=== PATIENT | female | born 1990 | race Hispanic/Latino ===

== ENCOUNTER 2023-10-04 14:32 | Emergency (ER) | payer OTHER, SELFPAY ==
[2023-10-04] VITALS (9 sets, daily range): BP systolic 123–174; BP diastolic 63–100; PULSE 96–114; RESP 13–23; TEMP 36.4; O2SAT 96–100; BMI 38.4
--- NOTE | 2023-10-04 14:47 | DI.RAD.S_ITS ---
PROCEDURE: XR CHEST 1V INDICATIONS: chest pain TECHNIQUE: One view of the chest was acquired. COMPARISON: None. FINDINGS: Surgical changes and devices: None. Lungs and pleura: An incomplete inspiratory result is noted, causing a crowded appearance to the lung markings. No focal infiltrates are seen. No pneumothorax or significant pleural effusions are seen. Mediastinum: Mediastinal contours appear normal. Heart size is normal. Bones and chest wall: No suspicious bony lesions. Overlying soft tissues appear unremarkable. IMPRESSION: Low lung volumes, without an acute abnormality seen by plain film. Dictated by: Leroy Mao M.D. on 10/04/2023 at 14:05 Approved by: Leroy Mao M.D. on 10/04/2023 at 14:06
[2023-10-04 15:14] LABS: Add Manual Diff / Slide Review NO; Basophils Absolute Auto 0 /uL (0-100); Basophils Percent Auto 0.2 % (0-2); Eosinophils Absolute Auto 100 /uL (0-450); Eosinophils Percent Auto 1.7 % (2-4); Hematocrit 32.5 % (36-46); Hemoglobin 11.6 g/dL (12.0-16.0); Lymphocytes Absolute Auto 300 /uL (1100-4500); Lymphocytes Percent Auto 11.2 % (25-40); Mean Corpuscular HGB Conc 35.7 % (30-36); Mean Corpuscular Hemoglobin 28.1 PG (26-34); Mean Corpuscular Volume 78.8 fL (80-100); Monocytes Absolute Auto 200 /uL (0-900); Monocytes Percent Auto 8.1 % (3-14); Neutrophils Absolute Auto 2400 /uL (1500-7000); Neutrophils Percent Auto 78.8 % (50-75); Platelet Count 169 X10^3/uL (150-400); Red Blood Cell Count 4.13 X10^6/uL (4.0-5.2); Red Cell Distribution Width 16.9 % (11.6-14.8); White Blood Cell Count 3.1 X10^3/uL (4.5-11.0)
--- NOTE | 2023-10-04 15:15 | ED_ITS ---
HPI - Chest Pain General Chief Complaint: Chest Pain Stated Complaint: difficulty breathing, thightness on chest Time Seen by Provider: 10/04/23 14:59 Source: patient Mode of arrival: Ambulatory Limitations: no limitations History of Present Illness HPI narrative: Patient is a 33-year-old female history of so drains, lupus Plaquenil, Raynaud's previous pericarditis with pericardial effusion presenting today with chest discomfort. She recently moved here from [place] with her who is in the [place]. She says for the last couple of days she feels like she can not take in a breath and like her chest is squeezing. It is worse when she lays flat better when she sits up. It feels similar to previous pericarditis episode. No fever or chills. Does not really hurt when she takes a deep breath but feels like can not take a deep breath She is able to pull previous records. Rheumatology note has been reviewed. She has had an elevated ESR as high as 56 in April her CRP remains at 1.0 and WBC count is around 3 which is chronic for her. She takes prednisone daily and is tapering down. Related Data Previous Rx's Medication Instructions Recorded prednisone 5 mg tablet 5 mg PO DAILY #60 tabs 10/04/23 Allergies Allergy/AdvReac Type Severity Reaction Status Date / Time No Known Drug Allergies Allergy Verified 10/04/23 14:53 Patient History Social History Smoking Status: Never smoker Smoking Status: Never smoker Substance Use Type: does not use Exam Initial Vital Signs Initial Vital Signs: Vital Signs Temperature 97.6 F 10/04/23 14:39 Pulse Rate 100 H 10/04/23 14:39 Respiratory Rate 18 10/04/23 14:39 Blood Pressure 174/100 H 10/04/23 14:39 Pulse Oximetry 100 10/04/23 14:39 Oxygen Delivery Method Room Air 10/04/23 14:39 GENERAL: Alert pleasant well-appearing 33 old female and in no acute distress. HEENT: Head atraumatic,EOMI, pupils reactive, face symmetric, moist mucous membranes CARDIOVASCULAR: Regular rate and rhythm without murmurs, rubs or gallops. RESPIRATORY: Breath sounds equal bilaterally, no wheezes rales or rhonchi. ABDOMEN: Soft, nontender. Normoactive bowel sounds all 4 quadrants. No guarding or rebound. EXTREMITIES: Normal range of motion, no clubbing or edema. Neurovascularly intact NEUROLOGICAL: Alert and oriented x4.Normal gait and speech. SKIN: Warm, dry, no laceration, no petechiae, no rashes or lesions. Scores PERC Score Age greater than or equal to 50 years: No Heart rate greater than or equal to 100 bpm: No Room Air O2 Sat less than 95%: No Unilateral leg swelling: No Recent trauma or surgery: No Hemoptysis: No Prior PE or DVT: No Hormone Use: No Total PERC Score: 0 Course Orders Ordered: ED Orders 10/04/23 14:47 XR chest 1V Stat EKG-12 Lead Stat 10/04/23 15:01 C-Reactive Protein Quant Stat Complete Blood Count AUTO DIFF Stat Comprehensive Metabolic Panel Stat ESR [Erythrocyte Sedimentation Rate] Stat Lipase Stat Magnesium Stat PTT Partial Thromboplastin Jason Stat Prothrombin Time INR Stat Troponin & CK Cardiac Panel Stat 10/04/23 15:45 Covid-19 + FLU A/B + RSV - PCR Stat Discontinued Medications Albuterol (Albuterol 2.5 Mg/3 Ml Neb (Adult)) 2.5 mg INH NOW ONE Stop: 10/04/23 15:42 Last Admin: 10/04/23 15:54 Dose: 2.5 mg Documented By: MARYANN Aspirin (Aspirin 81 Mg Chew Tab) 324 mg PO NOW ONE Stop: 10/04/23 14:48 Last Admin: 10/04/23 15:36 Dose: Not Given Documented By: RAFAT Ketorolac Tromethamine (Ketorolac 30 Mg/Ml Vial) 15 mg IV NOW ONE Stop: 10/04/23 15:42 Last Admin: 10/04/23 15:53 Dose: 15 mg Documented By: RAFAT Methylprednisolone (Methylprednisolone 125 Mg/2 Ml Vial) 125 mg IV NOW ONE Stop: 10/04/23 17:22 Last Admin: 10/04/23 17:27 Dose: 125 mg Documented By: RAFAT Vital Signs Vital signs: Vital Signs - 8 hr 10/04/23 14:39 10/04/23 15:00 10/04/23 15:04 Temperature 97.6 F Pulse Rate 100 H 100 H 98 H Respiratory Rate 18 23 Blood Pressure 174/100 H Pulse Oximetry 100 99 100 Oxygen Delivery Method Room Air Oxygen Flow Rate Fraction of Inspired Oxygen 10/04/23 15:04 10/04/23 15:30 10/04/23 15:30 Temperature Pulse Rate 99 H Respiratory Rate 16 Blood Pressure 133/76 150/68 H Pulse Oximetry 99 Oxygen Delivery Method Oxygen Flow Rate Fraction of Inspired Oxygen 10/04/23 15:54 10/04/23 16:00 10/04/23 16:00 Temperature Pulse Rate 96 H Respiratory Rate 18 13 Blood Pressure 123/63 Pulse Oximetry 99 100 Oxygen Delivery Method Room Air Oxygen Flow Rate 0 Fraction of Inspired Oxygen 21 10/04/23 16:30 10/04/23 16:30 10/04/23 17:00 Temperature Pulse Rate 110 H Respiratory Rate 16 Blood Pressure 127/75 134/79 Pulse Oximetry 96 Oxygen Delivery Method Oxygen Flow Rate Fraction of Inspired Oxygen 10/04/23 17:00 10/04/23 17:30 Temperature Pulse Rate 114 H 110 H Respiratory Rate 18 22 Blood Pressure Pulse Oximetry 97 98 Oxygen Delivery Method Oxygen Flow Rate Fraction of Inspired Oxygen MDM - Chest Pain Lab Data 10/04/23 15:01 10/04/23 15:01 Labs: Lab Results 10/04/23 10/04/23 Range/Units 15:01 15:45 WBC 3.1 L (4.5-11.0) X10^3/uL RBC 4.13 (4.0-5.2) X10^6/uL Hgb 11.6 L (12.0-16.0) g/dL Hct 32.5 L (36-46) % MCV 78.8 L (80-100) fL MCH 28.1 (26-34) PG MCHC 35.7 (30-36) % RDW 16.9 H (11.6-14.8) % Plt Count 169 (150-400) X10^3/uL Neut % (Auto) 78.8 H (50-75) % Lymph % (Auto) 11.2 L (25-40) % Ponce % (Auto) 8.1 (3-14) % Eos % (Auto) 1.7 L (2-4) % Baso % (Auto) 0.2 (0-2) % Neut # (Auto) 2400 (3893-4470) /uL Lymph # (Auto) 300 L (4793-4262) /uL Ponce # (Auto) 200 (0-900) /uL Eos # (Auto) 100 (0-450) /uL Baso # (Auto) 0 (0-100) /uL ESR 59 H (0-20) MM/HR PT 10.1 (9.4-12.5) SECONDS INR 0.9 (0.9-1.3) APTT 30 (25.1-36.5) SECONDS Sodium 138 (137-145) mmol/L Potassium 3.7 (3.4-5.1) mmol/L Chloride 107 (98-107) mmol/L Carbon Dioxide 30 (22-32) mmol/L BUN 15 (7-17) mg/dL Creatinine 0.63 (0.52-1.04) mg/dL Estimated GFR > 60 (>60) mL/min BUN/Creatinine Ratio 23.8 H (6-22) Glucose 82 (70-100) mg/dL Calcium 7.9 L (8.4-10.2) mg/dL Magnesium 1.6 (1.6-2.3) mg/dL Total Bilirubin 0.4 (0.2-1.3) mg/dL AST 32 (14-36) IU/L ALT 29 (<35) IU/L Alkaline Phosphatase 74 (38-126) U/L Total Creatine Kinase 20 L (30-135) U/L Troponin I < 0.012 (0.01-0.034) ng/mL C-Reactive Protein 1.0 (<1.0) mg/dL Total Protein 5.4 L (6.3-8.2) g/dL Albumin 2.3 L (3.5-5.0) g/dL Globulin 3.1 (1.7-4.1) g/dL Albumin/Globulin Ratio 0.7 L (1.0-2.8) Lipase 68 (23-300) U/L SARS-CoV-2 (PCR) Negative (Negative) Influenza A (RT-PCR) Flu a negative (NEGATIVE) Influenza B (RT-PCR) Flu b negative (NEGATIVE) RSV (PCR) Negative (Negative) Imaging Data Chest x-ray: Radiologist's Impression: PROCEDURE: XR CHEST 1V INDICATIONS: chest pain TECHNIQUE: One view of the chest was acquired. COMPARISON: None. FINDINGS: Surgical changes and devices: None. Lungs and pleura: An incomplete inspiratory result is noted, causing a crowded appearance to the lung markings. No focal infiltrates are seen. No pneumothorax or significant pleural effusions are seen. Mediastinum: Mediastinal contours appear normal. Heart size is normal. Bones and chest wall: No suspicious bony lesions. Overlying soft tissues appear unremarkable. IMPRESSION: Low lung volumes, without an acute abnormality seen by plain film. Dictated by: Leroy Mao M.D. on 10/04/2023 at 14:05 Approved by: Leroy Mao M.D. on 10/04/2023 at 14:06 ECG Data Interpretation: Normal sinus rhythm rate 97 AK interval 162 QRS [address] changes no AK depression no T-wave inversions no priors to compare MDM Narrative Medical decision making narrative: Patient is 73-year-old female presenting today with chest discomfort. She is significant medical history of lupus pericarditis with pericardial effusion. No fever or chills. She is not hypoxic vitals are stable. X-ray reviewed does show pneumonia Blood work reviewed: WBC count is stable at 3.1 compared to records on her phone, ESR is also stable at 59, CRP stable at 1.0, electrolytes without any abnormality creatinine function stable Patient is given Toradol and albuterol here in the ED. She actually started feeling a little bit better. Not convinced the albuterol helped her. Heart rate did increase after albuterol. Bedside ultrasound done by myself does not show any obvious pericardial effusion. I suspect that she has some sort of inflammatory process. Will increase her prednisone to see if it helps her and then to taper her back down. She does not yet primary care provider to follow-up. Pulmonary embolism considered but unlikely, low heart score Discharge Plan Departure Patient Disposition: Home Clinical Impression: Atypical chest pain Instructions: DI for Atypical Chest Pain Activity Restrictions/Additional Instructions: *You have been diagnosed with atypical *What to do: At this time I have some sort of inflammatory process happening. I do not believe it to be pericarditis. Might have some inflammation. Let us try increasing prednisone *Continue to take medications as directed Prednisone 20 mg once a day for 5 days, 15 mg a day for 5 days 10 mg once a day for 5 days and then 7 mg *Follow up with your primary care provider in 2-3 days or call [phone] *Return to ER if you should have increasing chest pain shortness of breath dizziness lightheadedness fever or any new, worsening or concerning symptoms Prescriptions: New prednisone 5 mg tablet 5 mg PO DAILY Qty: 60 0RF Rx Instructions: 20 mg once a day for 5 days, 15 mg once a day for 5 days, 10 mg once a day for 5 days Stand Alone Forms: Patient Portal/API
[2023-10-04 15:18] LABS: INR 0.9 (0.9-1.3); Prothrombin Time 10.1 SECONDS (9.4-12.5)
[2023-10-04 15:21] LABS: PTT Partial Thromboplastin Tim 30 SECONDS (25.1-36.5)
[2023-10-04 15:25] LABS: Alanine Aminotransferase 29 IU/L (<35); Albumin 2.3 g/dL (3.5-5.0); Albumin Globulin Ratio 0.7 (1.0-2.8); Alkaline Phosphatase 74 U/L (38-126); Aspartate Aminotransferase 32 IU/L (14-36); BUN Creatinine Ratio 23.8 (6-22); Bilirubin Total 0.4 mg/dL (0.2-1.3); Blood Urea Nitrogen 15 mg/dL (7-17); Calcium 7.9 mg/dL (8.4-10.2); Carbon Dioxide 30 mmol/L (22-32); Chloride 107 mmol/L (98-107); Creatine Kinase 20 U/L (30-135); Estimated Glomerular Filt Rate > 60 mL/min (>60); Globulin 3.1 g/dL (1.7-4.1); Glucose 82 mg/dL (70-100); HEMOLYSIS 16 (0-50); Lipase 68 U/L (23-300); Magnesium 1.6 mg/dL (1.6-2.3); Potassium 3.7 mmol/L (3.4-5.1); Sodium 138 mmol/L (137-145); Total Protein 5.4 g/dL (6.3-8.2)
[2023-10-04 15:32] LABS: Erythrocyte Sedimentation Rate 59 MM/HR (0-20)
[2023-10-04 15:37] LABS: Troponin I < 0.012 ng/mL (0.01-0.034)
[2023-10-04] MEDS: KETOROLAC 30 MG/ML VIAL 15 MG IV (15:53)
[2023-10-04] MEDS: ALBUTEROL 2.5 MG/3 ML NEB (ADULT) INH (15:54)
[2023-10-04 16:29] LABS: Influenza A - CEPHEID Flu A NEGATIVE (NEGATIVE); Influenza B - CEPHEID Flu B NEGATIVE (NEGATIVE); Respiratory Syncytial Virus Negative (Negative)
[2023-10-04 16:31] LABS: COVID-19 CEPHEID 4-PLEX PCR Negative (Negative)
[2023-10-04] MEDS: methylPREDNISolone 125 MG/2 ML VIAL IV (17:27)
== END 2023-10-04 17:53 | disposition home or self-care (01) ==
PROVIDERS: Emergency Provider Emergency Medicine
DX: R07.89 Other chest pain (principal); Z20.822 Contact with and (suspected) exposure to COVID-19
CPT/HCPCS: 0241U; 36415; 71045; 80053; 82550; 83690; 83735; 84484; 85025; 85610; 85651; 85730; 86140; 93005; 93010; 94640; 96374; 96375; 99284; J1885; J2930; J7613

== ENCOUNTER 2023-10-31 19:52 | Emergency (ER) | payer OTHER, SELFPAY ==
[2023-10-31] VITALS (17 sets, daily range): BP systolic 113–137; BP diastolic 54–70; PULSE 98–140; RESP 21–35; TEMP 37.6–39; O2SAT 94–98; BMI 40.6
--- NOTE | 2023-10-31 20:13 | DI.RAD.S_ITS ---
PROCEDURE: XR CHEST 1V INDICATIONS: suspected sepsis TECHNIQUE: One view of the chest was acquired. COMPARISON: [facility], CR, XR CHEST 1V, 10/04/2023, 14:51. FINDINGS: Surgical changes and devices: None. Lungs and pleura: Lungs are difficult to accurately assess due to reduced inspiratory volume that produces at least mild lung base atelectasis. Mild or early pneumonia at the lateral left lower lobe cannot be entirely excluded.. No pleural effusions or pneumothorax. Mediastinum: Mediastinal contours appear normal. Heart size is normal. Bones and chest wall: No suspicious bony lesions. Overlying soft tissues appear unremarkable. IMPRESSION: A definite consolidative pneumonia is not seen but there is prominent reduced inspiratory volume and at least mild left lower lobe atelectasis if not early inflammation in that area. Dictated by: Albaro Aguilar M.D. on 10/31/2023 at 21:35 Approved by: Albaro Aguilar M.D. on 10/31/2023 at 21:36
[2023-10-31] MEDS: IBUPROFEN 400 MG TABLET 800 MG PO (20:21)
[2023-10-31] MEDS: ACETAMINOPHEN 325 MG TABLET 975 MG PO (20:22)
[2023-10-31] MEDS: SODIUM CHLORIDE 0.9% 1,000 ML 1000 ML IV ×3 (20:40→22:26)
[2023-10-31] MEDS: ONDANSETRON 4 MG/2 ML INJ IV (20:40)
[2023-10-31 20:46] LABS: Add Manual Diff / Slide Review NO; Basophils Absolute Auto 0 /uL (0-100); Basophils Percent Auto 0.2 % (0-2); Eosinophils Absolute Auto 0 /uL (0-450); Hematocrit 33.8 % (36-46); Hemoglobin 11.5 g/dL (12.0-16.0); Lymphocytes Absolute Auto 400 /uL (1100-4500); Lymphocytes Percent Auto 5.6 % (25-40); Mean Corpuscular HGB Conc 34.1 % (30-36); Mean Corpuscular Hemoglobin 27.3 PG (26-34); Mean Corpuscular Volume 79.9 fL (80-100); Monocytes Absolute Auto 400 /uL (0-900); Monocytes Percent Auto 6.4 % (3-14); Neutrophils Absolute Auto 5600 /uL (1500-7000); Neutrophils Percent Auto 87.8 % (50-75); Platelet Count 190 X10^3/uL (150-400); Red Blood Cell Count 4.23 X10^6/uL (4.0-5.2); Red Cell Distribution Width 16.1 % (11.6-14.8); White Blood Cell Count 6.3 X10^3/uL (4.5-11.0)
--- NOTE | 2023-10-31 20:47 | PC.NURSE ---
Pt reports hx of pericardial effusion in 2021. Pt reporting pain to left upper abdomen/left chest that has been present for about one month.
--- NOTE | 2023-10-31 20:50 | PC.NURSE ---
Pt reports starting her menstrual cycle today.
[2023-10-31 20:59] LABS: Prothrombin Time 11.8 SECONDS (9.4-12.5)
[2023-10-31 21:02] LABS: PTT Partial Thromboplastin Tim 31 SECONDS (25.1-36.5)
[2023-10-31 21:03] LABS: Lactate (Lactic Acid) 0.8 mmol/L (0.7-2.1)
[2023-10-31 21:05] LABS: Alanine Aminotransferase 14 IU/L (<35); Albumin 2.4 g/dL (3.5-5.0); Albumin Globulin Ratio 0.8 (1.0-2.8); Alkaline Phosphatase 72 U/L (38-126); Aspartate Aminotransferase 25 IU/L (14-36); Bilirubin Total 0.5 mg/dL (0.2-1.3); Blood Urea Nitrogen 19 mg/dL (7-17); Calcium 7.5 mg/dL (8.4-10.2); Carbon Dioxide 23 mmol/L (22-32); Chloride 103 mmol/L (98-107); Estimated Glomerular Filt Rate > 60 mL/min (>60); Globulin 3.2 g/dL (1.7-4.1); Glucose 82 mg/dL (70-100); HEMOLYSIS 16 (0-50); Lipase 28 U/L (23-300); Potassium 4.3 mmol/L (3.4-5.1); Sodium 130 mmol/L (137-145); Total Protein 5.6 g/dL (6.3-8.2)
[2023-10-31 21:18] LABS: Influenza A - CEPHEID Flu A NEGATIVE (NEGATIVE); Influenza B - CEPHEID Flu B NEGATIVE (NEGATIVE); Respiratory Syncytial Virus Negative (Negative)
[2023-10-31 21:21] LABS: Procalcitonin 0.12 ng/mL (<0.5)
[2023-10-31 21:31] LABS: COVID-19 CEPHEID 4-PLEX PCR Negative (Negative)
--- NOTE | 2023-10-31 22:10 | ED_ITS ---
HPI - Chest Pain General Chief Complaint: Fever Stated Complaint: bloating, body aches, chest pressure Time Seen by Provider: 10/31/23 20:24 Source: patient Mode of arrival: Ambulatory Limitations: no limitations History of Present Illness HPI narrative: Patient 33-year-old female history of Sjogren's, lupus, Raynaud's with remote history of pericardial effusion presenting today with fever left upper quadrant pain and chest pain. She reports that she did not quite feel well yesterday not sure that she had a fever. However today she presents with a fever 102.2 and a heart rate of 140. She is normotensive. She has had some nausea vomiting and diarrhea. With some left upper quadrant pain. She is able to lay flat but is slightly uncomfortable it is better when she sits up. No significant cough. No painful frequent urination. No back pain. She was seen and evaluated by myself last month and diagnosed with pneumonia. She has not yet established care recently moved here from [place] has been in . Related Data Previous Rx's Medication Instructions Recorded prednisone 5 mg tablet 5 mg PO DAILY #60 tabs 10/04/23 prednisone 5 mg tablet 5 mg PO DAILY #100 tabs 11/01/23 Allergies Allergy/AdvReac Type Severity Reaction Status Date / Time No Known Drug Allergies Allergy Verified 10/31/23 20:11 Patient History Social History Smoking Status: Never smoker Smoking Status: Never smoker Substance Use Type: does not use Exam Initial Vital Signs Initial Vital Signs: Vital Signs Temperature 102.2 F H 10/31/23 19:54 Pulse Rate 140 H 10/31/23 19:54 Respiratory Rate 22 10/31/23 19:54 Blood Pressure 137/60 10/31/23 19:54 Pulse Oximetry 98 10/31/23 19:54 Oxygen Delivery Method Room Air 10/31/23 19:54 GENERAL: Alert 33-year-old female appears to not feel well HEENT: Head atraumatic,EOMI, pupils reactive, face symmetric, moist mucous membranes CARDIOVASCULAR: Tachycardic regular no murmurs RESPIRATORY: Breath sounds equal bilaterally, no wheezes rales or rhonchi. ABDOMEN: Soft, mild left upper quadrant pain no guarding no rebound EXTREMITIES: Normal range of motion, no clubbing or edema. Neurovascularly intact NEUROLOGICAL: Alert and oriented x4.Normal gait and speech. SKIN: Warm, dry, no laceration, no petechiae, no rashes or lesions. Course Orders Ordered: ED Orders 10/31/23 20:13 XR chest 1V Stat EKG-12 Lead Stat RT Consult Eval and Treat NOW 10/31/23 20:27 Covid-19 + FLU A/B + RSV - PCR Stat 10/31/23 20:34 Blood Culture Stat 10/31/23 20:36 CRP [C-Reactive Protein Quant] Stat Complete Blood Count AUTO DIFF Stat Comprehensive Metabolic Panel Stat D Dimer Stat ESR [Erythrocyte Sedimentation Rate] Stat Lactate (Lactic Acid) Stat Lipase Stat PTT Partial Thromboplastin Jason Stat Procalcitonin Stat Prothrombin Time INR Stat 10/31/23 21:17 Urine Culture Stat Urine Microscopic Stat 10/31/23 23:05 CT angio chest PE protocol Stat Discontinued Medications Acetaminophen (Acetaminophen 325 Mg Tablet) 975 mg PO NOW ONE Stop: 10/31/23 20:15 Last Admin: 10/31/23 20:22 Dose: 975 mg Documented By: SB Sodium Chloride (Normal Saline 0.9%) 1,000 mls @ 1,000 mls/hr IV BOLUS ONE Stop: 10/31/23 21:12 Last Infusion: 10/31/23 21:48 Dose: Infused Documented By: SB(2) Admin: 10/31/23 20:40 Dose: 1,000 mls/hr Documented By: SB Sodium Chloride (Normal Saline 0.9%) 1,000 mls @ 1,000 mls/hr IV BOLUS ONE Stop: 10/31/23 22:11 Last Infusion: 10/31/23 22:20 Dose: Infused Documented By: SB(2) Admin: 10/31/23 21:19 Dose: 1,000 mls/hr Documented By: SB(2) Sodium Chloride (Normal Saline 0.9%) 1,000 mls @ 1,000 mls/hr IV BOLUS ONE Stop: 10/31/23 23:17 Last Infusion: 10/31/23 23:49 Dose: Infused Documented By: Admin: 10/31/23 22:26 Dose: 1,000 mls/hr Documented By: SB(2) Ibuprofen (Ibuprofen 400 Mg Tablet) 800 mg PO NOW ONE Stop: 10/31/23 20:15 Last Admin: 10/31/23 20:21 Dose: 800 mg Documented By: MAHAD Ketorolac Tromethamine (Ketorolac 30 Mg/Ml Vial) 15 mg IV NOW ONE Stop: 10/31/23 22:19 Last Admin: 10/31/23 22:25 Dose: Not Given Documented By: MAHAD(2) Methylprednisolone (Methylprednisolone 125 Mg/2 Ml Vial) 125 mg IV NOW ONE Stop: 11/01/23 00:42 Last Admin: 11/01/23 00:48 Dose: 125 mg Ondansetron HCl (Ondansetron 4 Mg/2 Ml Inj) 4 mg IV NOW PRN PRN Reason: Nausea And Vomiting Last Admin: 10/31/23 20:40 Dose: 4 mg Documented By: MAHAD Ondansetron HCl (Ondansetron 4 Mg Odt) 4 mg SL NOW PRN PRN Reason: Nausea And Vomiting Vital Signs Vital signs: Vital Signs - 8 hr 10/31/23 20:35 10/31/23 21:00 10/31/23 21:00 Temperature Pulse Rate 133 H 122 H Respiratory Rate 28 H 28 H Blood Pressure 131/59 L Pulse Oximetry 95 Oxygen Delivery Method Room Air 10/31/23 21:14 10/31/23 21:14 10/31/23 21:15 Temperature Pulse Rate 123 H Respiratory Rate Blood Pressure 113/56 L 114/54 L Pulse Oximetry 97 Oxygen Delivery Method 10/31/23 21:15 10/31/23 21:20 10/31/23 21:20 Temperature 99.6 F 99.6 F Pulse Rate 123 H Respiratory Rate Blood Pressure Pulse Oximetry 97 Oxygen Delivery Method 10/31/23 21:30 10/31/23 21:30 10/31/23 21:45 Temperature Pulse Rate 110 H Respiratory Rate Blood Pressure 122/57 L 128/64 Pulse Oximetry 94 Oxygen Delivery Method 10/31/23 21:45 10/31/23 22:00 10/31/23 22:00 Temperature Pulse Rate 109 H 109 H Respiratory Rate Blood Pressure 128/60 Pulse Oximetry 95 96 Oxygen Delivery Method Room Air 10/31/23 22:15 10/31/23 22:15 10/31/23 22:30 Temperature Pulse Rate 116 H Respiratory Rate Blood Pressure 125/55 L 126/66 Pulse Oximetry 97 Oxygen Delivery Method 10/31/23 22:30 10/31/23 22:45 10/31/23 22:45 Temperature Pulse Rate 106 H Respiratory Rate Blood Pressure 129/63 129/63 Pulse Oximetry 94 Oxygen Delivery Method 10/31/23 22:45 10/31/23 23:00 10/31/23 23:00 Temperature Pulse Rate 100 H 99 H Respiratory Rate 26 H 25 H Blood Pressure 122/60 Pulse Oximetry 95 95 Oxygen Delivery Method Room Air Room Air 10/31/23 23:15 10/31/23 23:15 10/31/23 23:32 Temperature Pulse Rate 98 H 105 H Respiratory Rate 21 Blood Pressure 120/57 L Pulse Oximetry 95 Oxygen Delivery Method Room Air 10/31/23 23:33 10/31/23 23:33 10/31/23 23:45 Temperature Pulse Rate 104 H 100 H Respiratory Rate 30 H 35 H Blood Pressure 114/70 Pulse Oximetry 97 Oxygen Delivery Method Room Air 10/31/23 23:45 11/01/23 00:00 11/01/23 00:00 Temperature Pulse Rate 101 H Respiratory Rate 36 H Blood Pressure 127/70 126/77 Pulse Oximetry 97 Oxygen Delivery Method 11/01/23 00:16 11/01/23 00:16 11/01/23 00:30 Temperature Pulse Rate 94 H Respiratory Rate 25 H Blood Pressure 130/77 121/66 Pulse Oximetry 97 Oxygen Delivery Method Room Air 11/01/23 00:30 11/01/23 00:45 11/01/23 00:45 Temperature Pulse Rate 96 H 90 Respiratory Rate 22 22 Blood Pressure 112/55 L Pulse Oximetry 89 L 94 Oxygen Delivery Method Room Air 11/01/23 00:51 11/01/23 00:51 Temperature 98.0 F Pulse Rate 91 H Respiratory Rate 24 Blood Pressure 123/76 Pulse Oximetry 96 Oxygen Delivery Method MDM - Chest Pain Lab Data 10/31/23 20:36 10/31/23 20:36 Labs: Lab Results 10/31/23 10/31/23 10/31/23 Range/Units 20:27 20:36 21:17 WBC 6.3 (4.5-11.0) X10^3/uL RBC 4.23 (4.0-5.2) X10^6/uL Hgb 11.5 L (12.0-16.0) g/dL Hct 33.8 L (36-46) % MCV 79.9 L (80-100) fL MCH 27.3 (26-34) PG MCHC 34.1 (30-36) % RDW 16.1 H (11.6-14.8) % Plt Count 190 (150-400) X10^3/uL Neut % (Auto) 87.8 H (50-75) % Lymph % (Auto) 5.6 L (25-40) % Bell % (Auto) 6.4 (3-14) % Eos % (Auto) 0.0 L (2-4) % Baso % (Auto) 0.2 (0-2) % Neut # (Auto) 5600 (7790-3619) /uL Lymph # (Auto) 400 L (9233-1037) /uL Bell # (Auto) 400 (0-900) /uL Eos # (Auto) 0 (0-450) /uL Baso # (Auto) 0 (0-100) /uL ESR 84 H (0-20) MM/HR PT 11.8 (9.4-12.5) SECONDS INR 1.0 (0.9-1.3) APTT 31 (25.1-36.5) SECONDS D-Dimer 3505 H (<500) ng/ml Sodium 130 L (137-145) mmol/L Potassium 4.3 (3.4-5.1) mmol/L Chloride 103 (98-107) mmol/L Carbon Dioxide 23 (22-32) mmol/L BUN 19 H (7-17) mg/dL Creatinine 0.95 (0.52-1.04) mg/dL Estimated GFR > 60 (>60) mL/min BUN/Creatinine Ratio 20.0 (6-22) Glucose 82 (70-100) mg/dL Lactate 0.8 (0.7-2.1) mmol/L Calcium 7.5 L (8.4-10.2) mg/dL Total Bilirubin 0.5 (0.2-1.3) mg/dL AST 25 (14-36) IU/L ALT 14 (<35) IU/L Alkaline Phosphatase 72 (38-126) U/L C-Reactive Protein 3.3 H (<1.0) mg/dL Total Protein 5.6 L (6.3-8.2) g/dL Albumin 2.4 L (3.5-5.0) g/dL Globulin 3.2 (1.7-4.1) g/dL Albumin/Globulin Ratio 0.8 L (1.0-2.8) Lipase 28 (23-300) U/L Procalcitonin 0.12 (<0.5) ng/mL Urine RBC 5-10/hpf H (0-5/HPF) Urine WBC 5-10/hpf H (0-5/HPF) Ur Squamous Epith Cells 1-5 /hpf (0-5/HPF) Urine Bacteria Moderate (10-30) H (None) Ur Culture Indicated? Specimen cultured SARS-CoV-2 (PCR) Negative (Negative) Influenza A (RT-PCR) Flu a negative (NEGATIVE) Influenza B (RT-PCR) Flu b negative (NEGATIVE) RSV (PCR) Negative (Negative) Point of Care Testing Test Results Negative Urine Dip Bedside Urine Glucose Negative Bedside Urine Bilirubin - Negative Bedside Urine Ketone - Negative Urine Specific [place] 1.020 Bedside Urine Occult Blood +++ Bedside Urine pH 6.0 Bedside Urine Protein +++ 300 Bedside Urine Urobilinogen - Negative Bedside Urine Nitrite - Negative Bedside Urine Leukocytes +/- 15 Esterase Imaging Data Chest x-ray: Radiologist's Impression: PROCEDURE: XR CHEST 1V INDICATIONS: suspected sepsis TECHNIQUE: One view of the chest was acquired. COMPARISON: [facility], , XR CHEST 1V, 10/04/2023, 14:51. FINDINGS: Surgical changes and devices: None. Lungs and pleura: Lungs are difficult to accurately assess due to reduced inspiratory volume that produces at least mild lung base atelectasis. Mild or early pneumonia at the lateral left lower lobe cannot be entirely excluded.. No pleural effusions or pneumothorax. Mediastinum: Mediastinal contours appear normal. Heart size is normal. Bones and chest wall: No suspicious bony lesions. Overlying soft tissues appear unremarkable. IMPRESSION: A definite consolidative pneumonia is not seen but there is prominent reduced inspiratory volume and at least mild left lower lobe atelectasis if not early inflammation in that area. Dictated by: Albaro Aguilar M.D. on 10/31/2023 at 21:35 Approved by: Albaro Aguilar M.D. on 10/31/2023 at 21:36 CT scan - chest: Radiologist's Impression: PROCEDURE: CT ANGIO CHEST PE PROTOCOL INDICATIONS: very high dimer hypoxia and lupus, Left sided pain TECHNIQUE: After the administration of intravenous contrast, 2 mm thick sections acquired from the pulmonary apices to the posterior costophrenic angles. 3-dimensional maximum intensity projection (MIP) coronal and sagittal reformats were then acquired through the thorax. For radiation dose reduction, the following was used: automated exposure control, adjustment of mA and/or kV according to patient size. COMPARISON: None. FINDINGS: Image quality: Diagnostic. Pulmonary arteries: Pulmonary arteries are normal in size, and demonstrate no intraluminal filling defects to suggest central pulmonary embolism. Lower Neck: No enlarged lymph nodes. Thyroid: No thyroid nodules which require sonographic follow up, per consensus guidelines. Axillae: No enlarged lymph nodes. Chest Wall: Unremarkable. Bones: Unremarkable. Lungs and Pleura: No pneumothorax or pleural effusions. No consolidation or suspicious nodules. There does appear to be bilateral mild atelectasis. Heart: Heart size is normal. Definite small to moderate pericardial effusion measuring up to 1.8 cm in maximal transverse dimension. Thoracic Vessels: No aortic aneurysm. Mediastinum and Nereida: No enlarged lymph nodes. Esophagus: No wall thickening. No hiatal hernia. Upper Abdomen: Visualized upper abdomen solid organs and bowel loops appear normal. IMPRESSION: No pulmonary embolus. Small to moderate pericardial effusion measuring up to 1.8 cm in maximal thickness. Mild bilateral atelectasis posteriorly. Dictated by: Albaro Aguilar M.D. on 10/31/2023 at 23:48 ECG Data Interpretation: Sinus tachycardia rate 130 WI interval 134 QRS 60 QTC [address] changes no electrical trans MDM Narrative Medical decision making narrative: Patient 33-year-old female history of lupus Sjogren's and Raynaud's with pericardial effusion presents today with sepsis. She is tachycardic heart rate 140 temperature 102?. She is having some left-sided chest pain and abdominal pain. Blood work has been reviewed no leukocytosis or anemia, electrolytes stable, lactate 0.8, procalcitonin to CRP is elevated today 3 point previously 1.0, ESR elevated today 84, previously 59, D-dimer elevated 3505 Imaging reviewed chest x-ray is negative, CT does show small to moderate pericardial effusion maximal thickness 1.8 cm Patient presents today sepsis tachycardic elevated temperature 102?. Vitals improved with Tylenol Motrin and fluids. She received 3 L of fluid overall doing much better. I suspect that ESR CRP are elevated secondary to inflammatory response. She has a negative troponin no concern for myocarditis. Dimer elevated CT does show small to moderate pericardial effusion without septal deviation or electric all trans on EKG. Difficult to tell if this new vs old pericardial effusion. She is having some left-sided pain I think it is new reaccumulation but a small amount. I think it is likely reactive rather than infectious. At this time I do not see need for antibiotics. 12:30 Dr. Johnson on-call cardiology updated on patient's symptoms history and test results. Does not think it is unreasonable to keep her for an echo although she was going to be supportive care. 12:35 Dr. Monroy on-call hospitalist updated patient's symptoms cardiology recommendations, states that is unlikely the fluid needs to be drained supportive care only likely viral does not need to be admitted. Recommends increasing prednisone Long discussion with family patient and . They report that he is supposed to travel to [place] tomorrow has been is to be deployed for a month. All of her providers are in [place]. She is overall feeling better vitals have improved. They are given copies of lab reports and imaging. She is feeling better. Seems reasonable to increase prednisone and discharged. qSOFA (Quick SOFA) Score for Sepsis from [email or web address] on 11/01/2023 All calculations should be rechecked by clinician prior to use RESULT SUMMARY: 1 points qSOFA Score Not high risk If sepsis is still suspected, continue to monitor, evaluate, and initiate treatment as appropriate, including serial qSOFA assessments. INPUTS: Altered mental status ?> 0 = No Respiratory rate >=2 ?> 1 = Yes Systolic BP <=00 ?> 0 = No Discharge Plan Departure Patient Disposition: Home Clinical Impression: Viral illness, Pericardial effusion without cardiac tamponade Instructions: Cardiac Tamponade, DI for Viral Syndrome Activity Restrictions/Additional Instructions: *You have been diagnosed with viral illness pericardial effusion *What to do: At this time you are negative for influenza COVID and RSV however you likely have another viral illness. CT today does show small to moderate pericardial effusion. At this time you do need an echocardiogram need to be monitored. Please call your providers in [place] while you are there for close follow-up *Continue to take medications as directed Prednisone 40 mg once a day for 3 days, 30 mg once a day for 3 days, 20 mg once a day for 3 days and 10 mg once a day for 3 days then resume your regular does *Follow up with your primary care provider in 2-3 days or call [phone] *Return to ER if you should have increasing chest pain shortness of breath dizziness lightheadedness [or] any new, worsening or concerning symptoms Prescriptions: New prednisone 5 mg tablet 5 mg PO DAILY Qty: 100 0RF Rx Instructions: 40 mg once a day for 3 days, 30 mg once a day for 3 days, 20 mg once a day for 3 days, 10 mg once a day for 3 days, 5 mg once a day No Action prednisone 5 mg tablet 5 mg PO DAILY Qty: 60 0RF Rx Instructions: 20 mg once a day for 5 days, 15 mg once a day for 5 days, 10 mg once a day for 5 days Referrals: Miscellaneous,Doctor, MD [Primary Care Provider] - Stand Alone Forms: Patient Portal/API
[2023-10-31 22:28] LABS: Bacteria Urine Moderate (10-30); Culture Indicated Urine Specimen Cultured; RBC Urine 5-10/HPF (0-5/HPF); Squamous Epithelial Cell Urine 1-5 /HPF (0-5/HPF); WBC Urine 5-10/HPF (0-5/HPF)
[2023-10-31 22:33] LABS: C-Reactive Protein Quant 3.3 mg/dL (<1.0)
[2023-10-31 22:35] LABS: D Dimer 3505 ng/ml (<500)
[2023-10-31 22:42] LABS: Erythrocyte Sedimentation Rate 84 MM/HR (0-20)
--- NOTE | 2023-10-31 23:05 | DI.CT.S_ITS ---
PROCEDURE: CT ANGIO CHEST PE PROTOCOL INDICATIONS: very high dimer hypoxia and lupus, Left sided pain TECHNIQUE: After the administration of intravenous contrast, 2 mm thick sections acquired from the pulmonary apices to the posterior costophrenic angles. 3-dimensional maximum intensity projection (MIP) coronal and sagittal reformats were then acquired through the thorax. For radiation dose reduction, the following was used: automated exposure control, adjustment of mA and/or kV according to patient size. COMPARISON: None. FINDINGS: Image quality: Diagnostic. Pulmonary arteries: Pulmonary arteries are normal in size, and demonstrate no intraluminal filling defects to suggest central pulmonary embolism. Lower Neck: No enlarged lymph nodes. Thyroid: No thyroid nodules which require sonographic follow up, per consensus guidelines. Axillae: No enlarged lymph nodes. Chest Wall: Unremarkable. Bones: Unremarkable. Lungs and Pleura: No pneumothorax or pleural effusions. No consolidation or suspicious nodules. There does appear to be bilateral mild atelectasis. Heart: Heart size is normal. Definite small to moderate pericardial effusion measuring up to 1.8 cm in maximal transverse dimension. Thoracic Vessels: No aortic aneurysm. Mediastinum and Nereida: No enlarged lymph nodes. Esophagus: No wall thickening. No hiatal hernia. Upper Abdomen: Visualized upper abdomen solid organs and bowel loops appear normal. IMPRESSION: No pulmonary embolus. Small to moderate pericardial effusion measuring up to 1.8 cm in maximal thickness. Mild bilateral atelectasis posteriorly. Dictated by: Albaro Aguilar M.D. on 10/31/2023 at 23:48 Approved by: Albaro Aguilar M.D. on 10/31/2023 at 23:51
[2023-11-01] VITALS: BP 126/77; PULSE 101; RESP 36; O2SAT 97
[2023-11-01 00:16] VITALS: BP 130/77; PULSE 94; RESP 25; O2SAT 97
[2023-11-01 00:30] VITALS: BP 121/66; PULSE 96; RESP 22; O2SAT 89
[2023-11-01 00:45] VITALS: BP 112/55; PULSE 90; RESP 22; O2SAT 94
[2023-11-01] MEDS: methylPREDNISolone 125 MG/2 ML VIAL IV (00:48)
[2023-11-01 00:51] VITALS: BP 123/76; PULSE 91; RESP 24; TEMP 36.7; O2SAT 96
== END 2023-11-01 01:07 | disposition home or self-care (01) ==
PROVIDERS: Emergency Provider Emergency Medicine
DX: I31.39 Other pericardial effusion (noninflammatory) (principal); B34.9 Viral infection, unspecified; R10.12 Left upper quadrant pain; R50.9 Fever, unspecified; Z20.822 Contact with and (suspected) exposure to COVID-19
CPT/HCPCS: 0241U; 36415; 71045; 71275; 80053; 81003; 81015; 81025; 83605; 83690; 84145; 85025; 85379; 85610; 85651; 85730; 86140; 87040; 87086; 93005; 93010; 96361; 96374; 96375; 99284; J2405; J2930; Q9967

== ENCOUNTER 2024-10-29 16:31 | Emergency (ER) | payer BC, OTHER, SELFPAY ==
[2024-10-29 16:59] VITALS: BP 168/93; PULSE 114; RESP 16; TEMP 37.6; O2SAT 99; BMI 40.8
[2024-10-29 18:35] LABS: RBC Urine 5-10/HPF (0-5/HPF); Urine Volume 10mL (spun); WBC Urine None Seen (0-5/HPF)
[2024-10-29 18:36] LABS: Amorphous Sediment Urine 1+; Bacteria Urine Few (2-10); Culture Indicated Urine Cult Not Indicated; Squamous Epithelial Cell Urine 0-1 /HPF (0-5/HPF)
--- NOTE | 2024-10-29 19:34 | ED.GENADULT ---
HPI - General Adult General Chief complaint: Abdominal Pain Stated complaint: abd and back px, vomiting Time Seen by Provider: 10/29/24 18:11 Source: patient Mode of arrival: Family Vehicle History of Present Illness HPI narrative: 34-year-old female. History of rheumatoid arthritis. Is on medications for this. Is here for evaluation of was initially describes as right-sided abdominal pain but she states is more generalized abdominal pain/upper abdominal pain and back pain. She has had symptoms like this in the past. They have been intermittent. Her current symptoms has been present for over 24 hours. No vomiting. No change in bowel habits. No urinary symptoms. No prior abdominal surgeries. She states she has been evaluated for this in the past. She was not remember she was ever had a CT scan in the past. Related Data Previous Rx's Medication Instructions Recorded prednisone 5 mg tablet 5 mg PO DAILY #60 tabs 10/04/23 prednisone 5 mg tablet 5 mg PO DAILY #100 tabs 11/01/23 Allergies Allergy/AdvReac Type Severity Reaction Status Date / Time No Known Drug Allergies Allergy Verified 10/31/23 20:11 Review of Systems Review of Systems ROS Unobtainable: All systems reviewed & are unremarkable except as noted in HPI and below Patient History Social History Smoking Status: Never smoker Smoking Status: Never smoker Exam Initial Vital Signs Initial Vital Signs: Vital Signs Temperature 99.7 F H 10/29/24 16:59 Pulse Rate 114 H 10/29/24 16:59 Respiratory Rate 16 10/29/24 16:59 Blood Pressure 168/93 H 10/29/24 16:59 Pulse Oximetry 99 10/29/24 16:59 Oxygen Delivery Method Room Air 10/29/24 16:59 Const General: cooperative, comfortable and No ill appearing HENMT Head: normal to inspection and normocephalic Resp Effort & Inspection: normal respiratory effort Auscultation: clear to auscultation bilaterally Cardio Rate: tachycardic Rhythm: regular rhythm GI Inspection: non-distended Palpation: soft, No firm, No guarding, No rigid and tender Skin General: no rashes or lesions noted Neuro General: patient alert, patient awake and moves all extremities Extrem General: capillary refill normal Course Orders Ordered: ED Orders 10/29/24 17:22 Urine Culture Stat Urine Microscopic Stat 10/29/24 19:35 CT abdomen pelvis w con Stat 10/29/24 19:47 Complete Blood Count AUTO DIFF Stat Comprehensive Metabolic Panel Stat Lipase Stat Discontinued Medications Ketorolac Tromethamine (Ketorolac 30 Mg/Ml Vial) 15 mg IV NOW ONE Stop: 10/29/24 21:38 Last Admin: 10/29/24 21:44 Dose: 15 mg Documented By: GITA Ondansetron HCl (Ondansetron 4 Mg/2 Ml Inj) 4 mg IV NOW PRN PRN Reason: Nausea And Vomiting Ondansetron HCl (Ondansetron 4 Mg Odt) 4 mg PO NOW PRN PRN Reason: Nausea And Vomiting Ondansetron HCl (Ondansetron 4 Mg Odt Prepack) 1 bottle MISC DIRECTED ONE Stop: 10/29/24 21:38 Last Admin: 10/29/24 21:44 Dose: 1 bottle Documented By: GITA Vital Signs Vital signs: Vital Signs - 8 hr 10/29/24 16:59 10/29/24 22:04 Temperature 99.7 F H 99.8 F H Pulse Rate 114 H 118 H Respiratory Rate 16 18 Blood Pressure 168/93 H 171/91 H Pulse Oximetry 99 100 Oxygen Delivery Method Room Air Room Air Medical Decision Making Lab Data Lab results reviewed: Yes I reviewed the patient's lab results. 10/29/24 19:47 10/29/24 19:47 Labs: Lab Results 10/29/24 10/29/24 Range/Units 17:22 19:47 WBC 6.6 (4.5-11.0) X10^3/uL RBC 4.44 (4.0-5.2) X10^6/uL Hgb 12.0 (12.0-16.0) g/dL Hct 35.1 L (36-46) % MCV 79.2 L (80-100) fL MCH 27.1 (26-34) PG MCHC 34.3 (30-36) % RDW 14.7 (11.6-14.8) % Plt Count 227 (150-400) X10^3/uL Neut % (Auto) 86.1 H (50-75) % Lymph % (Auto) 5.4 L (25-40) % [place] % (Auto) 7.8 (3-14) % Eos % (Auto) 0.3 L (2-4) % Baso % (Auto) 0.4 (0-2) % Neut # (Auto) 5700 (6451-8045) /uL Lymph # (Auto) 400 L (3554-8631) /uL [place] # (Auto) 500 (0-900) /uL Eos # (Auto) 0 (0-450) /uL Baso # (Auto) 0 (0-100) /uL Sodium 136 L (137-145) mmol/L Potassium 4.3 (3.4-5.1) mmol/L Chloride 108 H (98-107) mmol/L Carbon Dioxide 24 (22-32) mmol/L BUN 18 H (7-17) mg/dL Creatinine 1.30 H (0.52-1.04) mg/dL Estimated GFR 55 L (>60) mL/min BUN/Creatinine Ratio 13.8 (6-22) Glucose 97 (70-100) mg/dL Calcium 8.6 (8.4-10.2) mg/dL Total Bilirubin 0.4 (0.2-1.3) mg/dL AST 32 (14-36) IU/L ALT 23 (<35) IU/L Alkaline Phosphatase 77 (38-126) U/L Total Protein 6.6 (6.3-8.2) g/dL Albumin 3.6 (3.5-5.0) g/dL Globulin 3.0 (1.7-4.1) g/dL Albumin/Globulin Ratio 1.2 (1.0-2.8) Lipase 25 (23-300) U/L Urine RBC 5-10/hpf H (0-5/HPF) Urine WBC None seen (0-5/HPF) Ur Squamous Epith Cells 0-1 /hpf (0-5/HPF) Amorphous Sediment 1+ Urine Bacteria Few (2-10) H (None) Ur Culture Indicated? Cult not indicated Vol Urine Centrifuged 10ml (spun) Point of Care Testing Test Results Negative Urine Dip Bedside Urine Glucose Negative Bedside Urine Bilirubin - Negative Bedside Urine Ketone - Negative Urine Specific [place] 1.015 Bedside Urine Occult Blood ++ Bedside Urine pH 6.5 Bedside Urine Protein +++ 300 Bedside Urine Urobilinogen - Negative Bedside Urine Nitrite - Negative Bedside Urine Leukocytes - Negative Esterase Point of care testing: Point of Care Testing Test Results Negative Urine Dip Bedside Urine Glucose Negative Bedside Urine Bilirubin - Negative Bedside Urine Ketone - Negative Urine Specific [place] 1.015 Bedside Urine Occult Blood ++ Bedside Urine pH 6.5 Bedside Urine Protein +++ 300 Bedside Urine Urobilinogen - Negative Bedside Urine Nitrite - Negative Bedside Urine Leukocytes - Negative Esterase Imaging Data CT scan - abdomen/pelvis: Radiologist's Impression: PROCEDURE: CT ABDOMEN PELVIS W CON INDICATIONS: RLQ abd pain TECHNIQUE: After the administration of intravenous contrast, axial sections acquired from the lung bases to the pubic symphysis. Coronal and sagittal reformats were performed. For radiation dose reduction, the following was used: automated exposure control, adjustment of mA and/or kV according to patient size. COMPARISON: None. FINDINGS: Image quality: Diagnostic Lower chest: Unremarkable lung bases Normal heart size. Liver: Unremarkable Gallbladder and biliary system: Unremarkable, nondilated Pancreas: No ductal dilation Spleen: Borderline enlarged at 13 to 14 cm. Adrenals: No discrete nodules Kidneys: Moderate to severe enlargement of the right kidney, with moderate hydronephrosis and urothelial wall thickening there is no significant obstructing calcified stone. Ureter wall thickening particularly noted in the mid aspect. The left kidney and left ureter are unremarkable. Vessels and lymph nodes: There are enlarged right pelvic and retroperitoneal lymph nodes, for example right common iliac measures 1 cm in short axis. Main portal vein appears patent. No abdominal aortic aneurysm. Bowel and peritoneum: No small bowel obstruction. No pathologic ascites. There are few colonic diverticula. The appendix appears nondilated. The tip is surrounded by inflammatory changes, located near the ureter. Body wall: Unremarkable Pelvis: Bladder appears unremarkable. Reproductive organs are unremarkable on limited CT assessment. Bones: Unremarkable IMPRESSION: Moderate to severe enlargement of the right kidney with urothelial wall thickening and surrounding inflammatory fat stranding. Ureter wall thickening particularly noted at the mid aspect. There is no obstructing calcified stone. The degree of edema is out of proportion for a recently passed stone. Correlate urinalysis or pyelonephritis. Differential also includes narrowing at the distal ureter or UVJ. Mildly enlarged right pelvic and retroperitoneal lymph nodes are present, possibly reactive. Short interval imaging follow-up is recommended to ensure resolution. Urologic follow-up is recommended if persistent. Borderline enlarged spleen. Other findings above. MDM Narrative Medical decision making narrative: Patient was have benign abdominal exam. Urinalysis is not consistent with a UTI. CT scan does show right-sided hydro nephrosis and also right-sided hydroureter but no definite ureteral stone. Patient was never had a ureteral stone. We did discuss the possibility of a recently passed stone. Rest of her CT scan is unremarkable. I do not think that she was pyelonephritis. A urine culture was pending at the time of her discharge and she understands that we will contact her if we need to start her on antibiotics based on this. I did recommend that she follow-up with a urologist. She was given information for this. No indication for emergent surgical consultation. No indication for antibiotics currently. She was given return precautions and follow-up instructions. She expressed understanding and agreement. Discharge Plan Departure Patient Disposition: Home Clinical Impression: Hydronephrosis, Abdominal pain Instructions: DI for Abdominal Pain-Adult Activity Restrictions/Additional Instructions: I do recommend that you consider taking a laxative to help with establishing a regular bowel regimen. On Thursday you do need to contact your primary doctor for follow-up. [place]. You do need follow-up with Urology based on the CT scan today and what appears to be swelling of the right kidney. This can be done as an outpatient. Return to the emergency department for new symptoms. Prescriptions: No Action prednisone 5 mg tablet 5 mg PO DAILY Qty: 100 0RF Rx Instructions: 40 mg once a day for 3 days, 30 mg once a day for 3 days, 20 mg once a day for 3 days, 10 mg once a day for 3 days, 5 mg once a day prednisone 5 mg tablet 5 mg PO DAILY Qty: 60 0RF Rx Instructions: 20 mg once a day for 5 days, 15 mg once a day for 5 days, 10 mg once a day for 5 days Referrals: Provider,Isamar SANTIAGO [Primary Care Provider] - Eliezer Fontanez MD [Physician] - Stand Alone Forms: Patient Portal/API/Survey, Work Release Note
[2024-10-29 19:57] LABS: Add Manual Diff / Slide Review NO; Basophils Absolute Auto 0 /uL (0-100); Basophils Percent Auto 0.4 % (0-2); Eosinophils Absolute Auto 0 /uL (0-450); Eosinophils Percent Auto 0.3 % (2-4); Hematocrit 35.1 % (36-46); Lymphocytes Absolute Auto 400 /uL (1100-4500); Lymphocytes Percent Auto 5.4 % (25-40); Mean Corpuscular HGB Conc 34.3 % (30-36); Mean Corpuscular Hemoglobin 27.1 PG (26-34); Mean Corpuscular Volume 79.2 fL (80-100); Monocytes Absolute Auto 500 /uL (0-900); Monocytes Percent Auto 7.8 % (3-14); Neutrophils Absolute Auto 5700 /uL (1500-7000); Neutrophils Percent Auto 86.1 % (50-75); Platelet Count 227 X10^3/uL (150-400); Red Blood Cell Count 4.44 X10^6/uL (4.0-5.2); Red Cell Distribution Width 14.7 % (11.6-14.8); White Blood Cell Count 6.6 X10^3/uL (4.5-11.0)
[2024-10-29 20:07] LABS: Alanine Aminotransferase 23 IU/L (<35); Albumin 3.6 g/dL (3.5-5.0); Albumin Globulin Ratio 1.2 (1.0-2.8); Alkaline Phosphatase 77 U/L (38-126); Aspartate Aminotransferase 32 IU/L (14-36); BUN Creatinine Ratio 13.8 (6-22); Bilirubin Total 0.4 mg/dL (0.2-1.3); Blood Urea Nitrogen 18 mg/dL (7-17); Calcium 8.6 mg/dL (8.4-10.2); Carbon Dioxide 24 mmol/L (22-32); Chloride 108 mmol/L (98-107); Estimated Glomerular Filt Rate 55 mL/min (>60); Glucose 97 mg/dL (70-100); HEMOLYSIS < 15 (0-50); Lipase 25 U/L (23-300); Potassium 4.3 mmol/L (3.4-5.1); Sodium 136 mmol/L (137-145); Total Protein 6.6 g/dL (6.3-8.2)
[2024-10-29] MEDS: ONDANSETRON 4 MG ODT PREPACK 1 BOTTLE MISC (21:44)
[2024-10-29] MEDS: KETOROLAC 30 MG/ML VIAL 15 MG IV (21:44)
[2024-10-29 22:04] VITALS: BP 171/91; PULSE 118; RESP 18; TEMP 37.7; O2SAT 100
== END 2024-10-29 22:06 | disposition home or self-care (01) ==
PROVIDERS: Emergency Medicine; Emergency Provider Emergency Medicine
DX: N13.30 Unspecified hydronephrosis (principal); R10.31 Right lower quadrant pain
CPT/HCPCS: 36415; 74177; 80053; 81003; 81015; 81025; 83690; 85025; 87086; 96374; 99284; J1885; Q9967

== ENCOUNTER 2024-11-10 11:32 | Emergency (ER) | payer BC, OTHER, SELFPAY ==
[2024-11-10] VITALS (11 sets, daily range): BP systolic 155–188; BP diastolic 73–103; PULSE 82–99; RESP 18–28; TEMP 37.1; O2SAT 99–100; BMI 40.8
--- NOTE | 2024-11-10 11:57 | EKG_ITS ---
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
--- NOTE | 2024-11-10 11:57 | DI.RAD.S_ITS ---
PROCEDURE: XR CHEST 1V INDICATIONS: chest pain TECHNIQUE: One view of the chest was acquired. COMPARISON: None. FINDINGS: Surgical changes and devices: None. Lungs and pleura: Lungs are clear. No pleural effusions or pneumothorax. Mediastinum: Mediastinal contours appear normal. Heart size is normal. Bones and chest wall: No suspicious bony lesions. Overlying soft tissues appear unremarkable. IMPRESSION: No acute cardiopulmonary abnormality is seen. Dictated by: Patrice Smith M.D. on 11/10/2024 at 12:19 Approved by: Patrice Smith M.D. on 11/10/2024 at 12:19
[2024-11-10 12:34] LABS: Add Manual Diff / Slide Review NO; Basophils Absolute Auto 0 /uL (0-100); Basophils Percent Auto 0.4 % (0-2); Eosinophils Absolute Auto 100 /uL (0-450); Eosinophils Percent Auto 2.7 % (2-4); Hematocrit 26.6 % (36-46); Hemoglobin 9.1 g/dL (12.0-16.0); Lymphocytes Absolute Auto 400 /uL (1100-4500); Lymphocytes Percent Auto 15.2 % (25-40); Mean Corpuscular HGB Conc 34.3 % (30-36); Mean Corpuscular Hemoglobin 26.6 PG (26-34); Mean Corpuscular Volume 77.6 fL (80-100); Monocytes Absolute Auto 400 /uL (0-900); Monocytes Percent Auto 13.4 % (3-14); Neutrophils Absolute Auto 2000 /uL (1500-7000); Neutrophils Percent Auto 68.3 % (50-75); Platelet Count 260 X10^3/uL (150-400); Red Blood Cell Count 3.43 X10^6/uL (4.0-5.2); Red Cell Distribution Width 14.2 % (11.6-14.8); White Blood Cell Count 2.9 X10^3/uL (4.5-11.0)
--- NOTE | 2024-11-10 12:42 | ED_ITS ---
HPI - Chest Pain General Chief Complaint: Chest Pain Stated Complaint: chest and neck px radiates down spine Time Seen by Provider: 11/10/24 12:42 Source: patient Mode of arrival: Wheelchair Limitations: no limitations History of Present Illness HPI narrative: 34-year-old female past medical history of hypertension and stroke secondary to this according to the patient, Presents to the ED from home for evaluation of chest pain. States that she feels like it radiates to her midthoracic back, states it is worse with movement, that she did take her medication for her blood pressure earlier today but still complaining of elevated blood pressure, systolic 170s. Given this she decided come into the ED for further evaluation treatment. She denies any symptoms such as headache visual disturbances seizure-like activity shortness of breath fever chills nausea vomiting abdominal pain or any other GI/ symptoms time. Not on any blood thinners Related Data Previous Rx's Medication Instructions Recorded prednisone 5 mg tablet 5 mg PO DAILY #60 tabs 10/04/23 prednisone 5 mg tablet 5 mg PO DAILY #100 tabs 11/01/23 cyclobenzaprine 10 mg tablet 10 mg PO Q12H 5 days #10 tabs 11/10/24 Allergies Allergy/AdvReac Type Severity Reaction Status Date / Time No Known Drug Allergies Allergy Verified 10/31/23 20:11 Review of Systems Review of Systems Narrative: General: Denies fever, chills, weight loss HEENT: Positive headache, denies eye drainage, eye irritation, head trauma, sore throat, voice change Cardiovascular: Positive chest pain, denies palpitations, shortness of breath, tachycardia Respiratory: Denies any shortness of breath, cough, wheeze, stridor GI/: Positive abdominal pain, denies nausea, vomiting, diarrhea, bright red blood per rectum, melanotic stools, urinary frequency, urinary retention, dysuria, hematuria MSK: Denies any joint pain, muscle pains, swelling Skin: Denies any rashes, lesions, discoloration Neuro: Denies any headache, lightheadedness, dizziness, fainting, weakness Psych: Denies SI/HI Patient History Social History Smoking Status: Never smoker Smoking Status: Never smoker Exam Narrative Exam Narrative: General: Cooperative, comfortable, well-developed, not in acute distress HEENT: Normocephalic, atraumatic, PERRLA, normal sclera, eyelids normal, Neck: Active full range of motion, atraumatic Chest: Normal to inspection, negative crepitus, no overlying erythema ecchymosis Respiratory: Normal respiratory effort, not in acute respiratory distress, clear to auscultation bilaterally negative cough, wheeze, tachypnea, rhonchi, rales Cardiology: Regular rate rhythm negative gallop, murmur, rubs GI/: Normal to inspection, soft, nonrigid, no tenderness to palpation, exam deferred MSK: Full range of active range of motion of all 4 extremities, atraumatic Skin: No rashes lesions noted Neuro: Alert awake oriented x3, moves all 4 extremities spontaneously, cranial nerves intact, able to answer all questions appropriately follows commands appropriately Psych: Cooperative, negative suicidal or homicidal ideations Initial Vital Signs Initial Vital Signs: Vital Signs Temperature 98.7 F 11/10/24 11:44 Pulse Rate 99 H 11/10/24 11:44 Respiratory Rate 18 11/10/24 11:44 Blood Pressure 177/103 H 11/10/24 11:44 Pulse Oximetry 100 11/10/24 11:44 Oxygen Delivery Method Room Air 11/10/24 11:44 Course Orders Ordered: ED Orders 11/10/24 11:57 XR chest 1V Stat EKG-12 Lead Stat 11/10/24 12:11 Complete Blood Count AUTO DIFF Stat Comprehensive Metabolic Panel Stat Lipase Stat Magnesium Stat NT-proBNP (BNP-Adult 18+) Stat PTT Partial Thromboplastin Jason Stat Prothrombin Time INR Stat Troponin & CK Cardiac Panel Stat 11/10/24 12:53 CT angio chest abdomen pelvis Stat Discontinued Medications Aspirin (Aspirin 81 Mg Chew Tab) 324 mg PO NOW ONE Stop: 11/10/24 11:58 Last Admin: 11/10/24 12:57 Dose: Not Given Documented By: LEWIS Cyclobenzaprine HCl (Cyclobenzaprine 10 Mg Tablet) 10 mg PO NOW ONE Stop: 11/10/24 14:07 Last Admin: 11/10/24 14:12 Dose: 10 mg Documented By: RENETTA Dexamethasone (Dexamethasone 10 Mg/Ml Vial) 10 mg IV NOW ONE Stop: 11/10/24 12:54 Last Admin: 11/10/24 13:08 Dose: 10 mg Documented By: RENETTA Diphenhydramine HCl (Diphenhydramine 50 Mg/Ml Vial) 25 mg IV NOW ONE Stop: 11/10/24 12:54 Last Admin: 11/10/24 13:05 Dose: 25 mg Documented By: RENETTA Sodium Chloride (Normal Saline 0.9%) 1,000 mls @ 1,000 mls/hr IV BOLUS ONE Stop: 11/10/24 14:44 Last Admin: 11/10/24 14:03 Dose: 1,000 mls/hr Documented By: RENETTA Metoclopramide HCl (Metoclopramide 10 Mg/2 Ml Inj) 10 mg IV NOW ONE Stop: 11/10/24 12:54 Last Admin: 11/10/24 13:05 Dose: 10 mg Documented By: RENETTA Vital Signs Vital signs: Vital Signs - 8 hr 11/10/24 11:44 Temperature 98.7 F Pulse Rate 99 H Respiratory Rate 18 Blood Pressure 177/103 H Pulse Oximetry 100 Oxygen Delivery Method Room Air MDM - Chest Pain Differential Diagnosis Differential diagnosis: Likely other (ACS, pneumonia, electrolyte abnormality) Lab Data 11/10/24 12:11 11/10/24 12:11 Labs: Lab Results 11/10/24 Range/Units 12:11 WBC 2.9 L (4.5-11.0) X10^3/uL RBC 3.43 L (4.0-5.2) X10^6/uL Hgb 9.1 L (12.0-16.0) g/dL Hct 26.6 L (36-46) % MCV 77.6 L (80-100) fL MCH 26.6 (26-34) PG MCHC 34.3 (30-36) % RDW 14.2 (11.6-14.8) % Plt Count 260 (150-400) X10^3/uL Neut % (Auto) 68.3 (50-75) % Lymph % (Auto) 15.2 L (25-40) % [place] % (Auto) 13.4 (3-14) % Eos % (Auto) 2.7 (2-4) % Baso % (Auto) 0.4 (0-2) % Neut # (Auto) 2000 (6668-7769) /uL Lymph # (Auto) 400 L (0102-5680) /uL [place] # (Auto) 400 (0-900) /uL Eos # (Auto) 100 (0-450) /uL Baso # (Auto) 0 (0-100) /uL PT 10.5 (9.4-12.5) SECONDS INR 0.9 (0.9-1.3) APTT 39 H (25.1-36.5) SECONDS Sodium 138 (137-145) mmol/L Potassium 4.0 (3.4-5.1) mmol/L Chloride 109 H (98-107) mmol/L Carbon Dioxide 24 (22-32) mmol/L BUN 17 (7-17) mg/dL Creatinine 0.95 (0.52-1.04) mg/dL Estimated GFR > 60 (>60) mL/min BUN/Creatinine Ratio 17.9 (6-22) Glucose 82 (70-100) mg/dL Calcium 8.6 (8.4-10.2) mg/dL Magnesium 1.2 L (1.6-2.3) mg/dL Total Bilirubin 0.2 (0.2-1.3) mg/dL AST 25 (14-36) IU/L ALT 15 (<35) IU/L Alkaline Phosphatase 59 (38-126) U/L Total Creatine Kinase 27 L (30-135) U/L Troponin I < 0.012 (0.01-0.034) ng/mL NT-Pro-B Natriuret Pep 1590 H (<125) pg/mL Total Protein 6.2 L (6.3-8.2) g/dL Albumin 3.1 L (3.5-5.0) g/dL Globulin 3.1 (1.7-4.1) g/dL Albumin/Globulin Ratio 1.0 (1.0-2.8) Lipase 39 (23-300) U/L Urine Dip Bedside Urine Glucose Negative Bedside Urine Bilirubin - Negative Bedside Urine Ketone - Negative Urine Specific [place] 1.015 Bedside Urine Occult Blood +++ Bedside Urine pH 6.0 Bedside Urine Protein +++ 300 Bedside Urine Urobilinogen - Negative Bedside Urine Nitrite - Negative Bedside Urine Leukocytes - Negative Esterase Imaging Data Chest x-ray: Radiologist's Impression: [address] [address] XRay Report Signed Patient: Todd Chance MR#: [id number] : 1990 Acct:[id number] Age/Sex: 34 / F Date of Service: 11/10/24 Loc: ED Accession Number: [id number] Procedure: XR chest 1V Ordering Provider: Joey Milligan D.O. PROCEDURE: XR CHEST 1V INDICATIONS: chest pain TECHNIQUE: One view of the chest was acquired. COMPARISON: None. FINDINGS: Surgical changes and devices: None. Lungs and pleura: Lungs are clear. No pleural effusions or pneumothorax. Mediastinum: Mediastinal contours appear normal. Heart size is normal. Bones and chest wall: No suspicious bony lesions. Overlying soft tissues appear unremarkable. IMPRESSION: No acute cardiopulmonary abnormality is seen. CTA chest abd pelvis: Radiologist's Impression: [place] [address] CT Scan Report Signed Patient: Todd Chance MR#: [id number] : 1990 Acct:[id number] Age/Sex: 34 / F Date of Service: 11/10/24 Loc: ED Accession Number: [id number] Procedure: CT angio chest abdomen pelvis Ordering Provider: Joey Milligan D.O. PROCEDURE: CT ANGIO CHEST ABDOMEN PELVIS INDICATIONS: chest pain and abd pain TECHNIQUE: Precontrast 5 mm thick sections acquired from the lung apices to the iliac crests. After the administration of intravenous contrast, 2.5 mm thick sections again acquired from the lung apices to the iliac crests. Maximum intensity projection (MIP) oblique sagittal and coronal reformats were then acquired. For radiation dose reduction, the following was used: automated exposure control. COMPARISON: None. FINDINGS: Image quality: Diagnostic. AORTA: No aortic aneurysm. No acute aortic syndrome. CHEST: Lower Neck: No enlarged lymph nodes. Thyroid: No thyroid nodules which require sonographic evaluation. Axillae: No enlarged lymph nodes. Chest Wall: Unremarkable. Lungs and Pleura: No pneumothorax or pleural effusions. No consolidation or suspicious nodules. Heart: Heart size is normal. No pericardial effusion. Thoracic Vessels: Pulmonary arteries demonstrate normal size. Mediastinum and [place]: No enlarged lymph nodes. Esophagus: No wall thickening. No hiatal hernia. ABDOMEN: Liver: No solid mass. Gallbladder: No radiopaque gallstones or wall thickening. Biliary ducts: No biliary dilation. Pancreas: No ductal dilation. Spleen: Size is within normal limits. Adrenal Glands: No adrenal nodules. Kidneys and Ureters: There is cortical striation of the kidneys. Focal fat stranding surrounds the right ureter. Stomach and Bowel: Normal colonic caliber, without significant wall thickening. Peritoneum: No abnormal intraperitoneal fluid. No free air. Ventral Wall: No hernia. Abdominal Nodes: No retroperitoneal or mesenteric adenopathy by size criteria. Prominent retroperitoneal lymph nodes, which are likely reactive. Vessels: Inferior vena cava is normal in size. PELVIS: Pelvic Organs: Unremarkable. Bladder: Unremarkable. Pelvic Nodes: No enlarged lymph nodes. Miscellaneous: No inguinal hernias are seen. Bones: Unremarkable. IMPRESSION: No evidence of acute aortic syndrome or aneurysm. Suspected bilateral pyelonephritis, without abscess. Correlate with urinalysis. ECG Data Interpretation: EKG interpreted ED physician sinus 84 beats per minute QTC [address] changes no STEMI MDM Narrative Medical decision making narrative: 34-year-old female with history of hypertension presents to the emergency department for evaluation of chest pain hypertension as well as back pain. States that this started this has been ongoing and intermittent for the past several weeks, however she states that normally she gets a headache neck pain, however today the pain started in her chest and radiate up and down her back. She describes it as pressure. She states that moving does make it worse. No trauma no falls not on any blood thinners. Patient states that she did take her antihypertensives at home prior to arrival. She denies any visual disturbances at this time. Patient had lab work imaging performed here in the emergency department, was noted that patient had anemia at 9.1, however patient not complaining of any vaginal bleeding discharge, patient with MCV microcytic therefore more likely might iron deficient anemia, instructed patient to follow up with primary care in regards to this. CTA chest abdomen and pelvis without any acute findings, patient's symptoms more likely musculoskeletal in nature had resolution of symptoms of her neck pain after cyclobenzaprine. 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 Patient with a heart score 0. Strict return precautions given she verbalized understanding of this and agrees to being discharged home with outpatient follow up Discharge Plan Departure Patient Disposition: Home Clinical Impression: Chest pain, Neck pain Instructions: DI for Chest Pain Activity Restrictions/Additional Instructions: Please follow up with primary care and Cardiology in outpatient setting Please read the discharge instructions sheet carefully and bring all papers to all doctor follow-up visits, as it may contain information that your doctor may want to see. Disease processes change and evolve, if your symptoms worsen or if you develop any new symptoms that are concerning to you please return for evaluation. Your evaluation today does not show any evidence of any life- threatening/serious illnesses requiring admission to the hospital or surgery. Please follow-up with your doctor for re-evaluation in approximately 1 day. Seek immediate medical attention for any worrisome symptoms. *If you do not have a primary care provider please contact the [facility] Resource line at [phone]. They will ask some questions about your medical history and help get you set up with a doctor in the community. Prescriptions: New cyclobenzaprine 10 mg tablet 10 mg PO Q12H 5 Days Qty: 10 0RF No Action prednisone 5 mg tablet 5 mg PO DAILY Qty: 100 0RF Rx Instructions: 40 mg once a day for 3 days, 30 mg once a day for 3 days, 20 mg once a day for 3 days, 10 mg once a day for 3 days, 5 mg once a day prednisone 5 mg tablet 5 mg PO DAILY Qty: 60 0RF Rx Instructions: 20 mg once a day for 5 days, 15 mg once a day for 5 days, 10 mg once a day for 5 days Referrals: Miscellaneous,Doctor, MD [Primary Care Provider] - Stand Alone Forms: Patient Portal/API/Survey
[2024-11-10 12:44] LABS: INR 0.9 (0.9-1.3); Prothrombin Time 10.5 SECONDS (9.4-12.5)
[2024-11-10 12:47] LABS: PTT Partial Thromboplastin Tim 39 SECONDS (25.1-36.5)
[2024-11-10 12:50] LABS: Alanine Aminotransferase 15 IU/L (<35); Albumin 3.1 g/dL (3.5-5.0); Alkaline Phosphatase 59 U/L (38-126); Aspartate Aminotransferase 25 IU/L (14-36); BUN Creatinine Ratio 17.9 (6-22); Bilirubin Total 0.2 mg/dL (0.2-1.3); Blood Urea Nitrogen 17 mg/dL (7-17); Calcium 8.6 mg/dL (8.4-10.2); Carbon Dioxide 24 mmol/L (22-32); Chloride 109 mmol/L (98-107); Creatine Kinase 27 U/L (30-135); Estimated Glomerular Filt Rate > 60 mL/min (>60); Globulin 3.1 g/dL (1.7-4.1); Glucose 82 mg/dL (70-100); HEMOLYSIS < 15 (0-50); Lipase 39 U/L (23-300); Magnesium 1.2 mg/dL (1.6-2.3); Sodium 138 mmol/L (137-145); Total Protein 6.2 g/dL (6.3-8.2)
--- NOTE | 2024-11-10 12:53 | DI.CT.S_ITS ---
PROCEDURE: CT ANGIO CHEST ABDOMEN PELVIS INDICATIONS: chest pain and abd pain TECHNIQUE: Precontrast 5 mm thick sections acquired from the lung apices to the iliac crests. After the administration of intravenous contrast, 2.5 mm thick sections again acquired from the lung apices to the iliac crests. Maximum intensity projection (MIP) oblique sagittal and coronal reformats were then acquired. For radiation dose reduction, the following was used: automated exposure control. COMPARISON: None. FINDINGS: Image quality: Diagnostic. AORTA: No aortic aneurysm. No acute aortic syndrome. CHEST: Lower Neck: No enlarged lymph nodes. Thyroid: No thyroid nodules which require sonographic evaluation. Axillae: No enlarged lymph nodes. Chest Wall: Unremarkable. Lungs and Pleura: No pneumothorax or pleural effusions. No consolidation or suspicious nodules. Heart: Heart size is normal. No pericardial effusion. Thoracic Vessels: Pulmonary arteries demonstrate normal size. Mediastinum and [place]: No enlarged lymph nodes. Esophagus: No wall thickening. No hiatal hernia. ABDOMEN: Liver: No solid mass. Gallbladder: No radiopaque gallstones or wall thickening. Biliary ducts: No biliary dilation. Pancreas: No ductal dilation. Spleen: Size is within normal limits. Adrenal Glands: No adrenal nodules. Kidneys and Ureters: There is cortical striation of the kidneys. Focal fat stranding surrounds the right ureter. Stomach and Bowel: Normal colonic caliber, without significant wall thickening. Peritoneum: No abnormal intraperitoneal fluid. No free air. Ventral Wall: No hernia. Abdominal Nodes: No retroperitoneal or mesenteric adenopathy by size criteria. Prominent retroperitoneal lymph nodes, which are likely reactive. Vessels: Inferior vena cava is normal in size. PELVIS: Pelvic Organs: Unremarkable. Bladder: Unremarkable. Pelvic Nodes: No enlarged lymph nodes. Miscellaneous: No inguinal hernias are seen. Bones: Unremarkable. IMPRESSION: No evidence of acute aortic syndrome or aneurysm. Suspected bilateral pyelonephritis, without abscess. Correlate with urinalysis. Dictated by: Patrice Smith M.D. on 11/10/2024 at 14:08 Approved by: Patrice Smith M.D. on 11/10/2024 at 14:13
[2024-11-10 13:00] LABS: NT-proBNP (BNP-Adult 18+) 1590 pg/mL (<125); Troponin I < 0.012 ng/mL (0.01-0.034)
[2024-11-10] MEDS: diphenhydrAMINE 50 MG/ML VIAL 25 MG IV (13:05)
[2024-11-10] MEDS: METOCLOPRAMIDE 10 MG/2 ML INJ IV (13:05)
[2024-11-10] MEDS: DEXAMETHASONE 10 MG/ML VIAL IV (13:08)
[2024-11-10] MEDS: SODIUM CHLORIDE 0.9% 1,000 ML 1000 ML IV (14:03)
[2024-11-10] MEDS: CYCLOBENZAPRINE 10 MG TABLET PO (14:12)
== END 2024-11-10 15:04 | disposition home or self-care (01) ==
PROVIDERS: Emergency Provider Student in an Organized Health Care Education/Training Program
DX: R07.9 Chest pain, unspecified (principal); M54.2 Cervicalgia; M54.6 Pain in thoracic spine; I10 Essential (primary) hypertension; Z86.73 Personal history of transient ischemic attack (TIA), and cerebral infarction without residual deficits; R79.89 Other specified abnormal findings of blood chemistry
CPT/HCPCS: 36415; 71045; 71275; 74174; 80053; 81003; 82550; 83690; 83735; 83880; 84484; 85025; 85610; 85730; 93005; 96361; 96374; 96375; 99284; J1100; J1200; J2765; Q9967

== ENCOUNTER 2024-11-21 23:23 | Emergency (ER) | payer BC, OTHER, SELFPAY ==
[2024-11-21 23:28] VITALS: BP 166/78; PULSE 98; RESP 18; TEMP 36.6; O2SAT 99; BMI 40.9
--- NOTE | 2024-11-21 23:32 | EKG_ITS ---
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
--- NOTE | 2024-11-21 23:32 | DI.RAD.S_ITS ---
PROCEDURE: XR CHEST 1V INDICATIONS: chest pain TECHNIQUE: One view of the chest was acquired. COMPARISON: [facility], CR, XR CHEST 1V, 11/10/2024, 11:54. [facility], CR, XR CHEST 1V, 10/31/2023, 21:00. FINDINGS: Surgical changes and devices: None. Lungs and pleura: Lungs are clear. No pleural effusions or pneumothorax. Mediastinum: Mediastinal contours appear normal. Heart size is normal. Bones and chest wall: No suspicious bony lesions. Overlying soft tissues appear unremarkable. IMPRESSION: No acute cardiopulmonary abnormality is seen. Approved by: Rad Motta M.D. on 11/21/2024 at 23:56
[2024-11-22] VITALS (11 sets, daily range): BP systolic 145–167; BP diastolic 69–86; PULSE 72–87; RESP 12–25; O2SAT 94–99
[2024-11-22 00:53] LABS: Add Manual Diff / Slide Review NO; Basophils Absolute Auto 0 /uL (0-100); Basophils Percent Auto 0.4 % (0-2); Eosinophils Absolute Auto 100 /uL (0-450); Eosinophils Percent Auto 1.5 % (2-4); Hematocrit 28.3 % (36-46); Hemoglobin 9.7 g/dL (12.0-16.0); Lymphocytes Absolute Auto 300 /uL (1100-4500); Lymphocytes Percent Auto 9.1 % (25-40); Mean Corpuscular HGB Conc 34.3 % (30-36); Mean Corpuscular Hemoglobin 26.6 PG (26-34); Mean Corpuscular Volume 77.5 fL (80-100); Monocytes Absolute Auto 300 /uL (0-900); Monocytes Percent Auto 9.4 % (3-14); Neutrophils Absolute Auto 2900 /uL (1500-7000); Neutrophils Percent Auto 79.6 % (50-75); Platelet Count 186 X10^3/uL (150-400); Red Blood Cell Count 3.65 X10^6/uL (4.0-5.2); Red Cell Distribution Width 15.2 % (11.6-14.8); White Blood Cell Count 3.6 X10^3/uL (4.5-11.0)
[2024-11-22 00:58] LABS: INR 0.9 (0.9-1.3); Prothrombin Time 10.3 SECONDS (9.4-12.5)
[2024-11-22 01:01] LABS: PTT Partial Thromboplastin Tim 40 SECONDS (25.1-36.5)
[2024-11-22 01:02] LABS: Alanine Aminotransferase 16 IU/L (<35); Albumin Globulin Ratio 0.9 (1.0-2.8); Alkaline Phosphatase 71 U/L (38-126); Aspartate Aminotransferase 29 IU/L (14-36); BUN Creatinine Ratio 13.1 (6-22); Bilirubin Total 0.3 mg/dL (0.2-1.3); Blood Urea Nitrogen 18 mg/dL (7-17); Calcium 8.2 mg/dL (8.4-10.2); Carbon Dioxide 26 mmol/L (22-32); Chloride 108 mmol/L (98-107); Creatine Kinase 30 U/L (30-135); Estimated Glomerular Filt Rate 52 mL/min (>60); Globulin 3.4 g/dL (1.7-4.1); Glucose 96 mg/dL (70-100); HEMOLYSIS < 15 (0-50); Lipase 27 U/L (23-300); Magnesium 1.5 mg/dL (1.6-2.3); Potassium 4.2 mmol/L (3.4-5.1); Sodium 137 mmol/L (137-145); Total Protein 6.4 g/dL (6.3-8.2)
[2024-11-22] MEDS: ASPIRIN 81 MG CHEW TAB 324 MG PO (01:12)
[2024-11-22 01:14] LABS: NT-proBNP (BNP-Adult 18+) 1110 pg/mL (<125); Troponin I < 0.012 ng/mL (0.01-0.034)
--- NOTE | 2024-11-22 02:50 | ED.CHESTPAIN ---
HPI - Chest Pain General Chief Complaint: Chest Pain Stated Complaint: headache, vomiting, pressure on chest Time Seen by Provider: 11/22/24 02:17 Source: patient Mode of arrival: Ambulatory History of Present Illness HPI narrative: Patient is a 34-year-old female history of Sjogren's, lupus, Raynaud's rheumatoid arthritis presenting today with ongoing headache in nausea. She reports he was sensitive to light and noise she does not typically get migraines or headaches. She really can not keep anything down she has been trying to take Tylenol and ibuprofen as needed for pain but truly just not working. No numbness tingling or weakness. No fever or neck pain. She was actually seen and evaluated here 11/10/2024 for chest pain. She would full workup including CT angio which was negative. She was noted to be mildly anemic. She was actually scheduled to see a mangle tender cloth and a couple of weeks. She reports that she has not really having any sort of chest pain now she continues to have an ongoing rash but really complaining of headache today. Related Data Previous Rx's Medication Instructions Recorded prednisone 5 mg tablet 5 mg PO DAILY #60 tabs 10/04/23 prednisone 5 mg tablet 5 mg PO DAILY #100 tabs 11/01/23 ondansetron 4 mg disintegrating 4 mg PO Q8H PRN nausea and 11/22/24 tablet vomiting #10 tabs Allergies Allergy/AdvReac Type Severity Reaction Status Date / Time No Known Drug Allergies Allergy Verified 10/31/23 20:11 Patient History Social History Smoking Status: Never smoker Smoking Status: Never smoker Exam Initial Vital Signs Initial Vital Signs: Vital Signs Temperature 97.9 F 11/21/24 23:28 Pulse Rate 98 H 11/21/24 23:28 Respiratory Rate 18 11/21/24 23:28 Blood Pressure 166/78 H 11/21/24 23:28 Pulse Oximetry 99 11/21/24 23:28 Oxygen Delivery Method Room Air 11/21/24 23:28 GENERAL: 34-year-old female appears to be sensitive to light HEENT: Head atraumatic,EOMI, pupils reactive, face symmetric, moist mucous membranes NECK: No meningeal signs CARDIOVASCULAR: Regular rate and rhythm without murmurs, rubs or gallops. RESPIRATORY: Breath sounds equal bilaterally, no wheezes rales or rhonchi. ABDOMEN: Soft, nontender. Normoactive bowel sounds all 4 quadrants. No guarding or rebound. EXTREMITIES: Normal range of motion, no clubbing or edema. Neurovascularly intact NEUROLOGICAL: Alert and oriented x4.Normal gait and speech. Cranial nerves II through XII grossly intact. SKIN: Warm, dry, no laceration, no petechiae, no rashes or lesions. Course Orders Ordered: Discontinued Medications Aspirin (Aspirin 81 Mg Chew Tab) 324 mg PO NOW ONE Stop: 11/21/24 23:33 Last Admin: 11/22/24 01:12 Dose: 324 mg Documented By: MAHAD Sodium Chloride (Normal Saline 0.9%) 1,000 mls @ 1,000 mls/hr IV BOLUS ONE Stop: 11/22/24 04:00 Last Infusion: 11/22/24 04:24 Dose: Infused Documented By: Admin: 11/22/24 03:08 Dose: 1,000 mls/hr Documented By: ANGELITA Acetaminophen (Ofirmev) 1,000 mg in 100 mls @ 400 mls/hr IV NOW ONE Stop: 11/22/24 04:22 Last Infusion: 11/22/24 05:36 Dose: Infused Documented By: Admin: 11/22/24 04:21 Dose: 400 mls/hr Documented By: GITA Ketorolac Tromethamine (Ketorolac 30 Mg/Ml Vial) 15 mg IV NOW ONE Stop: 11/22/24 03:02 Last Admin: 11/22/24 03:08 Dose: 15 mg Documented By: ANGELITA Ondansetron HCl (Ondansetron 4 Mg/2 Ml Inj) 4 mg IV NOW ONE Stop: 11/22/24 03:02 Last Admin: 11/22/24 03:08 Dose: 4 mg Documented By: ANGELITA Vital Signs Vital signs: Vital Signs - 8 hr 11/21/24 23:28 Temperature 97.9 F Pulse Rate 98 H Respiratory Rate 18 Blood Pressure 166/78 H Pulse Oximetry 99 Oxygen Delivery Method Room Air MDM - Chest Pain Lab Data 11/22/24 00:40 11/22/24 00:40 Labs: Lab Results 11/22/24 Range/Units 00:40 WBC 3.6 L (4.5-11.0) X10^3/uL RBC 3.65 L (4.0-5.2) X10^6/uL Hgb 9.7 L (12.0-16.0) g/dL Hct 28.3 L (36-46) % MCV 77.5 L (80-100) fL MCH 26.6 (26-34) PG MCHC 34.3 (30-36) % RDW 15.2 H (11.6-14.8) % Plt Count 186 (150-400) X10^3/uL Neut % (Auto) 79.6 H (50-75) % Lymph % (Auto) 9.1 L (25-40) % [place] % (Auto) 9.4 (3-14) % Eos % (Auto) 1.5 L (2-4) % Baso % (Auto) 0.4 (0-2) % Neut # (Auto) 2900 (8715-3402) /uL Lymph # (Auto) 300 L (2165-6593) /uL [place] # (Auto) 300 (0-900) /uL Eos # (Auto) 100 (0-450) /uL Baso # (Auto) 0 (0-100) /uL PT 10.3 (9.4-12.5) SECONDS INR 0.9 (0.9-1.3) APTT 40 H (25.1-36.5) SECONDS Sodium 137 (137-145) mmol/L Potassium 4.2 (3.4-5.1) mmol/L Chloride 108 H (98-107) mmol/L Carbon Dioxide 26 (22-32) mmol/L BUN 18 H (7-17) mg/dL Creatinine 1.37 H (0.52-1.04) mg/dL Estimated GFR 52 L (>60) mL/min BUN/Creatinine Ratio 13.1 (6-22) Glucose 96 (70-100) mg/dL Calcium 8.2 L (8.4-10.2) mg/dL Magnesium 1.5 L (1.6-2.3) mg/dL Total Bilirubin 0.3 (0.2-1.3) mg/dL AST 29 (14-36) IU/L ALT 16 (<35) IU/L Alkaline Phosphatase 71 (38-126) U/L Total Creatine Kinase 30 (30-135) U/L Troponin I < 0.012 (0.01-0.034) ng/mL NT-Pro-B Natriuret Pep 1110 H (<125) pg/mL Total Protein 6.4 (6.3-8.2) g/dL Albumin 3.0 L (3.5-5.0) g/dL Globulin 3.4 (1.7-4.1) g/dL Albumin/Globulin Ratio 0.9 L (1.0-2.8) Lipase 27 (23-300) U/L Imaging Data CT scan - head: Radiologist's Impression: PROCEDURE: CT HEAD/BRAIN WO CON INDICATIONS: worst headache of life TECHNIQUE: Noncontrast 4.5 mm thick angled axial sections acquired from the foramen magnum to the vertex, with coronal and sagittal reformats. For radiation dose reduction, the following was used: automated exposure control, adjustment of mA and/or kV according to patient size. COMPARISON: None. FINDINGS: Image quality: Diagnostic CSF spaces: Basal cisterns are patent. Lateral ventricles are symmetric. Brain: No acute hemorrhage. No gross loss of blackwell-white differentiation Craniofacial structures: No significant paranasal sinus opacity. IMPRESSION: No acute intracranial pathology. No significant discrepancy from the preliminary report. Dictated by: Tunde Phillips M.D. on 11/22/2024 at 8:53 ECG Data Attestation: I personally reviewed and interpreted this ECG as follows: Prior ECG tracings: available for review Interpretation: Normal sinus rhythm rate 98 DE interval 152 QRS 68 QTC [address] changes similar to prior MDM Narrative Medical decision making narrative: Patient is a 34-year-old female history of multiple medical issues presenting today with headache nausea vomiting. Has not typically get headaches. Neurologically she is intact head CT has been reviewed without any abnormality. She was given Toradol fluids and Zofran feeling a little bit better but still having some pain although she was able to rest now. She was given IV Tylenol as well and ultimately feeling better. Blood work has been reviewed overall appears stable she was some leukopenia WBCs 3.6 previously 2.9 anemia is stable hemoglobin 9 0.7/28.3 previously 9.1/26.6 He was a little dehydrated with a creatinine of 1.37 previously 0.9 Troponin is negative, BNP 1110 previously 1590 On exam she does not appear fluid overloaded most likely dehydrated. EKGs reviewed no acute ischemia Overall I suspect migraine/headache. Complaining of some chest pain for me but mostly headache. she had a full chest pain workup 1 week ago cardiac labs today appear stable EKG does not show any changes. At this time she has a rheumatology appointment coming up later this month feels okay to go home Discharge Plan Departure Patient Disposition: Home Clinical Impression: Headache Instructions: DI for Headache Activity Restrictions/Additional Instructions: *You have been diagnosed with headache *What to do: At this time increase fluids tolerated *Continue to take medications as directed Zofran 4 mg every 8 hours if needed for nausea or vomiting *Follow up with your primary care provider in 2-3 days or call [phone] *Return to ER if you should have worsening headache chest pain shortness of breath tingling weakness [or] any new, worsening or concerning symptoms Prescriptions: New ondansetron 4 mg tablet,disintegrating 4 mg PO Q8H PRN (Reason: nausea and vomiting) Qty: 10 0RF No Action prednisone 5 mg tablet 5 mg PO DAILY Qty: 100 0RF Rx Instructions: 40 mg once a day for 3 days, 30 mg once a day for 3 days, 20 mg once a day for 3 days, 10 mg once a day for 3 days, 5 mg once a day prednisone 5 mg tablet 5 mg PO DAILY Qty: 60 0RF Rx Instructions: 20 mg once a day for 5 days, 15 mg once a day for 5 days, 10 mg once a day for 5 days Referrals: Miscellaneous,Doctor, MD [Primary Care Provider] - Stand Alone Forms: Patient Portal/API/Survey, Work Release Note
--- NOTE | 2024-11-22 03:01 | DI.CT.S_ITS ---
PROCEDURE: CT HEAD/BRAIN WO CON INDICATIONS: worst headache of life TECHNIQUE: Noncontrast 4.5 mm thick angled axial sections acquired from the foramen magnum to the vertex, with coronal and sagittal reformats. For radiation dose reduction, the following was used: automated exposure control, adjustment of mA and/or kV according to patient size. COMPARISON: None. FINDINGS: Image quality: Diagnostic CSF spaces: Basal cisterns are patent. Lateral ventricles are symmetric. Brain: No acute hemorrhage. No gross loss of blackwell-white differentiation Craniofacial structures: No significant paranasal sinus opacity. IMPRESSION: No acute intracranial pathology. No significant discrepancy from the preliminary report. Dictated by: Tunde Phillips M.D. on 11/22/2024 at 8:53 Approved by: Tunde Phillips M.D. on 11/22/2024 at 8:54
[2024-11-22] MEDS: SODIUM CHLORIDE 0.9% 1,000 ML 1000 ML IV (03:08)
[2024-11-22] MEDS: ONDANSETRON 4 MG/2 ML INJ IV (03:08)
[2024-11-22] MEDS: KETOROLAC 30 MG/ML VIAL 15 MG IV (03:08)
--- NOTE | 2024-11-22 03:16 | PC.NURSE ---
Pt ambulatory to restroom with one person standby, then to CT via wheel chair with public address technician.
[2024-11-22] MEDS: ACETAMINOPHEN IV 1,000 MG/100 ML VIAL 400 MG IV (04:21)
== END 2024-11-22 05:38 | disposition home or self-care (01) ==
PROVIDERS: Emergency Provider Emergency Medicine
DX: R51.9 Headache, unspecified (principal); R11.0 Nausea; D64.9 Anemia, unspecified; R07.9 Chest pain, unspecified
CPT/HCPCS: 36415; 70450; 71045; 80053; 82550; 83690; 83735; 83880; 84484; 85025; 85610; 85730; 93005; 96361; 96365; 96375; 99284; J0131; J1885; J2405

== ENCOUNTER 2024-11-29 11:30 | Emergency (ER) | payer MEDICARE, OTHER, SELFPAY ==
[2024-11-29 11:37] VITALS: BP 171/79; PULSE 100; RESP 16; TEMP 36.6; O2SAT 97; BMI 40.2
--- NOTE | 2024-11-29 14:16 | ED.SKABFB ---
HPI - Skin/Abscess/Foreign Bdy <Courtney Blanco PA-C - Last Filed: 11/29/24 20:15> General Chief complaint: Skin/Abscess/Foreign Body Stated complaint: face swelling/redness, feels tight/sore/hot Time Seen by Provider: 11/29/24 13:35 History of Present Illness HPI narrative: Patient states that she has had facial redness and rash since April of 2024, however the swelling worsened since yesterday. Patient does endorse eating more salty foods over the weekend. Patient notes that her swelling does increase when she eats salty foods. Patient states that her face feels swollen, tight and somewhat dry and itchy. No shortness of breath, chest pain, wheezing, nausea, vomiting, abdominal pain. No mucosal involvement. Patient states that the rash is also spreading to other parts of her body such as the trunk. Patient is on Lupkynis for the lupus. Patient is not on prednisone or other medications. Patient states that she stopped prednisone in August, suspecting that it was contributing to the facial rash. However, the rash is not improved since cessation of prednisone. Patient was seen in the ED last week for a headache, had slightly worsening kidney function from priors. Patient has an appointment with a new labor mediator for next week. Patient also has a PCP appointment scheduled for later in the month. Related Data Previous Rx's Medication Instructions Recorded prednisone 5 mg tablet 5 mg PO DAILY #60 tabs 10/04/23 prednisone 5 mg tablet 5 mg PO DAILY #100 tabs 11/01/23 ondansetron 4 mg disintegrating 4 mg PO Q8H PRN nausea and 11/22/24 tablet vomiting #10 tabs ondansetron 4 mg disintegrating 4 mg PO Q8H PRN nausea and 11/29/24 tablet vomiting #20 tabs triamcinolone acetonide 0.025 % 1 applic topical BID #454 grams 11/29/24 topical ointment Allergies Allergy/AdvReac Type Severity Reaction Status Date / Time levetiracetam [From [facility]] AdvReac Severe Anaphylaxis Verified 11/29/24 11:46 Review of Systems <Courtney Blanco PA-C - Last Filed: 11/29/24 20:15> Constitutional Constitutional: Denies chills, Denies fatigue, Denies fever(s), Denies frequent falls, Denies lethargy and Denies weakness Eyes Eyes: Denies change in vision, Denies eye discharge, Denies irritation and Denies loss of vision ENT Ears, Nose, Mouth, and Throat: Denies change in voice, Denies dizziness, Denies neck pain, Denies sore throat and Denies throat swelling Cardiovascular Cardiovascular: Denies chest pain, Denies irregular heart rhythm, Denies lightheadedness, Denies palpitations, Denies dyspnea, Denies dyspnea on exertion and Denies orthopnea Respiratory Respiratory: Denies cough, Denies dyspnea, Denies dyspnea on exertion and Denies wheezing Gastrointestinal Gastrointestinal: Denies abdominal pain, Denies change in bowel habits, Denies diarrhea, Denies nausea and Denies vomiting Musculoskeletal Musculoskeletal: Denies neck pain and Denies numbness Integumentary/Breasts Skin/Breast: Denies pruritus, Denies erythema, Reports rash and Denies wounds Neurologic Neurologic: Denies behavioral changes, Denies confusion, Denies dizziness, Denies frequent falls, Denies loss of vision, Denies numbness and Denies weakness Psychiatric Psychiatric: Denies anxiety, Denies behavioral changes, Denies confusion, Denies depression, Denies homicidal ideation and Denies suicidal ideation Endocrine Endocrine: Denies fatigue, Denies flushing and Denies palpitations Hematologic/Lymphatic Hematologic/Lymphatic: Denies easy bruising Allergic/Immunologic Allergic/Immunologic: Denies urticaria, Denies throat swelling and Denies wheezing Patient History <Courtney Blanco PA-C - Last Filed: 11/29/24 20:15> Social History Smoking Status: Never smoker Smoking Status: Never smoker Exam <Courtney Blanco PA-C - Last Filed: 11/29/24 20:15> Narrative Exam Narrative: Const General:?cooperative, healthy appearing and comfortable [facility] Head:?normal to inspection Ears:?hearing grossly normal bilaterally Nose:?external nose normal Face and sinus:?normal facial exam and sinuses nontender Mouth:?oral mucosae normal Throat:?posterior oropharynx normal Eyes General:?appearance normal, both eyes and all related structures Neck Neck:?normal visual inspection and no lymphadenopathy noted Resp Effort & Inspection:?normal respiratory effort Auscultation:?clear to auscultation bilaterally Cardio Rate:?regular rate Rhythm:?regular rhythm Integumentary Swelling, erythema, rash to face and neck. There are some other sporadic areas of rash involvement on the trunk. No mucosal involvement. Neuro General:?patient alert, patient awake and patient oriented x3 Initial Vital Signs Initial Vital Signs: Vital Signs Temperature 97.8 F 11/29/24 11:37 Pulse Rate 100 H 11/29/24 11:37 Respiratory Rate 16 11/29/24 11:37 Blood Pressure 171/79 H 11/29/24 11:37 Pulse Oximetry 97 11/29/24 11:37 Oxygen Delivery Method Room Air 11/29/24 11:37 <Padmini Lorenzana DO - Last Filed: 11/30/24 02:24> Initial Vital Signs Initial Vital Signs: Vital Signs Temperature 97.8 F 11/29/24 11:37 Pulse Rate 100 H 11/29/24 11:37 Respiratory Rate 16 11/29/24 11:37 Blood Pressure 171/79 H 11/29/24 11:37 Pulse Oximetry 97 11/29/24 11:37 Oxygen Delivery Method Room Air 11/29/24 11:37 Course <Courtney Blanco PA-C - Last Filed: 11/29/24 20:15> Orders Ordered: Discontinued Medications Diphenhydramine HCl (Diphenhydramine 25 Mg Tablet) 25 mg PO NOW ONE Stop: 11/29/24 14:52 Last Admin: 11/29/24 15:03 Dose: 25 mg Documented By: YASMIN Ondansetron HCl (Ondansetron 4 Mg Odt) 4 mg SL NOW ONE Stop: 11/29/24 16:13 Last Admin: 11/29/24 16:18 Dose: 4 mg Documented By: YASMIN Vital Signs Vital signs: Vital Signs - 8 hr 11/29/24 18:47 11/29/24 21:20 Temperature 98.9 F Pulse Rate 70 84 Respiratory Rate 18 18 Blood Pressure 142/79 H 138/72 Pulse Oximetry 98 98 Oxygen Delivery Method Room Air Room Air <Padmini Lorenzana DO - Last Filed: 11/30/24 02:24> Orders Ordered: Discontinued Medications Diphenhydramine HCl (Diphenhydramine 25 Mg Tablet) 25 mg PO NOW ONE Stop: 11/29/24 14:52 Last Admin: 11/29/24 15:03 Dose: 25 mg Documented By: YASMIN Ondansetron HCl (Ondansetron 4 Mg Odt) 4 mg SL NOW ONE Stop: 11/29/24 16:13 Last Admin: 11/29/24 16:18 Dose: 4 mg Documented By: YASMIN Vital Signs Vital signs: Vital Signs - 8 hr 11/29/24 18:47 11/29/24 21:20 Temperature 98.9 F Pulse Rate 70 84 Respiratory Rate 18 18 Blood Pressure 142/79 H 138/72 Pulse Oximetry 98 98 Oxygen Delivery Method Room Air Room Air MDM - Skin/Abscess/Foreign Bdy <Courtney Blanco PA-C - Last Filed: 11/29/24 20:15> Lab Data 11/29/24 15:10 11/29/24 15:10 Labs: Lab Results 11/29/24 11/29/24 Range/Units 15:00 15:10 WBC 3.4 L (4.5-11.0) X10^3/uL RBC 3.75 L (4.0-5.2) X10^6/uL Hgb 9.9 L (12.0-16.0) g/dL Hct 29.7 L (36-46) % MCV 79.1 L (80-100) fL MCH 26.3 (26-34) PG MCHC 33.3 (30-36) % RDW 15.3 H (11.6-14.8) % Plt Count 197 (150-400) X10^3/uL Neut % (Auto) 61.6 (50-75) % Lymph % (Auto) 21.4 L (25-40) % [place] % (Auto) 14.7 H (3-14) % Eos % (Auto) 1.7 L (2-4) % Baso % (Auto) 0.6 (0-2) % Neut # (Auto) 2100 (7683-8312) /uL Lymph # (Auto) 700 L (0801-4326) /uL [place] # (Auto) 500 (0-900) /uL Eos # (Auto) 100 (0-450) /uL Baso # (Auto) 0 (0-100) /uL Sodium 137 (137-145) mmol/L Potassium 4.3 (3.4-5.1) mmol/L Chloride 107 (98-107) mmol/L Carbon Dioxide 25 (22-32) mmol/L BUN 17 (7-17) mg/dL Creatinine 1.79 H (0.52-1.04) mg/dL Estimated GFR 38 L (>60) mL/min BUN/Creatinine Ratio 9.5 (6-22) Glucose 85 (70-100) mg/dL Calcium 8.5 (8.4-10.2) mg/dL Total Bilirubin 0.3 (0.2-1.3) mg/dL AST 36 (14-36) IU/L ALT 22 (<35) IU/L Alkaline Phosphatase 79 (38-126) U/L Total Protein 6.8 (6.3-8.2) g/dL Albumin 3.2 L (3.5-5.0) g/dL Globulin 3.6 (1.7-4.1) g/dL Albumin/Globulin Ratio 0.9 L (1.0-2.8) Urine RBC 1-5/hpf (0-5/HPF) Urine WBC 1-5/hpf (0-5/HPF) Ur Squamous Epith Cells 5-10 /hpf H (0-5/HPF) Urine Bacteria Many (>30) H (None) Hyaline Casts 5-10/lpf (None) Granular Casts 1-5/lpf (None) Ur Culture Indicated? Cult not indicated Vol Urine Centrifuged 10ml (spun) Point of Care Testing Test Results Negative Urine Dip Bedside Urine Glucose Negative Bedside Urine Bilirubin - Negative Bedside Urine Ketone - Negative Urine Specific [place] 1.030 Bedside Urine Occult Blood +++ Bedside Urine pH 6.0 Bedside Urine Protein ++ 100 Bedside Urine Urobilinogen - Negative Bedside Urine Nitrite - Negative Bedside Urine Leukocytes - Negative Esterase MDM Narrative Medical decision making narrative: 34-year-old female with past medical history lupus nephritis, Sjogren's syndrome, Raynaud's syndrome presents to the ED with an exacerbation of facial redness, swelling, rash. Concern for lupus flare versus allergic reaction versus other. Physical exam is reassuring for no signs of anaphylaxis. It is also reassuring that patient has a labor mediator appointment next week. Will obtain some labs check kidney function. Will give Benadryl. No improvement with Benadryl. Labs show a rapidly declining kidney function from last week. Creatinine is up to 1.79 from 1.37 last week. GFR is down 38 from 50 to last week. 100+ proteinuria. Given the decline in kidney function, Dr. Kaufman from [facility] was consulted. He recommends patient be transferred to a facility with Nephrology. He advises against any interventions including IV fluids at this time. He agrees that patient is not safe for discharge at this time. Spoke with hospitalist Dr. Maurer at [facility], he graciously accepts the patient for admission. Awaiting a bed at this time. Patient is doing well and stable. Patient is signed out to Dr. Padmini Lorenzana. Medical records reviewed: Yes <Padmini Lorenzana, - Last Filed: 11/30/24 02:24> Lab Data Labs: Lab Results 11/29/24 11/29/24 Range/Units 15:00 15:10 WBC 3.4 L (4.5-11.0) X10^3/uL RBC 3.75 L (4.0-5.2) X10^6/uL Hgb 9.9 L (12.0-16.0) g/dL Hct 29.7 L (36-46) % MCV 79.1 L (80-100) fL MCH 26.3 (26-34) PG MCHC 33.3 (30-36) % RDW 15.3 H (11.6-14.8) % Plt Count 197 (150-400) X10^3/uL Neut % (Auto) 61.6 (50-75) % Lymph % (Auto) 21.4 L (25-40) % [place] % (Auto) 14.7 H (3-14) % Eos % (Auto) 1.7 L (2-4) % Baso % (Auto) 0.6 (0-2) % Neut # (Auto) 2100 (1989-7057) /uL Lymph # (Auto) 700 L (2967-3917) /uL [place] # (Auto) 500 (0-900) /uL Eos # (Auto) 100 (0-450) /uL Baso # (Auto) 0 (0-100) /uL Sodium 137 (137-145) mmol/L Potassium 4.3 (3.4-5.1) mmol/L Chloride 107 (98-107) mmol/L Carbon Dioxide 25 (22-32) mmol/L BUN 17 (7-17) mg/dL Creatinine 1.79 H (0.52-1.04) mg/dL Estimated GFR 38 L (>60) mL/min BUN/Creatinine Ratio 9.5 (6-22) Glucose 85 (70-100) mg/dL Calcium 8.5 (8.4-10.2) mg/dL Total Bilirubin 0.3 (0.2-1.3) mg/dL AST 36 (14-36) IU/L ALT 22 (<35) IU/L Alkaline Phosphatase 79 (38-126) U/L Total Protein 6.8 (6.3-8.2) g/dL Albumin 3.2 L (3.5-5.0) g/dL Globulin 3.6 (1.7-4.1) g/dL Albumin/Globulin Ratio 0.9 L (1.0-2.8) Urine RBC 1-5/hpf (0-5/HPF) Urine WBC 1-5/hpf (0-5/HPF) Ur Squamous Epith Cells 5-10 /hpf H (0-5/HPF) Urine Bacteria Many (>30) H (None) Hyaline Casts 5-10/lpf (None) Granular Casts 1-5/lpf (None) Ur Culture Indicated? Cult not indicated Vol Urine Centrifuged 10ml (spun) Point of Care Testing Test Results Negative Urine Dip Bedside Urine Glucose Negative Bedside Urine Bilirubin - Negative Bedside Urine Ketone - Negative Urine Specific [place] 1.030 Bedside Urine Occult Blood +++ Bedside Urine pH 6.0 Bedside Urine Protein ++ 100 Bedside Urine Urobilinogen - Negative Bedside Urine Nitrite - Negative Bedside Urine Leukocytes - Negative Esterase Discharge Plan Departure Patient Disposition: [facility] Clinical Impression: JIM (acute kidney injury), Rash Prescriptions: New triamcinolone acetonide 0.025 % ointment 1 applic topical BID Qty: 454 0RF ondansetron 4 mg tablet,disintegrating 4 mg PO Q8H PRN (Reason: nausea and vomiting) Qty: 20 0RF No Action prednisone 5 mg tablet 5 mg PO DAILY Qty: 100 0RF Rx Instructions: 40 mg once a day for 3 days, 30 mg once a day for 3 days, 20 mg once a day for 3 days, 10 mg once a day for 3 days, 5 mg once a day prednisone 5 mg tablet 5 mg PO DAILY Qty: 60 0RF Rx Instructions: 20 mg once a day for 5 days, 15 mg once a day for 5 days, 10 mg once a day for 5 days ondansetron 4 mg tablet,disintegrating 4 mg PO Q8H PRN (Reason: nausea and vomiting) Qty: 10 0RF Referrals: Miscellaneous,Doctor, MD [Primary Care Provider] - ED Sign-out <Padmini Lorenzana DO - Last Filed: 11/30/24 02:24> Cosign ED Attending Cosignature Attestation: I was available for consultation. Patient transferred without issue
--- NOTE | 2024-11-29 14:30 | PC.NURSE ---
redness and swelling noted to face. P state she has had he rash/redness for a few months but states the swelling has worsened since yesterday. Airway intact
[2024-11-29] MEDS: diphenhydrAMINE 25 MG TABLET PO (15:03)
[2024-11-29 15:22] LABS: Add Manual Diff / Slide Review NO; Basophils Absolute Auto 0 /uL (0-100); Basophils Percent Auto 0.6 % (0-2); Eosinophils Absolute Auto 100 /uL (0-450); Eosinophils Percent Auto 1.7 % (2-4); Hematocrit 29.7 % (36-46); Hemoglobin 9.9 g/dL (12.0-16.0); Lymphocytes Absolute Auto 700 /uL (1100-4500); Lymphocytes Percent Auto 21.4 % (25-40); Mean Corpuscular HGB Conc 33.3 % (30-36); Mean Corpuscular Hemoglobin 26.3 PG (26-34); Mean Corpuscular Volume 79.1 fL (80-100); Monocytes Absolute Auto 500 /uL (0-900); Monocytes Percent Auto 14.7 % (3-14); Neutrophils Absolute Auto 2100 /uL (1500-7000); Neutrophils Percent Auto 61.6 % (50-75); Platelet Count 197 X10^3/uL (150-400); Red Blood Cell Count 3.75 X10^6/uL (4.0-5.2); Red Cell Distribution Width 15.3 % (11.6-14.8); White Blood Cell Count 3.4 X10^3/uL (4.5-11.0)
[2024-11-29 15:33] LABS: Alanine Aminotransferase 22 IU/L (<35); Albumin 3.2 g/dL (3.5-5.0); Albumin Globulin Ratio 0.9 (1.0-2.8); Alkaline Phosphatase 79 U/L (38-126); Aspartate Aminotransferase 36 IU/L (14-36); BUN Creatinine Ratio 9.5 (6-22); Bilirubin Total 0.3 mg/dL (0.2-1.3); Blood Urea Nitrogen 17 mg/dL (7-17); Calcium 8.5 mg/dL (8.4-10.2); Carbon Dioxide 25 mmol/L (22-32); Chloride 107 mmol/L (98-107); Estimated Glomerular Filt Rate 38 mL/min (>60); Globulin 3.6 g/dL (1.7-4.1); Glucose 85 mg/dL (70-100); HEMOLYSIS < 15 (0-50); Potassium 4.3 mmol/L (3.4-5.1); Sodium 137 mmol/L (137-145); Total Protein 6.8 g/dL (6.3-8.2)
[2024-11-29 15:57] LABS: Bacteria Urine Many (>30); Culture Indicated Urine Cult Not Indicated; Granular Casts Urine 1-5/LPF; Hyaline Casts Urine 5-10/LPF; RBC Urine 1-5/HPF (0-5/HPF); Squamous Epithelial Cell Urine 5-10 /HPF (0-5/HPF); Urine Volume 10mL (spun); WBC Urine 1-5/HPF (0-5/HPF)
[2024-11-29] MEDS: ONDANSETRON 4 MG ODT SL (16:18)
[2024-11-29 16:24] VITALS: BP 145/92; PULSE 80; RESP 18; O2SAT 99
[2024-11-29 18:47] VITALS: BP 142/79; PULSE 70; RESP 18; O2SAT 98
--- NOTE | 2024-11-29 20:37 | PC.NURSE ---
Prov melissa Report [phone] report given Rob REEVES @ [id number]
[2024-11-29 21:20] VITALS: BP 138/72; PULSE 84; RESP 18; TEMP 37.2; O2SAT 98
--- NOTE | 2024-11-29 21:51 | PC.NURSE ---
[facility] ETA 9515 Prov melissa Report [phone] report given RobRAlis 0
== END 2024-11-29 21:44 | disposition short-term general hospital (02) ==
PROVIDERS: Student in an Organized Health Care Education/Training Program; Emergency Provider Emergency Medicine
DX: N17.9 Acute kidney failure, unspecified (principal); M32.14 Glomerular disease in systemic lupus erythematosus; M35.00 Sjogren syndrome, unspecified; I65.8 Occlusion and stenosis of other precerebral arteries
CPT/HCPCS: 36415; 80053; 81003; 81015; 81025; 85025; 99283; 99285

== ENCOUNTER 2025-02-01 02:00 | Emergency (ER) | payer BC, OTHER, SELFPAY ==
[2025-02-01] VITALS (9 sets, daily range): BP systolic 163–193; BP diastolic 79–89; PULSE 83–106; RESP 16; TEMP 36.9; O2SAT 96–98; BMI 37.5
--- NOTE | 2025-02-01 02:22 | DI.RAD.S_ITS ---
PROCEDURE: XR CHEST 1V INDICATIONS: cough fever TECHNIQUE: One view of the chest was acquired. COMPARISON: [facility], CR, XR CHEST 1V, 11/21/2024, 23:39. FINDINGS: Surgical changes and devices: None. Lungs and pleura: Mild appearance of patchy left basilar opacities. Mediastinum: Mediastinal contours appear normal. Heart size is normal. Bones and chest wall: No suspicious bony lesions. Overlying soft tissues appear unremarkable. IMPRESSION: Mild patchy left basilar opacities suggestive of pneumonia. Dictated by: Rebeca Carson M.D. on 02/01/2025 at 10:32 Approved by: Rebeca Carson M.D. on 02/01/2025 at 10:32
--- NOTE | 2025-02-01 02:25 | ED.URI ---
HPI - URI/Sore Throat General Chief Complaint: Upper Respiratory Symptoms Stated Complaint: vomiting/cough/body aches x5 days Time Seen by Provider: 02/01/25 02:09 Source: patient Mode of arrival: Ambulatory History of Present Illness HPI Narrative: Patient is a 35-year-old female history Sjogren's, lupus, Raynaud's rheumatoid arthritis, pericardial effusion presenting to day with a upper respiratory like symptoms. Reports that she has had cough for the last 5 days. Reports but she is having some chest discomfort with coughing and movement. She has thrown up a handful of times. Denies feeling any significant shortness of breath. Has had body aches. Reports that her right leg felt like she exercised yesterday but did not. No sore throat. Can not take NSAIDs due to chronic kidney disease. Previously transferred to [facility] for worsening lupus nephritis. States she is now on medication. But generally not feeling well over the past few days. Reports decrease in appetite. Related Data Previous Rx's Medication Instructions Recorded prednisone 5 mg tablet 5 mg PO DAILY #60 tabs 10/04/23 prednisone 5 mg tablet 5 mg PO DAILY #100 tabs 11/01/23 ondansetron 4 mg disintegrating 4 mg PO Q8H PRN nausea and 11/22/24 tablet vomiting #10 tabs ondansetron 4 mg disintegrating 4 mg PO Q8H PRN nausea and 11/29/24 tablet vomiting #20 tabs triamcinolone acetonide 0.025 % 1 applic topical BID #454 grams 11/29/24 topical ointment amoxicillin 500 mg capsule 1,000 mg (2 x 500 mg) PO TID 5 02/01/25 days #30 caps azithromycin 250 mg tablet See Rx Instructions PO .COMPLEX #6 02/01/25 tabs Allergies Allergy/AdvReac Type Severity Reaction Status Date / Time levetiracetam [From [facility]] Allergy Severe Anaphylaxis Verified 02/01/25 02:38 Patient History Social History Smoking Status: Never smoker Smoking Status: Never smoker Exam Initial Vital Signs Initial Vital Signs: Vital Signs Temperature 98.4 F 02/01/25 02:08 Pulse Rate 93 H 02/01/25 02:08 Respiratory Rate 16 02/01/25 02:08 Blood Pressure 193/87 H 04/16/25 02:08 Pulse Oximetry 98 02/01/25 02:08 Oxygen Delivery Method Room Air 02/01/25 02:08 GENERAL: Alert pleasant 35-year-old female appears to not feel well and in no acute distress. HEENT: Head atraumatic,EOMI, pupils reactive, face symmetric, moist mucous membranes CARDIOVASCULAR: Regular rate and rhythm without murmurs, rubs or gallops. RESPIRATORY: Breath sounds equal bilaterally, no wheezes rales or rhonchi. ABDOMEN: Soft, nontender. Normoactive bowel sounds all 4 quadrants. No guarding or rebound. EXTREMITIES: Normal range of motion, no clubbing or edema. Neurovascularly intact NEUROLOGICAL: Alert and oriented x4.Normal gait and speech. Cranial nerves II through XII grossly intact. SKIN: Warm, dry, no laceration, no petechiae, no rashes or lesions. Course Orders Ordered: ED Orders 02/01/25 02:22 Chest [XR chest 1V] Stat 02/01/25 02:30 Covid-19 + FLU A/B + RSV - PCR Stat 02/01/25 02:45 CBC Auto Diff [Complete Blood Count AUTO DIFF] Stat CMP [Comprehensive Metabolic Panel] Stat CPK [Creatine Kinase] Stat 02/01/25 04:00 Urine Microscopic Stat Discontinued Medications Amoxicillin (Amoxicillin 250 Mg Capsule) 1,000 mg PO NOW ONE Stop: 02/01/25 03:19 Last Admin: 02/01/25 03:29 Dose: 1,000 mg Documented By: BUD Hydromorphone HCl (Hydromorphone 0.5 Mg Inj) 0.5 mg IV NOW ONE Stop: 02/01/25 03:59 Last Admin: 02/01/25 04:12 Dose: 0.5 mg Documented By: BUD Sodium Chloride (Normal Saline 0.9%) 1,000 mls @ 1,000 mls/hr IV BOLUS ONE Stop: 02/01/25 03:19 Last Infusion: 02/01/25 04:11 Dose: Infused Documented By: Admin: 02/01/25 02:39 Dose: 1,000 mls/hr Documented By: BUD Acetaminophen (Ofirmev) 1,000 mg in 100 mls @ 400 mls/hr IV NOW ONE Stop: 02/01/25 02:34 Last Infusion: 02/01/25 03:22 Dose: Infused Documented By: Admin: 02/01/25 02:41 Dose: 400 mls/hr Documented By: BUD Ondansetron HCl (Ondansetron 4 Mg/2 Ml Inj) 4 mg IV NOW ONE Stop: 02/01/25 03:24 Last Admin: 02/01/25 03:29 Dose: 4 mg Documented By: BUD Vital Signs Vital signs: Vital Signs - 8 hr 02/01/25 02:08 02/01/25 02:14 02/01/25 02:30 Temperature 98.4 F Pulse Rate 93 H 106 H 92 H Respiratory Rate 16 Blood Pressure 193/87 H Pulse Oximetry 98 98 97 Oxygen Delivery Method Room Air 02/01/25 03:00 02/01/25 03:07 02/01/25 03:07 Temperature Pulse Rate 89 89 Respiratory Rate Blood Pressure 183/89 H Pulse Oximetry 97 96 Oxygen Delivery Method 02/01/25 03:30 02/01/25 03:31 02/01/25 03:31 Temperature Pulse Rate 91 H 87 Respiratory Rate Blood Pressure 180/81 H Pulse Oximetry 98 96 Oxygen Delivery Method 02/01/25 04:11 02/01/25 04:12 02/01/25 04:12 Temperature Pulse Rate 86 83 Respiratory Rate Blood Pressure 163/79 H Pulse Oximetry 98 97 Oxygen Delivery Method MDM - URI/Sore Throat Lab Data 02/01/25 02:45 02/01/25 02:45 Labs: Lab Results 02/01/25 02/01/25 02/01/25 Range/Units 02:30 02:45 04:00 WBC 4.7 (4.5-11.0) X10^3/uL RBC 3.24 L (4.0-5.2) X10^6/uL Hgb 8.8 L (12.0-16.0) g/dL Hct 25.9 L (36-46) % MCV 79.7 L (80-100) fL MCH 27.1 (26-34) PG MCHC 34.0 (30-36) % RDW 17.3 H (11.6-14.8) % Plt Count 208 (150-400) X10^3/uL Neut % (Auto) 84.6 H (50-75) % Lymph % (Auto) 9.5 L (25-40) % [place] % (Auto) 5.6 (3-14) % Eos % (Auto) 0.1 L (2-4) % Baso % (Auto) 0.2 (0-2) % Neut # (Auto) 4000 (7828-3262) /uL Lymph # (Auto) 400 L (2310-2285) /uL [place] # (Auto) 300 (0-900) /uL Eos # (Auto) 0 (0-450) /uL Baso # (Auto) 0 (0-100) /uL Sodium 135 L (137-145) mmol/L Potassium 4.1 (3.4-5.1) mmol/L Chloride 110 H (98-107) mmol/L Carbon Dioxide 21 L (22-32) mmol/L BUN 16 (7-17) mg/dL Creatinine 1.70 H (0.52-1.04) mg/dL Estimated GFR 40 L (>60) mL/min BUN/Creatinine Ratio 9.4 (6-22) Glucose 95 (70-100) mg/dL Calcium 7.7 L (8.4-10.2) mg/dL Total Bilirubin 0.3 (0.2-1.3) mg/dL AST 28 (14-36) IU/L ALT 20 (<35) IU/L Alkaline Phosphatase 69 (38-126) U/L Total Creatine Kinase 51 (30-135) U/L Total Protein 4.9 L (6.3-8.2) g/dL Albumin 2.2 L (3.5-5.0) g/dL Globulin 2.7 (1.7-4.1) g/dL Albumin/Globulin Ratio 0.8 L (1.0-2.8) Urine RBC 5-10/hpf H (0-5/HPF) Urine WBC 1-5/hpf (0-5/HPF) Ur Squamous Epith Cells 1-5 /hpf (0-5/HPF) Urine Bacteria Few (2-10) H (None) Hyaline Casts 10-30/lpf (None) Granular Casts 1-5/lpf (None) Other Casts . Ur Culture Indicated? Cult not indicated Vol Urine Centrifuged 10ml (spun) SARS-CoV-2 (PCR) Negative (Negative) Influenza A (RT-PCR) Flu a negative (NEGATIVE) Influenza B (RT-PCR) Flu b negative (NEGATIVE) RSV (PCR) Negative (Negative) Point of Care Testing Test Results Negative Urine Dip Bedside Urine Glucose Negative Bedside Urine Bilirubin - Negative Bedside Urine Ketone - Negative Urine Specific [place] 1.015 Bedside Urine Occult Blood ++ Bedside Urine pH 6 Bedside Urine Protein +++ 300 Bedside Urine Urobilinogen - Negative Bedside Urine Nitrite - Negative Bedside Urine Leukocytes - Negative Esterase Imaging Data Chest x-ray: Radiologist's Impression: Multifocal pulmonary infiltrates MDM Narrative Medical decision making narrative: Patient 35-year-old female history of lupus presenting today with upper respiratory like symptoms and cough. She is afebrile vitals are stable here Blood work has been reviewed she has no leukocytosis anemia slightly worse, 8.8/25.9, previous hemoglobin 9.9 hematocrit 29.7 Electrolytes within normal limits creatinine 1.7 previously 1.79, CPK 51 no evidence of rhabdomyolysis Albumin noted to be low at 2.2 Chest x-ray shows bilateral pulmonary infiltrates. Patient has signs and symptoms concerning for upper respiratory infection. X-ray confirms pneumonia. She has no evidence of sepsis. Okay for outpatient treatment. She received a L of normal saline IV Tylenol but still having some headache. She did get 1 dose of 0.5 mg of Dilaudid which helped her headache. Overall felt better and ready able to go home. She also received her 1st dose of amoxicillin in the ED CURB-65 Score for Pneumonia Severity from [email or web address] on 02/01/2025 All calculations should be rechecked by clinician prior to use RESULT SUMMARY: 0 points Low risk group: 0.6% 30-day mortality. Consider outpatient treatment. INPUTS: Confusion ?> 0 = No BUN >19 mg/dL (>7 mmol/L urea) ?> 0 = No Respiratory Rate >=0 ?> 0 = No Systolic BP <90 mmHg or Diastolic BP <=0 mmHg ?> 0 = No Age >=5 ?> 0 = No Discharge Plan Departure Patient Disposition: Home Clinical Impression: Pneumonia Instructions: DI for Pneumonia -- Adult Activity Restrictions/Additional Instructions: *You have been diagnosed with pneumonia *What to do: *Continue to take medications as directed Amoxicillin 1000 mg 3 times a day for 5 days Z-Henrry take as directed *Follow up with your primary care provider in 2-3 days or call [phone] *Return to ER if you should have increased shortness of breath weakness not tolerating fluids or any new, worsening or concerning symptoms Prescriptions: New amoxicillin 500 mg capsule 1,000 mg PO TID 5 Days Qty: 30 0RF azithromycin 250 mg tablet See Rx Instructions PO .COMPLEX Qty: 6 0RF Rx Instructions: For 250 mg dose pack: take 500 mg today (day 1), then 250 mg for 4 days (days 2-5) No Action prednisone 5 mg tablet 5 mg PO DAILY Qty: 100 0RF Rx Instructions: 40 mg once a day for 3 days, 30 mg once a day for 3 days, 20 mg once a day for 3 days, 10 mg once a day for 3 days, 5 mg once a day prednisone 5 mg tablet 5 mg PO DAILY Qty: 60 0RF Rx Instructions: 20 mg once a day for 5 days, 15 mg once a day for 5 days, 10 mg once a day for 5 days ondansetron 4 mg tablet,disintegrating 4 mg PO Q8H PRN (Reason: nausea and vomiting) Qty: 10 0RF triamcinolone acetonide 0.025 % ointment 1 applic topical BID Qty: 454 0RF ondansetron 4 mg tablet,disintegrating 4 mg PO Q8H PRN (Reason: nausea and vomiting) Qty: 20 0RF Referrals: Miscellaneous,Doctor, MD [Primary Care Provider] - Stand Alone Forms: Patient Portal/API/Survey, Work Release Note
[2025-02-01] MEDS: SODIUM CHLORIDE 0.9% 1,000 ML 1000 ML IV (02:39)
[2025-02-01] MEDS: ACETAMINOPHEN IV 1,000 MG/100 ML VIAL 400 MG IV (02:41)
[2025-02-01 03:01] LABS: Add Manual Diff / Slide Review NO; Basophils Absolute Auto 0 /uL (0-100); Basophils Percent Auto 0.2 % (0-2); Eosinophils Absolute Auto 0 /uL (0-450); Eosinophils Percent Auto 0.1 % (2-4); Hematocrit 25.9 % (36-46); Hemoglobin 8.8 g/dL (12.0-16.0); Lymphocytes Absolute Auto 400 /uL (1100-4500); Lymphocytes Percent Auto 9.5 % (25-40); Mean Corpuscular Hemoglobin 27.1 PG (26-34); Mean Corpuscular Volume 79.7 fL (80-100); Monocytes Absolute Auto 300 /uL (0-900); Monocytes Percent Auto 5.6 % (3-14); Neutrophils Absolute Auto 4000 /uL (1500-7000); Neutrophils Percent Auto 84.6 % (50-75); Platelet Count 208 X10^3/uL (150-400); Red Blood Cell Count 3.24 X10^6/uL (4.0-5.2); Red Cell Distribution Width 17.3 % (11.6-14.8); White Blood Cell Count 4.7 X10^3/uL (4.5-11.0)
[2025-02-01 03:10] LABS: Alanine Aminotransferase 20 IU/L (<35); Albumin 2.2 g/dL (3.5-5.0); Albumin Globulin Ratio 0.8 (1.0-2.8); Alkaline Phosphatase 69 U/L (38-126); Aspartate Aminotransferase 28 IU/L (14-36); BUN Creatinine Ratio 9.4 (6-22); Bilirubin Total 0.3 mg/dL (0.2-1.3); Blood Urea Nitrogen 16 mg/dL (7-17); Calcium 7.7 mg/dL (8.4-10.2); Carbon Dioxide 21 mmol/L (22-32); Chloride 110 mmol/L (98-107); Creatine Kinase 51 U/L (30-135); Estimated Glomerular Filt Rate 40 mL/min (>60); Globulin 2.7 g/dL (1.7-4.1); Glucose 95 mg/dL (70-100); HEMOLYSIS < 15 (0-50); Potassium 4.1 mmol/L (3.4-5.1); Sodium 135 mmol/L (137-145); Total Protein 4.9 g/dL (6.3-8.2)
[2025-02-01 03:15] LABS: Influenza A - CEPHEID Flu A NEGATIVE (NEGATIVE); Influenza B - CEPHEID Flu B NEGATIVE (NEGATIVE); Respiratory Syncytial Virus Negative (Negative)
[2025-02-01 03:19] LABS: COVID-19 CEPHEID 4-PLEX PCR Negative (Negative)
[2025-02-01] MEDS: AMOXICILLIN 250 MG CAPSULE 1000 MG PO (03:29)
[2025-02-01] MEDS: ONDANSETRON 4 MG/2 ML INJ IV (03:29)
[2025-02-01] MEDS: HYDROMORPHONE 0.5 MG INJ IV (04:12)
[2025-02-01 04:24] LABS: Squamous Epithelial Cell Urine 1-5 /HPF (0-5/HPF); Urine Volume 10mL (spun)
[2025-02-01 04:25] LABS: Granular Casts Urine 1-5/LPF; Hyaline Casts Urine 10-30/LPF
[2025-02-01 04:27] LABS: RBC Urine 5-10/HPF (0-5/HPF)
[2025-02-01 04:28] LABS: Bacteria Urine Few (2-10); Culture Indicated Urine Cult Not Indicated; WBC Urine 1-5/HPF (0-5/HPF)
== END 2025-02-01 04:51 | disposition home or self-care (01) ==
PROVIDERS: Emergency Provider Emergency Medicine
DX: J18.9 Pneumonia, unspecified organism (principal); R07.9 Chest pain, unspecified
CPT/HCPCS: 0241U; 36415; 71045; 80053; 81003; 81015; 81025; 82550; 85025; 96365; 96375; 99284; J0131; J1171; J2405

== ENCOUNTER 2025-02-02 17:19 | Emergency (ER) | payer BC, OTHER, SELFPAY ==
[2025-02-02] VITALS (19 sets, daily range): BP systolic 145–176; BP diastolic 72–96; PULSE 99–129; RESP 16–24; TEMP 36.8; O2SAT 89–96; BMI 38.9
--- NOTE | 2025-02-02 17:54 | PC.NURSE ---
RT at the bedside.
--- NOTE | 2025-02-02 18:39 | ED_ITS ---
HPI - General Adult General Chief complaint: Upper Respiratory Symptoms Stated complaint: rtrn from 02/01 pneumonia, GALLAGHER, back px Time Seen by Provider: 02/02/25 17:57 Source: patient and family Mode of arrival: Ambulatory History of Present Illness HPI narrative: 35-year-old woman with multiple autoimmune diseases including lupus, Sjogren's, history of Raynaud's, rheumatoid arthritis prior pericardial effusion was seen yesterday with upper respiratory symptoms and cough for 5 days. X-ray showed bilateral pulmonary infiltrates remainder of her workup was benign with curb 65 score low risk she was treated with amoxicillin and azithromycin. She notes that she is getting worse and comes back for further evaluation. Headache continues to be a problem, pain in her ribs particularly on the left posterior side secondary to coughing. He is having fevers and chills no appetite. The Zofran has helped relieve the vomiting. She notes that she has not been taking her mycophenolate, 30 mg of daily prednisone, lisinopril or amlodipine for the last 5 days. She stopped the mycophenolate and prednisone because she was worried that they were compromising her immune system while she was getting sick and was vomiting too much for the blood pressure medications. She does not note asymmetric lower extremity edema. She describes mild abdominal pain secondary to persistent coughing, no dysuria or flank pain. No diarrhea. Related Data Previous Rx's Medication Instructions Recorded prednisone 5 mg tablet 5 mg PO DAILY #60 tabs 10/04/23 prednisone 5 mg tablet 5 mg PO DAILY #100 tabs 11/01/23 ondansetron 4 mg disintegrating 4 mg PO Q8H PRN nausea and 11/22/24 tablet vomiting #10 tabs ondansetron 4 mg disintegrating 4 mg PO Q8H PRN nausea and 11/29/24 tablet vomiting #20 tabs triamcinolone acetonide 0.025 % 1 applic topical BID #454 grams 11/29/24 topical ointment amoxicillin 500 mg capsule 1,000 mg (2 x 500 mg) PO TID 5 02/01/25 days #30 caps azithromycin 250 mg tablet See Rx Instructions PO .COMPLEX #6 02/01/25 tabs Allergies Allergy/AdvReac Type Severity Reaction Status Date / Time levetiracetam [From [facility]] Allergy Severe Anaphylaxis Verified 02/01/25 02:38 Review of Systems Review of Systems Narrative: Pertinent positive and negative findings as per HPI Patient History Medical History (Updated 02/03/25 @ 00:03 by Katarzyna Mares MD) Rheumatoid arthritis Sjogren syndrome Lupus nephritis Exam Initial Vital Signs Initial Vital Signs: Vital Signs Pulse Rate 112 H 02/02/25 17:27 Blood Pressure 153/96 H 02/02/25 17:27 Pulse Oximetry 94 02/02/25 17:27 General: Fatigued appearing, puffiness around her eyes, coughing nonproductive, is currently able to speak in full sentences HEENT: Dry mucous membranes, normal sclera with reactive pupils, Neck: No cervical adenopathy Respiratory: Lungs diffuse rhonchi in all lung thorpe worsened mid lung thorpe, minor scattered wheeze, no crackles. She is tachypneic but not hypoxic on room air Cardiac: Tachycardic with 3/6 systolic murmur Abdomen: Soft, mild superficial tenderness secondary to coughing no rebound or guarding, no flank pain Skin: Warm and dry, no rashes Neurologic: Grossly neurologically intact with no obvious asymmetries or abnormalities Extremities: No trauma, well perfused Psych: Cooperative, appropriate insight and affect Course Orders Ordered: ED Orders 02/02/25 21:17 EKG-12 Lead Stat 02/02/25 21:32 Trop I [Troponin I] Stat 02/02/25 21:56 Ictotest Urine Stat Urinalysis and Microscopic Stat Discontinued Medications Albuterol/Ipratropium (Albuterol/Ipratropium 3 Ml Ampul) 3 ml INH NOW ONE Stop: 02/02/25 18:52 Last Admin: 02/02/25 20:12 Dose: 3 ml Documented By: Amlodipine Besylate (Amlodipine 5 Mg Tablet) 10 mg PO NOW ONE Stop: 02/02/25 22:51 Last Admin: 02/02/25 22:54 Dose: 10 mg Documented By: AI Furosemide (Furosemide 40 Mg/4 Ml Vial) 40 mg IV NOW ONE Stop: 02/02/25 22:18 Last Admin: 02/02/25 22:31 Dose: 40 mg Documented By: AI Hydrocortisone (Hydrocortisone 100 Mg/2 Ml Vial) 100 mg IV NOW ONE Stop: 02/02/25 18:52 Last Admin: 02/02/25 19:55 Dose: 100 mg Documented By: AI Hydromorphone HCl (Hydromorphone 0.5 Mg Inj) 0.5 mg IV Q15MIN PRN PRN Reason: Pain, Last Admin: 02/03/25 02:18 Dose: 0.5 mg Documented By: Admin: 02/02/25 22:31 Dose: 0.5 mg Documented By: Admin: 02/02/25 19:55 Dose: 0.5 mg Documented By: KRYSTIAN Sodium Chloride (Normal Saline 0.9%) 1,000 mls @ 1,000 mls/hr IV BOLUS ONE Stop: 02/02/25 19:50 Last Infusion: 02/02/25 22:04 Dose: Infused Documented By: Admin: 02/02/25 19:56 Dose: 1,000 mls/hr Documented By: KRYSTIAN Methylprednisolone (Methylprednisolone 125 Mg/2 Ml Vial) 125 mg IV NOW ONE Stop: 02/02/25 18:52 Last Admin: 02/02/25 19:55 Dose: 125 mg Documented By: KRYSTIAN Vital Signs Vital signs: Vital Signs - 8 hr 02/02/25 22:30 02/02/25 22:30 02/02/25 23:00 Pulse Rate 118 H 112 H Respiratory Rate 20 Blood Pressure 158/76 H Pulse Oximetry 95 89 L Oxygen Delivery Method Nasal Cannula Oxygen Flow Rate 1 1 02/02/25 23:00 02/02/25 23:30 02/02/25 23:30 Pulse Rate 104 H Respiratory Rate 20 Blood Pressure 157/78 H 149/76 H Pulse Oximetry 92 Oxygen Delivery Method Nasal Cannula Oxygen Flow Rate 2 02/03/25 00:00 02/03/25 00:00 02/03/25 00:30 Pulse Rate 102 H 99 H Respiratory Rate 20 20 Blood Pressure 146/76 H Pulse Oximetry 93 94 Oxygen Delivery Method Nasal Cannula Nasal Cannula Oxygen Flow Rate 2 2 02/03/25 00:30 02/03/25 01:06 02/03/25 01:06 Pulse Rate 115 H Respiratory Rate 26 H Blood Pressure 143/70 H 147/73 H Pulse Oximetry 92 Oxygen Delivery Method Nasal Cannula Oxygen Flow Rate 2 02/03/25 01:30 02/03/25 01:30 02/03/25 02:00 Pulse Rate 113 H 107 H Respiratory Rate 24 Blood Pressure 146/75 H Pulse Oximetry 98 98 Oxygen Delivery Method Nasal Cannula Nasal Cannula Oxygen Flow Rate 2 2 02/03/25 02:00 Pulse Rate Respiratory Rate Blood Pressure 137/74 Pulse Oximetry Oxygen Delivery Method Oxygen Flow Rate Medical Decision Making Lab Data 02/02/25 20:08 02/02/25 19:15 Labs: Lab Results 02/02/25 02/02/25 02/02/25 Range/Units 19:15 19:35 20:08 WBC 4.5 (4.5-11.0) X10^3/uL RBC 3.59 L (4.0-5.2) X10^6/uL Hgb 9.7 L (12.0-16.0) g/dL Hct 28.5 L (36-46) % MCV 79.4 L (80-100) fL MCH 27.0 (26-34) PG MCHC 34.0 (30-36) % RDW 17.3 H (11.6-14.8) % Plt Count 233 (150-400) X10^3/uL Neut % (Auto) 82.8 H (50-75) % Lymph % (Auto) 12.4 L (25-40) % [place] % (Auto) 4.3 (3-14) % Eos % (Auto) 0.2 L (2-4) % Baso % (Auto) 0.3 (0-2) % Neut # (Auto) 3700 (6650-2565) /uL Lymph # (Auto) 600 L (8602-4189) /uL [place] # (Auto) 200 (0-900) /uL Eos # (Auto) 0 (0-450) /uL Baso # (Auto) 0 (0-100) /uL Sodium 134 L (137-145) mmol/L Potassium 3.9 (3.4-5.1) mmol/L Chloride 108 H (98-107) mmol/L Carbon Dioxide 23 (22-32) mmol/L BUN 18 H (7-17) mg/dL Creatinine 2.38 H (0.52-1.04) mg/dL Estimated GFR 27 L (>60) mL/min BUN/Creatinine Ratio 7.6 (6-22) Glucose 77 (70-100) mg/dL Lactate 0.5 L (0.7-2.1) mmol/L Calcium 7.6 L (8.4-10.2) mg/dL Magnesium 1.7 (1.6-2.3) mg/dL Total Bilirubin 0.4 (0.2-1.3) mg/dL AST 37 H (14-36) IU/L ALT 19 (<35) IU/L Alkaline Phosphatase 68 (38-126) U/L Troponin I 0.054 H (0.01-0.034) ng/mL NT-Pro-B Natriuret Pep 2090 H (<125) pg/mL Total Protein 5.0 L (6.3-8.2) g/dL Albumin 2.3 L (3.5-5.0) g/dL Globulin 2.7 (1.7-4.1) g/dL Albumin/Globulin Ratio 0.9 L (1.0-2.8) Procalcitonin 0.311 (<0.5) ng/mL Urine Color Urine Appearance Urine pH (4.5-8.0) Ur Specific [place] (1.000-1.035) Urine Protein (Negative) Urine Glucose (UA) (Negative) g/dL Urine Ketones (NEGATIVE) Urine Occult Blood (Negative) Urine Nitrate (Negative) Urine Bilirubin (NEGATIVE) Ur Bilirubin Confirm (Negative) Urine Urobilinogen (0.2) E.U./dL Ur Leukocyte Esterase (NEGATIVE) Urine RBC (0-5/HPF) Urine WBC (0-5/HPF) Ur Squamous Epith Cells (0-5/HPF) Urine Bacteria (None) Hyaline Casts (None) Granular Casts (None) Other Casts Urine Mucus (Negative) Ur Culture Indicated? Vol Urine Centrifuged Chlamy pneumoniae PCR (Not Detect) Adenovirus (PCR) (Not Detect) B. pertussis DNA (PCR) (Not Detect) B.parapertussis DNA PCR (Not Detecte) Coronavirus OC43 (PCR) (Not Detect) Coronavirus HKU1 (PCR) (Not Detect) Coronavirus 229E (PCR) (Not Detect) SARS-CoV-2 (PCR) (Not Detecte) Coronavirus NL63 (PCR) (Not Detect) Human Metapneumovir PCR (Not Detect) Influenza Type A (PCR) (Not Detect) Influenza Type B (PCR) (Not Detect) M. pneumoniae (PCR) (Not Detect) Parainfluenza 1 (PCR) (Not Detect) Parainfluenza 2 (PCR) (Not Detect) Parainfluenza 3 (PCR) (Not Detect) Parainfluenza 4 (PCR) (Not Detect) RSV (PCR) (Not Detect) Entero/Rhino (PCR) (Not Detect) 02/02/25 02/02/25 02/02/25 Range/Units 20:20 21:32 21:56 WBC (4.5-11.0) X10^3/uL RBC (4.0-5.2) X10^6/uL Hgb (12.0-16.0) g/dL Hct (36-46) % MCV (80-100) fL MCH (26-34) PG MCHC (30-36) % RDW (11.6-14.8) % Plt Count (150-400) X10^3/uL Neut % (Auto) (50-75) % Lymph % (Auto) (25-40) % [place] % (Auto) (3-14) % Eos % (Auto) (2-4) % Baso % (Auto) (0-2) % Neut # (Auto) (5177-4102) /uL Lymph # (Auto) (5299-4157) /uL [place] # (Auto) (0-900) /uL Eos # (Auto) (0-450) /uL Baso # (Auto) (0-100) /uL Sodium (137-145) mmol/L Potassium (3.4-5.1) mmol/L Chloride (98-107) mmol/L Carbon Dioxide (22-32) mmol/L BUN (7-17) mg/dL Creatinine (0.52-1.04) mg/dL Estimated GFR (>60) mL/min BUN/Creatinine Ratio (6-22) Glucose (70-100) mg/dL Lactate (0.7-2.1) mmol/L Calcium (8.4-10.2) mg/dL Magnesium (1.6-2.3) mg/dL Total Bilirubin (0.2-1.3) mg/dL AST (14-36) IU/L ALT (<35) IU/L Alkaline Phosphatase (38-126) U/L Troponin I 0.045 H (0.01-0.034) ng/mL NT-Pro-B Natriuret Pep (<125) pg/mL Total Protein (6.3-8.2) g/dL Albumin (3.5-5.0) g/dL Globulin (1.7-4.1) g/dL Albumin/Globulin Ratio (1.0-2.8) Procalcitonin (<0.5) ng/mL Urine Color Red Urine Appearance Cloudy Urine pH 6.0 (4.5-8.0) Ur Specific [place] 1.025 (1.000-1.035) Urine Protein 3+ H (Negative) Urine Glucose (UA) Negative (Negative) g/dL Urine Ketones Negative (NEGATIVE) Urine Occult Blood 3+ H (Negative) Urine Nitrate Negative (Negative) Urine Bilirubin 1+ H (NEGATIVE) Ur Bilirubin Confirm Negative (Negative) Urine Urobilinogen 0.2 (0.2) E.U./dL Ur Leukocyte Esterase Negative (NEGATIVE) Urine RBC >100/hpf H (0-5/HPF) Urine WBC None seen (0-5/HPF) Ur Squamous Epith Cells 0-1 /hpf (0-5/HPF) Urine Bacteria Few (2-10) H (None) Hyaline Casts 1-5/lpf (None) Granular Casts 0-1/lpf (None) Other Casts 0-1/lpf Urine Mucus 2+ H (Negative) Ur Culture Indicated? Cult not indicated Vol Urine Centrifuged 10ml (spun) Chlamy pneumoniae PCR Not detected (Not Detect) Adenovirus (PCR) Not detected (Not Detect) B. pertussis DNA (PCR) Not detected (Not Detect) B.parapertussis DNA PCR Not detected (Not Detecte) Coronavirus OC43 (PCR) Not detected (Not Detect) Coronavirus HKU1 (PCR) Not detected (Not Detect) Coronavirus 229E (PCR) Not detected (Not Detect) SARS-CoV-2 (PCR) Not detected (Not Detecte) Coronavirus NL63 (PCR) Not detected (Not Detect) Human Metapneumovir PCR Detected H (Not Detect) Influenza Type A (PCR) Not detected (Not Detect) Influenza Type B (PCR) Not detected (Not Detect) M. pneumoniae (PCR) Not detected (Not Detect) Parainfluenza 1 (PCR) Not detected (Not Detect) Parainfluenza 2 (PCR) Not detected (Not Detect) Parainfluenza 3 (PCR) Not detected (Not Detect) Parainfluenza 4 (PCR) Not detected (Not Detect) RSV (PCR) Not detected (Not Detect) Entero/Rhino (PCR) Not detected (Not Detect) Imaging Data CT scan - chest: Radiologist's Impression: PROCEDURE: CT CHEST WO CON INDICATIONS: Persistent cough, tachypnea, tachycardic, immunocompromised TECHNIQUE: Noncontrast 5 mm thick sections acquired from the pulmonary apices to the posterior costophrenic angles. 1 mm lung window, 5 mm thick coronal and sagittal and 7 mm axial MIP reformats were then acquired. For radiation dose reduction, the following was used: automated exposure control, adjustment of mA and/or kV according to patient size. COMPARISON: [facility], CT, CT ANGIO CHEST ABDOMEN PELVIS, 11/10/2024, 13:39. [facility], CR, XR CHEST 1V, 02/01/2025, 2:23. FINDINGS: Image quality: Diagnostic. Lower Neck: No enlarged lymph nodes. Thyroid: No thyroid nodules which require sonographic follow up, per consensus guidelines. Axillae: No enlarged lymph nodes. Chest Wall: Unremarkable. Bones: No aggressive appearing bony lesions. Lungs and Pleura: Extensive airspace opacities are noted scattered in bilateral lung thorpe more prominently in left upper and lower lobes as well as right middle lobe extending to bilateral hilar region. Trace left pleural effusion and bibasilar dependent atelectasis. No pneumothorax. Central and peripheral airway is patent. Heart: Heart size is normal. Small pericardial effusion. Thoracic Vessels: The aorta is normal in size. Prominent size of main pulmonary artery concerning for pulmonary vascular hypertension. Mediastinum and Nereida: Significantly enlarged mediastinal and hilar lymph nodes are seen which may be reactive in nature. Esophagus: No wall thickening. No hiatal hernia. Upper Abdomen: Visualized upper abdomen solid organs and bowel loops appear normal. IMPRESSION: 1. Extensive bilateral multilobar infiltrates more notably in left upper lobe, left lower lobe and right middle lobe. Small left pleural effusion. No pneumothorax. 2. Enlarged mediastinal and hilar lymph nodes likely reactive in nature. 3. Small amount of pericardial effusion. Prominent size of main pulmonary artery which can be seen associated with pulmonary vascular hypertension. No aortic aneurysm. Dictated by: Roland Reyes M.D. on 02/02/2025 at 20:08 MDM Narrative Medical decision making narrative: CC: Worse after being diagnosed with pneumonia and started on antibiotic Complicating co-morbidities: Lupus nephritis, Sjogren's, rheumatoid arthritis, chronically on mycophenolate and 30 mg of prednisone Data collected from: patient Medical records reviewed: ER note from yesterday for similar complaints reviewed Differential considered: Sepsis, bacterial pneumonia, autoimmune pneumonia, viral syndrome, adrenal insufficiency stubbing her chronic prednisone for the last week Exam documented above, pertinent findings include: Patient appears quite uncomfortable, quite puffy around her eyes, significant rhonchi throughout both lung thorpe, tachypneic, tachycardic Lab Test results independently reviewed as above. Pertinent findings: Yesterday influenza and COVID were negative CBC remains unchanged without leukocytosis but she does have a left shift Chemistries show an acute increase in creatinine from 1.7-2.3 with GFR down at 27%. Liver studies are minimally changed with AST increased to 37 Troponin is positive at 0.054, repeat is down to 0.045 BNP is positive at 2090 Procalcitonin is not elevated suggesting lack of bacterial in fact Lactic acid is not elevated, Respiratory panel is positive for human metapneumovirus Independently reviewed EKG: Sinus tach at a rate of 110. No acute ischemic changes Imaging studies independently reviewed: CT scan of the chest is done without contrast due to her lupus nephritis. Patient has extensive bilateral multi lobular infiltrates worse on the left side. Small left pleural effusion. No pneumothorax. She has mediastinal adenopathy that is likely reactive. Again seen a small pericardial effusion Treatments: 100 mg of hydrocortisone for adrenal support 125 mg of methylprednisolone for wheezing and concern with inflammation 1 L of saline DuoNeb which was minimally effective I do not think that this is bacterial in nature, antibiotics are not initiated Re-evaluations: 930 patient is re-evaluated. Explain to her findings today which include the pulmonary infiltrates, worsening renal function and need for transfer for higher level of care. She is now on 1 L of oxygen nasal cannula as her saturations were dropping into the 88% range. Tachycardia is actually slightly increased. Headache minimally improved with Dilaudid but cough has been slightly suppressed so she is more comfortable Discussion: 35-year-old woman with progressive respiratory distress. Seeing yesterday started on antibiotics, feeling worse today. She is testing positive for human metapneumovirus with CT scan suggesting fairly significant interstitial pneumonia worse on the left. Oxygen saturations were decreasing in heart rate is increasing. She did not have significant benefit from a DuoNeb. Steroids have been administered as well. Initial troponin and BNP were elevated, repeat troponin shows it is trending down. She does not carry a diagnosis of heart failure but has had evidence of pulmonary artery hypertension which may explain the BNP. With symptoms all worsening with a L of fluid, increased heart rate, blood pressure and oxygen needs, we will try Lasix and see if that helps improve those parameters. She is acute kidney injury which concerns me for her worsening lupus nephritis. At this point I do not have a full explanation for her complete picture but I do believe that the possibility of her getting worse to a point of needing intubation within the next 24 hours is significant. Transfer to a higher level of care with subspecialty consultation including Nephrology, pulmonology and Cardiology we will be helpful. 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 We will see if they have space for transfer. [address] Sainz, [facility], Accepts care. Will call when bed available Discharge Plan Departure Patient Disposition: [facility] Clinical Impression: Human metapneumovirus (hMPV) pneumonia, Acute kidney injury, Multilobar lung infiltrate, Elevated brain natriuretic peptide (BNP) level, Chronic lupus nephritis Prescriptions: No Action prednisone 5 mg tablet 5 mg PO DAILY Qty: 100 0RF Rx Instructions: 40 mg once a day for 3 days, 30 mg once a day for 3 days, 20 mg once a day for 3 days, 10 mg once a day for 3 days, 5 mg once a day amoxicillin 500 mg capsule 1,000 mg PO TID 5 Days Qty: 30 0RF azithromycin 250 mg tablet See Rx Instructions PO .COMPLEX Qty: 6 0RF Rx Instructions: For 250 mg dose pack: take 500 mg today (day 1), then 250 mg for 4 days (days 2-5) prednisone 5 mg tablet 5 mg PO DAILY Qty: 60 0RF Rx Instructions: 20 mg once a day for 5 days, 15 mg once a day for 5 days, 10 mg once a day for 5 days ondansetron 4 mg tablet,disintegrating 4 mg PO Q8H PRN (Reason: nausea and vomiting) Qty: 10 0RF triamcinolone acetonide 0.025 % ointment 1 applic topical BID Qty: 454 0RF ondansetron 4 mg tablet,disintegrating 4 mg PO Q8H PRN (Reason: nausea and vomiting) Qty: 20 0RF Referrals: Miscellaneous,Doctor, MD [Primary Care Provider] -
--- NOTE | 2025-02-02 18:52 | DI.CT.S_ITS ---
PROCEDURE: CT CHEST WO CON INDICATIONS: Persistent cough, tachypnea, tachycardic, immunocompromised TECHNIQUE: Noncontrast 5 mm thick sections acquired from the pulmonary apices to the posterior costophrenic angles. 1 mm lung window, 5 mm thick coronal and sagittal and 7 mm axial MIP reformats were then acquired. For radiation dose reduction, the following was used: automated exposure control, adjustment of mA and/or kV according to patient size. COMPARISON: [facility], CT, CT ANGIO CHEST ABDOMEN PELVIS, 11/10/2024, 13:39. [facility], CR, XR CHEST 1V, 02/01/2025, 2:23. FINDINGS: Image quality: Diagnostic. Lower Neck: No enlarged lymph nodes. Thyroid: No thyroid nodules which require sonographic follow up, per consensus guidelines. Axillae: No enlarged lymph nodes. Chest Wall: Unremarkable. Bones: No aggressive appearing bony lesions. Lungs and Pleura: Extensive airspace opacities are noted scattered in bilateral lung thorpe more prominently in left upper and lower lobes as well as right middle lobe extending to bilateral hilar region. Trace left pleural effusion and bibasilar dependent atelectasis. No pneumothorax. Central and peripheral airway is patent. Heart: Heart size is normal. Small pericardial effusion. Thoracic Vessels: The aorta is normal in size. Prominent size of main pulmonary artery concerning for pulmonary vascular hypertension. Mediastinum and Nereida: Significantly enlarged mediastinal and hilar lymph nodes are seen which may be reactive in nature. Esophagus: No wall thickening. No hiatal hernia. Upper Abdomen: Visualized upper abdomen solid organs and bowel loops appear normal. IMPRESSION: 1. Extensive bilateral multilobar infiltrates more notably in left upper lobe, left lower lobe and right middle lobe. Small left pleural effusion. No pneumothorax. 2. Enlarged mediastinal and hilar lymph nodes likely reactive in nature. 3. Small amount of pericardial effusion. Prominent size of main pulmonary artery which can be seen associated with pulmonary vascular hypertension. No aortic aneurysm. Dictated by: Roland Reyes M.D. on 02/02/2025 at 20:08 Approved by: Roland Reyes M.D. on 02/02/2025 at 20:13
[2025-02-02 19:39] LABS: Alanine Aminotransferase 19 IU/L (<35); Albumin 2.3 g/dL (3.5-5.0); Albumin Globulin Ratio 0.9 (1.0-2.8); Alkaline Phosphatase 68 U/L (38-126); Aspartate Aminotransferase 37 IU/L (14-36); BUN Creatinine Ratio 7.6 (6-22); Bilirubin Total 0.4 mg/dL (0.2-1.3); Blood Urea Nitrogen 18 mg/dL (7-17); Calcium 7.6 mg/dL (8.4-10.2); Carbon Dioxide 23 mmol/L (22-32); Chloride 108 mmol/L (98-107); Estimated Glomerular Filt Rate 27 mL/min (>60); Globulin 2.7 g/dL (1.7-4.1); Glucose 77 mg/dL (70-100); HEMOLYSIS < 15 (0-50); Magnesium 1.7 mg/dL (1.6-2.3); Potassium 3.9 mmol/L (3.4-5.1); Sodium 134 mmol/L (137-145)
--- NOTE | 2025-02-02 19:43 | PC.NURSE ---
Pt to imaging via ED stretcher with projection technician.
[2025-02-02 19:52] LABS: NT-proBNP (BNP-Adult 18+) 2090 pg/mL (<125); Troponin I 0.054 ng/mL (0.01-0.034)
[2025-02-02] MEDS: HYDROMORPHONE 0.5 MG INJ IV ×2 (19:55→22:31)
[2025-02-02] MEDS: methylPREDNISolone 125 MG/2 ML VIAL IV (19:55)
[2025-02-02] MEDS: HYDROCORTISONE 100 MG/2 ML VIAL IV (19:55)
[2025-02-02 19:56] LABS: Procalcitonin 0.311 ng/mL (<0.5)
[2025-02-02] MEDS: SODIUM CHLORIDE 0.9% 1,000 ML 1000 ML IV (19:56)
[2025-02-02 19:59] LABS: Lactate (Lactic Acid) 0.5 mmol/L (0.7-2.1)
--- NOTE | 2025-02-02 20:00 | PC.NURSE ---
Pt ambulatory to restroom without difficulty or assistance.
--- NOTE | 2025-02-02 20:09 | PC.NURSE ---
Redraw CBC drawn from existing IV line.
[2025-02-02] MEDS: ALBUTEROL/IPRATROPIUM 3 ML AMPUL INH (20:12)
[2025-02-02 20:20] LABS: Add Manual Diff / Slide Review NO; Basophils Absolute Auto 0 /uL (0-100); Basophils Percent Auto 0.3 % (0-2); Eosinophils Absolute Auto 0 /uL (0-450); Eosinophils Percent Auto 0.2 % (2-4); Hematocrit 28.5 % (36-46); Hemoglobin 9.7 g/dL (12.0-16.0); Lymphocytes Absolute Auto 600 /uL (1100-4500); Lymphocytes Percent Auto 12.4 % (25-40); Mean Corpuscular Volume 79.4 fL (80-100); Monocytes Absolute Auto 200 /uL (0-900); Monocytes Percent Auto 4.3 % (3-14); Neutrophils Absolute Auto 3700 /uL (1500-7000); Neutrophils Percent Auto 82.8 % (50-75); Platelet Count 233 X10^3/uL (150-400); Red Blood Cell Count 3.59 X10^6/uL (4.0-5.2); Red Cell Distribution Width 17.3 % (11.6-14.8); White Blood Cell Count 4.5 X10^3/uL (4.5-11.0)
[2025-02-02 21:11] LABS: Adenovirus Not Detected (Not Detect); B. parapertussis Not Detected (Not Detecte); Bordetella pertussis Not Detected (Not Detect); Chlamydophila pneumoniae Not Detected (Not Detect); Coronavirus 229E Not Detected (Not Detect); Coronavirus HKU1 Not Detected (Not Detect); Coronavirus NL 63 Not Detected (Not Detect); Coronavirus OC43 Not Detected (Not Detect); Human Metapneumovirus Detected (Not Detect); Human Rhinovirus/Enterovirus Not Detected (Not Detect); Influenza A Not Detected (Not Detect); Influenza B Not Detected (Not Detect); Mycoplasma pneumoniae Not Detected (Not Detect); Parainfluenza Virus 1 Not Detected (Not Detect); Parainfluenza Virus 2 Not Detected (Not Detect); Parainfluenza Virus 3 Not Detected (Not Detect); Parainfluenza Virus 4 Not Detected (Not Detect); Respiratory Syncytial Virus Not Detected (Not Detect); SARS- CoV-2 Not Detected (Not Detecte)
--- NOTE | 2025-02-02 21:39 | EKG_ITS ---
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
--- NOTE | 2025-02-02 21:46 | PC.NURSE ---
Ambulatory to restroom without difficulty or assistance.
[2025-02-02 22:02] LABS: Appearance Urine UA CLOUDY; Bilirubin Urine UA 1+ (NEGATIVE); Color Urine UA RED; Glucose Urine UA NEGATIVE (Negative); Ketones Urine UA NEGATIVE (NEGATIVE); Leukocyte Esterase Urine UA NEGATIVE (NEGATIVE); Nitrite Urine UA NEGATIVE (Negative); Occult Blood Urine UA 3+ (Negative); Protein Urine UA 3+ (Negative); Specific Gravity Urine UA 1.025 (1.000-1.035); Urobilinogen Urine UA 0.2 E.U./dL (0.2)
[2025-02-02 22:03] LABS: Troponin I 0.045 ng/mL (0.01-0.034)
[2025-02-02 22:12] LABS: Granular Casts Urine 0-1/LPF; Ictotest Urine Negative (Negative); RBC Urine >100/HPF (0-5/HPF); Squamous Epithelial Cell Urine 0-1 /HPF (0-5/HPF); Urine Volume 10mL (spun); WBC Urine None Seen (0-5/HPF)
[2025-02-02 22:13] LABS: Other Casts Urine 0-1/LPF
[2025-02-02 22:14] LABS: Mucus Urine 2+ (Negative)
[2025-02-02 22:15] LABS: Bacteria Urine Few (2-10)
[2025-02-02 22:16] LABS: Hyaline Casts Urine 1-5/LPF
[2025-02-02 22:17] LABS: Culture Indicated Urine Cult Not Indicated
[2025-02-02] MEDS: FUROSEMIDE 40 MG/4 ML VIAL IV (22:31)
[2025-02-02] MEDS: AMLODIPINE 5 MG TABLET 10 MG PO (22:54)
[2025-02-03] VITALS: BP 146/76; PULSE 102; RESP 20; O2SAT 93
[2025-02-03 00:30] VITALS: BP 143/70; PULSE 99; RESP 20; O2SAT 94
[2025-02-03 01:06] VITALS: BP 147/73; PULSE 115; RESP 26; O2SAT 92
--- NOTE | 2025-02-03 01:07 | PC.NURSE ---
Pt ambulatory to restroom without difficulty or assistance
[2025-02-03 01:30] VITALS: BP 146/75; PULSE 113; O2SAT 98
[2025-02-03 02:00] VITALS: BP 137/74; PULSE 107; RESP 24; O2SAT 98
[2025-02-03] MEDS: HYDROMORPHONE 0.5 MG INJ IV (02:18)
== END 2025-02-03 02:28 | disposition short-term general hospital (02) ==
PROVIDERS: Emergency Provider Emergency Medicine
DX: J12.3 Human metapneumovirus pneumonia (principal); N17.9 Acute kidney failure, unspecified; N03.9 Chronic nephritic syndrome with unspecified morphologic changes; R79.89 Other specified abnormal findings of blood chemistry; R00.0 Tachycardia, unspecified; R06.03 Acute respiratory distress; R91.8 Other nonspecific abnormal finding of lung field; M35.00 Sjogren syndrome, unspecified; M06.9 Rheumatoid arthritis, unspecified; Z79.52 Long term (current) use of systemic steroids; Z79.624 Long term (current) use of inhibitors of nucleotide synthesis
CPT/HCPCS: 36415; 71250; 80053; 81001; 83605; 83735; 83880; 84145; 84484; 85025; 87040; 87633; 93005; 93010; 94640; 96361; 96374; 96375; 99285; J1171; J1720; J1938; J2919

== ENCOUNTER 2025-03-04 02:57 | Emergency (ER) | payer BC, OTHER, SELFPAY ==
[2025-03-04] VITALS (7 sets, daily range): BP systolic 130–168; BP diastolic 65–86; PULSE 66–74; RESP 18–25; TEMP 36.9; O2SAT 98–100; BMI 39.3
--- NOTE | 2025-03-04 03:16 | EKG_ITS ---
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
--- NOTE | 2025-03-04 03:16 | DI.RAD.S_ITS ---
PROCEDURE: XR CHEST 1V INDICATIONS: Upper Respiratory symptoms TECHNIQUE: One view of the chest was acquired. COMPARISON: [facility], CT, CT CHEST WO CON, 02/02/2025, 19:52. [facility], CR, XR CHEST 1V, 11/21/2024, 23:39. [facility], CR, XR CHEST 1V, 02/01/2025, 2:23. FINDINGS: Surgical changes and devices: None. Lungs and pleura: An incomplete inspiratory result is noted, causing a crowded appearance to the lung markings. No focal infiltrates are seen. No pneumothorax or significant pleural effusions are seen. Mediastinum: Mediastinal contours appear normal. Heart size is normal. Bones and chest wall: No suspicious bony lesions. Overlying soft tissues appear unremarkable. IMPRESSION: Low lung volumes, without an acute abnormality seen by plain film. No focal infiltrates are seen. Note: No significant discrepancy from the preliminary report. Dictated by: Leroy Mao M.D. on 03/04/2025 at 8:26 Approved by: Leroy Mao M.D. on 03/04/2025 at 8:27
[2025-03-04] MEDS: ASPIRIN 81 MG CHEW TAB 324 MG PO (03:31)
[2025-03-04 03:33] LABS: Add Manual Diff / Slide Review NO; Basophils Absolute Auto 0 /uL (0-100); Basophils Percent Auto 0.1 % (0-2); Eosinophils Absolute Auto 0 /uL (0-450); Eosinophils Percent Auto 0.2 % (2-4); Hematocrit 25.2 % (36-46); Hemoglobin 8.6 g/dL (12.0-16.0); Lymphocytes Absolute Auto 500 /uL (1100-4500); Lymphocytes Percent Auto 5.4 % (25-40); Mean Corpuscular HGB Conc 34.3 % (30-36); Mean Corpuscular Volume 81.7 fL (80-100); Monocytes Absolute Auto 700 /uL (0-900); Monocytes Percent Auto 7.2 % (3-14); Neutrophils Absolute Auto 8600 /uL (1500-7000); Neutrophils Percent Auto 87.1 % (50-75); Platelet Count 281 X10^3/uL (150-400); Red Blood Cell Count 3.08 X10^6/uL (4.0-5.2); Red Cell Distribution Width 19.1 % (11.6-14.8); White Blood Cell Count 9.9 X10^3/uL (4.5-11.0)
--- NOTE | 2025-03-04 03:34 | PC.NURSE ---
Started treatment for PNA about 1 month ago seen here at , then transferred to [facility] in [place]. Sent home on Prednisone and antibiotics. At her follow up appointment pt was told she has a heart murmur.
[2025-03-04 03:37] LABS: INR 0.8 (0.9-1.3)
[2025-03-04 03:40] LABS: PTT Partial Thromboplastin Tim 32 SECONDS (25.1-36.5)
--- NOTE | 2025-03-04 03:41 | ED_ITS ---
HPI - Chest Pain General Chief Complaint: Chest Pain Stated Complaint: Tightness in chest Time Seen by Provider: 03/04/25 03:20 Source: patient Mode of arrival: Ambulatory Limitations: no limitations History of Present Illness HPI narrative: 35-year-old female history of lupus nephritis Sjogren's Raynaud's rheumatoid arthritis presents tonight with chest tightness while in bed she felt smothered and can breathe but denies active chest pain at this time. Patient denies leg swelling leg pain DVT PE cancer smoking or recent trauma. Patient did take 1 Tylenol prior to her arrival here which did not help. Other than what is stated 14 point review of system is negative. Related Data Home Medications Medication Instructions Recorded Confirmed amlodipine 10 mg tablet 10 mg PO DAILY 03/04/25 03/04/25 carvedilol 6.25 mg tablet 6.25 mg PO BID 03/04/25 03/04/25 hydrochlorothiazide 25 mg tablet 25 mg PO DAILY 03/04/25 03/04/25 lisinopril 20 mg tablet 20 mg PO DAILY 03/04/25 03/04/25 mycophenolate sodium 180 mg 720 mg PO BID 03/04/25 03/04/25 tablet,delayed release prednisone 20 mg tablet 20 mg PO DAILY 03/04/25 03/04/25 sulfamethoxazole 800 1 tab PO 3XW 03/04/25 03/04/25 mg-trimethoprim 160 mg tablet (Bactrim DS) triamcinolone acetonide 0.1 % 1 applic topical BID 03/04/25 03/04/25 topical cream Previous Rx's Medication Instructions Recorded hydrocodone 5 mg-acetaminophen 325 1 tab PO Q4-6H PRN pain #20 tabs 03/04/25 mg tablet Allergies Allergy/AdvReac Type Severity Reaction Status Date / Time levetiracetam [From [facility]] Allergy Severe Anaphylaxis Verified 02/01/25 02:38 Review of Systems Review of Systems ROS Unobtainable: All systems reviewed & are unremarkable except as noted in HPI and below Patient History Medical History (Updated 03/04/25 @ 04:53 by Joe Mae DO) Rheumatoid arthritis Sjogren syndrome Lupus nephritis Social History Smoking Status: Former smoker Smoking Status: Former smoker tobacco type: cigarettes and vaping Exam Narrative Exam Narrative: GENERAL: [35] year old patient appears stated age. Well-developed patient, in mild distress. HEAD: Atraumatic. Normocephalic. EYES: Pupils equal round and reactive. Extraocular motions intact. No scleral icterus. No injection or drainage. ENT: Nose without bleeding, purulent drainage. Throat without erythema, tonsillar hypertrophy or exudate. Airway patent. NECK: Trachea midline. Non tender CARDIOVASCULAR: Regular rate and rhythm without murmurs, gallops, or rubs. Midsternal chest wall TTP completely reproduces pain RESPIRATORY: Clear to auscultation. Breath sounds equal bilaterally. No wheezes, rales, or rhonchi. GASTROINTESTINAL: Abdomen soft, non-tender, nondistended. EXTREMITIES: No edema or joint tenderness. BACK: Nontender without deformity or crepitance. No flank tenderness. NEURO: AOx3. SKIN: No rash or erythema of visible areas Initial Vital Signs Initial Vital Signs: Vital Signs Temperature 98.5 F 03/04/25 03:08 Pulse Rate 74 03/04/25 03:08 Respiratory Rate 18 03/04/25 03:08 Blood Pressure 140/74 03/04/25 03:08 Pulse Oximetry 99 03/04/25 03:08 Oxygen Delivery Method Room Air 03/04/25 03:08 Scores HEART Score Heart Score history: Slightly Suspicious Heart Score EKG: Normal Heart Score Age: < 45 years old Heart Score risk factors: No known risk factors Heart Score troponin: < or = to normal limit Heart Score Total: 0 Course Orders Ordered: ED Orders 03/04/25 03:16 XR chest 1V Stat EKG-12 Lead Stat RT Consult Eval and Treat NOW 03/04/25 03:25 Complete Blood Count AUTO DIFF Stat Comprehensive Metabolic Panel Stat Lactate (Lactic Acid) Stat Lipase Stat Magnesium Stat NT-proBNP (BNP-Adult 18+) Stat PTT Partial Thromboplastin Jason Stat Prothrombin Time INR Stat Troponin & CK Cardiac Panel Stat Discontinued Medications Hydrocodone Bitart/Acetaminophen (Hydrocodone/Acet 5/325 Tablet) 1 tab PO NOW ONE Stop: 03/04/25 03:47 Last Admin: 03/04/25 03:50 Dose: 1 tab Documented By: Aspirin (Aspirin 81 Mg Chew Tab) 324 mg PO NOW ONE Stop: 03/04/25 03:17 Last Admin: 03/04/25 03:31 Dose: 324 mg Documented By: AB Vital Signs Vital signs: Vital Signs - 8 hr 03/04/25 03:08 03/04/25 03:24 03/04/25 03:25 Temperature 98.5 F Pulse Rate 74 72 71 Respiratory Rate 18 23 Blood Pressure 140/74 Pulse Oximetry 99 100 Oxygen Delivery Method Room Air 03/04/25 03:25 Temperature Pulse Rate Respiratory Rate Blood Pressure 130/68 Pulse Oximetry Oxygen Delivery Method MDM - Chest Pain Lab Data 03/04/25 03:25 03/04/25 03:25 Labs: Lab Results 03/04/25 Range/Units 03:25 WBC 9.9 (4.5-11.0) X10^3/uL RBC 3.08 L (4.0-5.2) X10^6/uL Hgb 8.6 L (12.0-16.0) g/dL Hct 25.2 L (36-46) % MCV 81.7 (80-100) fL MCH 28.0 (26-34) PG MCHC 34.3 (30-36) % RDW 19.1 H (11.6-14.8) % Plt Count 281 (150-400) X10^3/uL Neut % (Auto) 87.1 H (50-75) % Lymph % (Auto) 5.4 L (25-40) % [place] % (Auto) 7.2 (3-14) % Eos % (Auto) 0.2 L (2-4) % Baso % (Auto) 0.1 (0-2) % Neut # (Auto) 8600 H (3111-2279) /uL Lymph # (Auto) 500 L (0865-6146) /uL [place] # (Auto) 700 (0-900) /uL Eos # (Auto) 0 (0-450) /uL Baso # (Auto) 0 (0-100) /uL PT 9.0 L (9.4-12.5) SECONDS INR 0.8 L (0.9-1.3) APTT 32 (25.1-36.5) SECONDS Sodium 134 L (137-145) mmol/L Potassium 3.8 (3.4-5.1) mmol/L Chloride 108 H (98-107) mmol/L Carbon Dioxide 24 (22-32) mmol/L BUN 28 H (7-17) mg/dL Creatinine 1.58 H (0.52-1.04) mg/dL Estimated GFR 44 L (>60) mL/min BUN/Creatinine Ratio 17.7 (6-22) Glucose 74 (70-99) mg/dL Lactate 0.6 L (0.7-2.1) mmol/L Calcium 8.1 L (8.4-10.2) mg/dL Magnesium 1.6 (1.6-2.3) mg/dL Total Bilirubin 0.2 (0.2-1.3) mg/dL AST 19 (14-36) IU/L ALT 15 (<35) IU/L Alkaline Phosphatase 69 (38-126) U/L Total Creatine Kinase 24 L (30-135) U/L Troponin I < 0.012 (0.01-0.034) ng/mL NT-Pro-B Natriuret Pep 1030 H (<125) pg/mL Total Protein 5.0 L (6.3-8.2) g/dL Albumin 2.5 L (3.5-5.0) g/dL Globulin 2.5 (1.7-4.1) g/dL Albumin/Globulin Ratio 1.0 (1.0-2.8) Lipase 65 (23-300) U/L ECG Data Interpretation: NSR HR 70 [place] 170 QRS [address]-t wave change Change from 02/02/25 [facility] Narrative Medical decision making narrative: All lab work vital signs nurse triage note medication list chest x-ray and all previous ER visits reviewed. Patient given [place] 1 tablet here. Differential diagnosis includes chest wall pain PE pneumothorax anxiety GERD. Heart score of 0. First set troponin negative, EKG Normal Sinus Rhythm and chest x-ray all showed no acute process. Discharged home on [place] prescription as patient has history of lupus nephritis and will avoid giving NSAIDs. Follow up with PCP next week for re-evaluation. Discharge Plan Departure Patient Disposition: Home Clinical Impression: Acute chest wall pain Instructions: DI for Costochondritis Activity Restrictions/Additional Instructions: Return with new or worsening symptoms. Take your medicines as directed. Follow up with PCP next week for re-evaluation Prescriptions: New hydrocodone-acetaminophen 5-325 mg tablet 1 tab PO Q4-6H PRN (Reason: pain) Qty: 20 0RF No Action carvedilol 6.25 mg tablet 6.25 mg PO BID lisinopril 20 mg Tablet 20 mg PO DAILY prednisone 20 mg Tablet 20 mg PO DAILY triamcinolone acetonide 0.1 % cream 1 applic topical BID amlodipine 10 mg tablet 10 mg PO DAILY hydrochlorothiazide 25 mg Tablet 25 mg PO DAILY mycophenolate sodium 180 mg tablet,delayed release (DR/EC) 720 mg PO BID sulfamethoxazole-trimethoprim [Bactrim DS] 800-160 mg Tablet 1 tab PO 3XW Referrals: Miscellaneous,Doctor, MD [Primary Care Provider] - Stand Alone Forms: Patient Portal/API/Survey
[2025-03-04] MEDS: HYDROCODONE/ACET 5/325 TABLET 1 TAB PO (03:50)
[2025-03-04 03:53] LABS: Lactate (Lactic Acid) 0.6 mmol/L (0.7-2.1)
[2025-03-04 03:54] LABS: Alanine Aminotransferase 15 IU/L (<35); Albumin 2.5 g/dL (3.5-5.0); Alkaline Phosphatase 69 U/L (38-126); Aspartate Aminotransferase 19 IU/L (14-36); BUN Creatinine Ratio 17.7 (6-22); Bilirubin Total 0.2 mg/dL (0.2-1.3); Blood Urea Nitrogen 28 mg/dL (7-17); Calcium 8.1 mg/dL (8.4-10.2); Carbon Dioxide 24 mmol/L (22-32); Chloride 108 mmol/L (98-107); Creatine Kinase 24 U/L (30-135); Estimated Glomerular Filt Rate 44 mL/min (>60); Globulin 2.5 g/dL (1.7-4.1); Glucose 74 mg/dL (70-99); HEMOLYSIS < 15 (0-50); Lipase 65 U/L (23-300); Magnesium 1.6 mg/dL (1.6-2.3); Potassium 3.8 mmol/L (3.4-5.1); Sodium 134 mmol/L (137-145)
[2025-03-04 04:06] LABS: NT-proBNP (BNP-Adult 18+) 1030 pg/mL (<125); Troponin I < 0.012 ng/mL (0.01-0.034)
== END 2025-03-04 05:17 | disposition home or self-care (01) ==
PROVIDERS: Emergency Provider Family Medicine
DX: R07.89 Other chest pain (principal)
CPT/HCPCS: 36415; 71045; 80053; 82550; 83605; 83690; 83735; 83880; 84484; 85025; 85610; 85730; 93005; 99284

== ENCOUNTER 2025-03-08 22:20 | Emergency (ER) | payer BC, OTHER, SELFPAY ==
[2025-03-08 22:31] VITALS: BP 198/102; PULSE 102; RESP 26; TEMP 37.1; O2SAT 95; BMI 39.3
--- NOTE | 2025-03-08 22:33 | EKG_ITS ---
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 Electronically Signed On 03-10-2025 19:07:29 PDT by Joey Pastrana
--- NOTE | 2025-03-08 22:34 | DI.RAD.S_ITS ---
PROCEDURE: XR CHEST 1V INDICATIONS: Chest Pain TECHNIQUE: One view of the chest was acquired. COMPARISON: [facility], CT, CT CHEST WO CON, 02/02/2025, 19:52. [facility], CR, XR CHEST 1V, 03/04/2025, 3:18. [facility], CR, XR CHEST 1V, 02/01/2025, 2:23. FINDINGS: Patient is rotated. Surgical changes and devices: None. Lungs and pleura: No silhouetting demonstrated. No pleural effusions or pneumothorax. Mediastinum: Mediastinal contours appear normal. Heart size is within normal limits. Bones and chest wall: No suspicious bony lesions. Overlying soft tissues appear unremarkable. IMPRESSION: Patient is rotated. No obvious acute abnormality. Dictated by: Daryl Villagran M.D. on 03/08/2025 at 23:56 Approved by: Daryl Villagran M.D. on 03/09/2025 at 0:00
[2025-03-08] MEDS: ASPIRIN 81 MG CHEW TAB 324 MG PO (22:38)
--- NOTE | 2025-03-08 22:39 | ED.CHESTPAIN ---
HPI - Chest Pain <Lo Salazarphuong, - Last Filed: 03/10/25 03:37> General Chief Complaint: Chest Pain Stated Complaint: Chest Pain Time Seen by Provider: 03/08/25 22:38 Source: patient and family Mode of arrival: Wheelchair Limitations: no limitations History of Present Illness HPI narrative: 35-year-old female history of lupus nephritis, chronic kidney disease, Sjogren's, Raynaud's, rheumatoid arthritis who presents with a complaint of chest patient states been going on for about 2 days was seen here on 03/04 for pain. Patient states increasingly has gotten worse overnight. She states no fevers. She does feel short of breath she describes it as pleuritic. It does radiate to her back and towards her neck. No pain down her arms or into her abdomen. No nausea or vomiting. No syncope. Denies any issues with bowel movements or urination. They both her and her has been note increasing swelling of her lower extremities. Patient has a history of pericarditis but states this feels different. Home medications currently include amlodipine, carvedilol, hydrochlorothiazide, lisinopril, mycophenolate, prednisone daily and patient was supposed to start Lasix tomorrow. Patient notes she had chlorothiazide started in the last several weeks. Notes an allergy to Keppra. Had reportedly 2 seizures last year any daily anticonvulsants. Has been states they were attributed to stress. She follows with the [facility] for primary care, follows with nephrology through [facility] in [place]. No prior cardiac stents or interventions. Patient does not take any aspirin or thinners. Related Data Home Medications Medication Instructions Recorded Confirmed amlodipine 10 mg tablet 10 mg PO DAILY 03/04/25 03/04/25 carvedilol 6.25 mg tablet 6.25 mg PO BID 03/04/25 03/04/25 hydrochlorothiazide 25 mg tablet 25 mg PO DAILY 03/04/25 03/04/25 lisinopril 20 mg tablet 20 mg PO DAILY 03/04/25 03/04/25 mycophenolate sodium 180 mg 720 mg PO BID 03/04/25 03/04/25 tablet,delayed release prednisone 20 mg tablet 20 mg PO DAILY 03/04/25 03/04/25 sulfamethoxazole 800 1 tab PO 3XW 03/04/25 03/04/25 mg-trimethoprim 160 mg tablet (Bactrim DS) triamcinolone acetonide 0.1 % 1 applic topical BID 03/04/25 03/04/25 topical cream Previous Rx's Medication Instructions Recorded hydrocodone 5 mg-acetaminophen 325 1 tab PO Q4-6H PRN pain #20 tabs 03/04/25 mg tablet amoxicillin 875 mg tablet 875 mg PO BID dental infection 10 03/09/25 days #20 tabs colchicine 0.6 mg tablet 0.3 mg (1/2 x 0.6 mg) PO DAILY #7 03/09/25 tabs doxycycline hyclate 100 mg tablet 100 mg PO BID #20 tabs 03/09/25 hydrocodone 5 mg-acetaminophen 325 1 tab PO Q6H PRN pain #14 tabs 03/09/25 mg tablet prednisone 20 mg tablet 60 mg (3 x 20 mg) PO DAILY 7 days 03/09/25 #21 tabs Allergies Allergy/AdvReac Type Severity Reaction Status Date / Time levetiracetam [From [facility]] Allergy Severe Anaphylaxis Verified 03/08/25 23:11 Review of Systems <Lo Chadwick DO - Last Filed: 03/10/25 03:37> Review of Systems ROS Unobtainable: All systems reviewed & are unremarkable except as noted in HPI and below Patient History <Lo Chadwick DO - Last Filed: 03/10/25 03:37> Medical History Rheumatoid arthritis Sjogren syndrome Lupus nephritis Social History Smoking Status: Former smoker Smoking Status: Former smoker tobacco type: cigarettes and vaping Exam <DO Elly Avila Last Filed: 03/10/25 03:37> Narrative Exam Narrative: GENERAL: Alert and oriented x three, female in moderate distress HEENT: Head normocephalic, atraumatic, EOMI, pupils reactive, face symmetric, moist mucous membranes NECK: Supple, full range of motion CARDIOVASCULAR: Tachycardic but regular rate and rhythm without murmurs, rubs or gallops. Patient has 2+ bilateral lower extremity edema. RESPIRATORY: Breath sounds equal bilaterally, no wheezes rales or rhonchi. Mild tachypnea, no accessory muscle wall use. Patient is able to speak in full sentences. ABDOMEN: Soft, nontender. Normoactive bowel sounds all 4 quadrants. No guarding or rebound, rigidity, no mass : No CVA tenderness EXTREMITIES: Normal range of motion, no clubbing or edema. Neurovascularly intact NEUROLOGICAL: Cranial nerves II through XII grossly intact. Moving all extremities SKIN: Warm, dry, no petechiae, no rashes or lesions. Initial Vital Signs Initial Vital Signs: Vital Signs Temperature 98.8 F 03/08/25 22:31 Pulse Rate 102 H 03/08/25 22:31 Respiratory Rate 26 H 03/08/25 22:31 Blood Pressure 198/102 H 03/08/25 22:31 Pulse Oximetry 95 03/08/25 22:31 Oxygen Delivery Method Room Air 03/08/25 22:31 <Parrish Del Cid MD - Last Filed: 03/09/25 19:11> Initial Vital Signs Initial Vital Signs: Vital Signs Temperature 98.8 F 03/08/25 22:31 Pulse Rate 102 H 03/08/25 22:31 Respiratory Rate 26 H 03/08/25 22:31 Blood Pressure 198/102 H 03/08/25 22:31 Pulse Oximetry 95 03/08/25 22:31 Oxygen Delivery Method Room Air 03/08/25 22:31 Course <Lo Chadwick DO - Last Filed: 03/10/25 03:37> Orders Ordered: Discontinued Medications Acetaminophen (Acetaminophen 325 Mg Tablet) 975 mg PO NOW ONE Stop: 03/09/25 03:59 Last Admin: 03/09/25 04:36 Dose: 975 mg Documented By: GITA Aspirin (Aspirin 81 Mg Chew Tab) 324 mg PO NOW ONE Stop: 03/08/25 22:35 Last Admin: 03/08/25 22:38 Dose: 324 mg Documented By: MAHAD Azithromycin (Azithromycin 250 Mg Tablet) 500 mg PO NOW ONE Stop: 03/09/25 03:59 Last Admin: 03/09/25 04:36 Dose: 500 mg Documented By: GITA Ceftriaxone Sodium (Ceftriaxone 2,000 Mg Vial) 1,000 mg IM NOW ONE Stop: 03/09/25 03:59 Last Admin: 03/09/25 04:38 Dose: 1,000 mg Documented By: GITA Enoxaparin Sodium (Enoxaparin 100 Mg/Ml Syringe) 100 mg SUBCUT NOW ONE Stop: 03/09/25 04:56 Last Admin: 03/09/25 04:53 Dose: 100 mg Documented By: GITA Hydromorphone HCl (Hydromorphone 0.5 Mg Inj) 0.5 mg IV NOW ONE Stop: 03/09/25 00:34 Last Admin: 03/09/25 00:46 Dose: 0.5 mg Documented By: MAHAD Hydromorphone HCl (Hydromorphone 0.5 Mg Inj) 0.5 mg IV NOW ONE Stop: 03/09/25 08:31 Last Admin: 03/09/25 08:41 Dose: 0.5 mg Documented By: BEAR Hydromorphone HCl (Hydromorphone 0.5 Mg Inj) 0.5 mg IV NOW ONE Stop: 03/09/25 13:00 Last Admin: 03/09/25 14:20 Dose: Not Given Documented By: COLLEEN Sodium Chloride (Normal Saline 0.9%) 500 mls @ 1,000 mls/hr IV BOLUS ONE Stop: 03/09/25 09:08 Last Infusion: 03/09/25 09:57 Dose: Infused Documented By: Admin: 03/09/25 08:41 Dose: 1,000 mls/hr Documented By: BEAR Lidocaine HCl (Lidocaine 1% (Pf) 5 Ml) 5 ml INJ NOW ONE Stop: 03/09/25 04:19 Last Admin: 03/09/25 04:39 Dose: 5 ml Documented By: GITA Morphine Sulfate (Morphine 4 Mg/Ml Inj) 4 mg IV NOW ONE Stop: 03/08/25 23:09 Last Admin: 03/08/25 23:32 Dose: 4 mg Documented By: MAHAD Ondansetron HCl (Ondansetron 4 Mg/2 Ml Inj) 4 mg IV NOW PRN PRN Reason: Nausea And Vomiting Last Admin: 03/09/25 08:41 Dose: 4 mg Documented By: BEAR Ondansetron HCl (Ondansetron 4 Mg Odt) 4 mg PO NOW PRN PRN Reason: Nausea And Vomiting Last Admin: 03/08/25 22:52 Dose: 4 mg Documented By: LEWIS Ondansetron HCl (Ondansetron 4 Mg Odt) 4 mg SL NOW ONE Stop: 03/09/25 05:42 Last Admin: 03/09/25 05:43 Dose: 4 mg Documented By: LEWIS Oxycodone HCl (Oxycodone Ir 10 Mg Tablet) 10 mg PO Q4HR PRN PRN Reason: Pain, Severe (7-10) Last Admin: 03/09/25 05:38 Dose: 10 mg Documented By: LEWIS Oxycodone HCl (Oxycodone Ir 5 Mg Tablet) 10 mg PO Q4HR PRN PRN Reason: Pain, Severe (7-10) Last Admin: 03/09/25 13:00 Dose: 10 mg Documented By: SONIA Oxycodone/Acetaminophen (Oxycodone/Acetaminophen 5/325 Tablet) 2 tab PO NOW ONE Stop: 03/09/25 02:06 Last Admin: 03/09/25 02:22 Dose: 2 tab Documented By: GITA Vital Signs Vital signs: Vital Signs - 8 hr 03/09/25 11:20 03/09/25 11:20 03/09/25 11:30 Pulse Rate 91 H 92 H Respiratory Rate Blood Pressure 100/51 L Pulse Oximetry 98 96 Oxygen Delivery Method 03/09/25 11:30 03/09/25 11:40 03/09/25 11:40 Pulse Rate 87 Respiratory Rate Blood Pressure 108/53 L 107/59 L Pulse Oximetry 95 Oxygen Delivery Method 03/09/25 11:50 03/09/25 11:50 03/09/25 12:00 Pulse Rate 93 H Respiratory Rate Blood Pressure 105/61 103/55 L Pulse Oximetry 95 Oxygen Delivery Method 03/09/25 12:00 03/09/25 12:10 03/09/25 12:10 Pulse Rate 97 H 100 H Respiratory Rate Blood Pressure 103/59 L Pulse Oximetry 96 97 Oxygen Delivery Method 03/09/25 12:20 03/09/25 12:20 03/09/25 12:30 Pulse Rate 97 H Respiratory Rate Blood Pressure 97/54 L 105/55 L Pulse Oximetry 97 Oxygen Delivery Method 03/09/25 12:30 03/09/25 12:40 03/09/25 12:40 Pulse Rate 93 H 93 H Respiratory Rate Blood Pressure 100/55 L Pulse Oximetry 95 95 Oxygen Delivery Method 03/09/25 12:50 03/09/25 12:50 03/09/25 13:00 Pulse Rate 92 H Respiratory Rate 22 Blood Pressure 100/50 L 102/53 L Pulse Oximetry 95 Oxygen Delivery Method 03/09/25 13:00 03/09/25 13:10 03/09/25 13:10 Pulse Rate 91 H 94 H Respiratory Rate 25 H Blood Pressure 95/54 L Pulse Oximetry 95 94 Oxygen Delivery Method 03/09/25 13:20 03/09/25 13:20 03/09/25 13:30 Pulse Rate 89 101 H Respiratory Rate 31 H Blood Pressure 95/53 L Pulse Oximetry 94 96 Oxygen Delivery Method 03/09/25 13:30 03/09/25 14:39 Pulse Rate 100 H Respiratory Rate 14 Blood Pressure 108/55 L 103/70 Pulse Oximetry 96 Oxygen Delivery Method Room Air <Parrish Del Cid MD - Last Filed: 03/09/25 19:11> Orders Ordered: Discontinued Medications Acetaminophen (Acetaminophen 325 Mg Tablet) 975 mg PO NOW ONE Stop: 03/09/25 03:59 Last Admin: 03/09/25 04:36 Dose: 975 mg Documented By: GITA Aspirin (Aspirin 81 Mg Chew Tab) 324 mg PO NOW ONE Stop: 03/08/25 22:35 Last Admin: 03/08/25 22:38 Dose: 324 mg Documented By: MAHAD Azithromycin (Azithromycin 250 Mg Tablet) 500 mg PO NOW ONE Stop: 03/09/25 03:59 Last Admin: 03/09/25 04:36 Dose: 500 mg Documented By: GITA Ceftriaxone Sodium (Ceftriaxone 2,000 Mg Vial) 1,000 mg IM NOW ONE Stop: 03/09/25 03:59 Last Admin: 03/09/25 04:38 Dose: 1,000 mg Documented By: GITA Enoxaparin Sodium (Enoxaparin 100 Mg/Ml Syringe) 100 mg SUBCUT NOW ONE Stop: 03/09/25 04:56 Last Admin: 03/09/25 04:53 Dose: 100 mg Documented By: GITA Hydromorphone HCl (Hydromorphone 0.5 Mg Inj) 0.5 mg IV NOW ONE Stop: 03/09/25 00:34 Last Admin: 03/09/25 00:46 Dose: 0.5 mg Documented By: MAHAD Hydromorphone HCl (Hydromorphone 0.5 Mg Inj) 0.5 mg IV NOW ONE Stop: 03/09/25 08:31 Last Admin: 03/09/25 08:41 Dose: 0.5 mg Documented By: BEAR Hydromorphone HCl (Hydromorphone 0.5 Mg Inj) 0.5 mg IV NOW ONE Stop: 03/09/25 13:00 Last Admin: 03/09/25 14:20 Dose: Not Given Documented By: COLLEEN Sodium Chloride (Normal Saline 0.9%) 500 mls @ 1,000 mls/hr IV BOLUS ONE Stop: 03/09/25 09:08 Last Infusion: 03/09/25 09:57 Dose: Infused Documented By: Admin: 03/09/25 08:41 Dose: 1,000 mls/hr Documented By: BEAR Lidocaine HCl (Lidocaine 1% (Pf) 5 Ml) 5 ml INJ NOW ONE Stop: 03/09/25 04:19 Last Admin: 03/09/25 04:39 Dose: 5 ml Documented By: GITA Morphine Sulfate (Morphine 4 Mg/Ml Inj) 4 mg IV NOW ONE Stop: 03/08/25 23:09 Last Admin: 03/08/25 23:32 Dose: 4 mg Documented By: MAHAD Ondansetron HCl (Ondansetron 4 Mg/2 Ml Inj) 4 mg IV NOW PRN PRN Reason: Nausea And Vomiting Last Admin: 03/09/25 08:41 Dose: 4 mg Documented By: BEAR Ondansetron HCl (Ondansetron 4 Mg Odt) 4 mg PO NOW PRN PRN Reason: Nausea And Vomiting Last Admin: 03/08/25 22:52 Dose: 4 mg Documented By: LEWIS Ondansetron HCl (Ondansetron 4 Mg Odt) 4 mg SL NOW ONE Stop: 03/09/25 05:42 Last Admin: 03/09/25 05:43 Dose: 4 mg Documented By: LEWIS Oxycodone HCl (Oxycodone Ir 10 Mg Tablet) 10 mg PO Q4HR PRN PRN Reason: Pain, Severe (7-10) Last Admin: 03/09/25 05:38 Dose: 10 mg Documented By: LEWIS Oxycodone HCl (Oxycodone Ir 5 Mg Tablet) 10 mg PO Q4HR PRN PRN Reason: Pain, Severe (7-10) Last Admin: 03/09/25 13:00 Dose: 10 mg Documented By: SONIA Oxycodone/Acetaminophen (Oxycodone/Acetaminophen 5/325 Tablet) 2 tab PO NOW ONE Stop: 03/09/25 02:06 Last Admin: 03/09/25 02:22 Dose: 2 tab Documented By: GITA Vital Signs Vital signs: Vital Signs - 8 hr 03/09/25 11:20 03/09/25 11:20 03/09/25 11:30 Pulse Rate 91 H 92 H Respiratory Rate Blood Pressure 100/51 L Pulse Oximetry 98 96 Oxygen Delivery Method 03/09/25 11:30 03/09/25 11:40 03/09/25 11:40 Pulse Rate 87 Respiratory Rate Blood Pressure 108/53 L 107/59 L Pulse Oximetry 95 Oxygen Delivery Method 03/09/25 11:50 03/09/25 11:50 03/09/25 12:00 Pulse Rate 93 H Respiratory Rate Blood Pressure 105/61 103/55 L Pulse Oximetry 95 Oxygen Delivery Method 03/09/25 12:00 03/09/25 12:10 03/09/25 12:10 Pulse Rate 97 H 100 H Respiratory Rate Blood Pressure 103/59 L Pulse Oximetry 96 97 Oxygen Delivery Method 03/09/25 12:20 03/09/25 12:20 03/09/25 12:30 Pulse Rate 97 H Respiratory Rate Blood Pressure 97/54 L 105/55 L Pulse Oximetry 97 Oxygen Delivery Method 03/09/25 12:30 03/09/25 12:40 03/09/25 12:40 Pulse Rate 93 H 93 H Respiratory Rate Blood Pressure 100/55 L Pulse Oximetry 95 95 Oxygen Delivery Method 03/09/25 12:50 03/09/25 12:50 03/09/25 13:00 Pulse Rate 92 H Respiratory Rate 22 Blood Pressure 100/50 L 102/53 L Pulse Oximetry 95 Oxygen Delivery Method 03/09/25 13:00 03/09/25 13:10 03/09/25 13:10 Pulse Rate 91 H 94 H Respiratory Rate 25 H Blood Pressure 95/54 L Pulse Oximetry 95 94 Oxygen Delivery Method 03/09/25 13:20 03/09/25 13:20 03/09/25 13:30 Pulse Rate 89 101 H Respiratory Rate 31 H Blood Pressure 95/53 L Pulse Oximetry 94 96 Oxygen Delivery Method 03/09/25 13:30 03/09/25 14:39 Pulse Rate 100 H Respiratory Rate 14 Blood Pressure 108/55 L 103/70 Pulse Oximetry 96 Oxygen Delivery Method Room Air MDM - Chest Pain <Lo Chadwick, DO - Last Filed: 03/10/25 03:37> Lab Data 03/08/25 23:17 03/08/25 23:17 Labs: Lab Results 03/08/25 03/09/25 03/09/25 Range/Units 23:17 00:33 02:13 WBC 8.4 (4.5-11.0) X10^3/uL RBC 3.19 L (4.0-5.2) X10^6/uL Hgb 8.8 L (12.0-16.0) g/dL Hct 26.3 L (36-46) % MCV 82.4 (80-100) fL MCH 27.6 (26-34) PG MCHC 33.5 (30-36) % RDW 18.3 H (11.6-14.8) % Plt Count 335 (150-400) X10^3/uL Neut % (Auto) 90.7 H (50-75) % Lymph % (Auto) 5.1 L (25-40) % [place] % (Auto) 3.6 (3-14) % Eos % (Auto) 0.4 L (2-4) % Baso % (Auto) 0.2 (0-2) % Neut # (Auto) 7600 H (3519-6170) /uL Lymph # (Auto) 400 L (2213-6297) /uL [place] # (Auto) 300 (0-900) /uL Eos # (Auto) 0 (0-450) /uL Baso # (Auto) 0 (0-100) /uL PT 9.3 L (9.4-12.5) SECONDS INR 0.8 L (0.9-1.3) APTT 35 (25.1-36.5) SECONDS D-Dimer 1204 H (<500) ng/ml Sodium 137 (137-145) mmol/L Potassium 4.1 (3.4-5.1) mmol/L Chloride 110 H (98-107) mmol/L Carbon Dioxide 23 (22-32) mmol/L BUN 38 H (7-17) mg/dL Creatinine 1.76 H (0.52-1.04) mg/dL Estimated GFR 38 L (>60) mL/min BUN/Creatinine Ratio 21.6 (6-22) Glucose 98 (70-99) mg/dL Lactate (0.7-2.1) mmol/L Calcium 8.0 L (8.4-10.2) mg/dL Magnesium 1.6 (1.6-2.3) mg/dL Total Bilirubin 0.2 (0.2-1.3) mg/dL AST 19 (14-36) IU/L ALT 17 (<35) IU/L Alkaline Phosphatase 69 (38-126) U/L Total Creatine Kinase < 20 L (30-135) U/L Troponin I < 0.012 0.029 (0.01-0.034) ng/mL NT-Pro-B Natriuret Pep 1480 H (<125) pg/mL Total Protein 5.3 L (6.3-8.2) g/dL Albumin 2.5 L (3.5-5.0) g/dL Globulin 2.8 (1.7-4.1) g/dL Albumin/Globulin Ratio 0.9 L (1.0-2.8) Lipase 55 (23-300) U/L Procalcitonin (<0.5) ng/mL Serum , Qual Negative (Negative) Urine RBC (0-5/HPF) Urine WBC (0-5/HPF) Ur Squamous Epith Cells (0-5/HPF) Urine Bacteria (None) Ur Culture Indicated? Vol Urine Centrifuged Chlamy pneumoniae PCR (Not Detect) Adenovirus (PCR) (Not Detect) B. pertussis DNA (PCR) (Not Detect) B.parapertussis DNA PCR (Not Detecte) Coronavirus OC43 (PCR) (Not Detect) Coronavirus HKU1 (PCR) (Not Detect) Coronavirus 229E (PCR) (Not Detect) SARS-CoV-2 (PCR) (Not Detecte) Coronavirus NL63 (PCR) (Not Detect) Human Metapneumovir PCR (Not Detect) Influenza Type A (PCR) (Not Detect) Influenza Type B (PCR) (Not Detect) M. pneumoniae (PCR) (Not Detect) Parainfluenza 1 (PCR) (Not Detect) Parainfluenza 2 (PCR) (Not Detect) Parainfluenza 3 (PCR) (Not Detect) Parainfluenza 4 (PCR) (Not Detect) RSV (PCR) (Not Detect) Entero/Rhino (PCR) (Not Detect) 03/09/25 03/09/25 03/09/25 Range/Units 03:43 04:03 08:09 WBC (4.5-11.0) X10^3/uL RBC (4.0-5.2) X10^6/uL Hgb (12.0-16.0) g/dL Hct (36-46) % MCV (80-100) fL MCH (26-34) PG MCHC (30-36) % RDW (11.6-14.8) % Plt Count (150-400) X10^3/uL Neut % (Auto) (50-75) % Lymph % (Auto) (25-40) % [place] % (Auto) (3-14) % Eos % (Auto) (2-4) % Baso % (Auto) (0-2) % Neut # (Auto) (6422-1261) /uL Lymph # (Auto) (6909-6171) /uL [place] # (Auto) (0-900) /uL Eos # (Auto) (0-450) /uL Baso # (Auto) (0-100) /uL PT (9.4-12.5) SECONDS INR (0.9-1.3) APTT (25.1-36.5) SECONDS D-Dimer (<500) ng/ml Sodium (137-145) mmol/L Potassium (3.4-5.1) mmol/L Chloride (98-107) mmol/L Carbon Dioxide (22-32) mmol/L BUN (7-17) mg/dL Creatinine (0.52-1.04) mg/dL Estimated GFR (>60) mL/min BUN/Creatinine Ratio (6-22) Glucose (70-99) mg/dL Lactate 0.8 (0.7-2.1) mmol/L Calcium (8.4-10.2) mg/dL Magnesium (1.6-2.3) mg/dL Total Bilirubin (0.2-1.3) mg/dL AST (14-36) IU/L ALT (<35) IU/L Alkaline Phosphatase (38-126) U/L Total Creatine Kinase (30-135) U/L Troponin I (0.01-0.034) ng/mL NT-Pro-B Natriuret Pep (<125) pg/mL Total Protein (6.3-8.2) g/dL Albumin (3.5-5.0) g/dL Globulin (1.7-4.1) g/dL Albumin/Globulin Ratio (1.0-2.8) Lipase (23-300) U/L Procalcitonin 1.93 H (<0.5) ng/mL Serum , Qual (Negative) Urine RBC 0-1/hpf D (0-5/HPF) Urine WBC None seen (0-5/HPF) Ur Squamous Epith Cells 0-1 /hpf (0-5/HPF) Urine Bacteria None seen (None) Ur Culture Indicated? Cult not indicated Vol Urine Centrifuged 10ml (spun) Chlamy pneumoniae PCR Not detected (Not Detect) Adenovirus (PCR) Not detected (Not Detect) B. pertussis DNA (PCR) Not detected (Not Detect) B.parapertussis DNA PCR Not detected (Not Detecte) Coronavirus OC43 (PCR) Not detected (Not Detect) Coronavirus HKU1 (PCR) Not detected (Not Detect) Coronavirus 229E (PCR) Not detected (Not Detect) SARS-CoV-2 (PCR) Not detected (Not Detecte) Coronavirus NL63 (PCR) Not detected (Not Detect) Human Metapneumovir PCR Not detected (Not Detect) Influenza Type A (PCR) Not detected (Not Detect) Influenza Type B (PCR) Not detected (Not Detect) M. pneumoniae (PCR) Not detected (Not Detect) Parainfluenza 1 (PCR) Not detected (Not Detect) Parainfluenza 2 (PCR) Not detected (Not Detect) Parainfluenza 3 (PCR) Not detected (Not Detect) Parainfluenza 4 (PCR) Not detected (Not Detect) RSV (PCR) Not detected (Not Detect) Entero/Rhino (PCR) Not detected (Not Detect) Urine Dip Bedside Urine Glucose Negative Bedside Urine Bilirubin - Negative Bedside Urine Ketone - Negative Urine Specific [place] 1.020 Bedside Urine Occult Blood ++ Bedside Urine pH 6.0 Bedside Urine Protein +++ 300 Bedside Urine Urobilinogen - Negative Bedside Urine Nitrite - Negative Bedside Urine Leukocytes - Negative Esterase ECG Data Attestation: I personally reviewed and interpreted this ECG as follows: Prior ECG tracings: available for review Interpretation: EKG is read as AFib but it was very poor tracing patient is quite uncomfortable in his moving quite a bit rate was 100, QRS is 72 QTC is 361. Nonspecific change. On telemetry lead patient appears to be sinus. We will re-attempt EKG when patient is more comfortable. Patient was prior from 03/04/2025 showed sinus rhythm MDM Narrative Medical decision making narrative: 35-year-old female with a history of lupus nephritis, rheumatoid, prior pericarditis on multiple medications for hypertension, prednisone, mycophenolate, hydrochlorothiazide. Patient is quite hypertensive on arrival as well as tachycardic. No hypoxia, afebrile. Labs show normal white count hemoglobin is 8.8 appears consistent with priors over the past several months, platelets are 335 predominance of neutrophils. Coags show INR 0.8, D-dimer is positive at 1204. Electrolytes are appropriate overall, creatinine 1.76 appears pretty close to patient's baseline since November of 2024, patient has been as high as 2.38 in January, was 1.58 on the . Patient's glucose is 98 magnesium appropriate range. LFTs are negative troponins less than 0.012 with a total CK less than 20. BNP is 14 80 patient has been chronically elevated. Repeat troponin is 0.029 EKG initial had quite a bit of motion artifact with a repeated Chest x-ray patient was rotated no obvious acute abnormality. CT chest w/o contrast thyroid gland normal, no mediastinal hilar axillary adenopathy. Small pericardial effusion. No pulmonary nodule. Bilateral pulmonary infiltrates. No suspicious lytic or sclerotic osseous lesions identified. Multifocal bilateral pulmonary infiltrates recommend short-term interval follow up CT in 3 months after appropriate treatment to ensure complete resolution. Respiratory panel is negative. Discussed with patient she was quite a bit of chest discomfort she was more hypertensive which makes pulmonary embolism less likely but does have substernal chest pain, shortness of breath some bilateral lower extremity edema although this is likely secondary to CKD and chronic renal issues but discussed obtaining CT PE protocol to rule out pulmonary embolism as she was higher risk with a history of lupus and rheumatoid. We as well as a screen for pericardial effusion. Discussed some risk with contrast with renal function but felt appropriate based on patient's symptoms she was agreeable. Patient does note a lot of her pain is also movement related as well. Patient lost her line for CT. Multiple attempts by nursing and for repeat IV ultrasound and guided IV. Were unsuccessful. Patient is agreeable to attempt to repeat troponin. Discussed I do not feel she warrants the central line she was hypertensive she was little tachycardic but tachycardia improves when her pain is improved. We will give a dose of oral pain medication she was agreeable to temp repeat troponin I will obtain CT chest without contrast which will allow us to look for pericardial effusion/pneumonia but we discussed it will not help pulmonary embolism although my suspicious lower she was tachycardic but she was also more hypertensive. CT showed multifocal bilateral pulmonary infiltrates short-term interval follow up in 3 months. Small pericardial effusion is also present in January. Reviewed findings with the patient, she was still quite uncomfortable she was agreeable to stay for observation, did develop a fever here. She continued to have some tachycardia been hypertensive. Discussed placing central line but patient defers did call for midline with US service but can take sometime. Patient is agreeable if she becomes significantly worse or has rapidly changing vital signs. She prefers to continue with oral medication in his okay with an IM dose of antibiotics. Did offer IM pain medications but patient defers. I have concern for potential pulmonary embolism as patient was felt fevers tachycardic although pericarditis is on the differential as well. Spoke with the hospitalist Dr. Sommers @ [phone] we would like for respiratory panel, to get IV access and CTA PE and hydration following secondary to patients renal status before admission. Would recommend prophylaxis for PE as well as antibiotics but does feel patient be appropriate to keep here at [facility]. Patient signed out to Dr. Del Cid, PICC nurse in department and placing line. Plan for CTA. 03/09/25, 0700, Zach. Signout from Dr Chadwick. 35-year-old female with history of lupus, Sjogren's, Raynaud's, rheumatoid arthritis, renal insufficiency with creatinine 1.7 elevation at her recent baseline, recently seen 2 or 3 days ago with chest pain for which she had chest x-ray and single troponin and was at home, now with substernal chest discomfort radiating to the back, worse with movement and inspiration. Increased heart rate, increased blood pressure, troponin measurable but low x2 sets. EKG without obvious ischemic changes, sinus tachycardia. BNP 1400 mild elevation. Respiratory panel negative. CTA chest considered but patient did not have adequate access, did not want central line, did not want PICC line. Patient had IV ceftriaxone and azithromycin. No IV fluids given. Pain medications given IV/oral. CT chest noncontrast study showed multilobar pneumonia similar to 1 month ago when she was admitted for pneumonia with higher creatinine level 2.5. Subsequently patient had midline catheter placement by IV team nurse, willing to have PE study. CTA chest has been ordered, pending. No Lasix has been given so far. WBC not elevated, will lactic acid and procalcitonin inflammatory markers. Send blood culture. Assumed care. CTA chest shows pulmonary infiltrates, no pulmonary embolism. Small pericardial effusion also present. See radiology report. 0830, We will order cardiac echo to evaluate for tamponade physiology. No oxygen requirement. Still has tachycardia. 1230, Cardiac echo report, interpretation summary: ?Mildly increased left ventricular thickness (concentric) with normal size, normal wall motion, normal systolic ejection function (EF 55-60%). Upper normal right ventricular size with low normal function. No significant valvular abnormalities. There is small to moderate size circumferential pericardial effusion. There are no echocardiographic or Doppler indications for cardiac tamponade. No prior echo available for comparison. Report dictated by area deicer inspector pneumatic Dr Johnson. Ongoing pleuritic chest pain, could consider Toradol but creatinine 1.7 with GFR 38. Consider admission for further treatment of pneumonia. We will consult hospitalist. 1330, Case discussed with Dr. Pastrana who acknowledges patient now has normalized heart rate, has likely pericarditis, no oxygen requirement, normotensive. He would further treat as an outpatient for now, with increased prednisone to 60 mg daily until close follow up early next week with PCP or rheumatology. Also would start colchicine 0.6 mg twice daily. Plan was relayed to the patient, who in fact had seen her ecological economist recently, and has recently started a prescription of colchicine, advised to continue that medication. Advised to increase dose of prednisone currently at 30 mg daily to 60 mg daily, and follow up with her ecological economist on Thursday03/14/2025 as scheduled. Refill also sent for her hydrocodone. We will avoid NSAIDs now given renal insufficiency. Return precautions discussed. Home with family. Addendum: Rheumatology apparently contacted family regarding colchicine, who had not actually sent the prescription, and had some concerns about drug interactions with carvedilol and colchicine. Case discussed with pharmacy, renal function GFR 38 noted, weight 97.5 kilos noted, age 35 female noted. Carvedilol can interfere with colchicine and raise levels. Also renal insufficiency would be an indication for a reduced dose. Pharmacy recommends carvedilol be dose differently than 0.6 mg twice daily, and advises 0.3mg single daily dose if the patient we will continue carvedilol. Patient prefers this regimen. Continue carvedilol current dosing. We will add prescription for colchicine 0.3 mg once daily reduced dose trial, until follow up evaluation with her ecological economist less than a week as above. <Parrish Del Cid MD - Last Filed: 03/09/25 19:11> Lab Data Labs: Lab Results 03/08/25 03/09/25 03/09/25 Range/Units 23:17 00:33 02:13 WBC 8.4 (4.5-11.0) X10^3/uL RBC 3.19 L (4.0-5.2) X10^6/uL Hgb 8.8 L (12.0-16.0) g/dL Hct 26.3 L (36-46) % MCV 82.4 (80-100) fL MCH 27.6 (26-34) PG MCHC 33.5 (30-36) % RDW 18.3 H (11.6-14.8) % Plt Count 335 (150-400) X10^3/uL Neut % (Auto) 90.7 H (50-75) % Lymph % (Auto) 5.1 L (25-40) % [place] % (Auto) 3.6 (3-14) % Eos % (Auto) 0.4 L (2-4) % Baso % (Auto) 0.2 (0-2) % Neut # (Auto) 7600 H (8498-2480) /uL Lymph # (Auto) 400 L (5028-8494) /uL [place] # (Auto) 300 (0-900) /uL Eos # (Auto) 0 (0-450) /uL Baso # (Auto) 0 (0-100) /uL PT 9.3 L (9.4-12.5) SECONDS INR 0.8 L (0.9-1.3) APTT 35 (25.1-36.5) SECONDS D-Dimer 1204 H (<500) ng/ml Sodium 137 (137-145) mmol/L Potassium 4.1 (3.4-5.1) mmol/L Chloride 110 H (98-107) mmol/L Carbon Dioxide 23 (22-32) mmol/L BUN 38 H (7-17) mg/dL Creatinine 1.76 H (0.52-1.04) mg/dL Estimated GFR 38 L (>60) mL/min BUN/Creatinine Ratio 21.6 (6-22) Glucose 98 (70-99) mg/dL Lactate (0.7-2.1) mmol/L Calcium 8.0 L (8.4-10.2) mg/dL Magnesium 1.6 (1.6-2.3) mg/dL Total Bilirubin 0.2 (0.2-1.3) mg/dL AST 19 (14-36) IU/L ALT 17 (<35) IU/L Alkaline Phosphatase 69 (38-126) U/L Total Creatine Kinase < 20 L (30-135) U/L Troponin I < 0.012 0.029 (0.01-0.034) ng/mL NT-Pro-B Natriuret Pep 1480 H (<125) pg/mL Total Protein 5.3 L (6.3-8.2) g/dL Albumin 2.5 L (3.5-5.0) g/dL Globulin 2.8 (1.7-4.1) g/dL Albumin/Globulin Ratio 0.9 L (1.0-2.8) Lipase 55 (23-300) U/L Procalcitonin (<0.5) ng/mL Serum , Qual Negative (Negative) Urine RBC (0-5/HPF) Urine WBC (0-5/HPF) Ur Squamous Epith Cells (0-5/HPF) Urine Bacteria (None) Ur Culture Indicated? Vol Urine Centrifuged Chlamy pneumoniae PCR (Not Detect) Adenovirus (PCR) (Not Detect) B. pertussis DNA (PCR) (Not Detect) B.parapertussis DNA PCR (Not Detecte) Coronavirus OC43 (PCR) (Not Detect) Coronavirus HKU1 (PCR) (Not Detect) Coronavirus 229E (PCR) (Not Detect) SARS-CoV-2 (PCR) (Not Detecte) Coronavirus NL63 (PCR) (Not Detect) Human Metapneumovir PCR (Not Detect) Influenza Type A (PCR) (Not Detect) Influenza Type B (PCR) (Not Detect) M. pneumoniae (PCR) (Not Detect) Parainfluenza 1 (PCR) (Not Detect) Parainfluenza 2 (PCR) (Not Detect) Parainfluenza 3 (PCR) (Not Detect) Parainfluenza 4 (PCR) (Not Detect) RSV (PCR) (Not Detect) Entero/Rhino (PCR) (Not Detect) 03/09/25 03/09/25 03/09/25 Range/Units 03:43 04:03 08:09 WBC (4.5-11.0) X10^3/uL RBC (4.0-5.2) X10^6/uL Hgb (12.0-16.0) g/dL Hct (36-46) % MCV (80-100) fL MCH (26-34) PG MCHC (30-36) % RDW (11.6-14.8) % Plt Count (150-400) X10^3/uL Neut % (Auto) (50-75) % Lymph % (Auto) (25-40) % [place] % (Auto) (3-14) % Eos % (Auto) (2-4) % Baso % (Auto) (0-2) % Neut # (Auto) (1255-1164) /uL Lymph # (Auto) (9157-6005) /uL [place] # (Auto) (0-900) /uL Eos # (Auto) (0-450) /uL Baso # (Auto) (0-100) /uL PT (9.4-12.5) SECONDS INR (0.9-1.3) APTT (25.1-36.5) SECONDS D-Dimer (<500) ng/ml Sodium (137-145) mmol/L Potassium (3.4-5.1) mmol/L Chloride (98-107) mmol/L Carbon Dioxide (22-32) mmol/L BUN (7-17) mg/dL Creatinine (0.52-1.04) mg/dL Estimated GFR (>60) mL/min BUN/Creatinine Ratio (6-22) Glucose (70-99) mg/dL Lactate 0.8 (0.7-2.1) mmol/L Calcium (8.4-10.2) mg/dL Magnesium (1.6-2.3) mg/dL Total Bilirubin (0.2-1.3) mg/dL AST (14-36) IU/L ALT (<35) IU/L Alkaline Phosphatase (38-126) U/L Total Creatine Kinase (30-135) U/L Troponin I (0.01-0.034) ng/mL NT-Pro-B Natriuret Pep (<125) pg/mL Total Protein (6.3-8.2) g/dL Albumin (3.5-5.0) g/dL Globulin (1.7-4.1) g/dL Albumin/Globulin Ratio (1.0-2.8) Lipase (23-300) U/L Procalcitonin 1.93 H (<0.5) ng/mL Serum , Qual (Negative) Urine RBC 0-1/hpf D (0-5/HPF) Urine WBC None seen (0-5/HPF) Ur Squamous Epith Cells 0-1 /hpf (0-5/HPF) Urine Bacteria None seen (None) Ur Culture Indicated? Cult not indicated Vol Urine Centrifuged 10ml (spun) Chlamy pneumoniae PCR Not detected (Not Detect) Adenovirus (PCR) Not detected (Not Detect) B. pertussis DNA (PCR) Not detected (Not Detect) B.parapertussis DNA PCR Not detected (Not Detecte) Coronavirus OC43 (PCR) Not detected (Not Detect) Coronavirus HKU1 (PCR) Not detected (Not Detect) Coronavirus 229E (PCR) Not detected (Not Detect) SARS-CoV-2 (PCR) Not detected (Not Detecte) Coronavirus NL63 (PCR) Not detected (Not Detect) Human Metapneumovir PCR Not detected (Not Detect) Influenza Type A (PCR) Not detected (Not Detect) Influenza Type B (PCR) Not detected (Not Detect) M. pneumoniae (PCR) Not detected (Not Detect) Parainfluenza 1 (PCR) Not detected (Not Detect) Parainfluenza 2 (PCR) Not detected (Not Detect) Parainfluenza 3 (PCR) Not detected (Not Detect) Parainfluenza 4 (PCR) Not detected (Not Detect) RSV (PCR) Not detected (Not Detect) Entero/Rhino (PCR) Not detected (Not Detect) Urine Dip Bedside Urine Glucose Negative Bedside Urine Bilirubin - Negative Bedside Urine Ketone - Negative Urine Specific [place] 1.020 Bedside Urine Occult Blood ++ Bedside Urine pH 6.0 Bedside Urine Protein +++ 300 Bedside Urine Urobilinogen - Negative Bedside Urine Nitrite - Negative Bedside Urine Leukocytes - Negative Esterase Imaging Data CTA chest PE protocol: Radiologist's Impression: Close Chest CTA (Signed) Tunde Phillips - 03/09/[address] (Signed) [facility] Chest X-Ray (Signed) Daryl Villagran - 03/08/25 Launch?Image [address] [address] [address] Scan Report Signed Patient: Todd Chance MR#: [id number] : 1990 Acct:[id number] Age/Sex: 35 / F Date of Service: 03/09/25 Loc: ED Accession Number: [id number] Procedure: CT angio chest PE protocol Ordering Provider: Parrish Del Cid MD PROCEDURE: CT ANGIO CHEST PE PROTOCOL INDICATIONS: dyspnea, Dd+ TECHNIQUE: After the administration of intravenous contrast, 2 mm thick sections acquired from the pulmonary apices to the posterior costophrenic angles. 3-dimensional maximum intensity projection (MIP) coronal and sagittal reformats were then acquired through the thorax. For radiation dose reduction, the following was used: automated exposure control, adjustment of mA and/or kV according to patient size. COMPARISON: [facility], CT, CT ANGIO CHEST PE PROTOCOL, 10/31/2023, 23:17. [facility], CT, CT CHEST WO CON, 03/09/2025, 2:16. [facility], CT, CT CHEST WO CON, 02/02/2025, 19:52. FINDINGS: Image quality: Diagnostic Lungs and pleura: Bibasilar opacities again seen with septal thickening. Atelectasis is seen superimposed on these findings. No drainable effusion. Trace left effusion is now seen. Mediastinum, heart, and esophagus: Small pericardial effusion. No acute pulmonary embolism. Borderline cardiomegaly. Unremarkable esophagus. Prominent mediastinal lymph nodes, possibly reactive again seen. Chest wall and thyroid: Unremarkable Upper abdomen: No gross abnormality on these arterial phase images Bones: There are degenerative osseous findings. No aggressive appearing osseous abnormality. IMPRESSION: No acute pulmonary embolism. Bibasilar opacities and septal thickening again seen likely infectious. Trace left pleural effusion. Possibly reactive prominent mediastinal lymph nodes. Consider future imaging surveillance to assess for resolution. Small pericardial effusion. Borderline cardiomegaly. Correlate echocardiogram if indicated Dictated by: Tunde Phillips M.D. on 03/09/2025 at 8:13 Approved by: Tunde Phillips M.D. on 03/09/2025 at 8:16 Echocardiogram: Radiologist's Impression: Close Echocardiogram Ultrasound (Signed) ElizabethGuanaco - 03/09/25 Launch?[address] [address] Echocardiography Report Signed Patient: Todd Chance MR#: [id number] : 1990 Acct:[id number] Age/Sex: 35 / F Date of Service: 03/09/25 Loc: ED Accession Number: [id number] Procedure: EC echo doppler complete Ordering Provider: Parrish Del Cid [facility] +---------+ Hospital : : [address] [place] [address]. : : [place], [place] : : [address] : : Phone: [phone] Echocardiogram Report + + :Name: TODD CHANCE Study Date: 03/09/2025 Height: 62 in : :[facility] ReadingLocation: Weight: 215 lb : : Gender: Female BSA: 2.0 m2 : :: 1990 Age: 35 yrs BP: 105/57 mmHg: :Reason For Study: PERICARDIAL EFFUSION, EVAL FOR TAMPONADE : :PHYSIOLOGY : :Ordering Physician: ZACH, : :PARRISH Performed By: Enedina Garcia : :Referring: PARRISH DEL CID : + + Interpretation Summary 1) Mildly increased left ventricular thickness (concentric) with normal size, normal wall motion, and normal systolic function (EF 55-60%). 2) Upper normal right ventricular size with low normal function. 3) No significant valvular abnormalities. 4) There is a small to moderate sized circumferential pericardial effusion. There are no echocardiographic or Doppler indications for cardiac tamponade. 5) No prior Echo available for comparison. Procedure: A two-dimensional transthoracic echocardiogram with color flow and Doppler was performed. The study quality was technically difficult. Patient scanned in a supine postion due to pain. There is no prior echocardiogram noted for this patient. The patient was in sinus rhythm with heart rates between 87-100 bpm during the exam. Left Ventricle: The left ventricle is normal in size. There is mild concentric left ventricular hypertrophy. The ejection fraction is estimated to be 55-60%. Left ventricular systolic function appears normal without focal wall motion abnormalities. Right Ventricle: The right ventricle is at the upper limits of normal in size. Right ventricular systolic function is at the lower limits of normal. Atria: The left atrial size is normal. Right atrial size is normal. There is no Doppler evidence for an interatrial shunt. Mitral Valve: The mitral valve leaflets appear to open well. There is no mitral regurgitation noted. Aortic Valve: The aortic valve is trileaflet. The aortic valve opens well. There is no aortic valve stenosis. No aortic regurgitation is present. Tricuspid Valve: The tricuspid valve leaflets are thin and pliable. There is a trace or physiologic amount of tricuspid regurgitation. Pulmonary artery pressures cannot be estimated because of the lack of a measurable TR jet velocity but the IVC suggests a CVP of around 15 mmHg. Pulmonic Valve: The pulmonic valve leaflets are thin and pliable; valve motion is normal. There is trace pulmonic regurgitation. Great Vessels: The aortic root is normal size. The dimensions of the ascending aorta are normal. The IVC is dilated (diameter is greater than 2.1 cm) and it collapses less than 50% with a sniff. This suggests a high right atrial pressure of 15 mm Hg. Pericardium/ Pleura There is a small to moderate sized circumferential pericardial effusion. There are no echocardiographic or Doppler indications for cardiac tamponade. MMode/2D Measurements & Calculations LVIDd: 4.4 cm LVOT diam: 2.0 cm LVIDs: 3.2 cm Ao root diam: 2.8 cm FS: 27.5 % asc Aorta Diam: 2.6 cm EPSS: 0.75 cm Ao Arch Diam (Prox Trans): 2.4 cm IVSd: 1.3 cm LVPWd: 1.2 cm LV [place]. diameter/BSA (cm/m^2): 2.2 LV sys. diameter/BSA (cm/m^2): 1.6 LA A2 area: 13.9 cm2 RA long axis: 4.5 cm LA A4 area: 15.3 cm2 RA area: 11.8 cm2 LA length (vol): 5.0 cm RA vol: 26.1 ml LA vol: 36.1 ml RA : 13.3 ml/m2 LA vol index: 18.3 ml/m2 IVC diam: 2.1 cm RVD1 (basal): 4.2 cm TAPSE: 1.9 cm Doppler Measurements & Calculations Ao V2 max: 153.6 cm/sec LVOT Max [place]: 113.3 cm/sec Ao V2 mean: 112.2 cm/sec LV V1 max P.1 mmHg Ao max P.4 mmHg LV V1 VTI: 19.3 cm Ao mean P.5 mmHg JORGE LUIS(I,D): 2.5 cm2 Ao V2 VTI: 24.3 cm JORGE LUIS(V,D): 2.3 cm2 sev ratio: 0.80 JORGE LUIS indexed to BSA (cm^2/m^2): 1.3 MV E max [place]: 71.1 cm/sec PA V2 max: 98.3 cm/sec MV A max s[place]: 39.3 cm/sec PA V2 mean: 67.2 cm/sec MV E/A: 1.8 PA mean P.0 mmHg Med Peak E' [place]: 10.0 cm/sec PA pr(Accel): 44.7 mmHg E/E' med: 7.1 Lat Peak E' [place]: 9.4 cm/sec E/E' lat: 7.6 E/e' average: 7.4 MV dec time: 0.15 sec MVA(VTI): 2.7 cm2 MV V2 mean: 65.2 cm/sec SV(LVOT): 60.5 ml MV mean P.0 mmHg MV V2 VTI: 22.2 cm Reading Physician:12:28 PM [facility] Narrative Medical decision making narrative: 35-year-old female with a history of lupus nephritis, rheumatoid, prior pericarditis on multiple medications for hypertension, prednisone, mycophenolate, hydrochlorothiazide. Patient is quite hypertensive on arrival as well as tachycardic. No hypoxia, afebrile. Labs show normal white count hemoglobin is 8.8 appears consistent with priors over the past several months, platelets are 335 predominance of neutrophils. Coags show INR 0.8, D-dimer is positive at 1204. Electrolytes are appropriate overall, creatinine 1.76 appears pretty close to patient's baseline since November of 2024, patient has been as high as 2.38 in January, was 1.58 on the . Patient's glucose is 98 magnesium appropriate range. LFTs are negative troponins less than 0.012 with a total CK less than 20. BNP is 14 80 patient has been chronically elevated. Repeat troponin is 0.029 EKG initial had quite a bit of motion artifact with a repeated Chest x-ray patient was rotated no obvious acute abnormality. CT chest w/o contrast thyroid gland normal, no mediastinal hilar axillary adenopathy. Small pericardial effusion. No pulmonary nodule. Bilateral pulmonary infiltrates. No suspicious lytic or sclerotic osseous lesions identified. Multifocal bilateral pulmonary infiltrates recommend short-term interval follow up CT in 3 months after appropriate treatment to ensure complete resolution. Respiratory panel is negative. Discussed with patient she was quite a bit of chest discomfort she was more hypertensive which makes pulmonary embolism less likely but does have substernal chest pain, shortness of breath some bilateral lower extremity edema although this is likely secondary to CKD and chronic renal issues but discussed obtaining CT PE protocol to rule out pulmonary embolism as she was higher risk with a history of lupus and rheumatoid. We as well as a screen for pericardial effusion. Discussed some risk with contrast with renal function but felt appropriate based on patient's symptoms she was agreeable. Patient does note a lot of her pain is also movement related as well. Patient lost her line for CT. Multiple attempts by nursing and for repeat IV ultrasound and guided IV. Were unsuccessful. Patient is agreeable to attempt to repeat troponin. Discussed I do not feel she warrants the central line she was hypertensive she was little tachycardic but tachycardia improves when her pain is improved. We will give a dose of oral pain medication she was agreeable to temp repeat troponin I will obtain CT chest without contrast which will allow us to look for pericardial effusion/pneumonia but we discussed it will not help pulmonary embolism although my suspicious lower she was tachycardic but she was also more hypertensive. CT showed multifocal bilateral pulmonary infiltrates short-term interval follow up in 3 months. Small pericardial effusion is also present in January. Reviewed findings with the patient, she was still quite uncomfortable she was agreeable to stay for observation, did develop a fever here. She continued to have some tachycardia been hypertensive. Discussed placing central line but patient defers did call for midline with US service but can take sometime. Patient is agreeable if she becomes significantly worse or has rapidly changing vital signs. She prefers to continue with oral medication in his okay with an IM dose of antibiotics. Did offer IM pain medications but patient defers. I have concern for potential pulmonary embolism as patient was felt fevers tachycardic although pericarditis is on the differential as well. Spoke with the hospitalist Dr. Sommers @ [phone] we would like for respiratory panel, to get IV access and CTA PE and hydration following secondary to patients renal status before admission. Would recommend prophylaxis for PE as well as antibiotics but does feel patient be appropriate to keep here at [facility]. Patient signed out to Dr. Del Cid, 03/09/25, 0700, Zach. Signout from Dr Chadwick. 35-year-old female with history of lupus, Sjogren's, Raynaud's, rheumatoid arthritis, renal insufficiency with creatinine 1.7 elevation at her recent baseline, recently seen 2 or 3 days ago with chest pain for which she had chest x-ray and single troponin and was at home, now with substernal chest discomfort radiating to the back, worse with movement and inspiration. Increased heart rate, increased blood pressure, troponin measurable but low x2 sets. EKG without obvious ischemic changes, sinus tachycardia. BNP 1400 mild elevation. Respiratory panel negative. CTA chest considered but patient did not have adequate access, did not want central line, did not want PICC line. Patient had IV ceftriaxone and azithromycin. No IV fluids given. Pain medications given IV/oral. CT chest noncontrast study showed multilobar pneumonia similar to 1 month ago when she was admitted for pneumonia with higher creatinine level 2.5. Subsequently patient had midline catheter placement by IV team nurse, willing to have PE study. CTA chest has been ordered, pending. No Lasix has been given so far. WBC not elevated, will lactic acid and procalcitonin inflammatory markers. Send blood culture. Assumed care. CTA chest shows pulmonary infiltrates, no pulmonary embolism. Small pericardial effusion also present. See radiology report. 0830, We will order cardiac echo to evaluate for tamponade physiology. No oxygen requirement. Still has tachycardia. 1230, Cardiac echo report, interpretation summary: ?Mildly increased left ventricular thickness (concentric) with normal size, normal wall motion, normal systolic ejection function (EF 55-60%). Upper normal right ventricular size with low normal function. No significant valvular abnormalities. There is small to moderate size circumferential pericardial effusion. There are no echocardiographic or Doppler indications for cardiac tamponade. No prior echo available for comparison. Report dictated by area deicer inspector pneumatic Dr Johnson. Ongoing pleuritic chest pain, could consider Toradol but creatinine 1.7 with GFR 38. Consider admission for further treatment of pneumonia. We will consult hospitalist. 1330, Case discussed with Dr. Pastrana who acknowledges patient now has normalized heart rate, has likely pericarditis, no oxygen requirement, normotensive. He would further treat as an outpatient for now, with increased prednisone to 60 mg daily until close follow up early next week with PCP or rheumatology. Also would start colchicine 0.6 mg twice daily. Plan was relayed to the patient, who in fact had seen her ecological economist recently, and has recently started a prescription of colchicine, advised to continue that medication. Advised to increase dose of prednisone currently at 30 mg daily to 60 mg daily, and follow up with her ecological economist on Thursday03/14/2025 as scheduled. Refill also sent for her hydrocodone. We will avoid NSAIDs now given renal insufficiency. Return precautions discussed. Home with family. Addendum: Rheumatology apparently contacted family regarding colchicine, who had not actually sent the prescription, and had some concerns about drug interactions with carvedilol and colchicine. Case discussed with pharmacy, renal function GFR 38 noted, weight 97.5 kilos noted, age 35 female noted. Carvedilol can interfere with colchicine and raise levels. Also renal insufficiency would be an indication for a reduced dose. Pharmacy recommends carvedilol be dose differently than 0.6 mg twice daily, and advises 0.3mg single daily dose if the patient we will continue carvedilol. Patient prefers this regimen. Continue carvedilol current dosing. We will add prescription for colchicine 0.3 mg once daily reduced dose trial, until follow up evaluation with her ecological economist less than a week as above. Discharge Plan Departure Patient Disposition: Home Clinical Impression: Chest pain, Pericarditis, Chronic kidney disease, Lupus (systemic lupus erythematosus) Instructions: DI for Pericarditis Activity Restrictions/Additional Instructions: CT angiogram of the chest today showed no blood clot to the lungs, also pneumonia changes. Recent pneumonia, not currently on antibiotics. IV antibiotics and oral antibiotics given while in the emergency department. Further oral antibiotics to be sent as prescription to your pharmacy to take. Small pericardial effusion was noted on CT scanning. Echocardiogram was performed, [id number] pericardial fluid was also noted, without compression of the quintero of the heart at this time, no cardiac tamponade effects. Your kidney function showed a creatinine of 1.7 and a GFR of 38 which were low, therefore no Toradol or indomethacin anti-inflammatory medications given, as they can affect kidney function. You are currently taking colchicine from telemedicine consultation with your ecological economist, please continue that medication as directed. Also continue your prednisone, though we will increase the dose from 30 mg daily to 60 mg daily until your appointment in 6 days with rheumatology on Thursday03/14/25. You might be tapered on your prednisone dosing at that time, or consider reducing your dose to 40 mg if starting to have improvement in symptoms in the next couple of days on higher 60mg daily dose. You stated that you had some supply of prednisone 10 mg strength. We will write a new prescription for 20 mg strength prednisone for one-week supply, so that you do not complete your 10 mg strength supply. We will also send refill prescription of your hydrocodone pain medication. Follow up with your ecological economist on Thursday as planned. Return to this/nearest emergency department for any change worsening symptoms or any concerns prior. Colchicine dosing: Discussion with pharmacy about your renal function, and your carvedilol. They recommend lower dose daily colchicine trial of 0.3 mg once daily if you are going to be continuing your carvedilol. You preferred to continue her carvedilol for now, try a low dose once daily colchicine as per pharmacy recommendation for now, prescription sent for 7 tablets. Further prescriptions for your ecological economist in close follow up as planned above. Prescriptions: New prednisone 20 mg tablet 60 mg PO DAILY 7 Days Qty: 21 0RF hydrocodone-acetaminophen 5-325 mg tablet 1 tab PO Q6H PRN (Reason: pain) Qty: 14 0RF amoxicillin 875 mg tablet 875 mg PO BID 10 Days Qty: 20 0RF doxycycline hyclate 100 mg tablet 100 mg PO BID Qty: 20 0RF colchicine 0.6 mg tablet 0.3 mg PO DAILY Qty: 7 0RF No Action carvedilol 6.25 mg tablet 6.25 mg PO BID lisinopril 20 mg Tablet 20 mg PO DAILY prednisone 20 mg Tablet 20 mg PO DAILY triamcinolone acetonide 0.1 % cream 1 applic topical BID amlodipine 10 mg tablet 10 mg PO DAILY hydrochlorothiazide 25 mg Tablet 25 mg PO DAILY mycophenolate sodium 180 mg tablet,delayed release (DR/EC) 720 mg PO BID sulfamethoxazole-trimethoprim [Bactrim DS] 800-160 mg Tablet 1 tab PO 3XW hydrocodone-acetaminophen 5-325 mg tablet 1 tab PO Q4-6H PRN (Reason: pain) Qty: 20 0RF Referrals: Miscellaneous,Doctor, MD [Primary Care Provider] - Stand Alone Forms: Patient Portal/API/Survey, Work Release Note
[2025-03-08 22:46] VITALS: PULSE 100; RESP 34; O2SAT 99
[2025-03-08 22:47] VITALS: BP 203/94; PULSE 100; RESP 34; O2SAT 99
[2025-03-08] MEDS: ONDANSETRON 4 MG ODT PO (22:52)
[2025-03-08 23:00] VITALS: PULSE 103; RESP 35; O2SAT 95
--- NOTE | 2025-03-08 23:05 | PC.NURSE ---
2 piv attempts both unsuccessful by 2 different rn's. New RN in room to attempt US guided PIV
[2025-03-08 23:27] LABS: Add Manual Diff / Slide Review NO; Basophils Absolute Auto 0 /uL (0-100); Basophils Percent Auto 0.2 % (0-2); Eosinophils Absolute Auto 0 /uL (0-450); Eosinophils Percent Auto 0.4 % (2-4); Hematocrit 26.3 % (36-46); Hemoglobin 8.8 g/dL (12.0-16.0); Lymphocytes Absolute Auto 400 /uL (1100-4500); Lymphocytes Percent Auto 5.1 % (25-40); Mean Corpuscular HGB Conc 33.5 % (30-36); Mean Corpuscular Hemoglobin 27.6 PG (26-34); Mean Corpuscular Volume 82.4 fL (80-100); Monocytes Absolute Auto 300 /uL (0-900); Monocytes Percent Auto 3.6 % (3-14); Neutrophils Absolute Auto 7600 /uL (1500-7000); Neutrophils Percent Auto 90.7 % (50-75); Platelet Count 335 X10^3/uL (150-400); Red Blood Cell Count 3.19 X10^6/uL (4.0-5.2); Red Cell Distribution Width 18.3 % (11.6-14.8); White Blood Cell Count 8.4 X10^3/uL (4.5-11.0)
[2025-03-08 23:30] VITALS: PULSE 98; RESP 37; O2SAT 97
[2025-03-08] MEDS: MORPHINE 4 MG/ML INJ IV (23:32)
[2025-03-08 23:46] LABS: INR 0.8 (0.9-1.3); Prothrombin Time 9.3 SECONDS (9.4-12.5)
[2025-03-08 23:48] VITALS: BP 158/77; PULSE 98; RESP 25; O2SAT 99
[2025-03-08 23:48] LABS: PTT Partial Thromboplastin Tim 35 SECONDS (25.1-36.5)
[2025-03-08 23:55] LABS: D Dimer 1204 ng/ml (<500)
[2025-03-09] VITALS (68 sets, daily range): BP systolic 90–180; BP diastolic 50–92; PULSE 85–120; RESP 14–35; TEMP 37.2–38.2; O2SAT 94–99
[2025-03-09 00:02] LABS: Alanine Aminotransferase 17 IU/L (<35); Albumin 2.5 g/dL (3.5-5.0); Albumin Globulin Ratio 0.9 (1.0-2.8); Alkaline Phosphatase 69 U/L (38-126); Aspartate Aminotransferase 19 IU/L (14-36); BUN Creatinine Ratio 21.6 (6-22); Bilirubin Total 0.2 mg/dL (0.2-1.3); Blood Urea Nitrogen 38 mg/dL (7-17); Carbon Dioxide 23 mmol/L (22-32); Chloride 110 mmol/L (98-107); Creatine Kinase < 20 U/L (30-135); Estimated Glomerular Filt Rate 38 mL/min (>60); Globulin 2.8 g/dL (1.7-4.1); Glucose 98 mg/dL (70-99); HEMOLYSIS < 15 (0-50); Lipase 55 U/L (23-300); Magnesium 1.6 mg/dL (1.6-2.3); Potassium 4.1 mmol/L (3.4-5.1); Sodium 137 mmol/L (137-145); Total Protein 5.3 g/dL (6.3-8.2)
[2025-03-09 00:13] LABS: NT-proBNP (BNP-Adult 18+) 1480 pg/mL (<125); Troponin I < 0.012 ng/mL (0.01-0.034)
[2025-03-09] MEDS: HYDROMORPHONE 0.5 MG INJ IV ×2 (00:46→08:41)
[2025-03-09 01:04] LABS: Pregnancy Test Serum,Qual Negative (Negative)
--- NOTE | 2025-03-09 01:46 | PC.NURSE ---
18G RIGHT upper arm IV removed by this RN after she complained of itchiness and pain with attempt by DI to flush IV. No blood return. This RN attempts 2 more IVs without success. One attempt in the LEFT AC and other in the RIGHT forearm. Provider Farrukh made aware of situation as well as primary RN Shama.
--- NOTE | 2025-03-09 02:05 | DI.CT.S_ITS ---
PROCEDURE: CT CHEST WO CON INDICATIONS: chest pain TECHNIQUE: Noncontrast 5 mm thick sections acquired from the pulmonary apices to the posterior costophrenic angles. 1 mm lung window, 5 mm thick coronal and sagittal and 7 mm axial MIP reformats were then acquired. For radiation dose reduction, the following was used: automated exposure control, adjustment of mA and/or kV according to patient size. COMPARISON: [facility], CT, CT CHEST WO CON, 02/02/2025, 19:52. FINDINGS: Image quality: Mild motion artifact Lungs and pleura: Multifocal opacities, most confluent the lower lobes, along with upri-[id number] septal thickening. Basal atelectasis also seen. Overall low lung volumes. No drainable pleural effusions. Mediastinum, heart, and esophagus: Mild pericardial effusion. Borderline cardiomegaly. No pathologic lymph nodes by size criteria. Prominent mediastinal lymph nodes again seen, attention on follow-up, possibly reactive. Unremarkable esophagus where visualized Chest wall and thyroid: Unremarkable Upper abdomen: No gross abnormality on these noncontrast images Bones: No aggressive appearing osseous abnormality. IMPRESSION: Bibasilar opacities and septal thickening likely infectious. Prominent mediastinal lymph nodes, possibly reactive. Consider future imaging surveillance to assess for resolution. Mild pericardial effusion. No significant changes from the preliminary report. Dictated by: Tunde Phillips M.D. on 03/09/2025 at 8:10 Approved by: Tunde Phillips M.D. on 03/09/2025 at 8:13
[2025-03-09] MEDS: OXYCODONE/ACETAMINOPHEN 5/325 TABLET 2 TAB PO (02:22)
[2025-03-09 02:53] LABS: Troponin I 0.029 ng/mL (0.01-0.034)
[2025-03-09 04:23] LABS: Bacteria Urine None Seen; Culture Indicated Urine Cult Not Indicated; RBC Urine 0-1/HPF (0-5/HPF); Squamous Epithelial Cell Urine 0-1 /HPF (0-5/HPF); Urine Volume 10mL (spun); WBC Urine None Seen (0-5/HPF)
[2025-03-09] MEDS: ACETAMINOPHEN 325 MG TABLET 975 MG PO (04:36)
[2025-03-09] MEDS: AZITHROMYCIN 250 MG TABLET 500 MG PO (04:36)
[2025-03-09] MEDS: cefTRIAXone 2,000 MG VIAL 1000 MG IM (04:38)
[2025-03-09] MEDS: LIDOCAINE 1% (PF) 5 ML INJ (04:39)
[2025-03-09] MEDS: ENOXAPARIN 100 MG/ML SYRINGE SUBCUT (04:53)
[2025-03-09 05:03] LABS: Adenovirus Not Detected (Not Detect); B. parapertussis Not Detected (Not Detecte); Bordetella pertussis Not Detected (Not Detect); Chlamydophila pneumoniae Not Detected (Not Detect); Coronavirus 229E Not Detected (Not Detect); Coronavirus HKU1 Not Detected (Not Detect); Coronavirus NL 63 Not Detected (Not Detect); Coronavirus OC43 Not Detected (Not Detect); Human Metapneumovirus Not Detected (Not Detect); Human Rhinovirus/Enterovirus Not Detected (Not Detect); Influenza A Not Detected (Not Detect); Influenza B Not Detected (Not Detect); Mycoplasma pneumoniae Not Detected (Not Detect); Parainfluenza Virus 1 Not Detected (Not Detect); Parainfluenza Virus 2 Not Detected (Not Detect); Parainfluenza Virus 3 Not Detected (Not Detect); Parainfluenza Virus 4 Not Detected (Not Detect); Respiratory Syncytial Virus Not Detected (Not Detect); SARS- CoV-2 Not Detected (Not Detecte)
[2025-03-09] MEDS: OXYCODONE IR 10 MG TABLET PO (05:38)
[2025-03-09] MEDS: ONDANSETRON 4 MG ODT SL (05:43)
--- NOTE | 2025-03-09 07:10 | PC.NURSE ---
Late Entry 03/09/25 -- 0315 am -- Patient will need Midline or PICC line to complete CT chest w/ contrast. ECONOMETRICIAN called and contacted the Company we use for Line placement after hours when staff DI nurse team unavailable, no estimate given by gamma ray operator for arrival time and they instructed/verbalized to us that they will contact us to give an ETA for line placement when they have it assigned and staff member able to come out. 03/09/25 -- 0710 am -- No updates/phone calls/notifications for estimated arrival from PICC line company. [facility] CHRISTINA RN @ bedside and will place line for CT. Handover to dayshift team completed.
--- NOTE | 2025-03-09 07:13 | DI.CT.S_ITS ---
PROCEDURE: CT ANGIO CHEST PE PROTOCOL INDICATIONS: dyspnea, Dd+ TECHNIQUE: After the administration of intravenous contrast, 2 mm thick sections acquired from the pulmonary apices to the posterior costophrenic angles. 3-dimensional maximum intensity projection (MIP) coronal and sagittal reformats were then acquired through the thorax. For radiation dose reduction, the following was used: automated exposure control, adjustment of mA and/or kV according to patient size. COMPARISON: [facility], CT, CT ANGIO CHEST PE PROTOCOL, 10/31/2023, 23:17. [facility], CT, CT CHEST WO CON, 03/09/2025, 2:16. [facility], CT, CT CHEST WO CON, 02/02/2025, 19:52. FINDINGS: Image quality: Diagnostic Lungs and pleura: Bibasilar opacities again seen with septal thickening. Atelectasis is seen superimposed on these findings. No drainable effusion. Trace left effusion is now seen. Mediastinum, heart, and esophagus: Small pericardial effusion. No acute pulmonary embolism. Borderline cardiomegaly. Unremarkable esophagus. Prominent mediastinal lymph nodes, possibly reactive again seen. Chest wall and thyroid: Unremarkable Upper abdomen: No gross abnormality on these arterial phase images Bones: There are degenerative osseous findings. No aggressive appearing osseous abnormality. IMPRESSION: No acute pulmonary embolism. Bibasilar opacities and septal thickening again seen likely infectious. Trace left pleural effusion. Possibly reactive prominent mediastinal lymph nodes. Consider future imaging surveillance to assess for resolution. Small pericardial effusion. Borderline cardiomegaly. Correlate echocardiogram if indicated Dictated by: Tunde Phillips M.D. on 03/09/2025 at 8:13 Approved by: Tunde Phillips M.D. on 03/09/2025 at 8:16
--- NOTE | 2025-03-09 08:26 | DI.ECHO.S_ITS ---
[facility]---------+ [facility] : : [id number] : [place] : : [id number] : : Phone: [phone] Echocardiogram Report + + :Name: DONN ALBERTS Study Date: 03/09/2025 Height: 62 in : :Hospital ReadingLocation: Weight: 215 lb : : Gender: Female BSA: 2.0 m2 : :: 1990 Age: 35 yrs BP: 105/57 mmHg: :Reason For Study: PERICARDIAL EFFUSION, EVAL FOR TAMPONADE : :PHYSIOLOGY : :Ordering Physician: MARIA EUGENIA, : :TAMRA Performed By: Enedina Garcia : :Referring: TAMRA DEL CID : + + Interpretation Summary 1) Mildly increased left ventricular thickness (concentric) with normal size, normal wall motion, and normal systolic function (EF 55-60%). 2) Upper normal right ventricular size with low normal function. 3) No significant valvular abnormalities. 4) There is a small to moderate sized circumferential pericardial effusion. There are no echocardiographic or Doppler indications for cardiac tamponade. 5) No prior Echo available for comparison. Procedure: A two-dimensional transthoracic echocardiogram with color flow and Doppler was performed. The study quality was technically difficult. Patient scanned in a supine postion due to pain. There is no prior echocardiogram noted for this patient. The patient was in sinus rhythm with heart rates between 87-100 bpm during the exam. Left Ventricle: The left ventricle is normal in size. There is mild concentric left ventricular hypertrophy. The ejection fraction is estimated to be 55-60%. Left ventricular systolic function appears normal without focal wall motion abnormalities. Right Ventricle: The right ventricle is at the upper limits of normal in size. Right ventricular systolic function is at the lower limits of normal. Atria: The left atrial size is normal. Right atrial size is normal. There is no Doppler evidence for an interatrial shunt. Mitral Valve: The mitral valve leaflets appear to open well. There is no mitral regurgitation noted. Aortic Valve: The aortic valve is trileaflet. The aortic valve opens well. There is no aortic valve stenosis. No aortic regurgitation is present. Tricuspid Valve: The tricuspid valve leaflets are thin and pliable. There is a trace or physiologic amount of tricuspid regurgitation. Pulmonary artery pressures cannot be estimated because of the lack of a measurable TR jet velocity but the IVC suggests a CVP of around 15 mmHg. Pulmonic Valve: The pulmonic valve leaflets are thin and pliable; valve motion is normal. There is trace pulmonic regurgitation. Great Vessels: The aortic root is normal size. The dimensions of the ascending aorta are normal. The IVC is dilated (diameter is greater than 2.1 cm) and it collapses less than 50% with a sniff. This suggests a high right atrial pressure of 15 mm Hg. Pericardium/ Pleura There is a small to moderate sized circumferential pericardial effusion. There are no echocardiographic or Doppler indications for cardiac tamponade. MMode/2D Measurements & Calculations LVIDd: 4.4 cm LVOT diam: 2.0 cm LVIDs: 3.2 cm Ao root diam: 2.8 cm FS: 27.5 % asc Aorta Diam: 2.6 cm EPSS: 0.75 cm Ao Arch Diam (Prox Trans): 2.4 cm IVSd: 1.3 cm LVPWd: 1.2 cm LV [place]. diameter/BSA (cm/m^2): 2.2 LV sys. diameter/BSA (cm/m^2): 1.6 LA A2 area: 13.9 cm2 RA long axis: 4.5 cm LA A4 area: 15.3 cm2 RA area: 11.8 cm2 LA length (vol): 5.0 cm RA vol: 26.1 ml LA vol: 36.1 ml RA : 13.3 ml/m2 LA vol index: 18.3 ml/m2 IVC diam: 2.1 cm RVD1 (basal): 4.2 cm TAPSE: 1.9 cm Doppler Measurements & Calculations Ao V2 max: 153.6 cm/sec LVOT Max Sachin: 113.3 cm/sec Ao V2 mean: 112.2 cm/sec LV V1 max P.1 mmHg Ao max P.4 mmHg LV V1 VTI: 19.3 cm Ao mean P.5 mmHg JORGE LUIS(I,D): 2.5 cm2 Ao V2 VTI: 24.3 cm JORGE LUIS(V,D): 2.3 cm2 sev ratio: 0.80 JORGE LUIS indexed to BSA (cm^2/m^2): 1.3 MV E max sachin: 71.1 cm/sec PA V2 max: 98.3 cm/sec MV A max sachin: 39.3 cm/sec PA V2 mean: 67.2 cm/sec MV E/A: 1.8 PA mean P.0 mmHg Med Peak E' Sachin: 10.0 cm/sec PA pr(Accel): 44.7 mmHg E/E' med: 7.1 Lat Peak E' Sachin: 9.4 cm/sec E/E' lat: 7.6 E/e' average: 7.4 MV dec time: 0.15 sec MVA(VTI): 2.7 cm2 MV V2 mean: 65.2 cm/sec SV(LVOT): 60.5 ml MV mean P.0 mmHg MV V2 VTI: 22.2 cm Reading Physician:12:28 PM
--- NOTE | 2025-03-09 08:33 | PC.NURSE ---
1st set of cultures drawn from left midline and labs drawn. Straight stick attempted for second set of cultures, unable to get 2nd set in left or right hand. Provider aware that only 1 set of cultures were obtained. Pt's and pt updated to plan of care, A&Ox4, RA, shallow breathing with pain on inhalation. Call light within reach, pt demonstrated use of call light.
[2025-03-09] MEDS: SODIUM CHLORIDE 0.9% 500 ML 1000 ML IV (08:41)
[2025-03-09] MEDS: ONDANSETRON 4 MG/2 ML INJ IV (08:41)
[2025-03-09 08:49] LABS: Lactate (Lactic Acid) 0.8 mmol/L (0.7-2.1)
[2025-03-09 09:06] LABS: Procalcitonin 1.93 ng/mL (<0.5)
--- NOTE | 2025-03-09 10:40 | PC.NURSE ---
Pt given warm pack for neck, pt had requested to use tiger balm on neck, educated pt and family to refrain for now. Pt ok with using heat pack at this time. Pt on RA,A&Ox4, NAD, breathing even/equal/unlabored at this time. Call light within reach.
[2025-03-09] MEDS: OXYCODONE IR 5 MG TABLET 10 MG PO (13:00)
--- NOTE | 2025-03-10 02:01 | PC.NURSE ---
Tech Note: called for picc line placement at 0403. An ETA was not provided .
== END 2025-03-09 14:45 | disposition home or self-care (01) ==
PROVIDERS: Emergency Medicine; Emergency Provider Emergency Medicine
DX: R07.9 Chest pain, unspecified (principal); I31.9 Disease of pericardium, unspecified; N18.9 Chronic kidney disease, unspecified; M32.9 Systemic lupus erythematosus, unspecified; I10 Essential (primary) hypertension
CPT/HCPCS: 36415; 71045; 71250; 71275; 80053; 81003; 81015; 82550; 83605; 83690; 83735; 83880; 84145; 84484; 84703; 85025; 85379; 85610; 85730; 87040; 87086; 87633; 93005; 93306; 96361; 96372; 96374; 96375; 96376; 99285; J0696; J1171; J1650; J2270; J2405; Q9967

== ENCOUNTER 2025-03-10 19:55 | Emergency (ER) | payer BC, OTHER, SELFPAY ==
[2025-03-10] VITALS (11 sets, daily range): BP systolic 119–156; BP diastolic 53–76; PULSE 92–108; RESP 18–28; TEMP 37.3–37.9; O2SAT 93–100
--- NOTE | 2025-03-10 20:11 | EKG_ITS ---
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
[2025-03-10 21:01] LABS: Add Manual Diff / Slide Review NO; Basophils Absolute Auto 0 /uL (0-100); Basophils Percent Auto 0.1 % (0-2); Eosinophils Absolute Auto 0 /uL (0-450); Eosinophils Percent Auto 0.3 % (2-4); Hematocrit 23.4 % (36-46); Hemoglobin 7.7 g/dL (12.0-16.0); Lymphocytes Absolute Auto 500 /uL (1100-4500); Lymphocytes Percent Auto 5.9 % (25-40); Mean Corpuscular HGB Conc 33.2 % (30-36); Mean Corpuscular Hemoglobin 27.7 PG (26-34); Mean Corpuscular Volume 83.4 fL (80-100); Monocytes Absolute Auto 500 /uL (0-900); Monocytes Percent Auto 6.3 % (3-14); Neutrophils Absolute Auto 7400 /uL (1500-7000); Neutrophils Percent Auto 87.4 % (50-75); Platelet Count 278 X10^3/uL (150-400); Red Cell Distribution Width 18.3 % (11.6-14.8); White Blood Cell Count 8.5 X10^3/uL (4.5-11.0)
[2025-03-10] MEDS: ONDANSETRON 4 MG/2 ML INJ IV (21:02)
[2025-03-10 21:10] LABS: Alanine Aminotransferase 20 IU/L (<35); Albumin 2.5 g/dL (3.5-5.0); Albumin Globulin Ratio 0.8 (1.0-2.8); Alkaline Phosphatase 69 U/L (38-126); Aspartate Aminotransferase 20 IU/L (14-36); BUN Creatinine Ratio 13.9 (6-22); Bilirubin Total 0.2 mg/dL (0.2-1.3); Blood Urea Nitrogen 53 mg/dL (7-17); Calcium 8.3 mg/dL (8.4-10.2); Carbon Dioxide 19 mmol/L (22-32); Chloride 106 mmol/L (98-107); Estimated Glomerular Filt Rate 15 mL/min (>60); Glucose 82 mg/dL (70-99); HEMOLYSIS < 15 (0-50); Lipase 16 U/L (23-300); Sodium 133 mmol/L (137-145); Total Protein 5.5 g/dL (6.3-8.2)
--- NOTE | 2025-03-10 21:12 | DI.RAD.S_ITS ---
PROCEDURE: XR CHEST 1V INDICATIONS: chest pain TECHNIQUE: One view of the chest was acquired. COMPARISON: [facility], CT, CT ANGIO CHEST PE PROTOCOL, 03/09/2025, 7:36. [facility], CR, XR CHEST 1V, 03/08/2025, 22:38. [facility], CR, XR CHEST 1V, 03/04/2025, 3:18. FINDINGS: Surgical changes and devices: None. Lungs and pleura: Opacity at the left lung base. Left pleural effusion. No pneumothorax. Mediastinum: Mediastinal contours appear normal. Heart size is enlarged. Bones and chest wall: No suspicious bony lesions. Overlying soft tissues appear unremarkable. IMPRESSION: Cardiomegaly. In part due to pericardial effusion seen on prior CT. Small left pleural effusion and left basilar opacity. Dictated by: Daryl Villagran M.D. on 03/10/2025 at 21:41 Approved by: Daryl Villagran M.D. on 03/10/2025 at 21:43
[2025-03-10] MEDS: MORPHINE 4 MG/ML INJ IV (21:33)
[2025-03-10] MEDS: ACETAMINOPHEN 325 MG TABLET 975 MG PO (21:34)
[2025-03-10] MEDS: SODIUM CHLORIDE 0.9% 500 ML 1000 ML IV (21:37)
[2025-03-10 21:50] LABS: Creatine Kinase 64 U/L (30-135)
[2025-03-10 21:51] LABS: Lactate (Lactic Acid) 0.8 mmol/L (0.7-2.1)
[2025-03-10 22:00] LABS: Erythrocyte Sedimentation Rate 126 MM/HR (0-20)
[2025-03-10 22:04] LABS: NT-proBNP (BNP-Adult 18+) 1310 pg/mL (<125)
[2025-03-10 22:09] LABS: Procalcitonin 6.07 ng/mL (<0.5); Troponin I 0.138 ng/mL (0.01-0.034)
--- NOTE | 2025-03-10 22:17 | ED_ITS ---
HPI - Chest Pain <Lo Chadwick, DO - Last Filed: 03/16/25 07:17> General Chief Complaint: Abdominal Pain Stated Complaint: Chest Pain, Fever, Vomiting Time Seen by Provider: 03/10/25 21:10 Source: patient and family Mode of arrival: Wheelchair Limitations: no limitations Limitations: no limitations History of Present Illness HPI narrative: 35-year-old female history of lupus nephritis, CKD, Sjogren's, Raynaud's, rheumatoid arthritis in carvedilol, amlodipine, lisinopril, mycophenolate, hydrochlorothiazide, prednisone daily patient was seen on 03/08/2025 found to have negative PE scan had [id number] pericardial effusion suspected to have pericarditis was discharged home on colchicine and oral antibiotics for multifocal pneumonia. Patient follows with rheumatology in [place] and with [facility]. Patient was seen here 2 days ago for similar symptoms had negative troponins, had an echo that showed [id number] pericardial effusion, CTA that was negative for pulmonary embolism but but showed multifocal pneumonia again fairly similar to prior month ago. Patient has states she was had persistent chest pain has not improved is worse with movement. She describes it as pleuritic. She was felt fevers today, she also developed nausea and vomiting was not able to keep down her oral antibiotics. She denies any abdominal back or flank pain. No issues with bowel movements. She notes a little bit decreased urine output. No syncope. She does have swelling in her lower extremity states does not seem significantly worse than prior. Was discharged home on colchicine with the amoxicillin and doxycycline, and adjustment of her prednisone under the direction of her dye tank tender. Patient's last hospitalization was at [facility]. She reports an allergy to Keppra described as anaphylaxis. Related Data Home Medications Medication Instructions Recorded Confirmed amlodipine 10 mg tablet 10 mg PO DAILY 03/04/25 03/04/25 carvedilol 6.25 mg tablet 6.25 mg PO BID 03/04/25 03/04/25 hydrochlorothiazide 25 mg tablet 25 mg PO DAILY 03/04/25 03/04/25 lisinopril 20 mg tablet 20 mg PO DAILY 03/04/25 03/04/25 mycophenolate sodium 180 mg 720 mg PO BID 03/04/25 03/04/25 tablet,delayed release prednisone 20 mg tablet 20 mg PO DAILY 03/04/25 03/04/25 sulfamethoxazole 800 1 tab PO 3XW 03/04/25 03/04/25 mg-trimethoprim 160 mg tablet (Bactrim DS) triamcinolone acetonide 0.1 % 1 applic topical BID 03/04/25 03/04/25 topical cream Previous Rx's Medication Instructions Recorded hydrocodone 5 mg-acetaminophen 325 1 tab PO Q4-6H PRN pain #20 tabs 03/04/25 mg tablet amoxicillin 875 mg tablet 875 mg PO BID dental infection 10 03/09/25 days #20 tabs colchicine 0.6 mg tablet 0.3 mg (1/2 x 0.6 mg) PO DAILY #7 03/09/25 tabs doxycycline hyclate 100 mg tablet 100 mg PO BID #20 tabs 03/09/25 hydrocodone 5 mg-acetaminophen 325 1 tab PO Q6H PRN pain #14 tabs 03/09/25 mg tablet Allergies Allergy/AdvReac Type Severity Reaction Status Date / Time levetiracetam [From [facility]] Allergy Severe Anaphylaxis Verified 03/08/25 23:11 Review of Systems <Lo Chadwick DO - Last Filed: 03/16/25 07:17> Review of Systems ROS Unobtainable: All systems reviewed & are unremarkable except as noted in HPI and below Patient History <Lo Chadwick DO - Last Filed: 03/16/25 07:17> Medical History Rheumatoid arthritis Sjogren syndrome Lupus nephritis tobacco type: cigarettes and vaping Exam <Lo Chadwick DO - Last Filed: 03/16/25 07:17> Narrative Exam Narrative: GENERAL: Alert and oriented x three, obese female in moderate distress. HEENT: Head normocephalic, atraumatic, EOMI, pupils reactive, face symmetric, moist mucous membranes NECK: Supple, full range of motion CARDIOVASCULAR: Tachycardic but regular rate and rhythm without murmurs, rubs or gallops. Patient was bilateral lower extremity edema. No JVD appreciated. RESPIRATORY: Breath sounds equal bilaterally, no wheezes rales or rhonchi. Mild tachypnea, no accessory muscle use. Patient's speaks in full sentences. ABDOMEN: Soft, nontender. Normoactive bowel sounds all 4 quadrants. No guarding or rebound, rigidity, no mass : No CVA tenderness EXTREMITIES: Normal range of motion, no clubbing. Neurovascularly intact NEUROLOGICAL: Cranial nerves II through XII grossly intact. Moving all extremities SKIN: Warm, dry, no petechiae, no rashes or lesions. Initial Vital Signs Initial Vital Signs: Vital Signs Temperature 100.2 F H 03/10/25 20:09 Pulse Rate 108 H 03/10/25 20:09 Blood Pressure 140/71 03/10/25 20:09 Pulse Oximetry 100 03/10/25 20:09 Oxygen Delivery Method Room Air 03/10/25 20:09 <Parrish Serrano MD - Last Filed: 03/11/25 19:53> Initial Vital Signs Initial Vital Signs: Vital Signs Temperature 100.2 F H 03/10/25 20:09 Pulse Rate 108 H 03/10/25 20:09 Blood Pressure 140/71 03/10/25 20:09 Pulse Oximetry 100 03/10/25 20:09 Oxygen Delivery Method Room Air 03/10/25 20:09 Course <Lo Chadwick DO - Last Filed: 03/16/25 07:17> Orders Ordered: Discontinued Medications Acetaminophen (Acetaminophen 325 Mg Tablet) 975 mg PO NOW ONE Stop: 03/10/25 21:19 Last Admin: 03/10/25 21:34 Dose: 975 mg Documented By: GABRIELLE Acetaminophen (Acetaminophen 325 Mg Tablet) 650 mg PO Q6H PRN PRN Reason: Fever/Mild Pain (1-3) Hydromorphone HCl (Hydromorphone 0.5 Mg Inj) 0.5 mg IV NOW ONE Stop: 03/11/25 11:54 Last Admin: 03/11/25 12:23 Dose: 0.5 mg Documented By: GABRIELLE Sodium Chloride (Normal Saline 0.9%) 500 mls @ 1,000 mls/hr IV BOLUS ONE Stop: 03/10/25 21:42 Last Infusion: 03/10/25 22:14 Dose: Infused Documented By: Admin: 03/10/25 21:37 Dose: 1,000 mls/hr Documented By: GABRIELLE Piperacillin Sod/Tazobactam (Sod 4.5 gm/ Sodium Chloride) 100 mls @ 200 mls/hr IV NOW ONE Stop: 03/10/25 22:43 Last Infusion: 03/10/25 23:37 Dose: Infused Documented By: Admin: 03/10/25 23:02 Dose: 200 mls/hr Documented By: GABRIELLE Sodium Chloride (Normal Saline 0.9%) 1,000 mls @ 125 mls/hr IV CONT SAGAR Last Infusion: 03/11/25 13:00 Dose: Infused Documented By: Admin: 03/11/25 08:07 Dose: 125 mls/hr Documented By: Infusion: 03/11/25 07:37 Dose: Infused Documented By: Admin: 03/10/25 23:37 Dose: 125 mls/hr Documented By: TRICIA Piperacillin Sod/Tazobactam (Sod 4.5 gm/ Sodium Chloride) 100 mls @ 25 mls/hr IV Q8H [facility] Last Admin: 03/11/25 14:43 Dose: 25 mls/hr Documented By: Infusion: 03/11/25 11:13 Dose: Infused Documented By: Admin: 03/11/25 06:48 Dose: 25 mls/hr Documented By: BUD Morphine Sulfate (Morphine 4 Mg/Ml Inj) 4 mg IV NOW ONE Stop: 03/10/25 21:13 Last Admin: 03/10/25 21:33 Dose: 4 mg Documented By: GABRIELLE Morphine Sulfate (Morphine 4 Mg/Ml Inj) 4 mg IV NOW ONE Stop: 03/11/25 06:40 Last Admin: 03/11/25 06:47 Dose: 4 mg Documented By: BUD Ondansetron HCl (Ondansetron 4 Mg/2 Ml Inj) 4 mg IV NOW PRN PRN Reason: Nausea And Vomiting Last Admin: 03/10/25 21:02 Dose: 4 mg Documented By: GABRIELLE Ondansetron HCl (Ondansetron 4 Mg Odt) 4 mg PO NOW PRN PRN Reason: Nausea And Vomiting Ondansetron HCl (Ondansetron 4 Mg/2 Ml Inj) 4 mg IV NOW ONE Stop: 03/11/25 12:09 Last Admin: 03/11/25 12:22 Dose: 4 mg Documented By: GABRIELLE Vital Signs Vital signs: Vital Signs - 8 hr 03/11/25 12:00 03/11/25 12:00 03/11/25 12:30 Temperature Pulse Rate 101 H Respiratory Rate 37 H Blood Pressure 153/84 H 171/86 H Pulse Oximetry 97 03/11/25 12:30 03/11/25 13:13 03/11/25 13:30 Temperature Pulse Rate 108 H 109 H 109 H Respiratory Rate 39 H Blood Pressure Pulse Oximetry 97 92 03/11/25 13:53 03/11/25 14:00 03/11/25 14:30 Temperature 98.5 F Pulse Rate 103 H 100 H Respiratory Rate 28 H 27 H Blood Pressure Pulse Oximetry 91 93 03/11/25 14:36 03/11/25 14:36 Temperature Pulse Rate 106 H Respiratory Rate 26 H Blood Pressure 160/87 H Pulse Oximetry 93 <Parrish Serrano MD - Last Filed: 03/11/25 19:53> Orders Ordered: Discontinued Medications Acetaminophen (Acetaminophen 325 Mg Tablet) 975 mg PO NOW ONE Stop: 03/10/25 21:19 Last Admin: 03/10/25 21:34 Dose: 975 mg Documented By: GABRIELLE Acetaminophen (Acetaminophen 325 Mg Tablet) 650 mg PO Q6H PRN PRN Reason: Fever/Mild Pain (1-3) Hydromorphone HCl (Hydromorphone 0.5 Mg Inj) 0.5 mg IV NOW ONE Stop: 03/11/25 11:54 Last Admin: 03/11/25 12:23 Dose: 0.5 mg Documented By: GABRIELLE Sodium Chloride (Normal Saline 0.9%) 500 mls @ 1,000 mls/hr IV BOLUS ONE Stop: 03/10/25 21:42 Last Infusion: 03/10/25 22:14 Dose: Infused Documented By: Admin: 03/10/25 21:37 Dose: 1,000 mls/hr Documented By: GABRIELLE Piperacillin Sod/Tazobactam (Sod 4.5 gm/ Sodium Chloride) 100 mls @ 200 mls/hr IV NOW ONE Stop: 03/10/25 22:43 Last Infusion: 03/10/25 23:37 Dose: Infused Documented By: Admin: 03/10/25 23:02 Dose: 200 mls/hr Documented By: GABRIELLE Sodium Chloride (Normal Saline 0.9%) 1,000 mls @ 125 mls/hr IV CONT SAGAR Last Infusion: 03/11/25 13:00 Dose: Infused Documented By: Admin: 03/11/25 08:07 Dose: 125 mls/hr Documented By: Infusion: 03/11/25 07:37 Dose: Infused Documented By: Admin: 03/10/25 23:37 Dose: 125 mls/hr Documented By: TRICIA Piperacillin Sod/Tazobactam (Sod 4.5 gm/ Sodium Chloride) 100 mls @ 25 mls/hr IV Q8H [facility] Last Admin: 03/11/25 14:43 Dose: 25 mls/hr Documented By: Infusion: 03/11/25 11:13 Dose: Infused Documented By: Admin: 03/11/25 06:48 Dose: 25 mls/hr Documented By: BUD Morphine Sulfate (Morphine 4 Mg/Ml Inj) 4 mg IV NOW ONE Stop: 03/10/25 21:13 Last Admin: 03/10/25 21:33 Dose: 4 mg Documented By: GABRIELLE Morphine Sulfate (Morphine 4 Mg/Ml Inj) 4 mg IV NOW ONE Stop: 03/11/25 06:40 Last Admin: 03/11/25 06:47 Dose: 4 mg Documented By: BUD Ondansetron HCl (Ondansetron 4 Mg/2 Ml Inj) 4 mg IV NOW PRN PRN Reason: Nausea And Vomiting Last Admin: 03/10/25 21:02 Dose: 4 mg Documented By: GABRIELLE Ondansetron HCl (Ondansetron 4 Mg Odt) 4 mg PO NOW PRN PRN Reason: Nausea And Vomiting Ondansetron HCl (Ondansetron 4 Mg/2 Ml Inj) 4 mg IV NOW ONE Stop: 03/11/25 12:09 Last Admin: 03/11/25 12:22 Dose: 4 mg Documented By: GABRIELLE Vital Signs Vital signs: Vital Signs - 8 hr 03/11/25 12:00 03/11/25 12:00 03/11/25 12:30 Temperature Pulse Rate 101 H Respiratory Rate 37 H Blood Pressure 153/84 H 171/86 H Pulse Oximetry 97 03/11/25 12:30 03/11/25 13:13 03/11/25 13:30 Temperature Pulse Rate 108 H 109 H 109 H Respiratory Rate 39 H Blood Pressure Pulse Oximetry 97 92 03/11/25 13:53 03/11/25 14:00 03/11/25 14:30 Temperature 98.5 F Pulse Rate 103 H 100 H Respiratory Rate 28 H 27 H Blood Pressure Pulse Oximetry 91 93 03/11/25 14:36 03/11/25 14:36 Temperature Pulse Rate 106 H Respiratory Rate 26 H Blood Pressure 160/87 H Pulse Oximetry 93 MDM - Chest Pain <Lo Chadwick, - Last Filed: 03/16/25 07:17> Lab Data 03/11/25 12:20 03/11/25 12:20 Labs: Lab Results 03/10/25 03/10/25 03/11/25 Range/Units 20:50 22:55 06:26 WBC 8.5 (4.5-11.0) X10^3/uL RBC 2.80 L (4.0-5.2) X10^6/uL Hgb 7.7 L (12.0-16.0) g/dL Hct 23.4 L (36-46) % MCV 83.4 (80-100) fL MCH 27.7 (26-34) PG MCHC 33.2 (30-36) % RDW 18.3 H (11.6-14.8) % Plt Count 278 (150-400) X10^3/uL Neut % (Auto) 87.4 H (50-75) % Lymph % (Auto) 5.9 L (25-40) % [place] % (Auto) 6.3 (3-14) % Eos % (Auto) 0.3 L (2-4) % Baso % (Auto) 0.1 (0-2) % Neut # (Auto) 7400 H (6517-4070) /uL Lymph # (Auto) 500 L (9039-8013) /uL [place] # (Auto) 500 (0-900) /uL Eos # (Auto) 0 (0-450) /uL Baso # (Auto) 0 (0-100) /uL ESR 126 H (0-20) MM/HR PT 11.9 (9.4-12.5) SECONDS INR 1.1 (0.9-1.3) APTT 46 H D (25.1-36.5) SECONDS Sodium 133 L (137-145) mmol/L Potassium 5.0 (3.4-5.1) mmol/L Chloride 106 (98-107) mmol/L Carbon Dioxide 19 L (22-32) mmol/L BUN 53 H (7-17) mg/dL Creatinine 3.81 H (0.52-1.04) mg/dL Estimated GFR 15 L (>60) mL/min BUN/Creatinine Ratio 13.9 (6-22) Glucose 82 (70-99) mg/dL Lactate 0.8 (0.7-2.1) mmol/L Calcium 8.3 L (8.4-10.2) mg/dL Total Bilirubin 0.2 (0.2-1.3) mg/dL AST 20 (14-36) IU/L ALT 20 (<35) IU/L Alkaline Phosphatase 69 (38-126) U/L Total Creatine Kinase 64 (30-135) U/L Troponin I 0.138 H* 0.129 H* (0.01-0.034) ng/mL C-Reactive Protein 34.4 H (<1.0) mg/dL NT-Pro-B Natriuret Pep 1310 H (<125) pg/mL Total Protein 5.5 L (6.3-8.2) g/dL Albumin 2.5 L (3.5-5.0) g/dL Globulin 3.0 (1.7-4.1) g/dL Albumin/Globulin Ratio 0.8 L (1.0-2.8) Lipase 16 L D (23-300) U/L Procalcitonin 6.07 H (<0.5) ng/mL Urine RBC 5-10/hpf H (0-5/HPF) Urine WBC 1-5/hpf (0-5/HPF) Ur Squamous Epith Cells 5-10 /hpf H (0-5/HPF) Amorphous Sediment 2+ Urine Bacteria Moderate (10-30) H (None) Hyaline Casts 1-5/lpf (None) Granular Casts 5-10/lpf (None) Other Casts Ur Culture Indicated? Cult not indicated Vol Urine Centrifuged 10ml (spun) 03/11/25 03/11/25 Range/Units 06:30 12:20 WBC 7.9 7.2 (4.5-11.0) X10^3/uL RBC 2.59 L 2.40 L (4.0-5.2) X10^6/uL Hgb 7.1 L 6.5 L* (12.0-16.0) g/dL Hct 21.6 L 20.0 L* (36-46) % MCV 83.2 83.1 (80-100) fL MCH 27.6 27.2 (26-34) PG MCHC 33.1 32.7 (30-36) % RDW 18.4 H 18.3 H (11.6-14.8) % Plt Count 269 274 (150-400) X10^3/uL Neut % (Auto) 87.7 H 90.3 H (50-75) % Lymph % (Auto) 5.4 L 3.5 L (25-40) % [place] % (Auto) 6.2 5.4 (3-14) % Eos % (Auto) 0.5 L 0.5 L (2-4) % Baso % (Auto) 0.2 0.3 (0-2) % Neut # (Auto) 6900 6500 (9552-0461) /uL Lymph # (Auto) 400 L 300 L (1360-7322) /uL [place] # (Auto) 500 400 (0-900) /uL Eos # (Auto) 0 0 (0-450) /uL Baso # (Auto) 0 0 (0-100) /uL ESR (0-20) MM/HR PT (9.4-12.5) SECONDS INR (0.9-1.3) APTT (25.1-36.5) SECONDS Sodium 135 L 135 L (137-145) mmol/L Potassium 5.1 4.9 (3.4-5.1) mmol/L Chloride 109 H 110 H (98-107) mmol/L Carbon Dioxide 18 L 17 L (22-32) mmol/L BUN 55 H 54 H (7-17) mg/dL Creatinine 3.95 H 3.56 H (0.52-1.04) mg/dL Estimated GFR 14 L 16 L (>60) mL/min BUN/Creatinine Ratio 13.9 15.2 (6-22) Glucose 82 79 (70-99) mg/dL Lactate (0.7-2.1) mmol/L Calcium 8.3 L 8.3 L (8.4-10.2) mg/dL Total Bilirubin (0.2-1.3) mg/dL AST (14-36) IU/L ALT (<35) IU/L Alkaline Phosphatase (38-126) U/L Total Creatine Kinase (30-135) U/L Troponin I 0.103 H 0.092 H (0.01-0.034) ng/mL C-Reactive Protein (<1.0) mg/dL NT-Pro-B Natriuret Pep 902 H (<125) pg/mL Total Protein (6.3-8.2) g/dL Albumin (3.5-5.0) g/dL Globulin (1.7-4.1) g/dL Albumin/Globulin Ratio (1.0-2.8) Lipase (23-300) U/L Procalcitonin (<0.5) ng/mL Urine RBC (0-5/HPF) Urine WBC (0-5/HPF) Ur Squamous Epith Cells (0-5/HPF) Amorphous Sediment Urine Bacteria (None) Hyaline Casts (None) Granular Casts (None) Other Casts Ur Culture Indicated? Vol Urine Centrifuged Point of Care Testing Test Results Negative Urine Dip Bedside Urine Glucose Negative Bedside Urine Bilirubin - Negative Bedside Urine Ketone - Negative Urine Specific [place] 1.025 Bedside Urine Occult Blood +++ Bedside Urine pH 5.5 Bedside Urine Protein +++ 300 Bedside Urine Urobilinogen - Negative Bedside Urine Nitrite - Negative Bedside Urine Leukocytes - Negative Esterase ECG Data Attestation: I personally reviewed and interpreted this ECG as follows: Prior ECG tracings: available for review Interpretation: Sinus tachycardia rate of 107 [place] 130 QRS is 66 QTC of 395. Acute ST elevation patient does not appear to have some [place] depression but I do not appreciate it through all leads but seems fairly consistent in leads. Do not appreciate any elevation or ST depression. Patient has prior from 2 days for comparison. [facility] Narrative Medical decision making narrative: Labs today show white count 8.5 hemoglobin 7.7 platelets are 278. Creatinine 3.8 BUN 53 sodium is 133 CO2 is 19 with a potassium of 5 and a chloride of 106 glucose is 82 troponin is now 0.138 was 0.029 on her last visit with a BNP of 310. Procalcitonin 6 with a lipase is 16. BNP is 13 10. ESR EKG shows sinus tach rate of 107 [place] 130 QRS is 66 QTC of 395. Prior had undetermined rhythm but has a lot of motion artifact was has a rate of 100 QRS is 72 QTC of 280. Patient has a respiratory panel on 03/09/2025 which was negative. She had an echo on 03/09/2025 showed mild increased left ventricular thickness normal size normal wall motion normal EF of 55-60% normal right ventricular size with low-normal function. No significant valvular abnormalities. Small to moderate size circumferential pericardial effusion no echocardiograph or definite indications of cardiac tamponade. No prior echo available for comparison. Patient also had a CTA chest PE protocol that showed no acute PE with bibasilar opacities and septal thickening again seen likely infectious trace left pleural effusion possible reactive prominent mediastinal lymph nodes, small pericardial effusion, borderline cardiomegaly correlate with the echocardiogram if indicated. 35-year-old female with a history significant for lupus, rheumatoid arthritis, Sjogren's, CKD patient has had a recent multifocal pneumonia treated approximately a month ago was seen here 2 days ago had pericardial effusion on echo that was small to moderate with no tamponade negative PE contrast study with similar multilobular pneumonia was discharged home on colchicine for suspected pericarditis and had prednisone increased on the recommendation of Rheumatology. Patient appears to have worsening creatinine possibly related to her colchicine versus end-organ damage has a positive troponin today secondary to pericarditis versus ACS. Patient is febrile as well. He had lactate blood cultures and procalcitonin included which protocol does trend upwards compared to prior. Lactate 0.8. Blood cultures are pending. Had a recent negative respiratory panel 2 days prior. ESR is elevated at 126 with a CRP of 34. Patient received fluids, acetaminophen, morphine, Zofran, IV antibiotics for recent multifocal pneumonia on CT with positive procalcitonin, fever. When patient was falls asleep O2 sats dropped to the mid 80s was placed on 1-2 L nasal cannula. Does improve while she was awake. Plan for transfer patient requires Cardiology and Nephrology neither of which we have available may also require rheumatology further additional subspecialties. We will start with [facility] as patient was recently hospitalized there month ago. Patient's family are agreeable. Patient case discussed with cardiology, spoke with Dr. Matias, Does not recommend any heparin. I can continue with steroids but would defer recommendations to larger facility. Does not recommend [facility] but larger facility, they would recommend [facility]. Spoke with Dr. Alvarado at [place] [id number], hospitalist they are happy to accept the patient but are concerned as she might need Rheumatology which they do not have available and she feels she would be better served by going through [facility]. Call out to [facility], spoke with coordinator at 0059. Discussed recommendations from Dr Alvarado and Florencio for transfer to . Will page out cards/medicine. Coordinator called back at 0215, still awaiting callback from medicine. Recontacted @ 0330 hospitalist still planning to reach out to us. [address] Cardozo, hospitalist at [facility]. He was reviewed patient's records including through [facility] does not feel that patient requires transfer to at this time politely declines states it would be proximally 6-7 day wait until they can arrange transfer. He would recommend returning to [facility] at this time, based on his review of records there are some Rheumatology consultations at that facility. Agrees with plan to continue with the antibiotic coverage. Call back to [facility], spoke with coordinator. Will waitlist patient for [facility]. Spoke with Dr. Loya who took over his hospitalist. Accepts they expect patient should come over later today after discharges. Discussed currently getting hydration fluids, antibiotics we will hold any steroids at this time as they are expecting patient to be transferred today and then they will have phone consultation with rheumatology. Did update patient is on 1-2 L nasal cannula at this time reviewed all the patient's vitals, recent labs workup and conversation with hospitalist at [facility]. <Parrish Serrano MD - Last Filed: 03/11/25 19:53> Lab Data Labs: Lab Results 03/10/25 03/10/25 03/11/25 Range/Units 20:50 22:55 06:26 WBC 8.5 (4.5-11.0) X10^3/uL RBC 2.80 L (4.0-5.2) X10^6/uL Hgb 7.7 L (12.0-16.0) g/dL Hct 23.4 L (36-46) % MCV 83.4 (80-100) fL MCH 27.7 (26-34) PG MCHC 33.2 (30-36) % RDW 18.3 H (11.6-14.8) % Plt Count 278 (150-400) X10^3/uL Neut % (Auto) 87.4 H (50-75) % Lymph % (Auto) 5.9 L (25-40) % [place] % (Auto) 6.3 (3-14) % Eos % (Auto) 0.3 L (2-4) % Baso % (Auto) 0.1 (0-2) % Neut # (Auto) 7400 H (0771-9500) /uL Lymph # (Auto) 500 L (5300-0808) /uL [place] # (Auto) 500 (0-900) /uL Eos # (Auto) 0 (0-450) /uL Baso # (Auto) 0 (0-100) /uL ESR 126 H (0-20) MM/HR PT 11.9 (9.4-12.5) SECONDS INR 1.1 (0.9-1.3) APTT 46 H D (25.1-36.5) SECONDS Sodium 133 L (137-145) mmol/L Potassium 5.0 (3.4-5.1) mmol/L Chloride 106 (98-107) mmol/L Carbon Dioxide 19 L (22-32) mmol/L BUN 53 H (7-17) mg/dL Creatinine 3.81 H (0.52-1.04) mg/dL Estimated GFR 15 L (>60) mL/min BUN/Creatinine Ratio 13.9 (6-22) Glucose 82 (70-99) mg/dL Lactate 0.8 (0.7-2.1) mmol/L Calcium 8.3 L (8.4-10.2) mg/dL Total Bilirubin 0.2 (0.2-1.3) mg/dL AST 20 (14-36) IU/L ALT 20 (<35) IU/L Alkaline Phosphatase 69 (38-126) U/L Total Creatine Kinase 64 (30-135) U/L Troponin I 0.138 H* 0.129 H* (0.01-0.034) ng/mL C-Reactive Protein 34.4 H (<1.0) mg/dL NT-Pro-B Natriuret Pep 1310 H (<125) pg/mL Total Protein 5.5 L (6.3-8.2) g/dL Albumin 2.5 L (3.5-5.0) g/dL Globulin 3.0 (1.7-4.1) g/dL Albumin/Globulin Ratio 0.8 L (1.0-2.8) Lipase 16 L D (23-300) U/L Procalcitonin 6.07 H (<0.5) ng/mL Urine RBC 5-10/hpf H (0-5/HPF) Urine WBC 1-5/hpf (0-5/HPF) Ur Squamous Epith Cells 5-10 /hpf H (0-5/HPF) Amorphous Sediment 2+ Urine Bacteria Moderate (10-30) H (None) Hyaline Casts 1-5/lpf (None) Granular Casts 5-10/lpf (None) Other Casts Ur Culture Indicated? Cult not indicated Vol Urine Centrifuged 10ml (spun) 03/11/25 03/11/25 Range/Units 06:30 12:20 WBC 7.9 7.2 (4.5-11.0) X10^3/uL RBC 2.59 L 2.40 L (4.0-5.2) X10^6/uL Hgb 7.1 L 6.5 L* (12.0-16.0) g/dL Hct 21.6 L 20.0 L* (36-46) % MCV 83.2 83.1 (80-100) fL MCH 27.6 27.2 (26-34) PG MCHC 33.1 32.7 (30-36) % RDW 18.4 H 18.3 H (11.6-14.8) % Plt Count 269 274 (150-400) X10^3/uL Neut % (Auto) 87.7 H 90.3 H (50-75) % Lymph % (Auto) 5.4 L 3.5 L (25-40) % [place] % (Auto) 6.2 5.4 (3-14) % Eos % (Auto) 0.5 L 0.5 L (2-4) % Baso % (Auto) 0.2 0.3 (0-2) % Neut # (Auto) 6900 6500 (9677-2147) /uL Lymph # (Auto) 400 L 300 L (3274-2771) /uL [place] # (Auto) 500 400 (0-900) /uL Eos # (Auto) 0 0 (0-450) /uL Baso # (Auto) 0 0 (0-100) /uL ESR (0-20) MM/HR PT (9.4-12.5) SECONDS INR (0.9-1.3) APTT (25.1-36.5) SECONDS Sodium 135 L 135 L (137-145) mmol/L Potassium 5.1 4.9 (3.4-5.1) mmol/L Chloride 109 H 110 H (98-107) mmol/L Carbon Dioxide 18 L 17 L (22-32) mmol/L BUN 55 H 54 H (7-17) mg/dL Creatinine 3.95 H 3.56 H (0.52-1.04) mg/dL Estimated GFR 14 L 16 L (>60) mL/min BUN/Creatinine Ratio 13.9 15.2 (6-22) Glucose 82 79 (70-99) mg/dL Lactate (0.7-2.1) mmol/L Calcium 8.3 L 8.3 L (8.4-10.2) mg/dL Total Bilirubin (0.2-1.3) mg/dL AST (14-36) IU/L ALT (<35) IU/L Alkaline Phosphatase (38-126) U/L Total Creatine Kinase (30-135) U/L Troponin I 0.103 H 0.092 H (0.01-0.034) ng/mL C-Reactive Protein (<1.0) mg/dL NT-Pro-B Natriuret Pep 902 H (<125) pg/mL Total Protein (6.3-8.2) g/dL Albumin (3.5-5.0) g/dL Globulin (1.7-4.1) g/dL Albumin/Globulin Ratio (1.0-2.8) Lipase (23-300) U/L Procalcitonin (<0.5) ng/mL Urine RBC (0-5/HPF) Urine WBC (0-5/HPF) Ur Squamous Epith Cells (0-5/HPF) Amorphous Sediment Urine Bacteria (None) Hyaline Casts (None) Granular Casts (None) Other Casts Ur Culture Indicated? Vol Urine Centrifuged Point of Care Testing Test Results Negative Urine Dip Bedside Urine Glucose Negative Bedside Urine Bilirubin - Negative Bedside Urine Ketone - Negative Urine Specific [place] 1.025 Bedside Urine Occult Blood +++ Bedside Urine pH 5.5 Bedside Urine Protein +++ 300 Bedside Urine Urobilinogen - Negative Bedside Urine Nitrite - Negative Bedside Urine Leukocytes - Negative Esterase MDM Narrative Medical decision making narrative: Labs today show white count 8.5 hemoglobin 7.7 platelets are 278. Creatinine 3.8 BUN 53 sodium is 133 CO2 is 19 with a potassium of 5 and a chloride of 106 glucose is 82 troponin is now 0.138 was 0.029 on her last visit with a BNP of 310. Procalcitonin 6 with a lipase is 16. BNP is 13 10. ESR EKG shows sinus tach rate of 107 WV 130 QRS is 66 QTC of 395. Prior had undetermined rhythm but has a lot of motion artifact was has a rate of 100 QRS is 72 QTC of 280. Patient has a respiratory panel on 03/09/2025 which was negative. She had an echo on 03/09/2025 showed mild increased left ventricular thickness normal size normal wall motion normal EF of 55-60% normal right ventricular size with low-normal function. No significant valvular abnormalities. Small to moderate size circumferential pericardial effusion no echocardiograph or definite indications of cardiac tamponade. No prior echo available for comparison. Patient also had a CTA chest PE protocol that showed no acute PE with bibasilar opacities and septal thickening again seen likely infectious trace left pleural effusion possible reactive prominent mediastinal lymph nodes, small pericardial effusion, borderline cardiomegaly correlate with the echocardiogram if indicated. 35-year-old female with a history significant for lupus, rheumatoid arthritis, Sjogren's, CKD patient has had a recent multifocal pneumonia treated approximately a month ago was seen here 2 days ago had pericardial effusion on echo that was small to moderate with no tamponade negative PE contrast study with similar multilobular pneumonia was discharged home on colchicine for suspected pericarditis and had prednisone increased on the recommendation of Rheumatology. Patient appears to have worsening creatinine possibly related to her colchicine versus end-organ damage has a positive troponin today secondary to pericarditis versus ACS. Patient is febrile as well. He had lactate blood cultures and procalcitonin included which protocol does trend upwards compared to prior. Lactate 0.8. Blood cultures are pending. Had a recent negative respiratory panel 2 days prior. ESR is elevated at 126 with a CRP of 34. Patient received fluids, acetaminophen, morphine, Zofran, IV antibiotics for recent multifocal pneumonia on CT with positive procalcitonin, fever. When patient was falls asleep O2 sats dropped to the mid 80s was placed on 1-2 L nasal cannula. Does improve while she was awake. Plan for transfer patient requires Cardiology and Nephrology neither of which we have available may also require rheumatology further additional subspecialties. We will start with [facility] as patient was recently hospitalized there month ago. Patient's family are agreeable. Patient case discussed with cardiology, spoke with Dr. Matias, Does not recommend any heparin. I can continue with steroids but would defer recommendations to larger facility. Does not recommend [facility] but larger facility, they would recommend [facility]. Spoke with Dr. Alvarado at [facility] 0017, hospitalist they are happy to accept the patient but are concerned as she might need Rheumatology which they do not have available and she feels she would be better served by going through [facility]. Call out to [facility], spoke with coordinator at 0059. Discussed recommendations from Dr Alvarado and Florencio for transfer to . Will page out cards/medicine. Coordinator called back at 0215, still awaiting callback from medicine. Recontacted @ 0330 hospitalist still planning to reach out to us. [address] Cardozo, hospitalist at [facility]. He was reviewed patient's records including through [facility] does not feel that patient requires transfer to at this time politely declines states it would be proximally 6-7 day wait until they can arrange transfer. He would recommend returning to [facility] at this time, based on his review of records there are some Rheumatology consultations at that facility. Agrees with plan to continue with the antibiotic coverage. Call back to [facility], spoke with coordinator. Will waitlist patient for [facility]. Spoke with Dr. Loya who took over his hospitalist. Accepts they expect patient should come over later today after discharges. Discussed currently getting hydration fluids, antibiotics we will hold any steroids at this time as they are expecting patient to be transferred today and then they will have phone consultation with rheumatology. Did update patient is on 1-2 L nasal cannula at this time reviewed all the patient's vitals, recent labs workup and conversation with hospitalist at [facility]. 03/11/24, [id number]. Signout from Dr Chadwick. Patient known to me from previous admission 2 days ago. 35-year-old female with lupus, rheumatoid arthritis, Sjogren's, chronic kidney disease, recent multifocal pneumonia, had course of antibiotics, re-presented 2 days ago with chest pleuritic chest pain. CT angiogram chest showed pericardial effusion no pulmonary embolism, multifocal infiltrates. Given IV antibiotics. Cardiac echo then showed [id number] pericardial effusion but no tamponade physiology. Patient was discharged on dose adjusted colchicine due to her renal insufficiency and interactions with carvedilol medications, and with opiate analgesia, on oral amoxicillin/doxycycline antibiotic regimen, presenting with further pain. Labs today show worsening renal function. IV Zosyn for pneumonia started. Case presented to local cardiology who defers to rheumatology. Interval increased procalcitonin, low-grade fever, normotensive. No pressors. Maintenance fluids only. Troponin positive without obvious ischemic change. No heparin. No steroids for now. Patient has been accepted tertiary [facility], likely bed available later today. Last labs this morning. If still here at noon we will consider repeat labs. Assumed care. Last lab results from draw 0630 noted, worsening renal function with creatinine 3.95, hemoglobin 7.1 low but stable, troponin 0.103 decreasing. We will repeat labs at noon if still here. 1015, sternal bed assignment, await for updates from [facility]. 1130, bed assigned [facility], we will arrange EMS transport. Patient having more chest pain, IV Dilaudid dose. 1300, hemoglobin 6.5, lower, no active external bleeding, could be dilutional from maintenance IVF, consider transfusion for Hb<7, however EMS is here for transport, would delay transport, hemodynamically stable, will add anemia to transfer dx, consider transfusion at receiving facility. Critical Care Time <Lo Chadwick DO - Last Filed: 03/16/25 07:17> Critical Care Time Critical Care Time: Yes Attestation: The high probability of a clinically significant, sudden or life threatening deterioration of the cardiac, pulmonary, system(s) required my full and direct attention, intervention and personal management. The aggregate critical care time was [--] minutes. This time is in addition to time spent performing reported procedures but includes the following: [x] Data Review and interpretation [x] Patient assessment and monitoring of vital signs [x] Documentation [x] Medication orders and management <Parrish Serrano MD - Last Filed: 03/11/25 19:53> Critical Care Time Total Critical Care Time: 45 Attestation: The high probability of a clinically significant, sudden or life threatening deterioration of the cardiac, pulmonary, renal, system(s) required my full and direct attention, intervention and personal management. The aggregate critical care time was [45] minutes. This time is in addition to time spent performing reported procedures but includes the following: [x] Data Review and interpretation [x] Patient assessment and monitoring of vital signs [x] Documentation [x] Medication orders and management Discharge Plan Departure Patient Disposition: [facility] Clinical Impression: Pericarditis, Acute on chronic renal failure, CHF (congestive heart failure), Pericardial effusion, Anemia Prescriptions: No Action hydrocodone-acetaminophen 5-325 mg tablet 1 tab PO Q6H PRN (Reason: pain) Qty: 14 0RF amoxicillin 875 mg tablet 875 mg PO BID 10 Days Qty: 20 0RF doxycycline hyclate 100 mg tablet 100 mg PO BID Qty: 20 0RF colchicine 0.6 mg tablet 0.3 mg PO DAILY Qty: 7 0RF carvedilol 6.25 mg tablet 6.25 mg PO BID lisinopril 20 mg Tablet 20 mg PO DAILY prednisone 20 mg Tablet 20 mg PO DAILY triamcinolone acetonide 0.1 % cream 1 applic topical BID amlodipine 10 mg tablet 10 mg PO DAILY hydrochlorothiazide 25 mg Tablet 25 mg PO DAILY mycophenolate sodium 180 mg tablet,delayed release (DR/EC) 720 mg PO BID sulfamethoxazole-trimethoprim [Bactrim DS] 800-160 mg Tablet 1 tab PO 3XW hydrocodone-acetaminophen 5-325 mg tablet 1 tab PO Q4-6H PRN (Reason: pain) Qty: 20 0RF Referrals: Miscellaneous,Doctor, MD [Primary Care Provider] -
[2025-03-10 22:40] LABS: INR 1.1 (0.9-1.3); Prothrombin Time 11.9 SECONDS (9.4-12.5)
[2025-03-10 22:41] LABS: C-Reactive Protein Quant 34.4 mg/dL (<1.0)
[2025-03-10 22:43] LABS: PTT Partial Thromboplastin Tim 46 SECONDS (25.1-36.5)
[2025-03-10] MEDS: PIPERACILLIN/TAZO 4.5 GM in SODIUM CHLORIDE 0.9% 100 ML IV (23:02)
[2025-03-10 23:30] LABS: Troponin I 0.129 ng/mL (0.01-0.034)
[2025-03-10] MEDS: SODIUM CHLORIDE 0.9% 1,000 ML 125 ML IV (23:37)
[2025-03-11] VITALS (33 sets, daily range): BP systolic 101–171; BP diastolic 54–87; PULSE 79–109; RESP 17–39; TEMP 36.9; O2SAT 91–100
--- NOTE | 2025-03-11 05:06 | PC.NURSE ---
EDGER RUNNER note: Attempting to find placement for patient. Spoke to [facility] for continuity of care. 03/10/25 from [id number] called five times and got the message no operators on duty to take your call, good bye. And hung up. 03/10/252306 Nate took information. 03/11/25 0018 was told by Sam to -[facility] 0041 had images pushed and faxed a facesheet to . Spoke to Jah and gave information 004 Margaret from the transfer center called and spoke with Dr. Chadwick. (At this time, was told patient should go to but per [facility], if didn't have a bed for days, they would take her. But to talk to .) 022 Nate from [facility] called to follow up. Still waiting on . 0337 Called spoke to Cedric and then Izabela. They were waiting on the hospitalist. 0422 called back, Dr. Ayoub. Politely declined patient. 0437 Called [facility] spoke to Nora. She spoke with Dr. Chadwick. 0504 Nate from [facility] called with their hospitalist. 0507 Patient accepted at [facility]. Will have a bed assignment after some discharges.
[2025-03-11 06:36] LABS: Add Manual Diff / Slide Review NO; Basophils Absolute Auto 0 /uL (0-100); Basophils Percent Auto 0.2 % (0-2); Eosinophils Absolute Auto 0 /uL (0-450); Eosinophils Percent Auto 0.5 % (2-4); Hematocrit 21.6 % (36-46); Hemoglobin 7.1 g/dL (12.0-16.0); Lymphocytes Absolute Auto 400 /uL (1100-4500); Lymphocytes Percent Auto 5.4 % (25-40); Mean Corpuscular HGB Conc 33.1 % (30-36); Mean Corpuscular Hemoglobin 27.6 PG (26-34); Mean Corpuscular Volume 83.2 fL (80-100); Monocytes Absolute Auto 500 /uL (0-900); Monocytes Percent Auto 6.2 % (3-14); Neutrophils Absolute Auto 6900 /uL (1500-7000); Neutrophils Percent Auto 87.7 % (50-75); Platelet Count 269 X10^3/uL (150-400); Red Blood Cell Count 2.59 X10^6/uL (4.0-5.2); Red Cell Distribution Width 18.4 % (11.6-14.8); White Blood Cell Count 7.9 X10^3/uL (4.5-11.0)
[2025-03-11 06:39] LABS: Urine Volume 10mL (spun)
[2025-03-11 06:40] LABS: RBC Urine 5-10/HPF (0-5/HPF); WBC Urine 1-5/HPF (0-5/HPF)
[2025-03-11 06:41] LABS: Amorphous Sediment Urine 2+; Bacteria Urine Moderate (10-30); Granular Casts Urine 5-10/LPF; Hyaline Casts Urine 1-5/LPF; Squamous Epithelial Cell Urine 5-10 /HPF (0-5/HPF)
[2025-03-11 06:44] LABS: Culture Indicated Urine Cult Not Indicated
[2025-03-11] MEDS: MORPHINE 4 MG/ML INJ IV (06:47)
[2025-03-11] MEDS: PIPERACILLIN/TAZO 4.5 GM in SODIUM CHLORIDE 0.9% 100 ML IV ×2 (06:48→14:43)
[2025-03-11 06:53] LABS: BUN Creatinine Ratio 13.9 (6-22); Blood Urea Nitrogen 55 mg/dL (7-17); Calcium 8.3 mg/dL (8.4-10.2); Carbon Dioxide 18 mmol/L (22-32); Chloride 109 mmol/L (98-107); Estimated Glomerular Filt Rate 14 mL/min (>60); Glucose 82 mg/dL (70-99); HEMOLYSIS < 15 (0-50); Potassium 5.1 mmol/L (3.4-5.1); Sodium 135 mmol/L (137-145)
[2025-03-11 07:05] LABS: Troponin I 0.103 ng/mL (0.01-0.034)
[2025-03-11] MEDS: SODIUM CHLORIDE 0.9% 1,000 ML 125 ML IV (08:07)
--- NOTE | 2025-03-11 09:38 | INF.NOTE ---
Rec'd report from NOC shift. Pt AAOx3. resting in bed. on cardiac monitoring. pain meds given on prior shift and pain controlled at this time. Has maintenance fluids infusing along with abx. Acceptance from Prov. Awaiting bed placement.
[2025-03-11] MEDS: ONDANSETRON 4 MG/2 ML INJ IV (12:22)
[2025-03-11] MEDS: HYDROMORPHONE 0.5 MG INJ IV (12:23)
[2025-03-11 12:38] LABS: Add Manual Diff / Slide Review NO; Basophils Absolute Auto 0 /uL (0-100); Basophils Percent Auto 0.3 % (0-2); Eosinophils Absolute Auto 0 /uL (0-450); Eosinophils Percent Auto 0.5 % (2-4); Lymphocytes Absolute Auto 300 /uL (1100-4500); Lymphocytes Percent Auto 3.5 % (25-40); Mean Corpuscular HGB Conc 32.7 % (30-36); Mean Corpuscular Hemoglobin 27.2 PG (26-34); Mean Corpuscular Volume 83.1 fL (80-100); Monocytes Absolute Auto 400 /uL (0-900); Monocytes Percent Auto 5.4 % (3-14); Neutrophils Absolute Auto 6500 /uL (1500-7000); Neutrophils Percent Auto 90.3 % (50-75); Platelet Count 274 X10^3/uL (150-400); Red Cell Distribution Width 18.3 % (11.6-14.8); White Blood Cell Count 7.2 X10^3/uL (4.5-11.0)
[2025-03-11 12:40] LABS: Hemoglobin 6.5 g/dL (12.0-16.0)
[2025-03-11 12:50] LABS: BUN Creatinine Ratio 15.2 (6-22); Blood Urea Nitrogen 54 mg/dL (7-17); Calcium 8.3 mg/dL (8.4-10.2); Carbon Dioxide 17 mmol/L (22-32); Chloride 110 mmol/L (98-107); Estimated Glomerular Filt Rate 16 mL/min (>60); Glucose 79 mg/dL (70-99); HEMOLYSIS < 15 (0-50); Potassium 4.9 mmol/L (3.4-5.1); Sodium 135 mmol/L (137-145)
[2025-03-11 12:59] LABS: NT-proBNP (BNP-Adult 18+) 902 pg/mL (<125)
[2025-03-11 13:03] LABS: Troponin I 0.092 ng/mL (0.01-0.034)
== END 2025-03-11 15:05 | disposition short-term general hospital (02) ==
PROVIDERS: Emergency Medicine; Emergency Provider Emergency Medicine
DX: I31.9 Disease of pericardium, unspecified (principal); I50.9 Heart failure, unspecified; I31.39 Other pericardial effusion (noninflammatory); D64.9 Anemia, unspecified; N17.9 Acute kidney failure, unspecified; R11.2 Nausea with vomiting, unspecified; R50.9 Fever, unspecified
CPT/HCPCS: 36415; 71045; 80048; 80053; 81003; 81015; 81025; 82550; 83605; 83690; 83880; 84145; 84484; 85025; 85610; 85651; 85730; 86140; 87040; 93005; 96361; 96365; 96366; 96375; 96376; 99285; 99291; J1171; J2270; J2405; J2543

== ENCOUNTER 2025-04-05 03:11 | Emergency (ER) | payer BC, OTHER, SELFPAY ==
[2025-04-05 03:39] VITALS: BP 115/58; PULSE 83; RESP 15; TEMP 36.4; O2SAT 100; BMI 35.8
--- NOTE | 2025-04-05 03:53 | ED.EXTPRO ---
HPI - Extremity Problem General Chief complaint: Extremity Problem,Nontraumatic Stated complaint: Extreme knee pain in both, has Lupus Time Seen by Provider: 04/05/25 03:35 Source: patient Mode of arrival: Wheelchair History of Present Illness HPI Narrative: [age] year old woman with a complex rheumatologic history including lupus nephritis with chronic kidney disease, Sjogren syndrome, rheumatoid arthritis Raynaud's disease followed by inside account executive is currently on 60 mg of prednisone daily. Recently admitted to [facility] for chest pain related to pericarditis developing after treatment for multifocal pneumonia. Apparently she lost almost 30 lb with diuresis during that hospital stay was feeling significantly better. Over the last couple days she has been having increasing pain in both her knees to the point that she is unable to walk secondary to pain. She does have Vicodin available at home and has not found that it is helpful. She is not reporting fevers, cough, chills, palpitations. There was no orthopnea. She notes that both knees are swollen but lower extremities are not. She is otherwise neurovascularly intact. She has had rheumatoid flares such as this in the past Related Data Home Medications ?Medication ?Instructions ?Recorded ?Confirmed amlodipine 10 mg tablet 10 mg PO DAILY 03/04/25 04/05/25 mycophenolate sodium 180 mg 720 mg PO BID 03/04/25 04/05/25 tablet,delayed release prednisone 20 mg tablet 60 mg PO DAILY 03/04/25 04/05/25 sulfamethoxazole 800 1 tab PO 3XW 03/04/25 04/05/25 mg-trimethoprim 160 mg tablet (Bactrim DS) carvedilol 25 mg tablet 25 mg PO BID 04/05/25 04/05/25 empagliflozin 10 mg tablet 10 mg PO DAILY 04/05/25 04/05/25 (Jardiance) furosemide 40 mg tablet 40 mg PO BID 04/05/25 04/05/25 hydralazine 25 mg tablet 25 mg PO TID Blood Pressure 04/05/25 04/05/25 lisinopril 10 mg tablet 10 mg PO DAILY 04/05/25 04/05/25 metolazone 2.5 mg tablet 2.5 mg PO DAILY 04/05/25 04/05/25 spironolactone 50 mg tablet 50 mg PO BID 04/05/25 04/05/25 (Aldactone) Previous Rx's ?Medication ?Instructions ?Recorded hydrocodone 5 mg-acetaminophen 325 1 tab PO Q6H PRN pain #14 tabs 03/09/25 mg tablet ondansetron 4 mg disintegrating 4 mg PO Q8H PRN nausea and 04/05/25 tablet vomiting #20 tabs oxycodone 5 mg tablet 5 mg PO Q6H PRN pain #20 tabs 04/05/25 Allergies Allergy/AdvReac Type Severity Reaction Status Date / Time levetiracetam (From [facility]) Allergy Severe Anaphylaxis Verified 03/08/25 23:11 Review of Systems Review of Systems Narrative: Pertinent positive and negative findings as per HPI Patient History Medical History Rheumatoid arthritis Sjogren syndrome Lupus nephritis Social History Smoking Status: Former smoker Smoking Status: Former smoker tobacco type: cigarettes and vaping Exam Initial Vital Signs Initial Vital Signs: Vital Signs Temperature 97.6 F 04/05/25 03:39 Pulse Rate 83 04/05/25 03:39 Respiratory Rate 15 04/05/25 03:39 Blood Pressure 115/58 L 04/05/25 03:39 Pulse Oximetry 100 04/05/25 03:39 Oxygen Delivery Method Room Air 04/05/25 03:39 General: Healthy appearing, in obvious pain but Able to give a complete and coherent history. Well-nourished well-developed HEENT: Moist mucous membranes, normal sclera with reactive pupils, Respiratory: Lungs are clear to auscultation, no wheezing no rales no rhonchi. Full and symmetrical air movement Cardiac: Regular rate and rhythm no murmurs no bruits Abdomen: Soft, nontender, no rebound or guarding, no flank pain Skin: Warm and dry, no rashes Neurologic: Grossly neurologically intact with no obvious asymmetries or abnormalities Extremities: Bilateral knee effusions without warmth or redness. Any type of movement causes significant pain consistent with reactive synovitis. No significant lower extremity edema and appropriate blood flow to both lower extremities. Otherwise neurovascularly intact. Psych: Cooperative, appropriate insight and affect Course Orders Ordered: ED Orders 04/05/25 04:05 Complete Blood Count AUTO DIFF Stat Comprehensive Metabolic Panel Stat Lactate (Lactic Acid) Stat Procalcitonin Stat Hydromorphone HCl (Hydromorphone 0.5 Mg Inj) 0.5 mg IV Q15MIN PRN PRN Reason: Pain, Discontinued Medications Hydromorphone HCl (Hydromorphone 1 Mg Inj) 2 mg IM NOW ONE Stop: 04/05/25 04:38 Last Admin: 04/05/25 04:45 Dose: 2 mg Documented By: LIBRADO Ondansetron HCl (Ondansetron 4 Mg/2 Ml Inj) 4 mg IV NOW ONE Stop: 04/05/25 04:05 Last Admin: 04/05/25 05:20 Dose: Not Given Documented By: LIBRADO Ondansetron HCl (Ondansetron 4 Mg Odt) 4 mg SL NOW ONE Stop: 04/05/25 05:16 Last Admin: 04/05/25 05:19 Dose: 4 mg Documented By: LIBRADO Vital Signs Vital signs: Vital Signs - 8 hr 04/05/25 03:39 Temperature 97.6 F Pulse Rate 83 Respiratory Rate 15 Blood Pressure 115/58 L Pulse Oximetry 100 Oxygen Delivery Method Room Air MDM - Extremity (Nontraumatic) MDM Narrative Medical decision making narrative: CC: Severe bilateral knee pain Complicating co-morbidities: Rheumatoid arthritis, Sjogren's disease, lupus nephritis, chronic kidney disease Raynaud's disease currently on 60 mg of prednisone, diabetes, hypertension Data collected from: patient Medical records reviewed: Recent ER notes with transfer to [place] reviewed Differential considered: Rheumatoid flare with the active synovitis, doubt infection bilaterally without redness or warmth however she is immunocompromised, no reports of trauma Exam documented above, pertinent findings include: Patient is cooperative, significant pain with even superficial touching of either knee without warmth or redness. Difficulty in moving her knees bending or walking secondary to pain both knees with mild effusions. Remainder of exam is notable for slight fluid retention presumably secondary to her chronic steroids and moderate synovitis at most of her joints including both hands. She feels that she is at baseline. Lab Test results independently reviewed as above. Pertinent findings: Multiple attempts at an IV start with multiple providers all using ultrasound, we were unable to start an IV. With shared decision-making decided to use IM medicine and forego additional blood work at this time Treatments: As she currently is on 60 mg of prednisone daily, I do not think that additional steroids are going to be of benefit. We will begin with IV Dilaudid and increase until pain has been adequately controlled than switch to oxycodone. Re-evaluations: IM Dilaudid, Zofran Discussion: 35-year-old woman with severe bilateral knee pain most consistent with active synovitis secondary to rheumatoid flare. No signs of infection. Blood work was not able to be obtained. Patient was given 2 mg of IM Dilaudid which was enough to allow her to relax slightly in at least walk on her swollen knees. There was no evidence of trauma. She does not have other joints that are actively involved with significant increase in pain. We talked about pain control and for the time being I will send her home with a small amount of Zofran and Percocet and give her prescriptions for oxycodone and Percocet. She currently is on 60 mg daily of prednisone, I do not think increasing prednisone dosing is going to be effective She has a follow up appointment with her inside account executive this coming Thursday. Given her multiple medical issues, frequent medical interactions and difficulty in obtaining an IV I have suggested that she talked to 1 or all of her physicians about having a port placed for ease of access with blood draws and medication administration for required At this time there was no evidence of life-threatening abnormality reason for hospitalization. Pain is better controlled she will be discharged home Discharge Plan Departure Patient Disposition: Home Clinical Impression: Synovitis, Rheumatoid arthritis flare Bilateral knee pain Qualifiers: Chronicity: acute Qualified Code(s): M25.561 - Pain in right knee Instructions: DI for Rheumatoid Arthritis Activity Restrictions/Additional Instructions: I am sorry that you are hurting so much We spent quite a bit of time with experienced providers and ultrasounds attempting to get a peripheral IV and we all failed. I would strongly recommend that you talk to 1 or all of your doctors about having a port placed knowing that this is going to be an ongoing issue for you and you are going to need ongoing care, evaluation lab draws We opted to avoid any blood draws today and treat your pain directly. You were initially given 2 mg of Dilaudid as a shot which was able to relax you an reduce your pain enough that you felt that going home was possible. I have sent you home with Percocet, Tylenol plus oxycodone and given you a prescription for oxycodone, you can take it with Tylenol if you need to. This is a direct narcotic, covers the pain does not influence the underlying reason for the pain, does cause constipation has potential for addiction. It can be appropriately used in the setting of severe acute I have given you a prescription for Zofran, to help with any intermittent nausea. Both prescriptions were electronically transmitted to [facility] in [place] Please make sure that you do keep your Thursday appointment with your inside account executive. If you find that you are having worsening symptoms including fever, redness warmth, redness or increased painful swelling in your joints you do need to be further evaluated Prescriptions: New oxycodone 5 mg tablet 5 mg PO Q6H PRN (Reason: pain) Qty: 20 0RF ondansetron 4 mg tablet,disintegrating 4 mg PO Q8H PRN (Reason: nausea and vomiting) Qty: 20 0RF No Action hydrocodone-acetaminophen 5-325 mg tablet 1 tab PO Q6H PRN (Reason: pain) Qty: 14 0RF carvedilol 25 mg tablet 25 mg PO BID lisinopril 10 mg tablet 10 mg PO DAILY hydralazine 25 mg tablet 25 mg PO TID furosemide 40 mg tablet 40 mg PO BID Jardiance 10 mg tablet 10 mg PO DAILY spironolactone [Aldactone] 50 mg tablet 50 mg PO BID metolazone 2.5 mg tablet 2.5 mg PO DAILY prednisone 20 mg Tablet 60 mg PO DAILY amlodipine 10 mg tablet 10 mg PO DAILY mycophenolate sodium 180 mg tablet,delayed release (DR/EC) 720 mg PO BID sulfamethoxazole-trimethoprim [Bactrim DS] 800-160 mg Tablet 1 tab PO 3XW Referrals: Miscellaneous,Doctor, MD [Primary Care Provider, Medical] Stand Alone Forms: Patient Portal/API
--- NOTE | 2025-04-05 04:40 | PC.NURSE ---
2 unsuccessful attempts at PIV. Attempted to locate an IV with Ultrasound but not able. Dr. Mari notified.
[2025-04-05] MEDS: HYDROMORPHONE 1 MG INJ 2 MG IM (04:45)
--- NOTE | 2025-04-05 05:01 | PC.NURSE ---
Pt is very difficult IV start. RN and Dr Mares attempted US guided IV placement without success.
[2025-04-05] MEDS: ONDANSETRON 4 MG ODT SL (05:19)
[2025-04-05 05:47] VITALS: BP 119/54; PULSE 87; RESP 14; O2SAT 95
== END 2025-04-05 06:05 | disposition home or self-care (01) ==
PROVIDERS: Emergency Provider Emergency Medicine
DX: M25.562 Pain in left knee (principal); M25.561 Pain in right knee; M65.98 Unspecified synovitis and tenosynovitis, other site; M06.9 Rheumatoid arthritis, unspecified
CPT/HCPCS: 96372; 99283; J1171

== ENCOUNTER 2025-04-28 04:42 | Inpatient (IN) | payer BC, OTHER, SELFPAY ==
[2025-04-28] VITALS (66 sets, daily range): BP systolic 76–199; BP diastolic 37–128; PULSE 66–113; RESP 16–54; TEMP 37.2–38.1; O2SAT 89–100; BMI 35.4; BMI 35.7
[2025-04-28] MEDS: HYDROMORPHONE 1 MG INJ IV ×4 (05:08→11:43)
--- NOTE | 2025-04-28 05:10 | ED.BACK ---
HPI - Back Pain/Injury <Joey Milligan, DO - Last Filed: 04/28/25 06:53> General Chief Complaint: Back Pain/Injury Stated Complaint: can't walk or move legs, pain all over body, Time Seen by Provider: 04/28/25 04:44 Source: patient History of Present Illness HPI Narrative: Patient is a 35-year-old female with a past medical history of lupus nephritis, CKD, stage organs, Raynaud's, rheumatoid arthritis, pericarditis, comes into the ED from home for evaluation of generalized body aches pain, states that this is typical of her rheumatoid arthritis flare-ups. States that it is to her upper back, bilateral legs but states that her ?whole-body hurts. States that this has been ongoing since yesterday. States that she is currently on 40 mg of prednisone daily, states that she has been on this for a few weeks and is slowly tapering off. She denies any other symptoms such as headache visual disturbances chest pain shortness breath fever chills nausea vomiting abdominal pain or any other GI/ symptoms time. Related Data Home Medications ?Medication ?Instructions ?Recorded ?Confirmed amlodipine 10 mg tablet 10 mg PO DAILY 03/04/25 04/05/25 mycophenolate sodium 180 mg 720 mg PO BID 03/04/25 04/05/25 tablet,delayed release prednisone 20 mg tablet 60 mg PO DAILY 03/04/25 04/05/25 sulfamethoxazole 800 1 tab PO 3XW 03/04/25 04/05/25 mg-trimethoprim 160 mg tablet (Bactrim DS) carvedilol 25 mg tablet 25 mg PO BID 04/05/25 04/05/25 empagliflozin 10 mg tablet 10 mg PO DAILY 04/05/25 04/05/25 (Jardiance) furosemide 40 mg tablet 40 mg PO BID 04/05/25 04/05/25 hydralazine 25 mg tablet 25 mg PO TID Blood Pressure 04/05/25 04/05/25 lisinopril 10 mg tablet 10 mg PO DAILY 04/05/25 04/05/25 metolazone 2.5 mg tablet 2.5 mg PO DAILY 04/05/25 04/05/25 spironolactone 50 mg tablet 50 mg PO BID 04/05/25 04/05/25 (Aldactone) Previous Rx's ?Medication ?Instructions ?Recorded hydrocodone 5 mg-acetaminophen 325 1 tab PO Q6H PRN pain #14 tabs 03/09/25 mg tablet ondansetron 4 mg disintegrating 4 mg PO Q8H PRN nausea and 04/05/25 tablet vomiting #20 tabs oxycodone 5 mg tablet 5 mg PO Q6H PRN pain #20 tabs 04/05/25 Allergies Allergy/AdvReac Type Severity Reaction Status Date / Time levetiracetam (From [facility]) Allergy Severe Anaphylaxis Verified 04/28/25 04:49 Review of Systems <Joey Milligan DO - Last Filed: 04/28/25 06:53> Review of Systems Narrative: General: Denies fever, chills, weight loss HEENT: Denies headache, eye drainage, eye irritation, head trauma, sore throat, voice change Cardiovascular: Denies any chest pain, palpitations, tachycardia Respiratory: Denies any shortness of breath, cough, wheeze, stridor GI/: Denies any abdominal pain, nausea, vomiting, diarrhea, bright red blood per rectum, melanotic stools, urinary frequency, urinary retention, dysuria, hematuria MSK: Positive diffuse myalgias, bilateral knee pain, back pain Skin: Denies any rashes, lesions, discoloration Neuro: Denies any headache, lightheadedness, dizziness, fainting, weakness Psych: Denies SI/HI Patient History <Joey Milligan DO - Last Filed: 04/28/25 06:53> Medical History Rheumatoid arthritis Sjogren syndrome Lupus nephritis Social History Smoking Status: Former smoker Smoking Status: Former smoker tobacco type: cigarettes and vaping Exam <Joey Milligan DO - Last Filed: 04/28/25 06:53> Narrative Exam Narrative: General: Cooperative, well-developed, not in acute distress HEENT: Normocephalic, atraumatic, PERRLA, normal sclera, eyelids normal Neck: Active full range of motion, atraumatic Chest: Normal to inspection, negative crepitus, no overlying erythema ecchymosis Respiratory: Normal respiratory effort, not in acute respiratory distress, clear to auscultation bilaterally negative cough, wheeze, tachypnea, rhonchi, rales Cardiology: Regular rate rhythm negative gallop, murmur, rubs GI/: No tenderness to palpation, soft, non rigid, normal to inspection, exam deferred MSK: Full active range of motion in all 4 extremities, atraumatic, no tenderness to palpation of any bony prominences, she was able to stand bear weight and pivot from wheelchair to bed however patient stating significant pain all over. Skin: No rashes or lesions noted Neuro: Alert awake oriented x3, moves all 4 extremities spontaneously, cranial nerves intact, able to answer all questions appropriately follows commands appropriately Psych: Cooperative, negative suicidal or homicidal ideations Initial Vital Signs Initial Vital Signs: Vital Signs Temperature 100.5 F H 04/28/25 04:49 Pulse Rate 110 H 04/28/25 04:49 Respiratory Rate 24 04/28/25 04:49 Blood Pressure 101/55 L 04/28/25 04:49 Pulse Oximetry 96 04/28/25 04:49 Oxygen Delivery Method Room Air 04/28/25 04:49 <Lorne Lowery MD - Last Filed: 04/28/25 09:45> Initial Vital Signs Initial Vital Signs: Vital Signs Temperature 100.5 F H 04/28/25 04:49 Pulse Rate 110 H 04/28/25 04:49 Respiratory Rate 24 04/28/25 04:49 Blood Pressure 101/55 L 04/28/25 04:49 Pulse Oximetry 96 04/28/25 04:49 Oxygen Delivery Method Room Air 04/28/25 04:49 Course <Joey Milligan DO - Last Filed: 04/28/25 06:53> Orders Ordered: ED Orders 04/28/25 05:01 CBC Auto Diff [Complete Blood Count AUTO DIFF] Stat CK [Creatine Kinase] Stat CMP [Comprehensive Metabolic Panel] Stat Lactate (Lactic Acid) Stat Lipase Stat MAG [Magnesium] Stat NT-proBNP (BNP-Adult 18+) Stat Troponin I Stat 04/28/25 05:05 Blood Culture Stat 04/28/25 05:11 CXR [XR chest 1V] Stat 04/28/25 05:12 Urinalysis and Microscopic Stat 04/28/25 05:13 Covid-19 + FLU A/B + RSV - PCR Stat 04/28/25 05:37 EKG-12 Lead Stat 04/28/25 07:08 BMP [Basic Metabolic Panel] Stat Dextrose/Sodium Chloride (Dextrose 5%-0.9% Ns) 1,000 mls @ 125 mls/hr IV CONT SAGAR Last Admin: 04/28/25 08:39 Dose: 125 mls/hr Documented By: BS Discontinued Medications Dextrose (Dextrose 50 % In Water 25 Gm/50 Ml Syringe) 25 gm IV NOW ONE Stop: 04/28/25 05:39 Last Admin: 04/28/25 06:02 Dose: 25 gm Documented By: ANGELITA Dextrose (Dextrose 50 % In Water 25 Gm/50 Ml Syringe) 25 gm IV NOW ONE Stop: 04/28/25 06:45 Last Admin: 04/28/25 06:46 Dose: 25 gm Documented By: ANGELITA Hydromorphone HCl (Hydromorphone 1 Mg Inj) 1 mg IV NOW ONE Stop: 04/28/25 04:50 Last Admin: 04/28/25 05:08 Dose: 1 mg Documented By: ANGELITA Hydromorphone HCl (Hydromorphone 1 Mg Inj) 1 mg IV NOW ONE Stop: 04/28/25 06:42 Last Admin: 04/28/25 06:46 Dose: 1 mg Documented By: ANGELITA Sodium Chloride (Normal Saline 0.9%) 1,000 mls @ 1,000 mls/hr IV BOLUS ONE Stop: 04/28/25 06:17 Last Infusion: 04/28/25 06:23 Dose: Infused Documented By: Admin: 04/28/25 05:28 Dose: 1,000 mls/hr Documented By: SALVADOR Acetaminophen (Ofirmev) 1,000 mg in 100 mls @ 400 mls/hr IV NOW ONE Stop: 04/28/25 05:43 Last Infusion: 04/28/25 06:50 Dose: Infused Documented By: Admin: 04/28/25 06:14 Dose: 400 mls/hr Documented By: ANGELITA Calcium Gluconate 4.65 meq/ (Sodium Chloride) 60 mls @ 180 mls/hr IV NOW ONE Stop: 04/28/25 05:57 Last Infusion: 04/28/25 06:14 Dose: Infused Documented By: Admin: 04/28/25 05:53 Dose: 180 mls/hr Documented By: ANGELITA Insulin Human Regular (Insulin Regular 100 Unit/Ml 3 Ml Vial) 10 unit IV NOW ONE Stop: 04/28/25 05:39 Last Admin: 04/28/25 06:02 Dose: 10 unit Documented By: ANGELITA Co-signed By: SALVADOR Sodium Zirconium Cyclosilicate (Sodium Zirconium Cyclosilicate 10 Gm Powd.Pack) 10 gm PO NOW ONE Stop: 04/28/25 05:39 Last Admin: 04/28/25 05:53 Dose: 10 gm Documented By: ANGELITA Vital Signs Vital signs: Vital Signs - 8 hr 04/28/25 04:49 04/28/25 04:51 04/28/25 04:51 Temperature 100.5 F H Pulse Rate 110 H 113 H Respiratory Rate 24 Blood Pressure 101/55 L 101/55 L Pulse Oximetry 96 100 Oxygen Delivery Method Room Air 04/28/25 04:52 04/28/25 05:00 04/28/25 05:10 Temperature Pulse Rate 109 H Respiratory Rate Blood Pressure 108/56 L Pulse Oximetry 89 L 90 L Oxygen Delivery Method 04/28/25 05:30 04/28/25 05:30 04/28/25 06:00 Temperature Pulse Rate 98 H 104 H Respiratory Rate 54 H Blood Pressure 110/53 L Pulse Oximetry 97 92 Oxygen Delivery Method Room Air Room Air 04/28/25 06:01 04/28/25 06:01 04/28/25 06:30 Temperature Pulse Rate 100 H Respiratory Rate 46 H Blood Pressure 110/53 L 106/53 L Pulse Oximetry 93 Oxygen Delivery Method Room Air 04/28/25 06:30 04/28/25 07:00 04/28/25 07:00 Temperature Pulse Rate 99 H 102 H Respiratory Rate Blood Pressure 97/49 L Pulse Oximetry 94 91 Oxygen Delivery Method 04/28/25 07:01 04/28/25 07:01 04/28/25 07:30 Temperature Pulse Rate 104 H Respiratory Rate Blood Pressure 94/46 L 76/40 L Pulse Oximetry 94 Oxygen Delivery Method 04/28/25 07:30 04/28/25 07:32 04/28/25 07:32 Temperature Pulse Rate 92 H 91 H Respiratory Rate Blood Pressure 77/42 L Pulse Oximetry 94 93 Oxygen Delivery Method 04/28/25 07:34 04/28/25 07:34 04/28/25 07:45 Temperature Pulse Rate 94 H Respiratory Rate Blood Pressure 87/50 L 86/42 L Pulse Oximetry 93 Oxygen Delivery Method 04/28/25 07:45 04/28/25 08:00 04/28/25 08:00 Temperature Pulse Rate 99 H 105 H Respiratory Rate Blood Pressure 91/49 L Pulse Oximetry 94 93 Oxygen Delivery Method 04/28/25 08:05 04/28/25 08:05 04/28/25 08:10 Temperature Pulse Rate 105 H Respiratory Rate Blood Pressure 101/49 L 102/48 L Pulse Oximetry 95 Oxygen Delivery Method 04/28/25 08:10 04/28/25 08:15 04/28/25 08:15 Temperature Pulse Rate 97 H 94 H Respiratory Rate Blood Pressure 100/42 L Pulse Oximetry 93 95 Oxygen Delivery Method 04/28/25 08:20 04/28/25 08:20 04/28/25 08:25 Temperature Pulse Rate 94 H Respiratory Rate 32 H Blood Pressure 90/40 L 98/42 L Pulse Oximetry 92 Oxygen Delivery Method 04/28/25 08:25 04/28/25 08:30 04/28/25 08:30 Temperature Pulse Rate 91 H 92 H Respiratory Rate 31 H 38 H Blood Pressure 86/37 L Pulse Oximetry 93 93 Oxygen Delivery Method 04/28/25 08:35 04/28/25 08:35 04/28/25 08:40 Temperature Pulse Rate 94 H 92 H Respiratory Rate 31 H Blood Pressure 85/38 L Pulse Oximetry 96 92 Oxygen Delivery Method 04/28/25 08:40 04/28/25 08:45 04/28/25 08:45 Temperature Pulse Rate 97 H Respiratory Rate 26 H Blood Pressure 85/38 L 89/42 L Pulse Oximetry 96 Oxygen Delivery Method 04/28/25 08:50 04/28/25 08:50 04/28/25 08:55 Temperature Pulse Rate 97 H 96 H Respiratory Rate 36 H 29 H Blood Pressure 90/49 L Pulse Oximetry 96 98 Oxygen Delivery Method 04/28/25 08:55 04/28/25 09:00 04/28/25 09:00 Temperature Pulse Rate 91 H Respiratory Rate 37 H Blood Pressure 92/49 L 100/49 L Pulse Oximetry 95 Oxygen Delivery Method <Lorne Lowery MD - Last Filed: 04/28/25 09:45> Course Course Narrative: ORACIO: I ASSUMED CARE OF THIS PATIENT FROM THE PREVIOUS PROVIDER AT 7:00 A.M.. At that time the patient was just pending a repeat potassium level as she was already treated for hyperkalemia by the previous provider. Eventually and her potassium did normalize, however her blood sugar continuously dropped which would cause her to feel lightheaded and her blood pressure would fall along with this. She required multiple more amps of D50 and was eventually also started on a D5 normal saline drip. Despite these interventions her blood sugars still remain in the 60s to 80s. Therefore, I do not feel she was safe for discharge home without close blood sugar monitoring. I discussed the case with Dr. Ramirez the hospitalist who admitted her. Orders Ordered: ED Orders 04/28/25 05:01 CBC Auto Diff [Complete Blood Count AUTO DIFF] Stat CK [Creatine Kinase] Stat CMP [Comprehensive Metabolic Panel] Stat Lactate (Lactic Acid) Stat Lipase Stat MAG [Magnesium] Stat NT-proBNP (BNP-Adult 18+) Stat Troponin I Stat 04/28/25 05:05 Blood Culture Stat 04/28/25 05:11 CXR [XR chest 1V] Stat 04/28/25 05:12 Urinalysis and Microscopic Stat 04/28/25 05:13 Covid-19 + FLU A/B + RSV - PCR Stat 04/28/25 05:37 EKG-12 Lead Stat 04/28/25 07:08 BMP [Basic Metabolic Panel] Stat Dextrose/Sodium Chloride (Dextrose 5%-0.9% Ns) 1,000 mls @ 125 mls/hr IV CONT SAGAR Last Admin: 04/28/25 08:39 Dose: 125 mls/hr Documented By: BS Discontinued Medications Dextrose (Dextrose 50 % In Water 25 Gm/50 Ml Syringe) 25 gm IV NOW ONE Stop: 04/28/25 05:39 Last Admin: 04/28/25 06:02 Dose: 25 gm Documented By: ANGELITA Dextrose (Dextrose 50 % In Water 25 Gm/50 Ml Syringe) 25 gm IV NOW ONE Stop: 04/28/25 06:45 Last Admin: 04/28/25 06:46 Dose: 25 gm Documented By: ANGELITA Hydromorphone HCl (Hydromorphone 1 Mg Inj) 1 mg IV NOW ONE Stop: 04/28/25 04:50 Last Admin: 04/28/25 05:08 Dose: 1 mg Documented By: ANGELITA Hydromorphone HCl (Hydromorphone 1 Mg Inj) 1 mg IV NOW ONE Stop: 04/28/25 06:42 Last Admin: 04/28/25 06:46 Dose: 1 mg Documented By: ANGELITA Sodium Chloride (Normal Saline 0.9%) 1,000 mls @ 1,000 mls/hr IV BOLUS ONE Stop: 04/28/25 06:17 Last Infusion: 04/28/25 06:23 Dose: Infused Documented By: Admin: 04/28/25 05:28 Dose: 1,000 mls/hr Documented By: SALVADOR Acetaminophen ([facility]) 1,000 mg in 100 mls @ 400 mls/hr IV NOW ONE Stop: 04/28/25 05:43 Last Infusion: 04/28/25 06:50 Dose: Infused Documented By: Admin: 04/28/25 06:14 Dose: 400 mls/hr Documented By: ANGELITA Calcium Gluconate 4.65 meq/ (Sodium Chloride) 60 mls @ 180 mls/hr IV NOW ONE Stop: 04/28/25 05:57 Last Infusion: 04/28/25 06:14 Dose: Infused Documented By: Admin: 04/28/25 05:53 Dose: 180 mls/hr Documented By: ANGELITA Insulin Human Regular (Insulin Regular 100 Unit/Ml 3 Ml Vial) 10 unit IV NOW ONE Stop: 04/28/25 05:39 Last Admin: 04/28/25 06:02 Dose: 10 unit Documented By: ANGELITA Co-signed By: SALVADOR Sodium Zirconium Cyclosilicate (Sodium Zirconium Cyclosilicate 10 Gm Powd.Pack) 10 gm PO NOW ONE Stop: 04/28/25 05:39 Last Admin: 04/28/25 05:53 Dose: 10 gm Documented By: ANGELITA Vital Signs Vital signs: Vital Signs - 8 hr 04/28/25 04:49 04/28/25 04:51 04/28/25 04:51 Temperature 100.5 F H Pulse Rate 110 H 113 H Respiratory Rate 24 Blood Pressure 101/55 L 101/55 L Pulse Oximetry 96 100 Oxygen Delivery Method Room Air 04/28/25 04:52 04/28/25 05:00 04/28/25 05:10 Temperature Pulse Rate 109 H Respiratory Rate Blood Pressure 108/56 L Pulse Oximetry 89 L 90 L Oxygen Delivery Method 04/28/25 05:30 04/28/25 05:30 04/28/25 06:00 Temperature Pulse Rate 98 H 104 H Respiratory Rate 54 H Blood Pressure 110/53 L Pulse Oximetry 97 92 Oxygen Delivery Method Room Air Room Air 04/28/25 06:01 04/28/25 06:01 04/28/25 06:30 Temperature Pulse Rate 100 H Respiratory Rate 46 H Blood Pressure 110/53 L 106/53 L Pulse Oximetry 93 Oxygen Delivery Method Room Air 04/28/25 06:30 04/28/25 07:00 04/28/25 07:00 Temperature Pulse Rate 99 H 102 H Respiratory Rate Blood Pressure 97/49 L Pulse Oximetry 94 91 Oxygen Delivery Method 04/28/25 07:01 04/28/25 07:01 04/28/25 07:30 Temperature Pulse Rate 104 H Respiratory Rate Blood Pressure 94/46 L 76/40 L Pulse Oximetry 94 Oxygen Delivery Method 04/28/25 07:30 04/28/25 07:32 04/28/25 07:32 Temperature Pulse Rate 92 H 91 H Respiratory Rate Blood Pressure 77/42 L Pulse Oximetry 94 93 Oxygen Delivery Method 04/28/25 07:34 04/28/25 07:34 04/28/25 07:45 Temperature Pulse Rate 94 H Respiratory Rate Blood Pressure 87/50 L 86/42 L Pulse Oximetry 93 Oxygen Delivery Method 04/28/25 07:45 04/28/25 08:00 04/28/25 08:00 Temperature Pulse Rate 99 H 105 H Respiratory Rate Blood Pressure 91/49 L Pulse Oximetry 94 93 Oxygen Delivery Method 04/28/25 08:05 04/28/25 08:05 04/28/25 08:10 Temperature Pulse Rate 105 H Respiratory Rate Blood Pressure 101/49 L 102/48 L Pulse Oximetry 95 Oxygen Delivery Method 04/28/25 08:10 04/28/25 08:15 04/28/25 08:15 Temperature Pulse Rate 97 H 94 H Respiratory Rate Blood Pressure 100/42 L Pulse Oximetry 93 95 Oxygen Delivery Method 04/28/25 08:20 04/28/25 08:20 04/28/25 08:25 Temperature Pulse Rate 94 H Respiratory Rate 32 H Blood Pressure 90/40 L 98/42 L Pulse Oximetry 92 Oxygen Delivery Method 04/28/25 08:25 04/28/25 08:30 04/28/25 08:30 Temperature Pulse Rate 91 H 92 H Respiratory Rate 31 H 38 H Blood Pressure 86/37 L Pulse Oximetry 93 93 Oxygen Delivery Method 04/28/25 08:35 04/28/25 08:35 04/28/25 08:40 Temperature Pulse Rate 94 H 92 H Respiratory Rate 31 H Blood Pressure 85/38 L Pulse Oximetry 96 92 Oxygen Delivery Method 04/28/25 08:40 04/28/25 08:45 04/28/25 08:45 Temperature Pulse Rate 97 H Respiratory Rate 26 H Blood Pressure 85/38 L 89/42 L Pulse Oximetry 96 Oxygen Delivery Method 04/28/25 08:50 04/28/25 08:50 04/28/25 08:55 Temperature Pulse Rate 97 H 96 H Respiratory Rate 36 H 29 H Blood Pressure 90/49 L Pulse Oximetry 96 98 Oxygen Delivery Method 04/28/25 08:55 04/28/25 09:00 04/28/25 09:00 Temperature Pulse Rate 91 H Respiratory Rate 37 H Blood Pressure 92/49 L 100/49 L Pulse Oximetry 95 Oxygen Delivery Method MDM - Back Pain/Injury <Joey Milligan, DO - Last Filed: 04/28/25 06:53> Differential Diagnosis Differential diagnosis: Likely other (Pneumonia, electrolyte abnormality, rhabdomyolysis, rheumatoid arthritis flare-up, pneumonia, viral syndrome) Lab Data 04/28/25 05:01 04/28/25 07:08 Labs: Lab Results 04/28/25 04/28/25 04/28/25 Range/Units 05:01 05:13 06:43 WBC 9.9 (4.5-11.0) X10^3/uL RBC 2.72 L (4.0-5.2) X10^6/uL Hgb 8.0 L (12.0-16.0) g/dL Hct 23.5 L (36-46) % MCV 86.5 (80-100) fL MCH 29.4 (26-34) PG MCHC 34.0 (30-36) % RDW 21.6 H (11.6-14.8) % Plt Count 267 (150-400) X10^3/uL Neut % (Auto) 91.2 H (50-75) % Lymph % (Auto) 4.2 L (25-40) % [place] % (Auto) 4.2 (3-14) % Eos % (Auto) 0.2 L (2-4) % Baso % (Auto) 0.2 (0-2) % Neut # (Auto) 9000 H (6144-0173) /uL Lymph # (Auto) 400 L (0957-5003) /uL [place] # (Auto) 400 (0-900) /uL Eos # (Auto) 0 (0-450) /uL Baso # (Auto) 0 (0-100) /uL Platelet Estimate Adequate on smear RBC Morphology See below Polychromasia 1+ H Anisocytosis 2+ H Microcytosis 2+ H Macrocytosis 1+ H Acanthocytes (Spur) 1+ H Sodium 132 L (137-145) mmol/L Potassium 5.8 H (3.4-5.1) mmol/L Chloride 106 (98-107) mmol/L Carbon Dioxide 17 L (22-32) mmol/L BUN 91 H (7-17) mg/dL Creatinine 2.85 H (0.52-1.04) mg/dL Estimated GFR 21 L (>60) mL/min BUN/Creatinine Ratio 31.9 H (6-22) Glucose 79 (70-99) mg/dL POC Whole Bld Glucose 47 L (70-99) mg/dL Lactate 1.4 (0.7-2.1) mmol/L Calcium 8.7 (8.4-10.2) mg/dL Magnesium 1.7 (1.6-2.3) mg/dL Total Bilirubin 0.4 (0.2-1.3) mg/dL AST 22 (14-36) IU/L ALT 21 (<35) IU/L Alkaline Phosphatase 51 (38-126) U/L Total Creatine Kinase 23 L (30-135) U/L Troponin I < 0.012 (0.01-0.034) ng/mL NT-Pro-B Natriuret Pep 148 H (<125) pg/mL Total Protein 5.9 L (6.3-8.2) g/dL Albumin 3.3 L (3.5-5.0) g/dL Globulin 2.6 (1.7-4.1) g/dL Albumin/Globulin Ratio 1.3 (1.0-2.8) Lipase 163 (23-300) U/L SARS-CoV-2 (PCR) Negative (Negative) Influenza A (RT-PCR) Flu a negative (NEGATIVE) Influenza B (RT-PCR) Flu b negative (NEGATIVE) RSV (PCR) Negative (Negative) 04/28/25 04/28/25 04/28/25 Range/Units 07:08 07:36 07:53 WBC (4.5-11.0) X10^3/uL RBC (4.0-5.2) X10^6/uL Hgb (12.0-16.0) g/dL Hct (36-46) % MCV (80-100) fL MCH (26-34) PG MCHC (30-36) % RDW (11.6-14.8) % Plt Count (150-400) X10^3/uL Neut % (Auto) (50-75) % Lymph % (Auto) (25-40) % [place] % (Auto) (3-14) % Eos % (Auto) (2-4) % Baso % (Auto) (0-2) % Neut # (Auto) (7703-2891) /uL Lymph # (Auto) (8237-9086) /uL [place] # (Auto) (0-900) /uL Eos # (Auto) (0-450) /uL Baso # (Auto) (0-100) /uL Platelet Estimate RBC Morphology Polychromasia Anisocytosis Microcytosis Macrocytosis Acanthocytes (Spur) Sodium 132 L (137-145) mmol/L Potassium 4.3 D (3.4-5.1) mmol/L Chloride 113 H (98-107) mmol/L Carbon Dioxide 13 L (22-32) mmol/L BUN 79 H (7-17) mg/dL Creatinine 2.46 H (0.52-1.04) mg/dL Estimated GFR 26 L (>60) mL/min BUN/Creatinine Ratio 32.1 H (6-22) Glucose 44 L* (70-99) mg/dL POC Whole Bld Glucose 39 L* 171 H D (70-99) mg/dL Lactate (0.7-2.1) mmol/L Calcium 7.3 L (8.4-10.2) mg/dL Magnesium (1.6-2.3) mg/dL Total Bilirubin (0.2-1.3) mg/dL AST (14-36) IU/L ALT (<35) IU/L Alkaline Phosphatase (38-126) U/L Total Creatine Kinase (30-135) U/L Troponin I (0.01-0.034) ng/mL NT-Pro-B Natriuret Pep (<125) pg/mL Total Protein (6.3-8.2) g/dL Albumin (3.5-5.0) g/dL Globulin (1.7-4.1) g/dL Albumin/Globulin Ratio (1.0-2.8) Lipase (23-300) U/L SARS-CoV-2 (PCR) (Negative) Influenza A (RT-PCR) (NEGATIVE) Influenza B (RT-PCR) (NEGATIVE) RSV (PCR) (Negative) 04/28/25 04/28/25 04/28/25 Range/Units 08:38 08:47 08:52 WBC (4.5-11.0) X10^3/uL RBC (4.0-5.2) X10^6/uL Hgb (12.0-16.0) g/dL Hct (36-46) % MCV (80-100) fL MCH (26-34) PG MCHC (30-36) % RDW (11.6-14.8) % Plt Count (150-400) X10^3/uL Neut % (Auto) (50-75) % Lymph % (Auto) (25-40) % [place] % (Auto) (3-14) % Eos % (Auto) (2-4) % Baso % (Auto) (0-2) % Neut # (Auto) (7203-4795) /uL Lymph # (Auto) (0302-8668) /uL [place] # (Auto) (0-900) /uL Eos # (Auto) (0-450) /uL Baso # (Auto) (0-100) /uL Platelet Estimate RBC Morphology Polychromasia Anisocytosis Microcytosis Macrocytosis Acanthocytes (Spur) Sodium (137-145) mmol/L Potassium (3.4-5.1) mmol/L Chloride (98-107) mmol/L Carbon Dioxide (22-32) mmol/L BUN (7-17) mg/dL Creatinine (0.52-1.04) mg/dL Estimated GFR (>60) mL/min BUN/Creatinine Ratio (6-22) Glucose (70-99) mg/dL POC Whole Bld Glucose 61 L D 62 L 68 L (70-99) mg/dL Lactate (0.7-2.1) mmol/L Calcium (8.4-10.2) mg/dL Magnesium (1.6-2.3) mg/dL Total Bilirubin (0.2-1.3) mg/dL AST (14-36) IU/L ALT (<35) IU/L Alkaline Phosphatase (38-126) U/L Total Creatine Kinase (30-135) U/L Troponin I (0.01-0.034) ng/mL NT-Pro-B Natriuret Pep (<125) pg/mL Total Protein (6.3-8.2) g/dL Albumin (3.5-5.0) g/dL Globulin (1.7-4.1) g/dL Albumin/Globulin Ratio (1.0-2.8) Lipase (23-300) U/L SARS-CoV-2 (PCR) (Negative) Influenza A (RT-PCR) (NEGATIVE) Influenza B (RT-PCR) (NEGATIVE) RSV (PCR) (Negative) Imaging Data Chest x-ray: Radiologist's Impression: Preliminary read showing no acute cardiopulmonary abnormalities ECG Data Interpretation: EKG interpreted ED physician sinus 91 beats per minute QTC 366, normal axis, nonspecific ST changes, no STEMI MDM Narrative Medical decision making narrative: 35-year-old female with a complex rheumatological history including lupus nephritis with CKD, stage organs, rheumatoid arthritis with Raynaud's, does follow up with Rheumatology currently on 40 mg prednisone daily, presents to the emergency department from home for diffuse myalgias bilateral knee pain and upper back pain, she states that she is having a flare-up of her rheumatoid arthritis, she denies any trauma or falls not on any blood thinners. She denies any chest pain shortness of breath, denies any other symptoms such as nausea vomiting abdominal pain or any other GI/ symptoms at this time. At time of evaluation it was noted that patient was febrile at 100.5 F. she is only complaining of generalized body aches however given patient meeting SIRS criteria lactate cultures fluids ordered. Patient without any leukocytosis, patient with chronic anemia, currently 8.0, 2 months ago was 6.5, patient's potassium elevated at 5.8, creatinine elevated but improved from previous, today 2.85, 2 months ago was 3.56. Given patient with hyperkalemia insulin, dextrose, calcium, Lokelma ordered. Patient's EKG nonischemic in nature, no peaked T-waves noted, troponin negative, the remainder of her lab work was unremarkable. 0645: Patient re-evaluated still complaining of significant amount of pain, additional Dilaudid ordered, repeat blood glucose showed 46 patient mentating appropriately, amp of D50 order, respiratory viral panel negative still awaiting urinalysis 0700: Patient was signed out to Dr. Lowery, final disposition pending re-evaluation, repeat BMP, urinalysis. Patient most likely able to go home so long as pain under control and potassium improved after hyperkalemia treatment. <Lorne Lowery MD - Last Filed: 04/28/25 09:45> Lab Data Labs: Lab Results 04/28/25 04/28/25 04/28/25 Range/Units 05:01 05:13 06:43 WBC 9.9 (4.5-11.0) X10^3/uL RBC 2.72 L (4.0-5.2) X10^6/uL Hgb 8.0 L (12.0-16.0) g/dL Hct 23.5 L (36-46) % MCV 86.5 (80-100) fL MCH 29.4 (26-34) PG MCHC 34.0 (30-36) % RDW 21.6 H (11.6-14.8) % Plt Count 267 (150-400) X10^3/uL Neut % (Auto) 91.2 H (50-75) % Lymph % (Auto) 4.2 L (25-40) % [place] % (Auto) 4.2 (3-14) % Eos % (Auto) 0.2 L (2-4) % Baso % (Auto) 0.2 (0-2) % Neut # (Auto) 9000 H (9247-1630) /uL Lymph # (Auto) 400 L (0016-8839) /uL [place] # (Auto) 400 (0-900) /uL Eos # (Auto) 0 (0-450) /uL Baso # (Auto) 0 (0-100) /uL Platelet Estimate Adequate on smear RBC Morphology See below Polychromasia 1+ H Anisocytosis 2+ H Microcytosis 2+ H Macrocytosis 1+ H Acanthocytes (Spur) 1+ H Sodium 132 L (137-145) mmol/L Potassium 5.8 H (3.4-5.1) mmol/L Chloride 106 (98-107) mmol/L Carbon Dioxide 17 L (22-32) mmol/L BUN 91 H (7-17) mg/dL Creatinine 2.85 H (0.52-1.04) mg/dL Estimated GFR 21 L (>60) mL/min BUN/Creatinine Ratio 31.9 H (6-22) Glucose 79 (70-99) mg/dL POC Whole Bld Glucose 47 L (70-99) mg/dL Lactate 1.4 (0.7-2.1) mmol/L Calcium 8.7 (8.4-10.2) mg/dL Magnesium 1.7 (1.6-2.3) mg/dL Total Bilirubin 0.4 (0.2-1.3) mg/dL AST 22 (14-36) IU/L ALT 21 (<35) IU/L Alkaline Phosphatase 51 (38-126) U/L Total Creatine Kinase 23 L (30-135) U/L Troponin I < 0.012 (0.01-0.034) ng/mL NT-Pro-B Natriuret Pep 148 H (<125) pg/mL Total Protein 5.9 L (6.3-8.2) g/dL Albumin 3.3 L (3.5-5.0) g/dL Globulin 2.6 (1.7-4.1) g/dL Albumin/Globulin Ratio 1.3 (1.0-2.8) Lipase 163 (23-300) U/L SARS-CoV-2 (PCR) Negative (Negative) Influenza A (RT-PCR) Flu a negative (NEGATIVE) Influenza B (RT-PCR) Flu b negative (NEGATIVE) RSV (PCR) Negative (Negative) 04/28/25 04/28/25 04/28/25 Range/Units 07:08 07:36 07:53 WBC (4.5-11.0) X10^3/uL RBC (4.0-5.2) X10^6/uL Hgb (12.0-16.0) g/dL Hct (36-46) % MCV (80-100) fL MCH (26-34) PG MCHC (30-36) % RDW (11.6-14.8) % Plt Count (150-400) X10^3/uL Neut % (Auto) (50-75) % Lymph % (Auto) (25-40) % [place] % (Auto) (3-14) % Eos % (Auto) (2-4) % Baso % (Auto) (0-2) % Neut # (Auto) (5332-4955) /uL Lymph # (Auto) (1856-7538) /uL [place] # (Auto) (0-900) /uL Eos # (Auto) (0-450) /uL Baso # (Auto) (0-100) /uL Platelet Estimate RBC Morphology Polychromasia Anisocytosis Microcytosis Macrocytosis Acanthocytes (Spur) Sodium 132 L (137-145) mmol/L Potassium 4.3 D (3.4-5.1) mmol/L Chloride 113 H (98-107) mmol/L Carbon Dioxide 13 L (22-32) mmol/L BUN 79 H (7-17) mg/dL Creatinine 2.46 H (0.52-1.04) mg/dL Estimated GFR 26 L (>60) mL/min BUN/Creatinine Ratio 32.1 H (6-22) Glucose 44 L* (70-99) mg/dL POC Whole Bld Glucose 39 L* 171 H D (70-99) mg/dL Lactate (0.7-2.1) mmol/L Calcium 7.3 L (8.4-10.2) mg/dL Magnesium (1.6-2.3) mg/dL Total Bilirubin (0.2-1.3) mg/dL AST (14-36) IU/L ALT (<35) IU/L Alkaline Phosphatase (38-126) U/L Total Creatine Kinase (30-135) U/L Troponin I (0.01-0.034) ng/mL NT-Pro-B Natriuret Pep (<125) pg/mL Total Protein (6.3-8.2) g/dL Albumin (3.5-5.0) g/dL Globulin (1.7-4.1) g/dL Albumin/Globulin Ratio (1.0-2.8) Lipase (23-300) U/L SARS-CoV-2 (PCR) (Negative) Influenza A (RT-PCR) (NEGATIVE) Influenza B (RT-PCR) (NEGATIVE) RSV (PCR) (Negative) 04/28/25 04/28/25 04/28/25 Range/Units 08:38 08:47 08:52 WBC (4.5-11.0) X10^3/uL RBC (4.0-5.2) X10^6/uL Hgb (12.0-16.0) g/dL Hct (36-46) % MCV (80-100) fL MCH (26-34) PG MCHC (30-36) % RDW (11.6-14.8) % Plt Count (150-400) X10^3/uL Neut % (Auto) (50-75) % Lymph % (Auto) (25-40) % [place] % (Auto) (3-14) % Eos % (Auto) (2-4) % Baso % (Auto) (0-2) % Neut # (Auto) (2481-7169) /uL Lymph # (Auto) (3378-1606) /uL [place] # (Auto) (0-900) /uL Eos # (Auto) (0-450) /uL Baso # (Auto) (0-100) /uL Platelet Estimate RBC Morphology Polychromasia Anisocytosis Microcytosis Macrocytosis Acanthocytes (Spur) Sodium (137-145) mmol/L Potassium (3.4-5.1) mmol/L Chloride (98-107) mmol/L Carbon Dioxide (22-32) mmol/L BUN (7-17) mg/dL Creatinine (0.52-1.04) mg/dL Estimated GFR (>60) mL/min BUN/Creatinine Ratio (6-22) Glucose (70-99) mg/dL POC Whole Bld Glucose 61 L D 62 L 68 L (70-99) mg/dL Lactate (0.7-2.1) mmol/L Calcium (8.4-10.2) mg/dL Magnesium (1.6-2.3) mg/dL Total Bilirubin (0.2-1.3) mg/dL AST (14-36) IU/L ALT (<35) IU/L Alkaline Phosphatase (38-126) U/L Total Creatine Kinase (30-135) U/L Troponin I (0.01-0.034) ng/mL NT-Pro-B Natriuret Pep (<125) pg/mL Total Protein (6.3-8.2) g/dL Albumin (3.5-5.0) g/dL Globulin (1.7-4.1) g/dL Albumin/Globulin Ratio (1.0-2.8) Lipase (23-300) U/L SARS-CoV-2 (PCR) (Negative) Influenza A (RT-PCR) (NEGATIVE) Influenza B (RT-PCR) (NEGATIVE) RSV (PCR) (Negative) Discharge Plan Departure Clinical Impression: Acute hyperkalemia Admit Date/Time: 04/28/25 09:38 Admit Provider: Phan Sweet
--- NOTE | 2025-04-28 05:11 | DI.RAD.S_ITS ---
PROCEDURE: XR CHEST 1V INDICATIONS: back pain TECHNIQUE: One view of the chest was acquired. COMPARISON: [facility], CR, XR CHEST 1V, 03/10/2025, 21:09. FINDINGS: Surgical changes and devices: None. Lungs and pleura: Lungs are clear. No pleural effusions or pneumothorax. Mediastinum: Mediastinal contours appear normal. Heart size is normal. Bones and chest wall: No suspicious bony lesions. Overlying soft tissues appear unremarkable. IMPRESSION: No acute cardiopulmonary pathology. No discrepancies. Dictated by: Roland Reyes M.D. on 04/28/2025 at 7:44 Approved by: Roland Reyes M.D. on 04/28/2025 at 7:44
[2025-04-28 05:26] LABS: Add Manual Diff / Slide Review NO; Hematocrit 23.5 % (36-46); Hemoglobin 8.0 g/dL (12.0-16.0); Lymphocytes Absolute Auto 400 /uL (1100-4500); Mean Corpuscular HGB Conc 34.0 % (30-36); Mean Corpuscular Hemoglobin 29.4 PG (26-34); Mean Corpuscular Volume 86.5 fL (80-100); Platelet Count 267 X10^3/uL (150-400)
[2025-04-28] MEDS: SODIUM CHLORIDE 0.9% 1,000 ML 1000 ML IV (05:28)
[2025-04-28 05:32] LABS: Lactate (Lactic Acid) 1.4 mmol/L (0.7-2.1)
[2025-04-28 05:33] LABS: Alanine Aminotransferase 21 IU/L (<35); Albumin 3.3 g/dL (3.5-5.0); Albumin Globulin Ratio 1.3 (1.0-2.8); Alkaline Phosphatase 51 U/L (38-126); Blood Urea Nitrogen 91 mg/dL (7-17); Calcium 8.7 mg/dL (8.4-10.2); Carbon Dioxide 17 mmol/L (22-32); Chloride 106 mmol/L (98-107); Creatine Kinase 23 U/L (30-135); Estimated Glomerular Filt Rate 21 mL/min (>60); Globulin 2.6 g/dL (1.7-4.1); Glucose 79 mg/dL (70-99); HEMOLYSIS < 15 (0-50); Magnesium 1.7 mg/dL (1.6-2.3); Sodium 132 mmol/L (137-145); Total Protein 5.9 g/dL (6.3-8.2)
[2025-04-28 05:34] LABS: Potassium 5.8 mmol/L (3.4-5.1)
--- NOTE | 2025-04-28 05:47 | EKG_ITS ---
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
[2025-04-28 05:49] LABS: Lipase 163 U/L (23-300)
[2025-04-28 05:50] LABS: Acanthocytes 1+; Anisocytosis 2+; Macrocytosis 1+; Microcytosis 2+
[2025-04-28 05:51] LABS: Polychromasia 1+
[2025-04-28] MEDS: SODIUM ZIRCONIUM CYCLOSILICATE 10 GM POWD.PACK PO (05:53)
[2025-04-28] MEDS: CALCIUM GLUCONATE 4.65 MEQ in SODIUM CHLORIDE 0.9% 50 ML 180 MEQ IV (05:53)
[2025-04-28 06:02] LABS: NT-proBNP (BNP-Adult 18+) 148 pg/mL (<125); Troponin I < 0.012 ng/mL (0.01-0.034)
[2025-04-28] MEDS: DEXTROSE 50 % IN WATER 25 GM/50 ML SYRINGE IV ×4 (06:02→11:37)
[2025-04-28] MEDS: INSULIN REGULAR 100 UNIT/ML 3 ML VIAL 10 UNIT IV (06:02)
[2025-04-28] MEDS: ACETAMINOPHEN IV 1,000 MG/100 ML VIAL 400 MG IV (06:14)
[2025-04-28 06:16] LABS: Influenza A - CEPHEID Flu A NEGATIVE (NEGATIVE); Influenza B - CEPHEID Flu B NEGATIVE (NEGATIVE)
[2025-04-28 06:21] LABS: COVID-19 CEPHEID 4-PLEX PCR Negative (Negative)
[2025-04-28 08:00] LABS: Blood Urea Nitrogen 79 mg/dL (7-17); Calcium 7.3 mg/dL (8.4-10.2); Carbon Dioxide 13 mmol/L (22-32); Chloride 113 mmol/L (98-107); Estimated Glomerular Filt Rate 26 mL/min (>60); HEMOLYSIS < 15 (0-50); Potassium 4.3 mmol/L (3.4-5.1); Sodium 132 mmol/L (137-145)
[2025-04-28 08:06] LABS: Glucose 44 mg/dL (70-99)
[2025-04-28] MEDS: DEXTROSE 5%-0.9% NS 1,000 ML 125 ML IV ×2 (08:39→16:06)
--- NOTE | 2025-04-28 11:48 | PM.HP.1 ---
History of Present Illness History of Present Illness Date Patient Seen: 04/28/25 Chief complaint: can't walk or move legs, pain all over body, Narrative: This is a 35-year-old female with lupus nephritis, rheumatoid arthritis, hypertension, history of pericarditis, Sjogren's and Raynaud's who presents with increasing generalized joint pain along with chills and a fever of 100.5 on admission, starting yesterday. She says that the prednisone dose was recently decreased from 60 mg daily down to 40 mg daily but is not able to correlate that to this flare in her nephritis and joint pain. This pain is in her back, pelvis, ankles and knees. She says it is the same that she had in February when she was last admitted elsewhere. She is receiving Dilaudid. Her initial creatinine was 3.56, then 2.85 and then 2.46. Her initial potassium was 5.8 which was treated with insulin and came down to 4.3. Unfortunately the insulin produced a significant hypoglycemia with blood sugars that dropped into the 60s despite D5 normal saline infusion. Her primary care physician is at the [facility], Dr. Jorge A Barnett. Her business taxes specialist is Dr. Chance Quijano in [place]. She has a distinct cushingoid appearance with typical purplish skin bruises and torres facies. [facility] Medical History (Updated 04/28/25 @ 18:18 by Phan Sweet MD) Raynaud disease HTN (hypertension) Normocytic anemia Cushingoid side effect of steroids Chronic pain Rheumatoid arthritis Sjogren syndrome Lupus nephritis Family History (Updated 04/28/25 @ 18:11 by Phan Sweet MD) Family/Other Lupus Father No problems noted. Mother No problems noted. Daughter No problems noted. Social History household members: spouse and family Smoking Status: Former smoker alcohol intake: never Meds Home Medications and Allergies Home Medications ?Medication ?Instructions ?Recorded ?Confirmed ?Type amlodipine 10 mg tablet 10 mg PO DAILY 03/04/25 04/28/25 History mycophenolate sodium 180 mg 720 mg PO BID 03/04/25 04/28/25 History tablet,delayed release prednisone 20 mg tablet 40 mg PO DAILY 03/04/25 04/28/25 History sulfamethoxazole 800 1 tab PO 3XW 03/04/25 04/28/25 History mg-trimethoprim 160 mg tablet (Bactrim DS) carvedilol 25 mg tablet 25 mg PO BID 04/05/25 04/28/25 History empagliflozin 10 mg tablet 10 mg PO DAILY 04/05/25 04/28/25 History (Jardiance) furosemide 40 mg tablet 40 mg PO BID 04/05/25 04/28/25 History hydralazine 25 mg tablet 25 mg PO TID Blood Pressure 04/05/25 04/28/25 History lisinopril 10 mg tablet 10 mg PO DAILY 04/05/25 04/28/25 History metolazone 2.5 mg tablet 2.5 mg PO DAILY 04/05/25 04/28/25 History spironolactone 50 mg tablet 50 mg PO BID 04/05/25 04/28/25 History (Aldactone) Allergies Allergy/AdvReac Type Severity Reaction Status Date / Time levetiracetam (From [facility]) Allergy Severe Anaphylaxis Verified 04/28/25 04:49 Review of Systems Review of Systems Narrative: Positive for increased generalized joint pain, chills, increasing cushingoid effects. Negative for fevers, sweats, chest pain, abdominal pain, nausea, vomiting, coughing, new allergies, dysuria. Exam Vital Signs (past 8 hours): - 04/28/25 04:49 04/28/25 04:51 04/28/25 04:51 Temperature 100.5 F H Pulse Rate 110 H 113 H Respiratory Rate 24 Blood Pressure 101/55 L 101/55 L Pulse Oximetry 96 100 Oxygen Delivery Method Room Air 04/28/25 04:52 04/28/25 05:00 04/28/25 05:10 Temperature Pulse Rate 109 H Respiratory Rate Blood Pressure 108/56 L Pulse Oximetry 89 L 90 L Oxygen Delivery Method 04/28/25 05:30 04/28/25 05:30 04/28/25 06:00 Temperature Pulse Rate 98 H 104 H Respiratory Rate 54 H Blood Pressure 110/53 L Pulse Oximetry 97 92 Oxygen Delivery Method Room Air Room Air 04/28/25 06:01 04/28/25 06:01 04/28/25 06:30 Temperature Pulse Rate 100 H Respiratory Rate 46 H Blood Pressure 110/53 L 106/53 L Pulse Oximetry 93 Oxygen Delivery Method Room Air 04/28/25 06:30 04/28/25 07:00 04/28/25 07:00 Temperature Pulse Rate 99 H 102 H Respiratory Rate Blood Pressure 97/49 L Pulse Oximetry 94 91 Oxygen Delivery Method 04/28/25 07:01 04/28/25 07:01 04/28/25 07:30 Temperature Pulse Rate 104 H Respiratory Rate Blood Pressure 94/46 L 76/40 L Pulse Oximetry 94 Oxygen Delivery Method 04/28/25 07:30 04/28/25 07:32 04/28/25 07:32 Temperature Pulse Rate 92 H 91 H Respiratory Rate Blood Pressure 77/42 L Pulse Oximetry 94 93 Oxygen Delivery Method 04/28/25 07:34 04/28/25 07:34 04/28/25 07:45 Temperature Pulse Rate 94 H Respiratory Rate Blood Pressure 87/50 L 86/42 L Pulse Oximetry 93 Oxygen Delivery Method 04/28/25 07:45 04/28/25 08:00 04/28/25 08:00 Temperature Pulse Rate 99 H 105 H Respiratory Rate Blood Pressure 91/49 L Pulse Oximetry 94 93 Oxygen Delivery Method 04/28/25 08:05 04/28/25 08:05 04/28/25 08:10 Temperature Pulse Rate 105 H Respiratory Rate Blood Pressure 101/49 L 102/48 L Pulse Oximetry 95 Oxygen Delivery Method 04/28/25 08:10 04/28/25 08:15 04/28/25 08:15 Temperature Pulse Rate 97 H 94 H Respiratory Rate Blood Pressure 100/42 L Pulse Oximetry 93 95 Oxygen Delivery Method 04/28/25 08:20 04/28/25 08:20 04/28/25 08:25 Temperature Pulse Rate 94 H Respiratory Rate 32 H Blood Pressure 90/40 L 98/42 L Pulse Oximetry 92 Oxygen Delivery Method 04/28/25 08:25 04/28/25 08:30 04/28/25 08:30 Temperature Pulse Rate 91 H 92 H Respiratory Rate 31 H 38 H Blood Pressure 86/37 L Pulse Oximetry 93 93 Oxygen Delivery Method 04/28/25 08:35 04/28/25 08:35 04/28/25 08:40 Temperature Pulse Rate 94 H 92 H Respiratory Rate 31 H Blood Pressure 85/38 L Pulse Oximetry 96 92 Oxygen Delivery Method 04/28/25 08:40 04/28/25 08:45 04/28/25 08:45 Temperature Pulse Rate 97 H Respiratory Rate 26 H Blood Pressure 85/38 L 89/42 L Pulse Oximetry 96 Oxygen Delivery Method 04/28/25 08:50 04/28/25 08:50 04/28/25 08:55 Temperature Pulse Rate 97 H 96 H Respiratory Rate 36 H 29 H Blood Pressure 90/49 L Pulse Oximetry 96 98 Oxygen Delivery Method 04/28/25 08:55 04/28/25 09:00 04/28/25 09:00 Temperature Pulse Rate 91 H Respiratory Rate 37 H Blood Pressure 92/49 L 100/49 L Pulse Oximetry 95 Oxygen Delivery Method 04/28/25 09:10 04/28/25 09:15 04/28/25 09:15 Temperature Pulse Rate 94 H 91 H Respiratory Rate 30 H 35 H Blood Pressure 113/58 L Pulse Oximetry 97 95 Oxygen Delivery Method 04/28/25 09:20 04/28/25 09:20 04/28/25 09:25 Temperature Pulse Rate 91 H Respiratory Rate Blood Pressure 108/54 L 111/56 L Pulse Oximetry 96 Oxygen Delivery Method 04/28/25 09:25 04/28/25 09:30 04/28/25 09:30 Temperature Pulse Rate 91 H 91 H Respiratory Rate 36 H 37 H Blood Pressure 106/50 L Pulse Oximetry 97 96 Oxygen Delivery Method 04/28/25 09:35 04/28/25 09:35 04/28/25 09:40 Temperature Pulse Rate 91 H Respiratory Rate 29 H Blood Pressure 96/44 L 101/54 L Pulse Oximetry 98 Oxygen Delivery Method 04/28/25 09:40 04/28/25 09:45 04/28/25 09:45 Temperature Pulse Rate 91 H 92 H Respiratory Rate 25 H 28 H Blood Pressure 100/52 L Pulse Oximetry 98 98 Oxygen Delivery Method 04/28/25 09:50 04/28/25 09:50 04/28/25 09:55 Temperature Pulse Rate 89 89 Respiratory Rate 32 H 33 H Blood Pressure 114/54 L Pulse Oximetry 96 99 Oxygen Delivery Method 04/28/25 09:55 04/28/25 10:00 04/28/25 10:01 Temperature Pulse Rate 95 H Respiratory Rate Blood Pressure 113/53 L 117/57 L Pulse Oximetry Oxygen Delivery Method 04/28/25 10:01 04/28/25 10:13 04/28/25 10:13 Temperature Pulse Rate 101 H 90 Respiratory Rate 34 H Blood Pressure 113/54 L Pulse Oximetry Oxygen Delivery Method 04/28/25 10:15 04/28/25 10:15 04/28/25 10:20 Temperature Pulse Rate 87 Respiratory Rate 35 H Blood Pressure 103/53 L 96/55 L Pulse Oximetry Oxygen Delivery Method 04/28/25 10:20 04/28/25 10:25 04/28/25 10:25 Temperature Pulse Rate 86 85 Respiratory Rate 34 H 33 H Blood Pressure 105/56 L Pulse Oximetry 95 Oxygen Delivery Method 04/28/25 10:30 04/28/25 10:30 04/28/25 10:35 Temperature Pulse Rate 84 85 Respiratory Rate 36 H 36 H Blood Pressure 108/58 L Pulse Oximetry 96 96 Oxygen Delivery Method 04/28/25 10:35 04/28/25 10:40 04/28/25 10:40 Temperature Pulse Rate 82 Respiratory Rate 37 H Blood Pressure 105/52 L 106/55 L Pulse Oximetry 95 Oxygen Delivery Method 04/28/25 10:45 04/28/25 10:45 04/28/25 10:50 Temperature Pulse Rate 84 Respiratory Rate 37 H Blood Pressure 107/53 L 109/56 L Pulse Oximetry 96 Oxygen Delivery Method 04/28/25 10:50 04/28/25 10:55 04/28/25 10:55 Temperature Pulse Rate 82 82 Respiratory Rate 38 H 38 H Blood Pressure 108/54 L Pulse Oximetry 96 94 Oxygen Delivery Method 04/28/25 11:00 04/28/25 11:00 04/28/25 11:05 Temperature Pulse Rate 80 Respiratory Rate 33 H Blood Pressure 118/56 L 113/54 L Pulse Oximetry 94 Oxygen Delivery Method 04/28/25 11:05 04/28/25 11:10 04/28/25 11:10 Temperature Pulse Rate 81 80 Respiratory Rate 36 H 32 H Blood Pressure 113/59 L Pulse Oximetry 92 95 Oxygen Delivery Method 04/28/25 11:15 04/28/25 11:15 Temperature Pulse Rate 81 Respiratory Rate 35 H Blood Pressure 116/56 L Pulse Oximetry 94 Oxygen Delivery Method Oxygen Delivery Method Room Air Narrative Exam Narrative: Alert and oriented x3. Appears to be in severe distress from pain and chills Pupils are equally round and reactive to light and accommodation. Extraocular muscles are intact. Sclerae are pink and nonicteric. Throat looks normal Large neck skin folds typical for torres face No lymph nodes are felt head, neck, supraclavicular area JVD is less than 6 cm No carotid bruits are heard No thyromegaly Heart is regular rate and rhythm without murmur Lungs are clear to auscultation bilaterally Abdomen is obese, bowel sounds positive, nontender, no organomegaly Extremities have no ankle edema. She is tender to touch with light touch on her joints, both arms and both legs. Skin has multiple crushing type bruises. Neurologic exam motor function is 3/5 throughout There is no tremor Cranial nerves 2-12 test intact DTRs are symmetrically suppressed. Objective Labs 04/28/25 05:01 04/28/25 07:08 Labs: Laboratory Results - last 24 hr 04/28/25 04/28/25 04/28/25 05:01 05:13 06:43 WBC 9.9 RBC 2.72 L Hgb 8.0 L Hct 23.5 L MCV 86.5 MCH 29.4 MCHC 34.0 RDW 21.6 H Plt Count 267 Neut % (Auto) 91.2 H Lymph % (Auto) 4.2 L [place] % (Auto) 4.2 Eos % (Auto) 0.2 L Baso % (Auto) 0.2 Neut # (Auto) 9000 H Lymph # (Auto) 400 L [place] # (Auto) 400 Eos # (Auto) 0 Baso # (Auto) 0 Platelet Estimate Adequate on smear RBC Morphology See below Polychromasia 1+ H Anisocytosis 2+ H Microcytosis 2+ H Macrocytosis 1+ H Acanthocytes (Spur) 1+ H Sodium 132 L Potassium 5.8 H Chloride 106 Carbon Dioxide 17 L BUN 91 H Creatinine 2.85 H Estimated GFR 21 L BUN/Creatinine Ratio 31.9 H Glucose 79 POC Whole Bld Glucose 47 L Lactate 1.4 Calcium 8.7 Magnesium 1.7 Total Bilirubin 0.4 AST 22 ALT 21 Alkaline Phosphatase 51 Total Creatine Kinase 23 L Troponin I < 0.012 NT-Pro-B Natriuret Pep 148 H Total Protein 5.9 L Albumin 3.3 L Globulin 2.6 Albumin/Globulin Ratio 1.3 Lipase 163 SARS-CoV-2 (PCR) Negative Influenza A (RT-PCR) Flu a negative Influenza B (RT-PCR) Flu b negative RSV (PCR) Negative 04/28/25 04/28/25 04/28/25 07:08 07:36 07:53 WBC RBC Hgb Hct MCV MCH MCHC RDW Plt Count Neut % (Auto) Lymph % (Auto) [place] % (Auto) Eos % (Auto) Baso % (Auto) Neut # (Auto) Lymph # (Auto) [place] # (Auto) Eos # (Auto) Baso # (Auto) Platelet Estimate RBC Morphology Polychromasia Anisocytosis Microcytosis Macrocytosis Acanthocytes (Spur) Sodium 132 L Potassium 4.3 D Chloride 113 H Carbon Dioxide 13 L BUN 79 H Creatinine 2.46 H Estimated GFR 26 L BUN/Creatinine Ratio 32.1 H Glucose 44 L* POC Whole Bld Glucose 39 L* 171 H D Lactate Calcium 7.3 L Magnesium Total Bilirubin AST ALT Alkaline Phosphatase Total Creatine Kinase Troponin I NT-Pro-B Natriuret Pep Total Protein Albumin Globulin Albumin/Globulin Ratio Lipase SARS-CoV-2 (PCR) Influenza A (RT-PCR) Influenza B (RT-PCR) RSV (PCR) 04/28/25 04/28/25 04/28/25 08:38 08:47 08:52 WBC RBC Hgb Hct MCV MCH MCHC RDW Plt Count Neut % (Auto) Lymph % (Auto) [place] % (Auto) Eos % (Auto) Baso % (Auto) Neut # (Auto) Lymph # (Auto) [place] # (Auto) Eos # (Auto) Baso # (Auto) Platelet Estimate RBC Morphology Polychromasia Anisocytosis Microcytosis Macrocytosis Acanthocytes (Spur) Sodium Potassium Chloride Carbon Dioxide BUN Creatinine Estimated GFR BUN/Creatinine Ratio Glucose POC Whole Bld Glucose 61 L D 62 L 68 L Lactate Calcium Magnesium Total Bilirubin AST ALT Alkaline Phosphatase Total Creatine Kinase Troponin I NT-Pro-B Natriuret Pep Total Protein Albumin Globulin Albumin/Globulin Ratio Lipase SARS-CoV-2 (PCR) Influenza A (RT-PCR) Influenza B (RT-PCR) RSV (PCR) 04/28/25 04/28/25 04/28/25 09:23 10:23 11:22 WBC RBC Hgb Hct MCV MCH MCHC RDW Plt Count Neut % (Auto) Lymph % (Auto) [place] % (Auto) Eos % (Auto) Baso % (Auto) Neut # (Auto) Lymph # (Auto) [place] # (Auto) Eos # (Auto) Baso # (Auto) Platelet Estimate RBC Morphology Polychromasia Anisocytosis Microcytosis Macrocytosis Acanthocytes (Spur) Sodium Potassium Chloride Carbon Dioxide BUN Creatinine Estimated GFR BUN/Creatinine Ratio Glucose POC Whole Bld Glucose 87 82 67 L Lactate Calcium Magnesium Total Bilirubin AST ALT Alkaline Phosphatase Total Creatine Kinase Troponin I NT-Pro-B Natriuret Pep Total Protein Albumin Globulin Albumin/Globulin Ratio Lipase SARS-CoV-2 (PCR) Influenza A (RT-PCR) Influenza B (RT-PCR) RSV (PCR) 04/28/25 11:29 WBC RBC Hgb Hct MCV MCH MCHC RDW Plt Count Neut % (Auto) Lymph % (Auto) [place] % (Auto) Eos % (Auto) Baso % (Auto) Neut # (Auto) Lymph # (Auto) [place] # (Auto) Eos # (Auto) Baso # (Auto) Platelet Estimate RBC Morphology Polychromasia Anisocytosis Microcytosis Macrocytosis Acanthocytes (Spur) Sodium Potassium Chloride Carbon Dioxide BUN Creatinine Estimated GFR BUN/Creatinine Ratio Glucose POC Whole Bld Glucose 58 L Lactate Calcium Magnesium Total Bilirubin AST ALT Alkaline Phosphatase Total Creatine Kinase Troponin I NT-Pro-B Natriuret Pep Total Protein Albumin Globulin Albumin/Globulin Ratio Lipase SARS-CoV-2 (PCR) Influenza A (RT-PCR) Influenza B (RT-PCR) RSV (PCR) Assessment & Plan Assessment & Plan narrative: This is a 35-year-old female with lupus nephritis, rheumatoid arthritis, anemia, hypertension, history of pericarditis, Sjogren's and Raynaud's who presents with increasing generalized joint pain along with chills and a fever of 100.5 on admission, starting yesterday. She says that the prednisone dose was recently decreased from 60 mg daily down to 40 mg daily but is not able to correlate that to this flare in her nephritis and joint pain. This pain is in her back, pelvis, ankles and knees. Severe persistent hypoglycemia, present on admission, active. -secondary to single dose of IV insulin used to treat hyperkalemia in the ED. -continue D5 infusion with D50 as needed to maintain blood sugars above 70. -pain flare likely to be a barrier to discharge once the hypoglycemia is treated. -holding Jardiance until this episode has cleared. Acute flare of lupus nephritis, present on admission. Active. -creatinine initially 3.56 and comes down to 2.46 with IV hydration. -initial potassium 5.8 corrected to 4.3 with IV insulin. Patient recalls no prior episodes of hyperkalemia. -continue prednisone 40 mg daily -temperature was 100.5?, white blood count was 9.9, blood cultures are pending. UA with no definite UTI. No pneumonia on chest x-ray. Follow. Normocytic anemia, present on admission. Active. -this appears to be multifactorial and related to chronic disease, lupus, etc. -hemoglobin on admission 8.0 which appears to be just around her baseline. -follow CBC. Severe pain, present on admission. Active. -she says that this is her typical presentation with acute nephritis flare. -continue prednisone and IV Dilaudid. Hypertension, present on admission. Chronic. -continue metolazone, spironolactone, furosemide, carvedilol and amlodipine. -follow creatinine. Backup decision maker is her mother Lovenox for DVT prevention. Time-Based Coding :: [TOTAL MINUTES] spent with patient and on the chart (including review of chart, obtaining history, exam, reviewing outside data, placing orders, documenting exam and treatment plan, and counseling patient) on [DATE].
[2025-04-28] MEDS: OXYCODONE IR 5 MG TABLET PO (16:00)
--- NOTE | 2025-04-28 16:19 | CM.MNRNOTE ---
Pt arrived to Room at 1150 Alert, moaning in discomfort. States knees, ankles and feet hurt the most, Med w/ Dilaudid as ordered, w/some relief. IVF D5 NS at 125/hr infusing as per orders. Pt oriented to room & call system. Call light w/in reach, pt calls appropriately for needs. Continue w/plan of care,.
[2025-04-28] MEDS: FUROSEMIDE 40 MG TABLET PO (20:16)
[2025-04-28] MEDS: ACETAMINOPHEN 325 MG TABLET 650 MG PO (20:16)
[2025-04-28] MEDS: SPIRONOLACTONE 25 MG TABLET 50 MG PO (20:16)
[2025-04-29] VITALS (12 sets, daily range): BP systolic 96–134; BP diastolic 49–76; PULSE 86–115; RESP 16–22; TEMP 35.7–38.2; O2SAT 94–98
[2025-04-29] MEDS: SODIUM CHLORIDE 0.9% 500 ML 1000 ML IV ×2 (00:04→04:42)
[2025-04-29] MEDS: DEXTROSE 5%-0.9% NS 1,000 ML 125 ML IV ×2 (00:36→09:39)
[2025-04-29] MEDS: ACETAMINOPHEN 325 MG TABLET 650 MG PO (03:49)
[2025-04-29 05:55] LABS: Add Manual Diff / Slide Review NO; Lymphocytes Absolute Auto 200 /uL (1100-4500); Mean Corpuscular HGB Conc 33.8 % (30-36); Mean Corpuscular Hemoglobin 29.3 PG (26-34); Mean Corpuscular Volume 86.8 fL (80-100); Platelet Count 154 X10^3/uL (150-400)
[2025-04-29 06:00] LABS: Hematocrit 16.7 % (36-46); Hemoglobin 5.7 g/dL (12.0-16.0)
[2025-04-29 06:06] LABS: Blood Urea Nitrogen 62 mg/dL (7-17); Calcium 7.6 mg/dL (8.4-10.2); Carbon Dioxide 14 mmol/L (22-32); Chloride 115 mmol/L (98-107); Estimated Glomerular Filt Rate 31 mL/min (>60); Glucose 90 mg/dL (70-99); HEMOLYSIS < 15 (0-50); Potassium 4.8 mmol/L (3.4-5.1); Sodium 135 mmol/L (137-145)
[2025-04-29 06:22] LABS: Acanthocytes 1+; Anisocytosis 2+; Macrocytosis 1+; Microcytosis 2+
[2025-04-29] MEDS: ENOXAPARIN 40 MG/0.4 ML SYRINGE SUBCUT (08:27)
[2025-04-29] MEDS: FUROSEMIDE 40 MG TABLET PO (08:28)
[2025-04-29] MEDS: SPIRONOLACTONE 25 MG TABLET 50 MG PO (08:29)
[2025-04-29] MEDS: OXYCODONE IR 5 MG TABLET PO (08:29)
--- NOTE | 2025-04-29 11:34 | CM.DANOTE ---
Patient is a 35 yo female who was admitted INPT Status on 04/28/25 for Hypoglycemia and Lupus Flare. Pt has [employer] for insurance and her PCP is Dr. Barnett at [facility]. EMR was reviewed. Per MD, pt with complex hx of Lupus, RA, Sjogrens and Raynauds and admitted with pain and hypoglycemia. MD attempting hospital transfer to pt's Rhuematologist Dr. Quijano at [facility] due to pt's complexity. Per RN, pt has been 1PA with FWW in room. SW attempted to meet bedside with pt and family member and explained role but pt very painful and getting morning medications and family requested SW return later. Plan: SW to meet bedside with pt for d/c planning assessment and to follow for possible hospital transfer to [facility] if accepted. CHARO Bravo
--- NOTE | 2025-04-29 12:27 | PC.NURSE ---
Addendum entered by Elsa Nieto R.N. 04/29/25 19:51: Ambulance here to transport to [facility]. Report called to Lidia REEVES D/C in stable status Addendum entered by Elsa Nieto R.N. 04/29/25 18:23: Pt recieved one unit PRBC's Tolerated wel Continues to rest. Call light w/in reach,pt calls appropriately for needs. Continue plan of care. l Original Note: Pt resting at intervals Med as per orders for discomfort. IVF infusing as per orders. Type & cross completed; Will transfuse when ready. Call light w/in reach, pt calls appropriately for needs
--- NOTE | 2025-04-29 18:51 | PM.DS.1 ---
History of Present Illness History of Present Illness Date Patient Seen: 04/29/25 Chief complaint: can't walk or move legs, pain all over body, Narrative: Chief complaint: can't walk or move legs, pain all over body, History of present illness: This is a 35-year-old female with lupus nephritis, rheumatoid arthritis, hypertension, history of pericarditis, Sjogren's and Raynaud's who presents with increasing generalized joint pain along with chills and a fever of 100.5 on admission, starting yesterday. She says that the prednisone dose was recently decreased from 60 mg daily down to 40 mg daily but is not able to correlate that to this flare in her nephritis and joint pain. This pain is in her back, pelvis, ankles and knees. She says it is the same that she had in February when she was last admitted elsewhere. She is receiving Dilaudid. Her initial creatinine was 3.56, then 2.85 and then 2.46. Her initial potassium was 5.8 which was treated with insulin and came down to 4.3. Unfortunately the insulin produced a significant hypoglycemia with blood sugars that dropped into the 60s despite D5 normal saline infusion. Her primary care physician is at the [facility], Dr. Jorge A Barnett. Her finishing range operator is Dr. Chance Quijano in [place]. She has a distinct cushingoid appearance with typical purplish skin bruises and torres facies. Hospital course: 04/29: Hemoglobin dropped if 5.5 transfuse. Case discussed with [facility] agreed to take her in transfer for [place] familiar with her and treated her last month This is a 35-year-old female with lupus nephritis, rheumatoid arthritis, anemia, hypertension, history of pericarditis, Sjogren's and Raynaud's who presents with increasing generalized joint pain along with chills and a fever of 100.5 on admission, starting yesterday. She says that the prednisone dose was recently decreased from 60 mg daily down to 40 mg daily but is not able to correlate that to this flare in her nephritis and joint pain. This pain is in her back, pelvis, ankles and knees. Severe persistent hypoglycemia, present on admission, active. -secondary to single dose of IV insulin used to treat hyperkalemia in the ED. -continue D5 infusion with D50 as needed to maintain blood sugars above 70. -pain flare likely to be a barrier to discharge once the hypoglycemia is treated. -holding Jardiance until this episode has cleared. Acute flare of lupus nephritis, present on admission. Active. -creatinine initially 3.56 and comes down to 2.46 with IV hydration. -initial potassium 5.8 corrected to 4.3 with IV insulin. Patient recalls no prior episodes of hyperkalemia. -continue prednisone 40 mg daily -temperature was 100.5?, white blood count was 9.9, blood cultures are pending. UA with no definite UTI. No pneumonia on chest x-ray. Follow. Normocytic anemia, present on admission. Active. -this appears to be multifactorial and related to chronic disease, lupus, etc. -hemoglobin on admission 8.0 which appears to be just around her baseline. -follow CBC. Severe pain, present on admission. Active. -she says that this is her typical presentation with acute nephritis flare. -continue prednisone and IV Dilaudid. Hypertension, present on admission. Chronic. -continue metolazone, spironolactone, furosemide, carvedilol and amlodipine. -follow creatinine. Backup decision maker is her mother Lovenox for DVT prevention. Time-Based Coding :: 35 minutes spent with patient and on the chart (including review of chart, obtaining history, exam, reviewing outside data, placing orders, documenting exam and treatment plan, and counseling patient). Discharge Providers Provider Date of admission: 04/28/25 09:38 Discharge Date: 04/29/25 Primary care physician: Doctor Jeferson MD Discharge provider: Albaro Moreno MD Exam Vital Signs (past 8 hours): - 04/29/25 12:06 04/29/25 14:15 04/29/25 14:30 Temperature 98.5 F 99.2 F 97.7 F Pulse Rate 105 H 106 H 110 H Respiratory Rate 22 18 18 Blood Pressure 126/70 127/72 134/74 Pulse Oximetry 98 Oxygen Flow Rate 0 04/29/25 14:35 04/29/25 17:35 04/29/25 18:00 Temperature 98.7 F 96.2 F L 96.2 F L Pulse Rate 110 H 115 H 110 H Respiratory Rate 18 18 18 Blood Pressure 134/74 134/76 134/76 Pulse Oximetry 96 96 Oxygen Flow Rate 0 Oxygen Delivery Method Room Air Oxygen Flow Rate 0 Objective Labs 04/29/25 05:35 04/29/25 05:35 Labs: Laboratory Results - last 24 hr 04/28/25 04/28/25 04/29/25 16:44 20:20 03:40 WBC RBC Hgb Hct MCV MCH MCHC RDW Plt Count Neut % (Auto) Lymph % (Auto) [place] % (Auto) Eos % (Auto) Baso % (Auto) Neut # (Auto) Lymph # (Auto) [place] # (Auto) Eos # (Auto) Baso # (Auto) Platelet Estimate RBC Morphology Anisocytosis Microcytosis Macrocytosis Acanthocytes (Spur) Sodium Potassium Chloride Carbon Dioxide BUN Creatinine Estimated GFR BUN/Creatinine Ratio Glucose POC Whole Bld Glucose 91 78 117 H Calcium Blood Type Antibody Screen Crossmatch 04/29/25 04/29/25 04/29/25 05:35 07:55 11:45 WBC 3.1 L D RBC 1.93 L Hgb 5.7 L* Hct 16.7 L* MCV 86.8 MCH 29.3 MCHC 33.8 RDW 21.4 H Plt Count 154 Neut % (Auto) 90.7 H Lymph % (Auto) 5.9 L [place] % (Auto) 3.1 Eos % (Auto) 0.1 L Baso % (Auto) 0.2 Neut # (Auto) 2800 Lymph # (Auto) 200 L [place] # (Auto) 100 Eos # (Auto) 0 Baso # (Auto) 0 Platelet Estimate Adequate on smear RBC Morphology See below Anisocytosis 2+ H Microcytosis 2+ H Macrocytosis 1+ H Acanthocytes (Spur) 1+ H Sodium 135 L Potassium 4.8 Chloride 115 H Carbon Dioxide 14 L BUN 62 H Creatinine 2.07 H Estimated GFR 31 L BUN/Creatinine Ratio 30.0 H Glucose 90 POC Whole Bld Glucose 118 H 100 H Calcium 7.6 L Blood Type Antibody Screen Crossmatch 04/29/25 12:25 WBC RBC Hgb Hct MCV MCH MCHC RDW Plt Count Neut % (Auto) Lymph % (Auto) [place] % (Auto) Eos % (Auto) Baso % (Auto) Neut # (Auto) Lymph # (Auto) [place] # (Auto) Eos # (Auto) Baso # (Auto) Platelet Estimate RBC Morphology Anisocytosis Microcytosis Macrocytosis Acanthocytes (Spur) Sodium Potassium Chloride Carbon Dioxide BUN Creatinine Estimated GFR BUN/Creatinine Ratio Glucose POC Whole Bld Glucose Calcium Blood Type O Positive Antibody Screen Negative Crossmatch See Detail PFSH Medical History (Updated 04/28/25 @ 18:18 by Phan Sweet MD) Raynaud disease HTN (hypertension) Normocytic anemia Cushingoid side effect of steroids Chronic pain Rheumatoid arthritis Sjogren syndrome Lupus nephritis Family History (Updated 04/28/25 @ 18:12 by Phan Sweet MD) Family/Other Lupus Father No problems noted. Mother No problems noted. Daughter No problems noted. Social History household members: spouse and family Smoking Status: Former smoker alcohol intake: never Discharge Plan Discharge Plan Patient Disposition: [facility] Other facility: [facility] Visit Report/Discharge Packet Stand Alone Forms: Patient Portal/API, Stroke Signs & Symptoms Discharge Data Primary Care Provider: Miscellaneous,Doctor Quality VTE Deep Vein Thrombosis/Pulmonary Embolism Present on Admission: No
== END 2025-04-29 19:45 | disposition short-term general hospital (02) | DRG 641 ==
LOC: ED 09:29 → AC 09:38
PROVIDERS: Student in an Organized Health Care Education/Training Program; Admitting Provider Family Medicine; Emergency Provider Emergency Medicine; Referring Provider Emergency Medicine; Visit Provider Family Medicine
DX: E16.2 Hypoglycemia, unspecified (principal); M32.14 Glomerular disease in systemic lupus erythematosus; D64.9 Anemia, unspecified; I10 Essential (primary) hypertension; E87.5 Hyperkalemia; M06.9 Rheumatoid arthritis, unspecified; I73.00 Raynaud's syndrome without gangrene; M35.00 Sjogren syndrome, unspecified; Z87.891 Personal history of nicotine dependence
CPT/HCPCS: 36415; 36430; 71045; 80048; 80053; 82550; 82962; 83605; 83690; 83735; 83880; 84484; 85025; 86850; 86900; 86901; 87040; 87637; 93005; 93010; 96365; 96366; 96367; 96375; 96376; 99284; P9016; J0131; J0612; J1171; J1650

== ENCOUNTER 2025-05-05 09:12 | Emergency (ER) | payer BC, OTHER, SELFPAY ==
[2025-04-28 12:09] VITALS: BMI 35.7
[2025-05-05] VITALS (35 sets, daily range): BP systolic 96–134; BP diastolic 50–63; PULSE 35–111; RESP 12–33; TEMP 36.6–37.7; O2SAT 90–99; BMI 35.4
--- NOTE | 2025-05-05 09:14 | ED.ABDPAIN ---
HPI - Abdominal Pain General Chief Complaint: Abdominal Pain Stated Complaint: Severe, abdominal, shoulder, and neck pain Time Seen by Provider: 05/05/25 09:14 History of Present Illness HPI narrative: Patient is a 35-year-old female with a history of lupus nephritis, CKD, Raynaud's, rheumatoid arthritis, pericarditis comes into the ED coming in for complaints of abdominal pain. She states that it started yesterday, described as a pressure nothing making it better or worse. She is also complaining of left-sided shoulder pain, states that it feels like she ?slept on it wrong. She is not complaining of any chest or back pain. Not complaining of any shortness of breath. States that she was recently discharged from [facility] for pain control for her bilateral knee pain, she is not complaining of this today. She denies any trauma or falls, she did mention that she got a blood transfusion while she was at [facility] for her chronic anemia, otherwise she is not complaining of any other symptoms at this time. Related Data Home Medications ?Medication ?Instructions ?Recorded ?Confirmed amlodipine 10 mg tablet 10 mg PO DAILY 03/04/25 04/28/25 mycophenolate sodium 180 mg 720 mg PO BID 03/04/25 04/28/25 tablet,delayed release prednisone 20 mg tablet 40 mg PO DAILY 03/04/25 04/28/25 sulfamethoxazole 800 1 tab PO 3XW 03/04/25 04/28/25 mg-trimethoprim 160 mg tablet (Bactrim DS) carvedilol 25 mg tablet 25 mg PO BID 04/05/25 04/28/25 empagliflozin 10 mg tablet 10 mg PO DAILY 04/05/25 04/28/25 (Jardiance) furosemide 40 mg tablet 40 mg PO BID 04/05/25 04/28/25 hydralazine 25 mg tablet 25 mg PO TID Blood Pressure 04/05/25 04/28/25 lisinopril 10 mg tablet 10 mg PO DAILY 04/05/25 04/28/25 metolazone 2.5 mg tablet 2.5 mg PO DAILY 04/05/25 04/28/25 spironolactone 50 mg tablet 50 mg PO BID 04/05/25 04/28/25 (Aldactone) Allergies Allergy/AdvReac Type Severity Reaction Status Date / Time levetiracetam (From [facility]) Allergy Severe Anaphylaxis Verified 05/05/25 09:23 Review of Systems Review of Systems Narrative: General: Denies fever, chills, weight loss HEENT: Denies headache, eye drainage, eye irritation, head trauma, sore throat, voice change Cardiovascular: Denies any chest pain, palpitations, tachycardia Respiratory: Denies any shortness of breath, cough, wheeze, stridor GI/: Positive abdominal pain, denies nausea, vomiting, diarrhea, bright red blood per rectum, melanotic stools, urinary frequency, urinary retention, dysuria, hematuria MSK: Positive left shoulder pain Skin: Denies any rashes, lesions, discoloration Neuro: Denies any headache, lightheadedness, dizziness, fainting, weakness Psych: Denies SI/HI Patient History Medical History (Updated 05/05/25 @ 15:53 by Joey Milligan DO) Raynaud disease HTN (hypertension) Normocytic anemia Cushingoid side effect of steroids Chronic pain Rheumatoid arthritis Sjogren syndrome Lupus nephritis Family History (Updated 04/28/25 @ 18:12 by Phan Sweet MD) Family/Other Lupus Father No problems noted. Mother No problems noted. Daughter No problems noted. Social History household members: spouse and family Smoking Status: Unknown if ever smoked alcohol intake: never tobacco type: cigarettes and vaping Exam Narrative Exam Narrative: General: Cooperative, well-developed, not in acute distress HEENT: Normocephalic, atraumatic, PERRLA, normal sclera, eyelids normal Neck: Active full range of motion, atraumatic Chest: Normal to inspection, negative crepitus, no overlying erythema ecchymosis Respiratory: Normal respiratory effort, not in acute respiratory distress, clear to auscultation bilaterally negative cough, wheeze, tachypnea, rhonchi, rales Cardiology: Regular rate rhythm negative gallop, murmur, rubs GI/: No tenderness to palpation, soft, non rigid, normal to inspection, exam deferred MSK: Full active range of motion in all 4 extremities, atraumatic, no tenderness to palpation of any bony prominences Skin: No rashes or lesions noted Neuro: Alert awake oriented x3, moves all 4 extremities spontaneously, cranial nerves intact, able to answer all questions appropriately follows commands appropriately Psych: Cooperative, negative suicidal or homicidal ideations Initial Vital Signs Initial Vital Signs: Vital Signs Temperature 98.8 F 05/05/25 09:13 Pulse Rate 90 05/05/25 09:13 Respiratory Rate 14 05/05/25 09:13 Blood Pressure 134/63 05/05/25 09:13 Pulse Oximetry 97 05/05/25 09:13 Oxygen Delivery Method Room Air 05/05/25 09:13 Course Orders Ordered: ED Orders 05/05/25 09:21 GI Panel (Film Array) Stat 05/05/25 09:22 CT abdomen pelvis wo con Stat 05/05/25 09:35 Complete Blood Count AUTO DIFF Stat Comprehensive Metabolic Panel Stat Lactate (Lactic Acid) Stat Lipase Stat MAG [Magnesium] Stat PT [Prothrombin Time INR] Stat PTT Partial Thromboplastin Jason Stat Test Serum,Qual Stat Troponin & CK Cardiac Panel Stat 05/05/25 10:00 EKG-12 Lead Stat 05/05/25 11:02 Urine Microscopic Stat 05/05/25 11:30 Trop I [Troponin I] Stat 05/05/25 11:35 CXR [XR chest 1V] Stat 05/05/25 13:41 CBC Auto Diff [Complete Blood Count AUTO DIFF] Stat Discontinued Medications Hydromorphone HCl (Hydromorphone 1 Mg Inj) 1 mg IV NOW ONE Stop: 05/05/25 09:22 Last Admin: 05/05/25 09:35 Dose: 1 mg Documented By: LEWIS Hydromorphone HCl (Hydromorphone 1 Mg Inj) 1 mg IV NOW ONE Stop: 05/05/25 12:31 Last Admin: 05/05/25 13:16 Dose: 1 mg Documented By: SB Hydromorphone HCl (Hydromorphone 1 Mg Inj) 1 mg IV NOW ONE Stop: 05/05/25 15:54 Last Admin: 05/05/25 16:43 Dose: 1 mg Documented By: RB Piperacillin Sod/Tazobactam (Sod 4.5 gm/ Sodium Chloride) 100 mls @ 200 mls/hr IV STAT ONE Stop: 05/05/25 13:33 Last Infusion: 05/05/25 14:24 Dose: Infused Documented By: Admin: 05/05/25 13:45 Dose: 200 mls/hr Documented By: SB Sodium Chloride (Normal Saline 0.9%) 1,000 mls @ 1,000 mls/hr IV BOLUS ONE Stop: 05/05/25 14:33 Last Infusion: 05/05/25 14:45 Dose: Infused Documented By: Admin: 05/05/25 13:45 Dose: 1,000 mls/hr Documented By: SB Acetaminophen (Ofirmev) 1,000 mg in 100 mls @ 400 mls/hr IV NOW ONE Stop: 05/05/25 17:00 Last Infusion: 05/05/25 17:16 Dose: Infused Documented By: Admin: 05/05/25 16:48 Dose: 400 mls/hr Documented By: RB Ondansetron HCl (Ondansetron 4 Mg/2 Ml Inj) 4 mg IV NOW ONE Stop: 05/05/25 09:22 Last Admin: 05/05/25 09:35 Dose: 4 mg Documented By: LEWIS Vital Signs Vital signs: Vital Signs - 8 hr 05/05/25 10:00 05/05/25 10:00 05/05/25 10:30 Temperature Pulse Rate 84 Respiratory Rate Blood Pressure 124/58 L 114/54 L Pulse Oximetry 95 Oxygen Delivery Method Oxygen Flow Rate 05/05/25 10:30 05/05/25 10:59 05/05/25 10:59 Temperature Pulse Rate 74 64 Respiratory Rate Blood Pressure 134/62 Pulse Oximetry 91 Oxygen Delivery Method Oxygen Flow Rate 05/05/25 11:00 05/05/25 11:00 05/05/25 11:30 Temperature Pulse Rate 35 L 91 H Respiratory Rate Blood Pressure 123/61 Pulse Oximetry 94 Oxygen Delivery Method Oxygen Flow Rate 05/05/25 11:31 05/05/25 11:31 05/05/25 12:00 Temperature 97.8 F Pulse Rate 90 98 H Respiratory Rate Blood Pressure 125/62 Pulse Oximetry 95 96 Oxygen Delivery Method Room Air Oxygen Flow Rate 05/05/25 12:30 05/05/25 12:31 05/05/25 12:31 Temperature Pulse Rate 90 95 H Respiratory Rate 12 Blood Pressure 118/55 L Pulse Oximetry 91 Oxygen Delivery Method Oxygen Flow Rate 05/05/25 13:00 05/05/25 13:00 05/05/25 13:30 Temperature Pulse Rate 95 H 90 Respiratory Rate 19 13 Blood Pressure 116/54 L Pulse Oximetry 93 99 Oxygen Delivery Method Oxygen Flow Rate 05/05/25 13:30 05/05/25 14:00 05/05/25 14:00 Temperature Pulse Rate 92 H Respiratory Rate 24 Blood Pressure 106/52 L 119/59 L Pulse Oximetry 99 Oxygen Delivery Method Nasal Cannula Oxygen Flow Rate 2 05/05/25 14:30 05/05/25 14:30 05/05/25 17:28 Temperature 99.9 F H Pulse Rate 98 H Respiratory Rate 20 Blood Pressure 116/56 L Pulse Oximetry 99 Oxygen Delivery Method Room Air Oxygen Flow Rate MDM - Abdominal Pain Differential Diagnosis Differential diagnosis: Likely abdominal pain, acute appendicitis, calculus of kidney, constipation, diverticulitis, gastroenteritis, pancreatitis, small bowel obstruction and other (Urinary tract infection, pyelonephritis, diverticulitis, electrolyte abnormality) Lab Data 05/05/25 13:41 05/05/25 09:35 Labs: Lab Results 05/05/25 05/05/25 05/05/25 Range/Units 09:35 11:02 11:30 WBC 0.8 L* (4.5-11.0) X10^3/uL RBC 3.31 L (4.0-5.2) X10^6/uL Hgb 9.7 L (12.0-16.0) g/dL Hct 28.9 L (36-46) % MCV 87.2 (80-100) fL MCH 29.3 (26-34) PG MCHC 33.6 (30-36) % RDW 18.0 H (11.6-14.8) % Plt Count 237 (150-400) X10^3/uL Neut % (Auto) Not Reportable Lymph % (Auto) Not Reportable [place] % (Auto) Not Reportable Eos % (Auto) Not Reportable Baso % (Auto) Not Reportable Neut # (Auto) (4563-4190) /uL Lymph # (Auto) Not Reportable [place] # (Auto) Not Reportable Eos # (Auto) (0-450) /uL Baso # (Auto) Not Reportable Total Counted 100 Seg Neutrophils % 76.0 H (38-70) % Band Neutrophils % 2.0 L (3-7) % Lymphocytes % (Manual) 18.0 L (25-45) % Monocytes % (Manual) 4.0 (2-11) % Neutrophils # (Manual) 624 L (6402-8481) /uL RBC Morphology Not Reportable Anisocytosis 1+ H PT 10.1 (9.4-12.5) SECONDS INR 0.9 (0.9-1.3) APTT 25 L (25.1-36.5) SECONDS Sodium 136 L (137-145) mmol/L Potassium 4.1 (3.4-5.1) mmol/L Chloride 106 (98-107) mmol/L Carbon Dioxide 24 (22-32) mmol/L BUN 68 H (7-17) mg/dL Creatinine 1.66 H (0.52-1.04) mg/dL Estimated GFR 41 L (>60) mL/min BUN/Creatinine Ratio 41.0 H (6-22) Glucose 76 (70-99) mg/dL Lactate 0.9 (0.7-2.1) mmol/L Calcium 8.9 (8.4-10.2) mg/dL Magnesium 1.8 (1.6-2.3) mg/dL Total Bilirubin 0.3 (0.2-1.3) mg/dL AST 16 (14-36) IU/L ALT 19 (<35) IU/L Alkaline Phosphatase 53 (38-126) U/L Total Creatine Kinase < 20 L (30-135) U/L Troponin I 0.066 H 0.063 H (0.01-0.034) ng/mL Total Protein 6.0 L (6.3-8.2) g/dL Albumin 3.3 L (3.5-5.0) g/dL Globulin 2.7 (1.7-4.1) g/dL Albumin/Globulin Ratio 1.2 (1.0-2.8) Lipase 66 D (23-300) U/L Serum , Qual Negative (Negative) Urine RBC 1-5/hpf (0-5/HPF) Urine WBC 1-5/hpf (0-5/HPF) Ur Squamous Epith Cells 1-5 /hpf (0-5/HPF) Urine Bacteria Occasional (0-1) (None) Ur Culture Indicated? Cult not indicated Vol Urine Centrifuged 10ml (spun) /18/25 Range/Units 13:41 WBC 0.8 L* (4.5-11.0) X10^3/uL RBC 3.31 L (4.0-5.2) X10^6/uL Hgb 9.7 L (12.0-16.0) g/dL Hct 28.8 L (36-46) % MCV 87.1 (80-100) fL MCH 29.3 (26-34) PG MCHC 33.7 (30-36) % RDW 18.0 H (11.6-14.8) % Plt Count 209 (150-400) X10^3/uL Neut % (Auto) 67.6 Lymph % (Auto) 19.7 L [place] % (Auto) 11.8 Eos % (Auto) 0.3 L Baso % (Auto) 0.6 Neut # (Auto) 500 L (5032-2903) /uL Lymph # (Auto) 200 L [place] # (Auto) 100 Eos # (Auto) 0 (0-450) /uL Baso # (Auto) 0 Total Counted Seg Neutrophils % (38-70) % Band Neutrophils % (3-7) % Lymphocytes % (Manual) (25-45) % Monocytes % (Manual) (2-11) % Neutrophils # (Manual) (1349-6510) /uL RBC Morphology Anisocytosis PT (9.4-12.5) SECONDS INR (0.9-1.3) APTT (25.1-36.5) SECONDS Sodium (137-145) mmol/L Potassium (3.4-5.1) mmol/L Chloride (98-107) mmol/L Carbon Dioxide (22-32) mmol/L BUN (7-17) mg/dL Creatinine (0.52-1.04) mg/dL Estimated GFR (>60) mL/min BUN/Creatinine Ratio (6-22) Glucose (70-99) mg/dL Lactate (0.7-2.1) mmol/L Calcium (8.4-10.2) mg/dL Magnesium (1.6-2.3) mg/dL Total Bilirubin (0.2-1.3) mg/dL AST (14-36) IU/L ALT (<35) IU/L Alkaline Phosphatase (38-126) U/L Total Creatine Kinase (30-135) U/L Troponin I (0.01-0.034) ng/mL Total Protein (6.3-8.2) g/dL Albumin (3.5-5.0) g/dL Globulin (1.7-4.1) g/dL Albumin/Globulin Ratio (1.0-2.8) Lipase (23-300) U/L Serum , Qual (Negative) Urine RBC (0-5/HPF) Urine WBC (0-5/HPF) Ur Squamous Epith Cells (0-5/HPF) Urine Bacteria (None) Ur Culture Indicated? Vol Urine Centrifuged Point of care testing: Point of Care Testing Test Results Negative Urine Dip Bedside Urine Glucose Negative Bedside Urine Bilirubin - Negative Bedside Urine Ketone - Negative Urine Specific [place] 1.015 Bedside Urine Occult Blood + Bedside Urine pH 6.0 Bedside Urine Protein ++ 100 Bedside Urine Urobilinogen - Negative Bedside Urine Nitrite - Negative Bedside Urine Leukocytes - Negative Esterase Imaging Data CT scan - abdomen/pelvis: Radiologist's Impression: [address] [address] [address] Scan Report Signed Patient: Todd Chance MR#: [id number] : 1990 Acct:[id number] Age/Sex: 35 / F Date of Service: 05/05/25 Loc: ED Accession Number: [id number] Procedure: CT abdomen pelvis wo con Ordering Provider: Joey Milligan D.O. PROCEDURE: CT ABDOMEN PELVIS WO CON INDICATIONS: left sided abd pain TECHNIQUE: CT of the abdomen and pelvis was obtained without intravenous contrast. Coronal and sagittal reformats were performed. For radiation dose reduction, the following was used: automated exposure control, adjustment of mA and/or kV according to patient size. COMPARISON: [facility], CT, CT ABDOMEN PELVIS W CON, 10/29/2024, 20:22. FINDINGS: Image quality: Diagnostic. Lower Chest: No significant findings. ABDOMEN: Liver: No contour-deforming mass. Gallbladder: No radiopaque gallstones or wall thickening. Biliary ducts: No biliary dilation. Pancreas: No ductal dilation. Spleen: Size is within normal limits. Adrenal Glands: No adrenal nodules. Kidneys and Ureters: No hydronephrosis. No contour-deforming mass. Bowel and peritoneum: Inflammatory tissue is seen in the midline upper pelvis in the region of the appendiceal tip with surrounding inflammatory fat stranding soft tissue attenuation at the appendiceal tip measures up to 22 mm in diameter with adjacent focus of gas that may or may not be intraluminal. The area of inflammation also abuts the terminal ileum. No definite fluid component is seen to suggest abscess. More inferiorly, there is fat stranding surrounding a diverticulum at the sigmoid colon with associated wall thickening. No free fluid or pneumoperitoneum is seen in this location. Mild fat stranding along the left pericolic gutter adjacent to a distal descending colon diverticulum. Small focus of fat stranding is seen adjacent to a diverticulum at the hepatic flexure where there is a small focus of calcific density within the diverticulum. No signs of bowel obstruction. Ventral Wall: Tiny fat containing periumbilical hernia. Abdominal Nodes: No retroperitoneal or mesenteric adenopathy by size criteria. Vessels: Aorta and inferior vena cava are normal in size. PELVIS: Pelvic Organs: Unremarkable. Bladder: Unremarkable. Pelvic Nodes: No enlarged lymph nodes. Miscellaneous: No inguinal hernias are seen. Bones: No aggressive osseous abnormality. IMPRESSION: 1. Multifocal areas of inflammatory fat stranding in the abdomen and pelvis. The largest area of inflammation surrounds the distal tip of the appendix in the midline upper pelvis that is suspicious for acute appendicitis. Focal gas is seen in this location that may be intraluminal or due to focal rupture. No significant fluid collection is seen. 2. Additional areas of more mild inflammation are seen adjacent to diverticula in the sigmoid the colon, descending colon, and hepatic flexure that are suspicious for multifocal acute diverticulitis. ECG Data Interpretation: EKG interpreted ED physician sinus 84 beats per minute QTC 354, normal axis QRS GA interval within normal limits no STEMI MDM Narrative Medical decision making narrative: Patient is a 35-year-old female with a history of lupus nephritis with CKD, she Allie and syndrome, rheumatoid arthritis with Raynaud's with chronic joint pain, comes into the ED from home for evaluation of abdominal pain, states it is a left side, states it started few days ago. Also complaining of left shoulder pain describes it as ?sleeping on a however she denies any chest pain shortness of breath fever chills or any other GI/ symptoms time. Patient's lab work was consistent for a leukopenia of 0.8, Chem panel at baseline, patient with a history of CKD, BUN 68, creatinine 1.66, patient's initial troponin indeterminate at 0.066, with repeat down trending at 0.063 patient without any active chest pain, EKG was nonischemic in nature. Chest x-ray without any acute cardiopulmonary abnormality, CT scan is showing multifocal areas inflammatory fat stranding in the abdomen and pelvis worse in the distal tip of the appendix suspicious for acute appendicitis, there is focal gas seen as well maybe intraluminal or due to focal rupture but no significant fluid collection. CT also showing multifocal diverticulitis Was able to obtain patient has records from [facility], at that time patient's WBC at 5.61 several days ago. 1333: Given CT scan showing possible appendicitis with rupture Zosyn ordered, call placed out to General surgery 1338: Discussed case with general surgeon Dr. Beebe, states will see patient here in the emergency department for further recommendations 1400: Discussed case again with general surgeon Dr. Beebe, he believes this is more diverticulitis rather than appendicitis is not recommending surgery at this time is recommending IV antibiotics and transfer given if patient does not respond well to antibiotics would not feel comfortable having patient here. 1545: Discussed case with [facility] Dr. escoto, states to send patient ED to ED , discussed case with ED doctor Dr. Montgomery, who accepts the transfer to Ed at formerly [facility] Discharge Plan Departure Patient Disposition: [facility] Clinical Impression: Sepsis, Leukopenia, Neutropenia, Diverticulitis, Appendicitis Prescriptions: No Action carvedilol 25 mg tablet 25 mg PO BID lisinopril 10 mg tablet 10 mg PO DAILY hydralazine 25 mg tablet 25 mg PO TID furosemide 40 mg tablet 40 mg PO BID Jardiance 10 mg tablet 10 mg PO DAILY spironolactone [Aldactone] 50 mg tablet 50 mg PO BID metolazone 2.5 mg tablet 2.5 mg PO DAILY prednisone 20 mg Tablet 40 mg PO DAILY amlodipine 10 mg tablet 10 mg PO DAILY mycophenolate sodium 180 mg tablet,delayed release (DR/EC) 720 mg PO BID sulfamethoxazole-trimethoprim [Bactrim DS] 800-160 mg Tablet 1 tab PO 3XW Patient Comments: M W F Referrals: Miscellaneous,DoctorMD [Primary Care Provider, Medical]
--- NOTE | 2025-05-05 09:22 | DI.CT.S_ITS ---
PROCEDURE: CT ABDOMEN PELVIS WO CON INDICATIONS: left sided abd pain TECHNIQUE: CT of the abdomen and pelvis was obtained without intravenous contrast. Coronal and sagittal reformats were performed. For radiation dose reduction, the following was used: automated exposure control, adjustment of mA and/or kV according to patient size. COMPARISON: [facility], CT, CT ABDOMEN PELVIS W CON, 10/29/2024, 20:22. FINDINGS: Image quality: Diagnostic. Lower Chest: No significant findings. ABDOMEN: Liver: No contour-deforming mass. Gallbladder: No radiopaque gallstones or wall thickening. Biliary ducts: No biliary dilation. Pancreas: No ductal dilation. Spleen: Size is within normal limits. Adrenal Glands: No adrenal nodules. Kidneys and Ureters: No hydronephrosis. No contour-deforming mass. Bowel and peritoneum: Inflammatory tissue is seen in the midline upper pelvis in the region of the appendiceal tip with surrounding inflammatory fat stranding soft tissue attenuation at the appendiceal tip measures up to 22 mm in diameter with adjacent focus of gas that may or may not be intraluminal. The area of inflammation also abuts the terminal ileum. No definite fluid component is seen to suggest abscess. More inferiorly, there is fat stranding surrounding a diverticulum at the sigmoid colon with associated wall thickening. No free fluid or pneumoperitoneum is seen in this location. Mild fat stranding along the left pericolic gutter adjacent to a distal descending colon diverticulum. Small focus of fat stranding is seen adjacent to a diverticulum at the hepatic flexure where there is a small focus of calcific density within the diverticulum. No signs of bowel obstruction. Ventral Wall: Tiny fat containing periumbilical hernia. Abdominal Nodes: No retroperitoneal or mesenteric adenopathy by size criteria. Vessels: Aorta and inferior vena cava are normal in size. PELVIS: Pelvic Organs: Unremarkable. Bladder: Unremarkable. Pelvic Nodes: No enlarged lymph nodes. Miscellaneous: No inguinal hernias are seen. Bones: No aggressive osseous abnormality. IMPRESSION: 1. Multifocal areas of inflammatory fat stranding in the abdomen and pelvis. The largest area of inflammation surrounds the distal tip of the appendix in the midline upper pelvis that is suspicious for acute appendicitis. Focal gas is seen in this location that may be intraluminal or due to focal rupture. No significant fluid collection is seen. 2. Additional areas of more mild inflammation are seen adjacent to diverticula in the sigmoid the colon, descending colon, and hepatic flexure that are suspicious for multifocal acute diverticulitis. Approved by: Rad Motta M.D. on 05/05/2025 at 12:56
[2025-05-05] MEDS: HYDROMORPHONE 1 MG INJ IV ×3 (09:35→16:43)
[2025-05-05] MEDS: ONDANSETRON 4 MG/2 ML INJ IV (09:35)
[2025-05-05 09:46] LABS: Hematocrit 28.9 % (36-46); Hemoglobin 9.7 g/dL (12.0-16.0); Mean Corpuscular HGB Conc 33.6 % (30-36); Mean Corpuscular Hemoglobin 29.3 PG (26-34); Mean Corpuscular Volume 87.2 fL (80-100); Platelet Count 237 X10^3/uL (150-400)
[2025-05-05 09:48] LABS: Add Manual Diff / Slide Review YES
[2025-05-05 09:55] LABS: INR 0.9 (0.9-1.3); Prothrombin Time 10.1 SECONDS (9.4-12.5)
[2025-05-05 09:58] LABS: PTT Partial Thromboplastin Tim 25 SECONDS (25.1-36.5)
--- NOTE | 2025-05-05 10:00 | EKG_ITS ---
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
[2025-05-05 10:01] LABS: Creatine Kinase < 20 U/L (30-135); Lactate (Lactic Acid) 0.9 mmol/L (0.7-2.1)
[2025-05-05 10:02] LABS: Alanine Aminotransferase 19 IU/L (<35); Albumin 3.3 g/dL (3.5-5.0); Albumin Globulin Ratio 1.2 (1.0-2.8); Alkaline Phosphatase 53 U/L (38-126); Blood Urea Nitrogen 68 mg/dL (7-17); Calcium 8.9 mg/dL (8.4-10.2); Carbon Dioxide 24 mmol/L (22-32); Chloride 106 mmol/L (98-107); Estimated Glomerular Filt Rate 41 mL/min (>60); Globulin 2.7 g/dL (1.7-4.1); Glucose 76 mg/dL (70-99); HEMOLYSIS < 15 (0-50); Lipase 66 U/L (23-300); Magnesium 1.8 mg/dL (1.6-2.3); Potassium 4.1 mmol/L (3.4-5.1); Sodium 136 mmol/L (137-145); Total Protein 6.0 g/dL (6.3-8.2)
[2025-05-05 10:04] LABS: Band Neutrophils Percent 2.0 % (3-7); Lymphocytes Percent Manual 18.0 % (25-45); Monocytes Percent Manual 4.0 % (2-11); Neutrophils Absolute Manual 624 /uL (3000-5900); Segmented Neutrophils Percent 76.0 % (38-70); Total Cells Counted 100
[2025-05-05 10:05] LABS: Anisocytosis 1+
[2025-05-05 10:13] LABS: Troponin I 0.066 ng/mL (0.01-0.034)
[2025-05-05 11:03] LABS: Pregnancy Test Serum,Qual Negative (Negative)
--- NOTE | 2025-05-05 11:35 | DI.RAD.S_ITS ---
PROCEDURE: XR CHEST 1V INDICATIONS: left shoulder pain TECHNIQUE: One view of the chest was acquired. COMPARISON: [facility], CR, XR CHEST 1V, 04/28/2025, 5:15. [facility], CR, XR CHEST 1V, 03/10/2025, 21:09. FINDINGS: Surgical changes and devices: None. Lungs and pleura: Mildly low lung volumes bilaterally. No focal consolidation. No pleural effusions or pneumothorax. Mediastinum: Mediastinal contours appear normal. Heart size is normal. Bones and chest wall: No suspicious bony lesions. Overlying soft tissues appear unremarkable. IMPRESSION: No acute cardiopulmonary abnormality is seen. Approved by: Rad Motta M.D. on 05/05/2025 at 12:29
[2025-05-05 12:05] LABS: Troponin I 0.063 ng/mL (0.01-0.034)
[2025-05-05 12:21] LABS: Culture Indicated Urine Cult Not Indicated
--- NOTE | 2025-05-05 13:27 | PC.NURSE ---
Patient medicated per DEC. Her oxygen saturation drops to 84% on RA. This RN checks on patient. Encourages deep breaths. Patient sat upright. Placed on 2L via nasal cannula. Oxygen saturation increases to 99% on 2L via nasal cannula.
[2025-05-05] MEDS: PIPERACILLIN/TAZO 4.5 GM in SODIUM CHLORIDE 0.9% 100 ML IV (13:45)
[2025-05-05] MEDS: SODIUM CHLORIDE 0.9% 1,000 ML 1000 ML IV ×2 (13:45→18:06)
[2025-05-05 13:56] LABS: Add Manual Diff / Slide Review NO; Hematocrit 28.8 % (36-46); Hemoglobin 9.7 g/dL (12.0-16.0); Lymphocytes Absolute Auto 200 /uL (1100-4500); Mean Corpuscular HGB Conc 33.7 % (30-36); Mean Corpuscular Hemoglobin 29.3 PG (26-34); Mean Corpuscular Volume 87.1 fL (80-100); Platelet Count 209 X10^3/uL (150-400)
--- NOTE | 2025-05-05 14:34 | PM.CN.IH.1 ---
History of Present Illness Consult details Date Patient Seen: 05/05/25 Time Patient Seen: 14:34 Chief complaint: Severe, abdominal, shoulder, and neck pain Narrative: The patient is an unfortunate 35-year-old female, with multiple comorbidities to include lupus nephritis, CKD, Raynaud's phenomenon, rheumatoid arthritis, and pericarditis, presents today with about a 40 hour history of abdominal pain. The patient states the pain started in left lower quadrant and was severe and constant. She states that movement makes the pain worse and states lying still improve and possibly heat. She denies any nausea or vomiting but does describe anorexia. She has been having frequent loose stools for the past 48 hours. She denies fevers and chills. Meds Home Medications and Allergies Home Medications ?Medication ?Instructions ?Recorded ?Confirmed ?Type amlodipine 10 mg tablet 10 mg PO DAILY 03/04/25 04/28/25 History mycophenolate sodium 180 mg 720 mg PO BID 03/04/25 04/28/25 History tablet,delayed release prednisone 20 mg tablet 40 mg PO DAILY 03/04/25 04/28/25 History sulfamethoxazole 800 1 tab PO 3XW 03/04/25 04/28/25 History mg-trimethoprim 160 mg tablet (Bactrim DS) carvedilol 25 mg tablet 25 mg PO BID 04/05/25 04/28/25 History empagliflozin 10 mg tablet 10 mg PO DAILY 04/05/25 04/28/25 History (Jardiance) furosemide 40 mg tablet 40 mg PO BID 04/05/25 04/28/25 History hydralazine 25 mg tablet 25 mg PO TID Blood Pressure 04/05/25 04/28/25 History lisinopril 10 mg tablet 10 mg PO DAILY 04/05/25 04/28/25 History metolazone 2.5 mg tablet 2.5 mg PO DAILY 04/05/25 04/28/25 History spironolactone 50 mg tablet 50 mg PO BID 04/05/25 04/28/25 History (Aldactone) Allergies Allergy/AdvReac Type Severity Reaction Status Date / Time levetiracetam (From [facility]) Allergy Severe Anaphylaxis Verified 05/05/25 09:23 Review of Systems Review of Systems ROS: Yes All systems reviewed with the patient and are negative except as otherwise documented Exam Vital Signs (past 8 hours): - 05/05/25 09:13 05/05/25 09:18 05/05/25 09:19 Temperature 98.8 F Pulse Rate 90 90 Respiratory Rate 14 Blood Pressure 134/63 Pulse Oximetry 97 96 97 Oxygen Delivery Method Room Air Oxygen Flow Rate 05/05/25 09:19 05/05/25 09:30 05/05/25 09:31 Temperature Pulse Rate 84 Respiratory Rate Blood Pressure 134/63 120/60 Pulse Oximetry 95 Oxygen Delivery Method Oxygen Flow Rate 05/05/25 09:31 05/05/25 10:00 05/05/25 10:00 Temperature Pulse Rate 84 84 Respiratory Rate Blood Pressure 124/58 L Pulse Oximetry 97 95 Oxygen Delivery Method Oxygen Flow Rate 05/05/25 10:30 05/05/25 10:30 05/05/25 10:59 Temperature Pulse Rate 74 Respiratory Rate Blood Pressure 114/54 L 134/62 Pulse Oximetry 91 Oxygen Delivery Method Oxygen Flow Rate 05/05/25 10:59 05/05/25 11:00 05/05/25 11:00 Temperature Pulse Rate 64 35 L Respiratory Rate Blood Pressure 123/61 Pulse Oximetry Oxygen Delivery Method Oxygen Flow Rate 05/05/25 11:30 05/05/25 11:31 05/05/25 11:31 Temperature Pulse Rate 91 H 90 Respiratory Rate Blood Pressure 125/62 Pulse Oximetry 94 95 Oxygen Delivery Method Room Air Oxygen Flow Rate 05/05/25 12:00 05/05/25 12:30 05/05/25 12:31 Temperature 97.8 F Pulse Rate 98 H 90 Respiratory Rate Blood Pressure 118/55 L Pulse Oximetry 96 Oxygen Delivery Method Oxygen Flow Rate 05/05/25 12:31 05/05/25 13:00 05/05/25 13:00 Temperature Pulse Rate 95 H 95 H Respiratory Rate 12 19 Blood Pressure 116/54 L Pulse Oximetry 91 93 Oxygen Delivery Method Oxygen Flow Rate 05/05/25 13:30 05/05/25 13:30 05/05/25 14:00 Temperature Pulse Rate 90 Respiratory Rate 13 Blood Pressure 106/52 L 119/59 L Pulse Oximetry 99 Oxygen Delivery Method Oxygen Flow Rate 05/05/25 14:00 Temperature Pulse Rate 92 H Respiratory Rate 24 Blood Pressure Pulse Oximetry 99 Oxygen Delivery Method Nasal Cannula Oxygen Flow Rate 2 Oxygen Delivery Method Nasal Cannula Oxygen Flow Rate 2 Narrative Exam Narrative: The patient has a cushingoid appearing female who appears to be ill HEENT is remarkable for a torres facies Neck is supple Cardiac reveals reveals a regular rate and rhythm Lungs are clear to auscultation bilaterally Abdomen is obese, soft, diffusely tender with no guarding or rigidity. There are no peritoneal signs. Bowel sounds are active. Extremities with full range of motion. Objective Imaging CT scan - abdomen: Radiologist's impression: PROCEDURE: CT ABDOMEN PELVIS WO CON INDICATIONS: left sided abd pain TECHNIQUE: CT of the abdomen and pelvis was obtained without intravenous contrast. Coronal and sagittal reformats were performed. For radiation dose reduction, the following was used: automated exposure control, adjustment of mA and/or kV according to patient size. COMPARISON: [facility], CT, CT ABDOMEN PELVIS W CON, 10/29/2024, 20:22. FINDINGS: Image quality: Diagnostic. Lower Chest: No significant findings. ABDOMEN: Liver: No contour-deforming mass. Gallbladder: No radiopaque gallstones or wall thickening. Biliary ducts: No biliary dilation. Pancreas: No ductal dilation. Spleen: Size is within normal limits. Adrenal Glands: No adrenal nodules. Kidneys and Ureters: No hydronephrosis. No contour-deforming mass. Bowel and peritoneum: Inflammatory tissue is seen in the midline upper pelvis in the region of the appendiceal tip with surrounding inflammatory fat stranding soft tissue attenuation at the appendiceal tip measures up to 22 mm in diameter with adjacent focus of gas that may or may not be intraluminal. The area of inflammation also abuts the terminal ileum. No definite fluid component is seen to suggest abscess. More inferiorly, there is fat stranding surrounding a diverticulum at the sigmoid colon with associated wall thickening. No free fluid or pneumoperitoneum is seen in this location. Mild fat stranding along the left pericolic gutter adjacent to a distal descending colon diverticulum. Small focus of fat stranding is seen adjacent to a diverticulum at the hepatic flexure where there is a small focus of calcific density within the diverticulum. No signs of bowel obstruction. Ventral Wall: Tiny fat containing periumbilical hernia. Abdominal Nodes: No retroperitoneal or mesenteric adenopathy by size criteria. Vessels: Aorta and inferior vena cava are normal in size. PELVIS: Pelvic Organs: Unremarkable. Bladder: Unremarkable. Pelvic Nodes: No enlarged lymph nodes. Miscellaneous: No inguinal hernias are seen. Bones: No aggressive osseous abnormality. IMPRESSION: 1. Multifocal areas of inflammatory fat stranding in the abdomen and pelvis. The largest area of inflammation surrounds the distal tip of the appendix in the midline upper pelvis that is suspicious for acute appendicitis. Focal gas is seen in this location that may be intraluminal or due to focal rupture. No significant fluid collection is seen. 2. Additional areas of more mild inflammation are seen adjacent to diverticula in the sigmoid the colon, descending colon, and hepatic flexure that are suspicious for multifocal acute diverticulitis. Labs 05/05/25 13:41 05/05/25 09:35 Labs: Laboratory Results - last 24 hr 05/05/25 05/05/25 05/05/25 09:35 11:02 11:30 WBC 0.8 L* RBC 3.31 L Hgb 9.7 L Hct 28.9 L MCV 87.2 MCH 29.3 MCHC 33.6 RDW 18.0 H Plt Count 237 Neut % (Auto) Not Reportable Lymph % (Auto) Not Reportable Stark % (Auto) Not Reportable Eos % (Auto) Not Reportable Baso % (Auto) Not Reportable Neut # (Auto) Lymph # (Auto) Not Reportable Stark # (Auto) Not Reportable Eos # (Auto) Baso # (Auto) Not Reportable Total Counted 100 Seg Neutrophils % 76.0 H Band Neutrophils % 2.0 L Lymphocytes % (Manual) 18.0 L Monocytes % (Manual) 4.0 Neutrophils # (Manual) 624 L RBC Morphology Not Reportable Anisocytosis 1+ H PT 10.1 INR 0.9 APTT 25 L Sodium 136 L Potassium 4.1 Chloride 106 Carbon Dioxide 24 BUN 68 H Creatinine 1.66 H Estimated GFR 41 L BUN/Creatinine Ratio 41.0 H Glucose 76 Lactate 0.9 Calcium 8.9 Magnesium 1.8 Total Bilirubin 0.3 AST 16 ALT 19 Alkaline Phosphatase 53 Total Creatine Kinase < 20 L Troponin I 0.066 H 0.063 H Total Protein 6.0 L Albumin 3.3 L Globulin 2.7 Albumin/Globulin Ratio 1.2 Lipase 66 D Serum , Qual Negative Urine RBC 1-5/hpf Urine WBC 1-5/hpf Ur Squamous Epith Cells 1-5 /hpf Urine Bacteria Occasional (0-1) Ur Culture Indicated? Cult not indicated Vol Urine Centrifuged 10ml (spun) 05/05/25 13:41 WBC 0.8 L* RBC 3.31 L Hgb 9.7 L Hct 28.8 L MCV 87.1 MCH 29.3 MCHC 33.7 RDW 18.0 H Plt Count 209 Neut % (Auto) 67.6 Lymph % (Auto) 19.7 L Stark % (Auto) 11.8 Eos % (Auto) 0.3 L Baso % (Auto) 0.6 Neut # (Auto) 500 L Lymph # (Auto) 200 L Stark # (Auto) 100 Eos # (Auto) 0 Baso # (Auto) 0 Total Counted Seg Neutrophils % Band Neutrophils % Lymphocytes % (Manual) Monocytes % (Manual) Neutrophils # (Manual) RBC Morphology Anisocytosis PT INR APTT Sodium Potassium Chloride Carbon Dioxide BUN Creatinine Estimated GFR BUN/Creatinine Ratio Glucose Lactate Calcium Magnesium Total Bilirubin AST ALT Alkaline Phosphatase Total Creatine Kinase Troponin I Total Protein Albumin Globulin Albumin/Globulin Ratio Lipase Serum , Qual Urine RBC Urine WBC Ur Squamous Epith Cells Urine Bacteria Ur Culture Indicated? Vol Urine Centrifuged [facility] Medical History (Updated 05/05/25 @ 14:45 by Willy Beebe MD) Raynaud disease HTN (hypertension) Normocytic anemia Cushingoid side effect of steroids Chronic pain Rheumatoid arthritis Sjogren syndrome Lupus nephritis Family History (Updated 04/28/25 @ 18:12 by Phan Sweet MD) Family/Other Lupus Father No problems noted. Mother No problems noted. Daughter No problems noted. Social History household members: spouse and family Tobacco & Substance Use Smoking Status: Unknown if ever smoked alcohol intake: never Assessment & Plan Assessment and plan (1) Left lower quadrant pain: Status: Acute (2) Diverticulitis: Status: Acute (3) Leukopenia: Status: Acute Plan Unfortunate patient multiple comorbidities now presents with left lower quadrant abdominal pain. After review of the CT scan with the radiologist both the appendiceal abnormality and the sigmoid diverticular abnormality or within the same area. Given the fact that the patient start with left lower quadrant pain, I would favor diverticulitis. Given the patient's significant comorbidities, her leukopenia, as well as her immunosuppression, I believe she would be better served at a referral center where there is bi analyst and Infectious Disease. I do not believe she is a candidate for surgery at this time. Time-Based Coding :: [TOTAL MINUTES] spent with patient and on the chart (including review of chart, obtaining history, exam, reviewing outside data, placing orders, documenting exam and treatment plan, and counseling patient) on [DATE]. PROFEE Charge Codes Inpatient or Observation consultation: [id number]
[2025-05-05] MEDS: ACETAMINOPHEN IV 1,000 MG/100 ML VIAL 400 MG IV (16:48)
--- NOTE | 2025-05-05 18:07 | PC.NURSE ---
180: Patient blood pressure lowers to 96 systolic. Patient is alert and complain of being hot. Pt has noticeable beads of sweat on forehead and bridge of nose. Provider Chel made aware of patient vitals and presentation. New orders as per DEC. Patient medicated as per DEC.
== END 2025-05-05 18:36 | disposition short-term general hospital (02) ==
PROVIDERS: Emergency Provider Student in an Organized Health Care Education/Training Program
DX: K37 Unspecified appendicitis (principal); K57.92 Diverticulitis of intestine, part unspecified, without perforation or abscess without bleeding; D72.819 Decreased white blood cell count, unspecified; A41.9 Sepsis, unspecified organism; M25.512 Pain in left shoulder; R10.32 Left lower quadrant pain
CPT/HCPCS: 36415; 71045; 74176; 80053; 81003; 81015; 81025; 82550; 83605; 83690; 83735; 84484; 84703; 85007; 85025; 85610; 85730; 93005; 96365; 96367; 96375; 96376; 99285; J0131; J1171; J2405; J2543